=== PATIENT | female | born 1965 | race Caucasian/White ===

== ENCOUNTER 2017-03-20 11:18 | Emergency (ER) | payer BC ==
[2017-03-20 11:28] VITALS: BP 180/97
[2017-03-20] MEDS ORDERED: Ibuprofen TAB* 600 MG PO ONE (12:51)
--- NOTE | 2017-03-20 12:52 | UC ---
Knee Pain HPI - HPI Summary HPI Summary: UNK LOR, 2 days of severe right medial knee pain, mild swelling, knee feels like it wants to give out. - History of Current Complaint Chief Complaint: UCLowerExtremity Stated Complaint: KNEE PAIN Time Seen by Provider: 03/20/17 12:41 Hx Obtained From: Patient Hx Last Menstrual Period: Hyst ' ?: No Onset/Duration: Sudden Onset, Lasting Days Severity Initially: Moderate Severity Currently: Severe Character: Sharp, Aching Aggravating Factor(s): Movement, Weight Bearing, Prolonged Standing, Stairs Alleviating Factor(s): Nothing Associated Signs And Symptoms: Positive: Swelling Able to Bear Weight: Yes - Risk Factors Septic Arthritis Risk Factor: Negative Gout Risk Factor: Negative - Allergies/Home Medications Allergies/Adverse Reactions: Allergies Allergy/AdvReac Type Severity Reaction Status Date / Time Sulfa Drugs Allergy Hives Verified 07/12/16 15:32 PMH/Surg Hx/FS Hx/Imm Hx Previously Healthy: Yes Other History Of: Negative For: HIV, Hepatitis B, Hepatitis C, Anticoagulant Therapy - Surgical History Surgical History: Yes Surgery Procedure, Year, and Place: stent placement for kidney stones 2002 AND REMOVED 3 WEEKS LATER, HYSTERECTOMY; R shoulder surgeries X2; R foot x 2; 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 2012 [facility] - Family History Known Family History: Positive: None, Hypertension - Social History Alcohol Use: Rare Substance Use Type: None Smoking Status (MU): Former Smoker Have You Smoked in the Last Year: No When Did the Patient Quit Smoking/Using Tobacco: jun 2011 Household Exposure Type: Cigarettes - Immunization History Most Recent Influenza Vaccination: 2013 Most Recent Tetanus Shot: <5 YEARS Review of Systems Constitutional: Negative Skin: Negative Eyes: Negative ENT: Negative Respiratory: Negative Cardiovascular: Negative Gastrointestinal: Negative Genitourinary: Negative Motor: Negative Neurovascular: Negative Musculoskeletal: Arthralgia, Decreased ROM, Edema, Myalgia Neurological: Negative Psychological: Negative All Other Systems Reviewed And Are Negative: Yes Physical Exam Triage Information Reviewed: Yes Appearance: Well-Appearing, No Pain Distress, Pain Distress Vital Signs: Initial Vital Signs Temp 97.6 F 03/20/17 11:24 Pulse 100 03/20/17 11:24 Resp 20 03/20/17 11:24 BP 180/97 03/20/17 11:24 Pulse Ox 100 03/20/17 11:24 Vital Signs Reviewed: Yes Eye Exam: Normal Eyes: Positive: Conjunctiva Clear ENT: Positive: Hearing grossly normal, Pharynx normal, TMs normal Dental Exam: Normal Neck exam: Normal Respiratory Exam: Normal Cardiovascular Exam: Normal Abdominal Exam: Normal Bowel Sounds: Positive: Present Musculoskeletal: Positive: Strength Limited @ - in right knee, ROM Limited @ - in right knee due to pain, Edema @ - mild in the joint Neurological Exam: Normal Neurological: Positive: Alert, Muscle Tone Normal Psychological Exam: Normal Skin Exam: Normal Knee Pain Course/Dx - Course Course Of Treatment: hx obtained, exam performed, meds reviewed, xray obtianed, ibuprofen given, no bony injury noted. treated for knee sparin - Differential Dx/Diagnosis Differential Diagnosis/HQI/PQRI: Dislocation, Fracture (Closed), Sprain, Strain Provider Diagnoses: righe MCL knee injury Discharge - Discharge Plan Condition: Stable Disposition: HOME Patient Education Materials: Knee Sprain (ED) Referrals: Pawan Lynn MD [Medical Doctor] - Maricarmen Cruz MD [Primary Care Provider] - Additional Instructions: 1. Use the knee immobilizer and rest the leg for the next week 2. I recommend follow up with orthopedics if you are not improving in the next week. 3. Use the crutches to off load your body weight from the leg. 4. elevate with a pillow under the knee at rest.
--- NOTE | 2017-03-20 13:35 | RAD ---
HISTORY: Right knee pain and instability COMPARISONS: None VIEWS: 4, Frontal, lateral, axial, and oblique views of the right knee FINDINGS: BONE DENSITY: Normal. BONES: There is no displaced fracture. JOINTS: There is no arthropathy. There is no suprapatellar joint effusion or lipohemarthrosis. ALIGNMENT: There is no dislocation. SOFT TISSUES: Unremarkable. OTHER FINDINGS: None. IMPRESSION: NO ACUTE OSSEOUS INJURY. IF SYMPTOMS PERSIST, RECOMMEND REPEAT IMAGING.
== END 2017-03-20 13:48 | disposition home or self-care (01) ==
LOC: UCEAST 11:18
DX: Z87.891 Personal history of nicotine dependence (principal); S89.81XA Other specified injuries of right lower leg, initial encounter
CPT/HCPCS: 99213; A9270-GY; G0463

== ENCOUNTER 2017-05-16 10:06 | Emergency (ER) | payer BC ==
[2017-05-16 10:18] VITALS: BP 162/88
--- NOTE | 2017-05-16 10:45 | UC ---
Headache HPI - HPI Summary HPI Summary: This is a 52 yo female with h/o migraine HAs and hypothyroidism who presents with c/o MONTANA. Her MONTANA started ~5d ago with her typical migraine symptoms of R sided pain, nausea and R eye watering. She used her home Imitrex and Aleve with little relief until yesterday morning. She states that she vomited and started feeling better the rest of the day. Her MONTANA then returned overnight but changed in quality including bilateral ear pain, mild dizziness, muffled hearing and nasal congestion. No cough, ST, CP or SOB. No fevers. She states her migraines have been successfully treated in the past with a nerve block and she has a call in to her neurologists office for another. - History Of Current Complaint Chief Complaint: UCHeadache Stated Complaint: HEADACHE Hx Last Menstrual Period: - Allergies/Home Medications Allergies/Adverse Reactions: Allergies Allergy/AdvReac Type Severity Reaction Status Date / Time Sulfa Drugs Allergy Hives Verified 05/16/17 10:18 PMH/Surg Hx/FS Hx/Imm Hx Previously Healthy: No Endocrine History: Thyroid Disease Neurological History: Migraine Other History Of: Negative For: HIV, Hepatitis B, Hepatitis C, Anticoagulant Therapy - Surgical History Surgical History: Yes Surgery Procedure, Year, and Place: stent placement for kidney stones 2002 AND REMOVED 3 WEEKS LATER, HYSTERECTOMY; R shoulder surgeries X2; R foot x 2; 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 2012 [facility] - Family History Known Family History: Positive: Hypertension - Social History Alcohol Use: Rare Substance Use Type: None Smoking Status (MU): Former Smoker Have You Smoked in the Last Year: No When Did the Patient Quit Smoking/Using Tobacco: jun 2011 Household Exposure Type: Cigarettes - Immunization History Most Recent Influenza Vaccination: 2013 Most Recent Tetanus Shot: <5 YEARS Review of Systems Constitutional: Negative Skin: Negative Eyes: Negative ENT: Ear Ache, Sinus Congestion Respiratory: Negative Cardiovascular: Negative Gastrointestinal: Nausea Genitourinary: Negative Motor: Negative Neurovascular: Negative Musculoskeletal: Negative Neurological: Negative Psychological: Negative All Other Systems Reviewed And Are Negative: Yes Physical Exam Triage Information Reviewed: Yes Appearance: Well-Appearing Vital Signs: Initial Vital Signs Temp 98.1 F 05/16/17 10:14 Resp 18 05/16/17 10:14 BP 162/88 05/16/17 10:14 Pulse Ox 98 05/16/17 10:14 Vital Signs Reviewed: Yes Eye Exam: Normal Eyes: Positive: Conjunctiva Clear ENT: Positive: Hearing grossly normal, Pharynx normal, Nasal congestion, TM dull - mild retraction. Negative: Pharyngeal erythema, Nasal drainage, Tonsillar swelling, Tonsillar exudate Neck: Positive: Supple, Nontender, No Lymphadenopathy Respiratory: Positive: Lungs clear, Normal breath sounds. Negative: Crackles, Rhonchi, Wheezing Cardiovascular: Positive: RRR, No Murmur Abdomen Description: Positive: Nontender, No Organomegaly, Soft Musculoskeletal Exam: Normal Musculoskeletal: Positive: Strength Intact Neurological Exam: Normal Neurological: Positive: Alert Psychological Exam: Normal Skin Exam: Normal Skin: Negative: rashes Headache Course/Dx - Course Course Of Treatment: This is a 52 yo female with h/o migraine HAs who presents with c/o MONTANA. Her typical migraine sxs have resolved and she now has complaints of ear pain and congestion. Recommend treatment for serous otitis with nasal decongestants and f/u with her neurologist for repeat nerve block - Differential Dx/Diagnosis Differential Diagnosis/HQI/PQRI: Migraine, Sinus Headache, Tension Headache Provider Diagnoses: 1. Sinus MONTANA. 2. Serous otitis media. 3. Migraine MONTANA Discharge - Discharge Plan Condition: Stable Disposition: HOME Patient Education Materials: Serous Otitis Media (ED) Forms: *Work Release Referrals: Maricarmen Cruz MD [Primary Care Provider] - Additional Instructions: Instructions: 1. Cont to use Aleve as needed for pain 2. Follow up with your neurologist regarding the planned nerve block 3. Take your Flonase nasal spray (1 spray in each nostril twice daily) 4. Start Afrin nasal spray, follow direction on the bottle for up to 3d. Do not use for longer than 3d to avoid rebound congestion
== END 2017-05-16 10:37 | disposition home or self-care (01) ==
LOC: UCEAST 10:06
DX: H65.93 Unspecified nonsuppurative otitis media, bilateral (principal); G43.909 Migraine, unspecified, not intractable, without status migrainosus; E07.9 Disorder of thyroid, unspecified; Z88.2 Allergy status to sulfonamides; Z87.891 Personal history of nicotine dependence
CPT/HCPCS: 99211; G0463

== ENCOUNTER 2017-08-13 12:05 | Emergency (ER) | payer BC ==
[2017-08-13 12:25] VITALS: BP 140/76
--- NOTE | 2017-08-13 13:25 | UC ---
Complaint Female HPI - HPI Summary HPI Summary: 52 y/o female presents to urgent care c/o lower back pain, frequency and burning on urination since this morning at 0200. Pain was 8/10 this morning with one episode of vomiting . She took and Aleve for pain which helped. Pain is now 4/10 sharp and radiating to the groin. Pt has Hx of recurrent kidney stones. Pt denies fever, abdominal pain, SOB, chest pain, N/V/D, vaginal discharge or HX of STD's. Pt had Hysterectomy on 1994 - History Of Current Complaint Chief Complaint: UCAbdominalPain Stated Complaint: ABDOMINAL PAIN Time Seen by Provider: 08/13/17 13:06 Hx Obtained From: Patient Hx Last Menstrual Period: ?: No Onset/Duration: Sudden Onset, Lasting Hours - 10 hrs, Still Present Timing: Intermittent, Lasting Seconds Severity Initially: Moderate Severity Currently: Moderate Pain Intensity: 4 Pain Scale Used: 0-10 Numeric Character: Burning, Colicy Aggravating Factor(s): Urination Alleviating Factor(s): Meds Associated Signs And Symptoms: Positive: Back Pain. Negative: Fever, Vaginal Bleeding/Discharge - Risk Factors Ectopic Risk Factor: Negative Ovarian Torsion Risk Factor: Negative - Allergies/Home Medications Allergies/Adverse Reactions: Allergies Allergy/AdvReac Type Severity Reaction Status Date / Time Sulfa Drugs Allergy Hives Verified 08/13/17 12:25 Home Medications: Home Medications Albuterol HFA INHALER* [Ventolin HFA Inhaler*] 2 puff PO SEE INSTRUCTIONS PRN [History Confirmed 08/13/17] PMH/Surg Hx/FS Hx/Imm Hx Previously Healthy: Yes Endocrine History: Hypothyroidism GI/ History: Kidney Stones Neurological History: Migraine Other History Of: Negative For: HIV, Hepatitis B, Hepatitis C, Anticoagulant Therapy - Surgical History Surgical History: Yes Surgery Procedure, Year, and Place: stent placement for kidney stones 2002 AND REMOVED 3 WEEKS LATER, HYSTERECTOMY; R shoulder surgeries X2; R foot x 2; 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 2012 [facility] - Family History Known Family History: Positive: Hypertension - Social History Occupation: Employed Full-time Lives: With Family Alcohol Use: Rare Substance Use Type: None Smoking Status (MU): Former Smoker Have You Smoked in the Last Year: No When Did the Patient Quit Smoking/Using Tobacco: jun 2011 Household Exposure Type: Cigarettes - Immunization History Most Recent Influenza Vaccination: 2013 Most Recent Tetanus Shot: <5 YEARS Review of Systems Constitutional: Negative Skin: Negative Eyes: Negative ENT: Negative, Dental Pain Cardiovascular: Negative Gastrointestinal: Vomiting - 1 episode this morning, Other - suprapubic pain Genitourinary: Dysuria, Frequency, Urgency Motor: Negative Neurovascular: Negative Musculoskeletal: Negative Neurological: Negative Psychological: Negative Is Patient Immunocompromised?: No All Other Systems Reviewed And Are Negative: Yes Physical Exam Triage Information Reviewed: Yes Vital Signs: Initial Vital Signs Temp 98.4 F 08/13/17 12:20 Pulse 62 08/13/17 12:20 Resp 16 08/13/17 12:20 BP 140/76 08/13/17 12:20 Pulse Ox 98 08/13/17 12:20 - Additional Comments VITAL SIGNS: Reviewed. GENERAL: Patient is a well developed and nourished female who is sitting comfortable in the examining table. Patient is not in any acute respiratory distress. HEAD AND FACE: No signs of trauma. No ecchymosis, hematomas or skull depressions. No sinus tenderness. EYES: PERRLA, EOMI x 2, No injected conjunctiva, clear watery eyes, no nystagmus. No photophobia. EARS: Hearing grossly intact. Ear canals and tympanic membranes are within normal limits. MOUTH: pharynx with no erythema, no exudates,no palatal petechiae. no B/L tonsillar enlargement Uvula in midline. NECK: Supple, trachea is midline, no lymphadenopathy, no JVD, no carotid bruit, no c-spine tenderness, neck with full ROM. CHEST: Symmetric, no tenderness at palpation LUNGS: Clear to auscultation bilaterally. No wheezing or crackles. CVS: Regular rate and rhythm, S1 and S2 present, no murmurs or gallops appreciated. ABDOMEN: Soft, non-tender. No signs of distention. No rebound no guarding, and no masses palpated. Bowel sounds are normal. BACK:no scoliosis or lesions, non tender to palpation, RT CVA tenderness. No LF CVA tenderness EXTREMITIES: FROM in all major joints, no edema, no cyanosis or clubbing. NEURO: Alert and oriented x 3. No acute neurological deficits. Speech is normal and follows commands. SKIN: Dry and warm Complaint Female Dx - Course Course Of Treatment: 52 y/o female presents to urgent care c/o lower back pain, frequency and burning on urination since this morning at 0200. Pain was 8/10 this morning with one episode of vomiting . She took and Aleve for pain which helped. Pain is now 4/10 sharp and radiating to the groin. Pt has Hx of recurrent kidney stones. Pt denies fever, abdominal pain, SOB, chest pain, N/V/D ,vaginal discharge or HX of STD's. Pt had Hysterectomy on 1994. Hx obtained. Pt with RT CVA tenderness on examination. UA ordered. UA results: trace of blood. Pt with Hx of recurrent kidney stones. At this moment there is not CT available to r/o kidney stones. Pt strongly advised to go Immediately to the ER for further images and evaluation to r/o kidney stones and the risks of not seeking further treatment. Pt offered ambulance. Pt is hemodynamically stable at this moment. She stated she will go by private car. I spoke to Dr Marie at [facility] and he accepted the patient. Pt left the clinic A&OX3. - Differential Dx/Diagnosis Differential Diagnosis/HQI/PQRI: Cervicitis, Pelvic Inflammatory Disease, Renal Colic, Sexually Transmitted Disease, Ureteral Stone, Urinary Tract Infection Provider Diagnoses: 1- Flank pain. 2-Dysuria. 3- Hematuria - Physician Notifications Discussed Patient Care With: Roland Anne - DR anne agreed with plan of care Discharge - Discharge Plan Condition: Stable Disposition: OTHER Discharge Disposition Comment: Pt strongly recommeded to go immediately to [facility] to r/o kidney stones. Patient Education Materials: Kidney Stones (ED) Referrals: Maricarmen Crzu MD [Primary Care Provider] - Additional Instructions: 1-Please go immediately to the ER further images , evaluation and treatment to r /o kidney stones
== END 2017-08-13 13:20 ==
LOC: UCEAST 12:05
DX: R10.9 Unspecified abdominal pain (principal); R30.0 Dysuria; R31.9 Hematuria, unspecified; Z87.442 Personal history of urinary calculi; Z87.891 Personal history of nicotine dependence
CPT/HCPCS: 81003; 99212; G0463

== ENCOUNTER 2017-08-13 13:42 | Emergency (ER) | payer BC ==
[2017-08-13] MEDS ORDERED: Ondansetron INJ* 2 MG/ML VIAL IV ONE (14:01)
[2017-08-13] MEDS ORDERED: Ketorolac INJ* 30 MG/ML 1 ML VIAL IV PUSH ONE (14:01)
--- NOTE | 2017-08-13 14:23 | ED ---
GI/ HPI - HPI Summary HPI Summary: 52F presents with right flank pain since this morning. She states she has history of kidney stones and that this is similar pain. She states radiates from right flank to groin. She was seen at urgent care and has blood in urine. She admits to nausea. She denies any vomiting, diarrhea or constipation. She has had uterus removed. She denies any chest pain or SOB. She denies any dysuria, urgency, or frequency. She denies any fevers. She took some advil this morning which helped. She was followed by dr silveira. - History of Current Complaint Chief Complaint: EDFlankPain Time Seen by Provider: 08/13/17 13:51 Stated Complaint: LOW BACK PAIN/BLOOD IN URINE Hx Last Menstrual Period: Pain Intensity: 7 - Allergy/Home Medications Allergies/Adverse Reactions: Allergies Allergy/AdvReac Type Severity Reaction Status Date / Time Sulfa Drugs Allergy Hives Verified 08/13/17 12:25 PMH/Surg Hx/FS Hx/Imm Hx Endocrine/Hematology History: Reports: Hx Thyroid Disease Denies: Hx Anticoagulant Therapy, Hx Diabetes Cardiovascular History: Denies: Hx Congestive Heart Failure, Hx Deep Vein Thrombosis, Hx Hypertension , Hx Myocardial Infarction, Hx Pacemaker/ICD Respiratory History: Reports: Hx Asthma Denies: Hx Chronic Obstructive Pulmonary Disease (COPD), Hx Lung Cancer, Hx Pneumonia, Hx Pulmonary Embolism GI History: Denies: Hx Gall Bladder Disease, Hx Gastrointestinal Bleed, Hx Ulcer, Hx Urosepsis, Other GI Disorders History: Reports: Hx Kidney Stones Denies: Hx Dialysis, Hx Renal Disease Sensory History: Denies: Hx Hearing Aid Neurological History: Reports: Hx Migraine - states she has cluster headaches Denies: Hx Dementia, Hx Seizures, Hx Transient Ischemic Attacks (TIA) Psychiatric History: Denies: Hx Anxiety, Hx Depression, Hx Panic Disorder, Hx Schizophrenia, Hx Bipolar Disorder - Cancer History Hx Chemotherapy: No Hx Radiation Therapy: No - Surgical History Surgery Procedure, Year, and Place: stent placement for kidney stones 2002 AND REMOVED 3 WEEKS LATER, HYSTERECTOMY; R shoulder surgeries X2; R foot x 2; 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 2013 [address] [facility] Infectious Disease History: No Infectious Disease History: Denies: Hx Clostridium Difficile, Hx Hepatitis, Hx Human Immunodeficiency Virus (HIV), Hx of Known/Suspected MRSA, Hx Shingles, Hx Tuberculosis, Hx Known/ Suspected VRE, Hx Known/Suspected VRSA, History Other Infectious Disease, Traveled Outside the [place] in Last 30 Days - Family History Known Family History: Positive: Hypertension - Social History Alcohol Use: Rare Substance Use Type: Reports: None Smoking Status (MU): Former Smoker Have You Smoked in the Last Year: No Review of Systems Negative: Fever Negative: Chest Pain Negative: Shortness Of Breath Positive: Abdominal Pain - right sided, Nausea. Negative: Vomiting, Diarrhea Positive: flank pain All Other Systems Reviewed And Are Negative: Yes Physical Exam Triage Information Reviewed: Yes Vital Signs On Initial Exam: Initial Vitals Temp Pulse Resp BP Pulse Ox 97.1 F 60 15 146/97 98 08/13/17 13:45 08/13/17 13:45 08/13/17 13:45 08/13/17 13:45 08/13/17 13:45 Vital Signs Reviewed: Yes Appearance: Positive: Well-Appearing Skin: Positive: Warm, Dry Head/Face: Positive: Normal Head/Face Inspection Eyes: Positive: Normal, EOMI, MADAI, Conjunctiva Clear ENT: Positive: Normal ENT inspection, Pharynx normal, TMs normal Respiratory/Lung Sounds: Positive: Clear to Auscultation, Breath Sounds Present Cardiovascular: Positive: Normal, RRR Abdomen Description: Positive: Nontender, Soft, CVA Tenderness (R) Bowel Sounds: Positive: Present Musculoskeletal: Positive: Normal Neurological: Positive: Normal Psychiatric: Positive: Normal - Paty Coma Scale Coma Scale Total: 15 Diagnostics - Vital Signs Vital Signs Temp Pulse Resp BP Pulse Ox 08/13/17 13:45 97.1 F 60 15 146/97 98 - Laboratory Result Diagrams: 08/13/17 14:06 08/13/17 14:06 Lab Statement: Any lab studies that have been ordered have been reviewed, and results considered in the medical decision making process. - CT abd CT Interpretation: No Acute Changes - 1. There are no definite renal calculi or signs of hydronephrosis. 2. Evaluation of the gallbladder is Limited due to contractility. The patient is exhibiting any symptoms focal to the gallbladder further characterization can be made with ultrasound. 3. Additional chronic, degenerative and iatrogenic findings described in the body of the report. CT Interpretation Completed By: Radiologist SONY Course/Dx - Course Course Of Treatment: 52F presents with right flank pain since this morning. She states she has history of kidney stones and that this is similar pain. She states radiates from right flank to groin. She was seen at urgent care and has blood in urine. She admits to nausea. She denies any vomiting, diarrhea or constipation. She has had uterus removed. She denies any chest pain or SOB. She denies any dysuria, urgency, or frequency. She denies any fevers. She took some advil this morning which helped. She was followed by dr silveira. on exam pos CVA tenderness right. nontender RUQ. labs normal, wbc, crp and urine. CT normal was not able to evaulate gallbladder well but no pain there. patient states had severe back pain at and after going to bathroom here pain is mild so could have passed stone as saw hematuria at [facility]. patient understand and agrees with plan. - Diagnoses Differential Diagnoses - Female: Pyelonephritis, Urinary Tract Infection, Ureteral Calculi Provider Diagnoses: Right flank pain Discharge - Discharge Plan Condition: Good Disposition: HOME Patient Education Materials: Flank Pain (ED) Referrals: Maricarmen Cruz MD [Primary Care Provider] - Additional Instructions: Take Tylenol or ibuprofen every 6 hours as needed for pain Apply ice or heat Follow up with primary care physician within 5 days Return to ED if develop any new or worsening symptoms
[2017-08-13] MEDS: NS 0.9% 1000 ML* 2,000 ML IV ONE (14:25)
[2017-08-13 14:32] LABS: Urine Bilirubin Negative (Negative); Urine Glucose Negative (Negative); Urine Nitrite Negative (Negative)
[2017-08-13 14:36] LABS: Hematocrit 38 % (35-47); Hemoglobin 12.9 g/dl (12.0-16.0); Mean Corpuscular HGB Conc 34 g/dl (31-36); Mean Corpuscular Hemoglobin 29 pg (27-31); Mean Corpuscular Volume 85 fL (80-97); Mean Platelet Volume 6 um3 (7.4-10.4); Red Blood Count 4.47 10^6/ul (4.0-5.4); Red Cell Distribution Width 15 % (10.5-15); White Blood Count 6.8 10^3/ul (3.5-10.8)
[2017-08-13 14:45] LABS: Albumin 4.5 g/dL (3.2-5.2); BUN/Creatinine Ratio 21.7 (8-20); Calcium 9.4 mg/dL (8.6-10.3); EGFR African American 93.2 (>60); EGFR Non-African American 72.5 (>60); Globulin 3.1 g/dL (2-4); Potassium 3.6 mmol/L (3.5-5.0); Total Bilirubin 0.3 mg/dL (0.2-1.0); Total Protein 7.6 g/dL (6.4-8.9)
--- NOTE | 2017-08-13 15:09 | RAD ---
CLINICAL HISTORY: Right flank pain and hematuria. Relevant surgical history includes right ureteral stent placement for kidney stones in 2003 as well as history of hysterectomy. COMPARISON: CT abdomen pelvis dated July 25, 2012 TECHNIQUE: Noncontrast CT examination of the abdomen and pelvis from the lung bases through the initial tuberosities. FINDINGS: VISUALIZED LUNG BASES: The visualized lung bases are grossly clear. There is no pleural effusion. ABDOMEN AND PELVIS: Evaluation of the solid organs and vasculature is limited without intravenous contrast. The liver, spleen, pancreas and adrenal glands are grossly normal in appearance. The gallbladder is mostly decompressed giving the appearance of gallbladder wall thickening. A nodular soft tissue density at the distal margin of the gallbladder may represent a "phrygian cap". There is no definite acute inflammatory change surrounding the gallbladder. The kidneys are normal in appearance without focal mass, calcification or signs of hydronephrosis. 2. Calcification in the right hemipelvis measuring 3 mm in diameter as a morphology most consistent with a phlebolith and corresponds to a 2 mm calcification seen on the 2012 CT examination. Evaluation of the bowel is limited without oral contrast. The small and large bowel are not distended. The appendix is not discretely visualized, but there are no acute inflammatory changes in the right lower quadrant characteristic of acute appendicitis. There is no gross retroperitoneal or mesenteric lymphadenopathy. The pelvic viscera is normal in appearance. The abdominal aorta and iliac arteries are normal in course and diameter. Degenerative changes include multilevel loss of intervertebral disc height involving the lower thoracic and lumbar spine.There are no sinister bone lesions. IMPRESSION: 1. There are no definite renal calculi or signs of hydronephrosis. 2. Evaluation of the gallbladder is Limited due to contractility. The patient is exhibiting any symptoms focal to the gallbladder further characterization can be made with ultrasound. 3. Additional chronic, degenerative and iatrogenic findings described in the body of the report.
[2017-08-13 15:50] VITALS: BP 138/70
== END 2017-08-13 15:50 | disposition home or self-care (01) ==
LOC: ED 13:42
DX: R10.84 Generalized abdominal pain (principal); Z87.891 Personal history of nicotine dependence
CPT/HCPCS: 36415; 74176; 80053; 81003; 83690; 85025; 86141; 96374; 96375; 99282; J1885; J2405

== ENCOUNTER 2017-12-09 16:03 | Emergency (ER) | payer BC ==
--- OUTSIDE RECORDS SUMMARY | 2017-12-09 16:10 | XMS REPORT ---
:1965 External Reference #:[id number] Author Organization [facility] Address [address] [place] [address] Phone [phone] Care Team Providers Name Role Phone Dayana Rodriguez M.D. Primary Care Physician Unavailable Payers Type Date Identification Numbers Payment Provider Subscriber Commercial Policy Number: [id number] [employer] Christian Monsivais PayID: [id number] [address] [place] [address] Problems Date Description Provider Status Onset: 03/28/2015 Hypothyroidism Cindy Cortes O.D. Active Onset: 03/28/2015 Anxiety Cindy Cortes O.D. Active Onset: 03/28/2015 Migraine Cindy Cortes O.D. Active Onset: 11/19/2016 Corneal opacity Cindy Cortes O.D. Active Onset: 11/19/2016 Migraine with aura Cindy Cortes O.D. 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 Levothyroxine /00/ Active Tablets 112mcg Unknown Sodium 0000 Flovent HFA 0000/ Active Aerosol 110mcg/Ac as needed Strominge 0000 t Jose Alberto bravo M.D. Prednisolone 06/27/ Hx Suspension 1% 15ml 1 drop H16.012 Cindy Navarro Acetate 2014 - left eye [place], 07/20/ 5Xday O.D. 2014 Erythromycin 06/26/ Hx Ointment 5mg/GM 1Tube apply H16.012 Cindy Navarro 2014 - thin [place], 07/20/ strip to O.D. 2014 left lower lid at bedtime Vigamox 06/25/ Hx Solution 0.5% 3ml one drop Cindy Navarro 2014 - right eye [place], 07/20/ three O.D. 2015 times a day Visine 03/27/ Hx Solution 0.05% as needed Cindy Navarro 2014 - [place], 07/20/ O.D. 2014 Levocetirizine 00/00/ Hx Tablets 5mg take 1 Unknown Dihydrochloride 0000 - tablet 11/18/ once 2017 daily Bupropion HCL ER 00/00/ Hx Tablets ER 150mg Unknown (XL) 0000 - 24HR 2016 Oxybutynin 00/00/ Hx Tablets ER 10mg Unknown Chloride ER 0000 - 24HR 2016 Amitriptyline HCL 00/00/ Hx Tablets 10mg Take 1 To Unknown 0000 - 2 Tabs At 11/18/ Bedtime 2017 as Directed Sumatriptan 00/00/ Hx Tablets 100mg Take 1/2 Unknown Succinate 0000 - To 1 Tab 11/18/ as Needed 2017 Proair HFA 00/00/ Hx Aerosol 108(90Bas Strominge 0000 - e) Jose Alberto bravo 11/18/ mcg/Act Ayad.Navdeep 2016 Verapamil HCL 00/00/ Hx Tablets 40mg take 1 Unknown 0000 - tablet 11/18/ once 2017 daily Results Description No Information Procedures Date CPT Code Description Status 11/19/2016 72917 Determination Of Refractive State Completed 11/19/2016 71574 Est Patient Comprehensive Exam Completed 06/26/2015 35134 Est Patient Intermediate Exam Completed 03/28/2015 35865 Determination Of Refractive State Completed 03/28/2015 93259 New Patient Comprehensive Exam Completed Encounters Type Date Location Provider CPT E/M Dx Office Visit 07/07/2015 Jose Alberto Payne MD, Cindy Cortes, [address] H16.012 9:20a pc O.D. Office Visit 06/27/2015 Jose Alberto Payne MD, [place], [address]55 H16.012 3:40p pc O.D. Plan of Care 12/01/2017 - Cindy Cortes O.D.H17.89 Other corneal scars and opacitiesFollow up:1 Year Follow UpG43.101 Migraine with aura, not intractable, with status migrainosus
--- OUTSIDE RECORDS SUMMARY | 2017-12-09 16:10 | XMS REPORT ---
:1965 External Reference #:[id number] Author Organization [facility] Address [address] [place] [address] Phone [phone] Care Team Providers Name Role Phone Dayana Rodriguez M.D. Primary Care Physician Unavailable Payers Type Date Identification Numbers Payment Provider Subscriber Commercial Policy Number: [id number] [place] Plan Christian Monsivais PayID: [id number] [address] [place] [address] Problems Date Description Provider Status Onset: 03/28/2015 [...] Procedures Date CPT Code Description Status 11/19/2016 80904 Determination Of Refractive State Completed 11/19/2016 31783 Est Patient Comprehensive Exam Completed 06/26/2015 42752 Est Patient Intermediate Exam Completed 03/28/2015 65765 Determination Of Refractive State Completed 03/28/2015 68386 New Patient Comprehensive Exam Completed Encounters Type Date Location Provider CPT E/M Dx Office Visit 07/07/2015 Jose Alberto Payne MD, [place], [address]183 H16.012 9:20a pc O.D. Office Visit 06/27/2015 Jose Alberto Payne MD, [place], [address] H16.012 3:40p pc O.D. Plan of Care No Information Available
--- NOTE | 2017-12-09 16:14 | UC ---
Headache HPI - HPI Summary HPI Summary: Patient c/o vertigo for the past 2 months, with associated nausea and once, vomiting. States she has not been able to obtain an appointment with ENT until January and was told by PCP it was her inner ear. She states the episodes appear when she lays down in bed, or bending over, last for seconds, and are self limited. In one occasion it lasted for about an hour and that was when she vomited. She denies URI infection prior to this. - History Of Current Complaint Stated Complaint: HEADACHE Time Seen by Provider: 12/09/17 16:06 Hx Obtained From: Patient Hx Last Menstrual Period: ?: No Onset/Duration: Sudden Onset, Lasting Minutes Onset Of Symptoms: Sudden Pain Intensity: 0 Timing: Seconds Aggravating Factor(s): Position Change Allevating Factor(s): Position Change Associated Signs And Symptoms: Positive: Nausea, Vomiting - Risk Factors SAH Risk Factors: Negative Meningitis Risk Factors: Negative SDH Risk Factors: Negative Temporal Arteritis Risk Factors: Negative - Allergies/Home Medications Allergies/Adverse Reactions: Allergies Allergy/AdvReac Type Severity Reaction Status Date / Time Sulfa (Sulfonamide Allergy Hives Verified 12/09/17 16:20 Antibiotics) PMH/Surg Hx/FS Hx/Imm Hx Previously Healthy: Yes Endocrine History: Hypothyroidism Respiratory History: Asthma Neurological History: Migraine Other History Of: Negative For: HIV, Hepatitis B, Hepatitis C, Anticoagulant Therapy - Surgical History Surgical History: Yes Surgery Procedure, Year, and Place: stent placement for kidney stones 2002 AND REMOVED 3 WEEKS LATER, HYSTERECTOMY; R shoulder surgeries X2; R foot x 2; 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 2012 [facility] - Family History Known Family History: Positive: Hypertension - Social History Alcohol Use: Rare Substance Use Type: None Smoking Status (MU): Former Smoker Have You Smoked in the Last Year: No When Did the Patient Quit Smoking/Using Tobacco: jun 2011 Household Exposure Type: Cigarettes - Immunization History Most Recent Influenza Vaccination: 2013 Most Recent Tetanus Shot: <5 YEARS Review of Systems Gastrointestinal: Vomiting, Nausea Neurological: Other - vertigo All Other Systems Reviewed And Are Negative: Yes Physical Exam Triage Information Reviewed: Yes Appearance: Well-Appearing, No Pain Distress, Well-Nourished Vital Signs Reviewed: Yes Eyes: Positive: Conjunctiva Clear ENT: Positive: Hearing grossly normal, Pharynx normal, TMs normal, Uvula midline , Other - [place] Hallpike maneuver positive right Neck: Positive: Supple, Nontender, No Lymphadenopathy Respiratory: Positive: Chest non-tender, Lungs clear, Normal breath sounds, No respiratory distress Cardiovascular: Positive: RRR, No Murmur, Pulses Normal, Brisk Capillary Refill Abdomen Description: Positive: Nontender, No Organomegaly, Soft Bowel Sounds: Positive: Present Musculoskeletal: Positive: Strength Intact, ROM Intact, No Edema Neurological: Positive: Alert, Muscle Tone Normal, Other: - sensory intact, gait intact, CN II - XII grossly intact, DTR symmetric and present Skin Exam: Normal Headache Course/Dx - Course Course Of Treatment: [place] Hallpike maneuver was positive on right side. Instructed patient how to perform Kelsey's maneuver and literature was provided. F/u with PCP and ENT in January. - Differential Dx/Diagnosis Provider Diagnoses: Benign paroxysmal positional vertigo Discharge - Sign-Out/Discharge Documenting (check all that apply): Discharge - Discharge Plan Condition: Stable Disposition: HOME Patient Education Materials: Benign Paroxysmal Positional Vertigo (ED) Referrals: Maricarmen Cruz MD [Primary Care Provider] - - Billing Disposition and Condition Condition: STABLE Disposition: HOME
[2017-12-09 16:54] VITALS: BP 150/94
== END 2017-12-09 17:00 | disposition home or self-care (01) ==
LOC: UCEAST 16:03
DX: H81.10 Benign paroxysmal vertigo, unspecified ear (principal); R11.2 Nausea with vomiting, unspecified; E03.9 Hypothyroidism, unspecified; J45.909 Unspecified asthma, uncomplicated; G43.909 Migraine, unspecified, not intractable, without status migrainosus; Z88.2 Allergy status to sulfonamides; Z87.891 Personal history of nicotine dependence
CPT/HCPCS: 99211; G0463

== ENCOUNTER 2018-05-28 10:19 | Emergency (ER) | payer BC ==
--- OUTSIDE RECORDS SUMMARY | 2018-05-28 10:25 | XMS REPORT ---
:1965 External Reference #:[id number] Author Organization [employer] Address [address] [facility] [address] [address] [place] [address] Phone [phone] Care Team Providers Name Role Phone Maricarmen Cruz MD Primary Care Physician Unavailable Payers Type Date Identification Numbers Payment Provider Subscriber Commercial Effective: Policy Number: [id number] [facility] Christian Barclay 2011 PayID: [id number] [address] [place] [address] Workers Effective: Policy Number: State Insurance Christian L Compensation 2016 [id number] Chai Barclay Onset: 2016 Group Number: fax [phone] [address] [address] PayID: [place] [address] Workers Effective: Policy Number: State Insurance Christian L Compensation 2014 [id number] Chai Barclay Onset: 2014 Group Number: [id number] [address] [address] PayID: [place] [address] Workers Onset: 2015 Policy Number: State Insurance Christian L Compensation [id number] Chai Barclay Group Name: [phone] [address] [address] PayID: [place] [address] Problems Date Description Provider Status Onset: 07/29/2011 Depressive disorder Stacy Serna M.D. Active Onset: 07/29/2011 Ezequiel thyroiditis Stacy Serna M.D. Active Onset: 08/03/2011 Herpes zoster Stacy Serna M.D. Active Onset: 08/03/2011 Refractory migraine Stacy Serna M.D. Active Onset: 07/24/2012 Asthma without status asthmaticus Stacy Serna M.D. Active Onset: 09/25/2012 Cyst of ovary Stacy Serna M.D. Active Onset: 03/26/2013 Obesity Stacy Serna M.D. Active Onset: 03/25/2015 Migraine without aura Bhavya France M.D. Active Onset: 05/12/2015 Sprain of knee and leg Capo Jaeger M.D. 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 ETOH Use Denies alcohol use Smoking Patient is a former smoker quit 06/29/11 Exercise Type/Frequency Exercises regularly General Hx Text rare etoh occasional smoker (mostly quit 2009) no drugs employed has to work odd shifts (day/night) Allergies, Adverse Reactions, Alerts Date Description Reaction Status Severity Comments 07/29/2011 Sulfa swelling around her eyes active Mild to Moderate 07/29/2011 NKDA inactive Medications Medication Date Status Form Strength Qnty SIG Indications Ordering Provider Levothyroxine 04/06 Active Tablets 100mcg 30tab 1 by mouth Maricarmen Sodium s every day Dylon Cruz Flovent HFA 11/12 Active Aerosol 110mcg/Ac 1unit 2 puffs t s twice Cotton, daily M.DAna Laura Losartan 04/07 Hx Tablets 25mg 30tab 1 by mouth I10 Maricarmen Potassium /2017 s every day Cotton, - M.D. 05/03 Chlorthalidone 04/06 Hx Tablets 25mg 15tab 1/2 tab by I10 Maricarmen s mouth Cotton, - every day M.D. 04/07 Levothyroxine 02/20 Hx Tablets 88mcg 30tab 1 by mouth Maricarmen Sodium /2017 s every day Cotton, - M.D. 04/06 Amoxicillin/Clav 06/23 Hx Tablets 875-125mg 20tab take one J01.90 Geovanni ulanate /2016 s tablet q12 Cadence, [employer] Potassium - hours for 01/23 Ondansetron 06/23 Hx Tablets 4mg 30tab dissolve R11.0 Dispers s one tablet Cadence [employer] - orally 05/03 every hours as needed for nausea. Benzonatate 06/23 Hx Capsules 200mg 30cap one by J01.90 Geovanni s mouth FLORENTINO Vila - three 06/30 times daily as needed for cough Sumatriptan 05/19 Hx Tablets 100mg 12tab 1/2 to 1 Khanh S. Succinate s po prn Sid, - migraine M.D. 05/03 max 2/day, max 2 d/wk Belviq XR 04/11 Hx Tablets ER 20mg 30tab 1 PO qd E03.9 24HR Agustin Knight M.D. 01/25 Belviq 03/14 Hx Tablets 10mg 60tab 1 PO bid E03.9 Agustin Knight M.D. 04/11 Levothyroxine 03/02 Hx Tablets 50mcg 30tab 1 by mouth Geovanni Sodium s every day- FLORENTINO Vila - pt states 02/20 she taking 75 mcg as of 01/26/18 Amoxicillin/Clav 11/26 Hx Tablets 875-125mg 20tab 1 tablet J01.90 Maricarmen anate s twice Suzy Cruz - daily for M.D. 12/12 Levothyroxine 11/22 Hx Tablets 75mcg 30tab 1 by mouth Geovanni Sodium s every day FLORENTINO Vila - 03/02 Diazepam 10/12 Hx Tablets 2mg 30tab take 09/13 F41.9 Geovanni s tablet by FLORENTINO Vila - mouth as 12/12 needed for anxiety maximum daily dose=1 tablet Doxycycline 10/12 Hx Capsules 100mg 20cap one tablet J01.90 Geovanni Hyclate /2016 s twice FLORENTINO Vila - daily for 10/19 10 days. Ondansetron 09/16 Hx Tablets 4mg 30tab dissolve R11.2 Dispers s one tablet Cadence [employer] - orally 11/26 every hours as needed for nausea. Amoxicillin/Clav 09/16 Hx Tablets 875-125mg 20tab take one J06.9 Geovanni ulanate s tablet q12 FLOR[place]INO V[place] Potassium - hours for 09/27 10 days Fluticasone 09/16 Hx Suspension 50mcg/Act 16gm 2 J06.9 Geovanni Propionate intranasal Cadence, [employer] - puffs once 12/12 daily Meloxicam 02/15 Hx Tablets 15mg 60tab 1 by mouth M25.512 Dalia s every day Neri, - M.D. 10/12 Naproxen 01/27 Hx Tablets 500mg 60tab 1 tablet s by mouth Jagdish, - with food M.D. 12/16 twice daily. TENS Unit 01/18 Hx use tid M25.512 Dalia for yahaira He, - shoulder M.D. 12/12 Amitriptyline 03/25 Hx Tablets 10mg 270ta 2-3 G43.101 Bhavya BUSTILLO bs tablets by Edilma, - mouth at M.D. 11/26 bedtime directed Note: Refills change to #3, per Dr. France (not taking) Verapamil HCL 03/25 Hx Tablets 40mg 180ta 1-2 tab by G43.101 Bhavya Kline /2014 bs mouth Edilma, - every day M.D. 11/26 directed (not taking) Levofloxacin 02/04 Hx Tablets 500mg 7tabs 1 tablt by 478.9 mouth Rosa, - every day M.D. 02/19 Prednisone 02/04 Hx Tablets 5mg 15tab 1 by mouth 478.9 James s three Rosa, - times a M.D. Fluticasone 01/30 Hx Suspension 50mcg/Act 16gm 1 sprays 381.81 Geovanni Propionate each Cadence [employer] - nostril 10/02 bid for weeks. Medrol (Gopi) 11/25 Hx Tablets 4mg 21tab take 6 847.2 Geovanni /2014 s tabs day Cadence [employer] - 1, 5 tabs 03/21 day 2, tabs day 3, 3 tabs day 4, 2 tabs day 5, and 1 tab day 6. Methocarbamol 10/31 Hx Tablets 750mg 40tab 1 by mouth 847.2 Maricarmen /2015 s 4 times Cotton, - daily as M.D. 01/24 needed Ibuprofen 10/16 Hx Tablets 800mg 90tab 1 by mouth 847.2 Maricarmen /2015 s three Cotton, - times a M.D. 03/14 day needed Oxycodone HCL 10/16 Hx Tablets 5mg 30tab 1 by mouth 847.2 Maricarmen s every 6 h Cotton, - as needed M.D. 01/26 Omeprazole 10/[address] 20mg 30cap 1 by mouth 847.2 Maricarmen /2015 s every day Cotton, - if needed M.D. 03/24 to Bupropion HCL ER 06/18 Hx Tablets ER 150mg 90tab take 1 F32.9 (XL) 24HR s tablet by Cotton, - mouth one M.D. 10/12 time daily Verapamil HCL 05/07 Hx Tablets 40mg 120ta 1 tab PO 346.91 Bhavya M. /2013 bs bid Edilma, - M.D. 03/24 Prednisone 03/04 Hx Tablets 20mg 21tab 3 po x3 Melanie /2013 s days, 2 po Cowdery, - x3 days, 1 M.D. 04/04 po x days,1/2 po x3 days Amitriptyline 02/27 Hx Tablets 10mg 60tab 2 tablets Khanh S. HCL s po at [place]akly, - bedtime M.D. 10/31 Sumatriptan 02/27 Hx Tablets 100mg 12tab 1/2-1 tab G43.009 Bhavya M. Succinate s by mouth Edilma, - as needed M.D. 12/12 Ondansetron 02/27 Hx Tablets 4mg 30tab 1 po three Khanh S. /2013 Dispers s times a [place], - day as M.D. 10/12 needed for nausea Zolmitriptan 02/06 Hx Tablets 2.5mg 12tab 1 PO qd 346.10 Maricarmen s prn, take Cotton, - at the M.D. 02/10 start headache Cefdinir 12/24 Hx Capsules 300mg Cotton, - M.D. 01/04 Fluticasone 12/24 Hx Suspension 50mcg/Act 16gm 2 461.8 intranasal Cotton, - puffs once M.D. 01/30 Triamcinolone 12/24 Hx Cream 0.1% 30gm apply thin 782.1 Acetonide film to Cotton, - feet M.D. 12/24 twice daily Ketoconazole 12/24 Hx Cream 2% 60gm apply thin 782.1 film twice Cotton, - daily M.D. 02/10 Triamcinolone 12/04 Hx Cream 0.1% 30gm apply thin 782.1 Acetonide film to Cotton, - feet M.D. 12/24 daily Bupropion HCL ER 12/04 Hx Tablets ER 150mg 30tab 1 PO qd 300.00 Maricarmen (XL) 24HR s Anthony, - M.D. 12/24 Proair HFA 11/12 Hx Aerosol 108(90Bas 8.500 2 puffs po e) gm q4h prn Daphne, - mcg/Act M.D. 02/10 Fluticasone 11/12 Hx Suspension 50mcg/Act 16 2 461.8 intranasal Cotton, - puffs once M.D. 12/24 Amoxicillin 11/12 Hx Capsules 500mg 30cap 1 tab po 461.8 s tid for 10 Cotton, - days M.D. 12/03 Zolmitriptan Odt 11/12 Hx Tablets 2.5mg 12tab 1 PO qd 346.10 Dispers s prn, take Cotton, - at the M.D. 02/06 headache Levothyroxine 03/29 Hx Tablets 112mcg 90tab 1 by mouth Geovanni Sodium s every day FLORENTINO Vila 11/22 Loratadine-D 03/26 Hx Tablets ER 10-240mg 30tab take 1 995.3 Stacy 24HR 24HR s tablet Daphne, - daily as M.D. 03/26 needed for allergy Bertin 03/26 Hx Capsules 60mg 90cap take 1 278.00 Stacy s capsule by Dahpne, - mouth 3 M.D. 11/12 times per day with meals for weight loss Levocetirizine 03/26 Hx Tablets 5mg 90tab Take 1 995.3 Stacy Dihydrochloride s tablet by Daphne, - mouth M.D. 11/12 daily in the evening Ipratropium 12/14 Hx Solution 0.06% 15ml 2 sprays 465.9 Yuko [place] [facility] nostril 12/28 tid until better Valtrex 09/19 Hx Tablets 500mg 90tab Take 1 054.9 s tablet Daphne, - daily M.D. 09/26 Neurontin 09/19 Hx Capsules 300mg 30cap 1 capsule 054.9 s [facility] at [facility] - bedtime 09/25 Ketoconazole 07/28 Hx Cream 2% 30gm apply 1 110.4 applicatio Daphne, - n M.D. 03/26 topically to affected area daily Wellbutrin XL 07/28 Hx Tablets ER 150mg 60tab Take 1 311 24HR s tablets Daphne, - every M.D. 03/26 morning. Vitamin B-12 01/20 Hx Tablets 1000mcg 60tab Take 2 461.8 s tablets Daphne, - daily M.D. 12/29 Ibuprofen 01/04 Hx Tablets 600mg 21tab 1 tablet 354.0 s three Daphne, - times M.D. 07/24 daily with food as needed Wrist Splint 01/04 Hx Misc 1unit Right 354.0 s wrist. Daphne, - Wear for M.D. 12/12 driving and sleeping Advair Diskus 12/09 Hx Aerosol 100-50mcg 60uni 1 Stacy /Dose ts inhalation Daphne, - twice M.D. 07/24 daily Afrin 11/30 Hx Solution 0.05% 15ml Inhale 2 477.9 sprays Daphne, - into M.D. 07/24 nostril times per day every 10 to 12 hours as needed for stuffy nose Diclofenac 11/[address] 75mg 60tab Take [address] s tablet by Daphne, - mouth 2 M.D. 11/12 times per day for arthritis prn Misoprostol 11/15 Hx Tablets 200mcg 60tab Take 1 Stacy s tablet Daphne, - twice M.D. 12/29 daily diclofenac prn Arthrotec 75 10/26 Hx Tablets 75-200mg- 28tab Take 1 786.59 mcg s tablet 3-4 Daphne, - times M.D. 11/15 daily needed for pain Tramadol HCL 10/26 Hx Tablets 50mg 40tab 1-2 786.59 Yuko s tablets [facility] - every 6 11/12 hours needed Otic Care 10/08 Hx Solution 5.4-1.4-0 14ml 5 drops 079.99 .0097% every 2 Daphne, - hours M.D. 07/24 until relieved Wellbutrin XL 09/03 Hx Tablets ER 300mg 90tab Take 1 311 24HR s tablet Daphne, - daily M.D. 07/24 Lexapro 08/17 Hx Tablets 10mg 60tab 1 tablet 311 s daily for Daphne, - 1 week, M.D. 09/03 then tablets daily Valacyclovir HCL 08/03 Hx Tablets 500mg 21tab Take 1 053.29 Stacy s tablet Daphne, - three M.D. 08/17 times daily for 7 days Wellbutrin XL 07/29 Hx Tablets ER 150mg 60tab Take 1 311 24HR s tablets Daphne, - every M.D. 09/03. Levothyroxine 07/29 Hx Tablets 100mcg 90tab Take 1 s tablet Daphne, - daily M.D. 03/29 Imitrex Hx Tablets 100mg 9tabs Take 1 346.80 Stacy /0000 tablet as Daphne - needed for M.D. 11/12 headache control, may repeat after 6 hours prn Ibuprofen Hx Tablets 600mg 90tab prn Unknown /0000 s - 07/24 Singulair Hx Tablets 10mg 90tab 1 po qd Stacy /0000 s prAgustin Granados M.D. 03/26 Meclizine HCL Hx Tablets 25mg 60tab 1 po tid Unknown /0000 s prn - 09/03 Levothyroxine Hx Tablets 75mcg 30tab 1 po qd Unknown Sodium /0000 s - 07/29 Ventolin HFA Hx Aerosol 108(90Bas 1unit 2 puffs po 493.90 Stacy /0000 e) mcg/ac s qid prAgustin Granados M.D. 11/12 Flovent HFA Hx Aerosol 110mcg/Ac 1mont 2 puffs Unknown /0000 t h twice - daily 12/09 Meclizine HCL Hx Tablets 25mg 90tab 1 po tid Stacy / s Agustin Coleman M.D. 11/12 Zofran Hx Tablets 4mg 20tab 1 q 6 Unknown /0000 s hours prn - nausea 11/12 Oxybutynin Hx Tablets ER 10mg every day Unknown Chloride ER /0000 24HR - 12/24 Ketorolac Hx Tablets 10mg 10tab take 1 by Unknown Tromethamine /0000 s mouth - every 8 / hours needed for migraine. take with food. Sumatriptan Hx Tablets 25mg 12tab one by 346.10 Unknown Succinate /0000 s mouth as - needed 02/27 migraine headaches, may repeat after 2 hours if needed Levocetirizine Hx Tablets 5mg 1 by mouth Unknown Dihydrochloride /0000 every day - prn - 12/12 mainly in summer Ibuprofen Hx Capsules 200mg 3 tabs po Unknown /0000 prn - 10/15 Tylenol 00 Hx Tablets 325mg 2 po as Unknown /0000 needed - 10/12 Aleve Hx Capsules 220mg 60cap 1 by mouth Unknown /0000 s as needed - 10/12 Oxybutynin Hx Tablets ER 10mg 90tab 1 by mouth Maricarmen Chloride ER /0000 24HR s every day Agustin Cruz M.D. 10/12 Naproxen Hx Tablets 500mg 1 by mouth Unknown /0000 twice a - day as 02/22 needed pain Medications Administered in Office Medication Date Status Form Strength Qnty SIG Indications Ordering Provider Injection 03/02 Administered Injection Bryan Onabotulinumto Dylon Winston n A, 1 Unit Depomedrol 40MG 12/18 Administered Injection Dalia Dylon He Injection,Lidoca 02/27 Administered Injection Khanh BUSTILLO Kike Lau M.D. Infusion,10 MG Immunizations CPT Code Status Date Vaccine Lot # [id number] Given 06/18/2014 Tdap - Tetanus/Diptheria/Acellular Pertussis [id number] Given 06/18/2014 Influenza Virus Vaccine, Quadrivalent, Split, [id number] Preservative Free Vital Signs Date Vital Result Comment 05/04/2018 Height 64.5 inches 5'4.50" Weight 194.00 lb Heart Rate 64 /min BP Systolic Sitting 120 mmHg BP Diastolic Sitting 78 mmHg Body Temperature 97.6 F Pain Level 6 BMI (Body Mass Index) 32.8 kg/m2 04/06/2018 Height 64 inches 5'4" Weight 199.00 lb Heart Rate 73 /min BP Systolic Sitting 135 mmHg BP Diastolic Sitting 92 mmHg O2 % BldC Oximetry 98 % BMI (Body Mass Index) 34.2 kg/m2 03/02/2018 Height 64 inches 5'4" Weight 189.00 lb declined Heart Rate 80 /min BP Systolic Sitting 146 mmHg BP Diastolic Sitting 98 mmHg Respiratory Rate 16 /min BMI (Body Mass Index) 32.4 kg/m2 02/17/2018 Height 64 inches 5'4" Weight 191.00 lb Heart Rate 68 /min BP Systolic Sitting 138 mmHg BP Diastolic Sitting 94 mmHg Body Temperature 97.7 F O2 % BldC Oximetry 93 % BMI (Body Mass Index) 32.8 kg/m2 01/26/2018 Height 64 inches 5'4" Weight 189.00 lb Heart Rate 66 /min BP Systolic Sitting 128 mmHg BP Diastolic Sitting 80 mmHg Respiratory Rate 16 /min BMI (Body Mass Index) 32.4 kg/m2 06/23/2017 Weight 184.25 lb Heart Rate 71 /min BP Systolic 118 mmHg BP Diastolic 80 mmHg Body Temperature 98.4 F O2 % BldC Oximetry 94 % 04/11/2017 Weight 190.50 lb Heart Rate 70 /min BP Systolic 120 mmHg BP Diastolic 80 mmHg Body Temperature 98.1 F O2 % BldC Oximetry 98 % 03/14/2017 Weight 193.00 lb Heart Rate 70 /min BP Systolic 130 mmHg BP Diastolic 80 mmHg Body Temperature 98.1 F O2 % BldC Oximetry 98 % 12/29/2016 Heart Rate 75 /min BP Systolic 124 mmHg BP Diastolic 76 mmHg Body Temperature 98.4 F O2 % BldC Oximetry 97 % 12/16/2016 Height 64 inches 5'4" Weight 194.00 lb Heart Rate 80 /min BP Systolic Sitting 116 mmHg BP Diastolic Sitting 72 mmHg Respiratory Rate 16 /min BMI (Body Mass Index) 33.3 kg/m2 11/26/2016 Heart Rate 87 /min BP Systolic 118 mmHg BP Diastolic 84 mmHg Body Temperature 98.6 F O2 % BldC Oximetry 97 % 11/25/2016 Weight 196.00 lb Heart Rate 78 /min BP Systolic Sitting 124 mmHg BP Diastolic Sitting 76 mmHg Respiratory Rate 15 /min O2 % BldC Oximetry 98 % 11/01/2016 Heart Rate 68 /min BP Systolic 140 mmHg BP Diastolic 86 mmHg Body Temperature 97.7 F O2 % BldC Oximetry 97 % 10/12/2016 Heart Rate 82 /min BP Systolic Sitting 126 mmHg BP Diastolic Sitting 82 mmHg Body Temperature 98.7 F O2 % BldC Oximetry 97 % 07/22/2016 Height 64 inches 5'4" Weight 180.00 lb Heart Rate 76 /min BP Systolic Sitting 126 mmHg BP Diastolic Sitting 84 mmHg Respiratory Rate 14 /min BMI (Body Mass Index) 30.9 kg/m2 03/18/2016 Height 64 inches 5'4" Weight 192.00 lb Heart Rate 68 /min BP Systolic Sitting 118 mmHg BP Diastolic Sitting 82 mmHg Respiratory Rate 14 /min BMI (Body Mass Index) 33.0 kg/m2 02/16/2016 Height 64 inches 5'4" Weight 189.00 lb Pain Level 10 BMI (Body Mass Index) 32.4 kg/m2 01/19/2016 Height 64 inches 5'4" Weight 189.00 lb Pain Level 10 with certain movement BMI (Body Mass Index) 32.4 kg/m2 12/19/2015 Height 64 inches 5'4" Weight 189.00 lb Heart Rate 68 /min BP Systolic Sitting 120 mmHg BP Diastolic Sitting 70 mmHg Respiratory Rate 16 /min Pain Level 5 BMI (Body Mass Index) 32.4 kg/m2 10/02/2015 Height 64 inches 5'4" Weight 191.00 lb Heart Rate 75 /min BP Systolic Sitting 159 mmHg BP Diastolic Sitting 101 mmHg Body Temperature 96.8 F Pain Level 7 O2 % BldC Oximetry 95 % BMI (Body Mass Index) 32.8 kg/m2 05/12/2015 Height 64 inches 5'4" Weight 183.00 lb Pain Level 6 BMI (Body Mass Index) 31.4 kg/m2 05/01/2015 Height 64 inches 5'4" Weight 183.00 lb Heart Rate 63 /min BMI (Body Mass Index) 31.4 kg/m2 03/25/2015 Height 64 inches 5'4" Weight 185.00 lb Heart Rate 68 /min BP Systolic Sitting 128 mmHg BP Diastolic Sitting 76 mmHg Respiratory Rate 16 /min BMI (Body Mass Index) 31.8 kg/m2 02/04/2015 Height 63.75 inches 5'3.75" Weight 188.00 lb Heart Rate 72 /min BP Systolic Sitting 116 mmHg BP Diastolic Sitting 80 mmHg O2 % BldC Oximetry 96 % BMI (Body Mass Index) 32.5 kg/m2 01/30/2015 Weight 188.00 lb Heart Rate 73 /min BP Systolic Sitting 121 mmHg BP Diastolic Sitting 87 mmHg Body Temperature 97.3 F O2 % BldC Oximetry 96 % 01/24/2015 Weight 189.50 lb Heart Rate 75 /min BP Systolic Sitting 138 mmHg BP Diastolic Sitting 78 mmHg 12/23/2014 Weight 193.25 lb Heart Rate 84 /min BP Systolic Sitting 120 mmHg BP Diastolic Sitting 79 mmHg Body Temperature 97.2 F Pain Level 0 O2 % BldC Oximetry 97 % 11/25/2014 Weight 195.50 lb Heart Rate 86 /min BP Systolic Sitting 131 mmHg BP Diastolic Sitting 93 mmHg Pain Level 9 10/31/2014 Height 63.75 inches 5'3.75" Weight 193.00 lb Heart Rate 85 /min BP Systolic 142 mmHg BP Diastolic 94 mmHg Body Temperature 97.0 F BMI (Body Mass Index) 33.4 kg/m2 10/16/2014 Weight 199.00 lb Heart Rate 78 /min BP Systolic Sitting 124 mmHg BP Diastolic Sitting 82 mmHg Body Temperature 96.8 F 09/26/2014 Weight 195.00 lb Heart Rate 85 /min BP Systolic Sitting 128 mmHg BP Diastolic Sitting 82 mmHg Body Temperature 97.8 F O2 % BldC Oximetry 96 % 07/18/2014 Weight 180.00 lb Heart Rate 78 /min BP Systolic Sitting 126 mmHg BP Diastolic Sitting 84 mmHg Body Temperature 97.9 F O2 % BldC Oximetry 98 % 07/02/2014 Height 63.5 inches 5'3.50" Weight 190.00 lb Heart Rate 76 /min BP Systolic Sitting 124 mmHg BP Diastolic Sitting 78 mmHg Respiratory Rate 16 /min BMI (Body Mass Index) 33.1 kg/m2 06/18/2014 Height 63.5 inches 5'3.50" Weight 194.00 lb Heart Rate 76 /min BP Systolic Sitting 118 mmHg BP Diastolic Sitting 78 mmHg Body Temperature 97.5 F BMI (Body Mass Index) 33.8 kg/m2 05/07/2014 Height 63.25 inches 5'3.25" Weight 189.00 lb Heart Rate 72 /min BP Systolic Sitting 138 mmHg BP Diastolic Sitting 84 mmHg Respiratory Rate 16 /min BMI (Body Mass Index) 33.2 kg/m2 04/04/2014 Weight 195.00 lb Heart Rate 90 /min BP Systolic Sitting 118 mmHg BP Diastolic Sitting 70 mmHg Body Temperature 98.0 F 02/27/2014 Height 63.25 inches 5'3.25" Weight 187.00 lb Heart Rate 67 /min BP Systolic Sitting 120 mmHg BP Diastolic Sitting 60 mmHg Respiratory Rate 16 /min BMI (Body Mass Index) 32.9 kg/m2 02/21/2014 Height 63.25 inches 5'3.25" Weight 187.00 lb Heart Rate 68 /min BP Systolic Sitting 128 mmHg BP Diastolic Sitting 84 mmHg Respiratory Rate 16 /min BMI (Body Mass Index) 32.9 kg/m2 12/24/2013 Heart Rate 60 /min BP Systolic 128 mmHg BP Diastolic 72 mmHg Respiratory Rate 16 /min Body Temperature 98.2 F 12/04/2013 Heart Rate 76 /min BP Systolic Sitting 120 mmHg BP Diastolic Sitting 72 mmHg Body Temperature 98.1 F 11/12/2013 Weight 186.50 lb Heart Rate 68 /min BP Systolic 130 mmHg BP Diastolic 70 mmHg Respiratory Rate 16 /min Body Temperature 96.0 F O2 % BldC Oximetry 98 % 03/26/2013 Height 63.25 inches 5'3.25" Weight 188.00 lb Heart Rate 64 /min BP Systolic Sitting 120 mmHg BP Diastolic Sitting 70 mmHg BMI (Body Mass Index) 33.0 kg/m2 02/21/2013 Heart Rate 76 /min BP Systolic Sitting 104 mmHg BP Diastolic Sitting 64 mmHg Body Temperature 97.3 F 12/29/2012 Heart Rate 76 /min BP Systolic Sitting 122 mmHg BP Diastolic Sitting 78 mmHg Respiratory Rate 16 /min 12/14/2012 Heart Rate 68 /min BP Systolic Sitting 104 mmHg BP Diastolic Sitting 78 mmHg Body Temperature 97.7 F 09/25/2012 Height 64.25 inches 5'4.25" Heart Rate 68 /min BP Systolic Sitting 120 mmHg BP Diastolic Sitting 60 mmHg Respiratory Rate 16 /min 09/19/2012 Height 64.25 inches 5'4.25" Weight 180.00 lb per pt ,she refused Heart Rate 78 /min BP Systolic Sitting 110 mmHg BP Diastolic Sitting 76 mmHg BMI (Body Mass Index) 30.7 kg/m2 07/28/2012 Height 64.25 inches 5'4.25" Weight 180.00 lb Heart Rate 62 /min BP Systolic Sitting 124 mmHg BP Diastolic Sitting 72 mmHg BMI (Body Mass Index) 30.7 kg/m2 07/24/2012 Height 64.25 inches 5'4.25" Weight 180.00 lb per pt Heart Rate 56 /min BP Systolic Sitting 98 mmHg BP Diastolic Sitting 60 mmHg BMI (Body Mass Index) 30.7 kg/m2 01/21/2012 Height 64.25 inches 5'4.25" Weight 179.00 lb per pt- declines scale Heart Rate 72 /min BP Systolic Sitting 92 mmHg BP Diastolic Sitting 60 mmHg BMI (Body Mass Index) 30.5 kg/m2 2012 Height 64.25 inches 5'4.25" Weight 179.00 lb per pt. Heart Rate 68 /min BP Systolic Sitting 128 mmHg BP Diastolic Sitting 80 mmHg BMI (Body Mass Index) 30.5 kg/m2 12/10/2011 Height 64.25 inches 5'4.25" Weight 179.00 lb Heart Rate 68 /min BP Systolic Sitting 114 mmHg BP Diastolic Sitting 66 mmHg O2 % BldC Oximetry 98 % BMI (Body Mass Index) 30.5 kg/m2 12/01/2011 Height 64.25 inches 5'4.25" Weight 179.00 lb Heart Rate 64 /min BP Systolic Sitting 108 mmHg BP Diastolic Sitting 72 mmHg Body Temperature 97.7 F BMI (Body Mass Index) 30.5 kg/m2 10/26/2011 Height 64.25 inches 5'4.25" Weight 182.00 lb Heart Rate 72 /min BP Systolic Sitting 118 mmHg BP Diastolic Sitting 76 mmHg O2 % BldC Oximetry 97 % BMI (Body Mass Index) 31.0 kg/m2 10/08/2011 Height 64.25 inches 5'4.25" Weight 183.00 lb Heart Rate 72 /min BP Systolic Sitting 118 mmHg L BP Diastolic Sitting 70 mmHg L BMI (Body Mass Index) 31.2 kg/m2 09/03/2011 Height 64.25 inches 5'4.25" Weight 185.00 lb Heart Rate 74 /min BP Systolic Sitting 110 mmHg BP Diastolic Sitting 80 mmHg BMI (Body Mass Index) 31.5 kg/m2 08/17/2011 Height 64.25 inches 5'4.25" Weight 183.00 lb Heart Rate 74 /min BP Systolic Sitting 116 mmHg BP Diastolic Sitting 68 mmHg BMI (Body Mass Index) 31.2 kg/m2 08/03/2011 Height 64.25 inches 5'4.25" Weight 187.00 lb Heart Rate 74 /min BP Systolic Sitting 110 mmHg BP Diastolic Sitting 68 mmHg BMI (Body Mass Index) 31.8 kg/m2 07/29/2011 Height 64.25 inches 5'4.25" Weight 188.00 lb Heart Rate 68 /min BP Systolic Sitting 124 mmHg BP Diastolic Sitting 74 mmHg BMI (Body Mass Index) 32.0 kg/m2 Results Test Date Test Result H/L Range Note Laboratory test finding 04/06/2018 TSH (Thyroid Stim Horm) <pending> Free T4 (Free Thyroxine) <pending> Laboratory test finding 02/17/2018 FSH (Follicle Stim Hormone) 107.1 mIU/mL 1 TSH (Thyroid Stim Horm) 19.88 mcIU/mL High 0.34-5.60 Lipid Profile (Trig/Chol/HDL) 02/17/2018 Triglycerides 100 mg/dL 2 Cholesterol 234 mg/dL 3 HDL Cholesterol 52.2 mg/dL 4 LDL Cholesterol 162 mg/dL 5 Comp Metabolic Panel 02/17/2018 Sodium 142 mmol/L 139-145 Potassium 4.1 mmol/L 3.5-5.0 Chloride 105 mmol/L 101-111 Co2 Carbon Dioxide 30 mmol/L 22-32 Anion Gap 7 mmol/L 2-11 Glucose 86 mg/dL 70-100 Blood Urea Nitrogen 14 mg/dL 6-24 Creatinine 0.82 mg/dL 0.51-0.95 BUN/Creatinine Ratio 17.1 8-20 Calcium 9.3 mg/dL 8.6-10.3 Total Protein 7.1 g/dL 6.4-8.9 Albumin 4.2 g/dL 3.2-5.2 Globulin 2.9 g/dL 2-4 Albumin/Globulin Ratio 1.4 1-3 Total Bilirubin 0.50 mg/dL 0.2-1.0 Alkaline Phosphatase 66 U/L 34-104 Alt 28 U/L 7-52 Ast 22 U/L 13-39 Egfr Non- 73.2 >60 Egfr 94.1 >60 6 CBC Auto Diff 02/17/2018 White Blood Count 5.8 10^3/uL 3.5-10.8 Red Blood Count 4.54 10^6/uL 4.0-5.4 Hemoglobin 13.0 g/dL 12.0-16.0 Hematocrit 39 % 35-47 Mean Corpuscular Volume 85 fL 80-97 Mean Corpuscular Hemoglobin 29 pg 27-31 Mean Corpuscular HGB Conc 34 g/dL 31-36 Red Cell Distribution Width 14 % 10.5-15 Platelet Count 337 10^3/uL 150-450 Mean Platelet Volume 7.2 um3 Low 7.4-10.4 Abs Neutrophils 3.5 10^3/uL 1.5-7.7 Abs Lymphocytes 1.7 10^3/uL 1.0-4.8 Abs Monocytes 0.3 10^3/uL 0-0.8 Abs Eosinophils 0.3 10^3/uL 0-0.6 Abs Basophils 0.1 10^3/uL 0-0.2 Abs Nucleated RBC 0 10^3/uL Granulocyte % 60.0 % 38-83 Lymphocyte % 28.7 % 25-47 Monocyte % 5.5 % 0-7 Eosinophil % 4.6 % 0-6 Basophil % 1.2 % 0-2 Nucleated Red Blood Cells % 0 Poc Urinalysis 08/13/2017 Poc Glucose, Urine Negative Negative Poc Bilirubin, Urine Negative Negative Poc Ketone, Urine Negative Negative Poc Specific [place], Urine 1.020 1.010-1.030 Poc Blood, Urine Trace-intact Negative Poc pH, Urine 6.0 5-9 Poc Protein, Urine Negative Negative Poc Urobilinogen, Urine 0.2 Negative Poc Nitrite, Urine Negative Negative Poc Leukocytes, Urine Negative Negative Poc Color, Urine Yellow Poc Clarity, Urine Clear 7 Laboratory test finding 02/28/2017 TSH (Thyroid Stim 4.17 mcIU/mL 0.34- 5.60 8, 9 Horm) Rapid Influenza A & B 12/29/2016 Influenza A Molecular NEGATIVE Negative 10 Molecular Influenza B Molecular NEGATIVE Negative Laboratory test 12/29/2016 Rapid Influenza A B SEE RESULT 11, 12 finding Antigen BELOW Laboratory test 11/19/2016 TSH (Thyroid Stim 10.26 mcIU/mL High 0.34-5.6 13, 14 finding Horm) 0 Lipid Profile 11/19/2016 Triglycerides 126 mg/dL 13, 15 (Trig/Chol/HDL) Cholesterol 215 mg/dL 13, 16 HDL Cholesterol 45.2 mg/dL 13, 17 LDL Cholesterol 145 mg/dL 13, 18 Comp Metabolic Panel 11/19/2016 Sodium 139 mmol/L 133-145 13 Potassium 3.9 mmol/L 3.5-5.0 13 Chloride 105 mmol/L 101-111 13 Co2 Carbon Dioxide 26 mmol/L 22-32 13 Anion Gap 8 mmol/L 2-11 13 Glucose 88 mg/dL 70-100 13 Blood Urea Nitrogen 12 mg/dL 6-24 13 Creatinine 0.77 mg/dL 0.51-0.95 13 BUN/Creatinine Ratio 15.6 8-20 13 Calcium 9.0 mg/dL 8.6-10.3 13 Total Protein 6.9 g/dL 6.4-8.9 13 Albumin 4.1 g/dL 3.2-5.2 13 Globulin 2.8 g/dL 2-4 13 Albumin/Globulin Ratio 1.5 1-3 13 Total Bilirubin 0.60 mg/dL 0.2-1.0 13 Alkaline Phosphatase 61 U/L 34-104 13 Alt 16 U/L 7-52 13 Ast 14 U/L 13-39 13 Egfr Non- 79.3 >60 13 Egfr 102.0 >60 13, 19 Xray 02/13/2016 MRI Shoulder Left W/O <pending> Laboratory test 09/27/2015 Urine Culture And SEE RESULT BELOW 20 finding Sensitivities Laboratory test 07/18/2014 Lipase 27 U/L 11.0-82.0 finding Magnesium 1.9 mg/dL 1.9-2.7 TSH (Thyroid Stimulating Horm) 0.44 IU/mL 0.34-5.60 Laboratory test finding 07/17/2014 Troponin I 0.01 ng/mL <0.03 21 Comp Metabolic Panel 07/17/2014 Sodium 139 mmol/L 133-145 Potassium 3.7 mmol/L 3.5-5.0 22 Chloride 107 mmol/L 101-111 Co2 Carbon Dioxide 25 mmol/L 22-32 Anion Gap 7 mmol/L 2-11 Glucose 100 mg/dL 70-100 Blood Urea Nitrogen 14 mg/dL 6-24 Creatinine 0.85 mg/dL 0.51-0.95 BUN/Creatinine Ratio 16.5 8-20 Calcium 9.2 mg/dL 8.6-10.3 Total Protein 6.9 g/dL 6.4-8.9 Albumin 4.0 g/dL 3.2-5.2 Globulin 2.9 g/dL 2-4 Albumin/Globulin Ratio 1.4 1-3 Total Bilirubin 0.40 mg/dL 0.2-1.0 Alkaline Phosphatase 59 U/L 34-104 Alt 15 U/L 7-52 Ast 15 U/L 13-39 Egfr Non- 71.4 >60 Egfr 91.8 >60 23 Laboratory test 07/17/2014 D Dimer Quantitative 304 ng/mL High Less Than 230 24 finding CBC Auto Diff 07/17/2014 White Blood Count 6.2 10^3/uL 4.8-10.8 Red Blood Count 4.50 10^6/uL 4.0-5.4 Hemoglobin 12.9 g/dL 12.0-16.0 Hematocrit 38 % 35-47 Mean Corpuscular Volume 84 fL 80-97 Mean Corpuscular Hemoglobin 29 pg 27-31 Mean Corpuscular HGB Conc 34 g/dL 31-36 Red Cell Distribution Width 14 % 10.5-15 Platelet Count 318 10^3/uL 150-450 Mean Platelet Volume 6 um3 Low 7.4-10.4 Abs Neutrophils 4.4 10^3/uL 1.5-7.7 Abs Lymphocytes 1.1 10^3/uL 1.0-4.8 Abs Monocytes 0.5 10^3/uL 0-0.8 Abs Eosinophils 0.2 10^3/uL 0-0.6 Abs Basophils 0 10^3/uL 0-0.2 Abs Nucleated RBC 0 10^3/uL Granulocyte % 71.2 % 38-83 Lymphocyte % 17.7 % Low 25-47 Monocyte % 7.7 % 1-9 Eosinophil % 2.7 % 0-6 Basophil % 0.7 % 0-2 Nucleated Red Blood Cells % 0 Laboratory test 06/18/2014 TSH (Thyroid 14.38 IU/mL High 0.34-5.60 finding Stimulating Horm) Laboratory test 11/12/2013 Follicle Stimulating 9.3 IU/mL 25 finding Hormone TSH (Thyroid Stimulating Horm) 0.19 IU/mL Low 0.34-5.60 26 Vitamin B12 480 pg/mL 180-914 27 Vitamin D, 25 Hydroxy 11/12/2013 25-Hydroxy Vitamin D2 <4.0 ng/mL 25-Hydroxy Vitamin D3 39 ng/mL 25-Hydroxy Vitamin D Total 39 ng/mL 28 Comp Metabolic Panel 11/12/2013 Sodium 140 mmol/L 133-145 Potassium 3.9 mmol/L 3.7-5.6 Chloride 106 mmol/L 101-111 Co2 Carbon Dioxide 29 mmol/L 22-32 Anion Gap 5 mmol/L 2-11 Glucose 92 mg/dL 70-100 Blood Urea Nitrogen 15 mg/dL 6-24 Creatinine 0.83 mg/dL 0.51-0.95 BUN/Creatinine Ratio 18.1 8-20 Calcium 9.5 mg/dL 8.6-10.3 Total Protein 7.2 g/dL 6.4-8.9 Albumin 4.3 g/dL 3.2-5.2 Globulin 2.9 g/dL 2-4 Albumin/Globulin Ratio 1.5 1-3 Total Bilirubin 0.60 mg/dL 0.2-1.0 Alkaline Phosphatase 56 U/L 34-104 Alt 14 U/L 7-52 Ast 13 U/L 13-39 Egfr Non- 73.7 >60 Egfr 94.8 >60 29 Laboratory test finding 04/18/2013 Hemoglobin A1c 5.3 % Less than 6.0 30 Lipid Panel 03/26/2013 Triglycerides 117 mg/dL 40-200 Cholesterol 185 mg/dL Less than 200 HDL Cholesterol 41 mg/dL 40-60 31 Cholesterol/HDL Ratio 4.5 Average High 1-4.44 LDL Cholesterol 120.6 High Less Than 100 32 Laboratory test finding 03/26/2013 Follicle Stimulating Hormone 21.83 miu/ mL 33 TSH (Thyroid Stimulating Horm) 8.28 miu/mL High 0.34-5.60 Vitamin D,25 Hydroxy 03/26/2013 25-Hydroxy Vitamin D2 <4.0 ng/mL 25-Hydroxy Vitamin D3 36 ng/mL 25-Hydroxy Vitamin D Total 36 ng/mL 34 CMP Panel 03/26/2013 Sodium 142 mmol/L 133-145 Potassium 4.2 mmol/L 3.5-5.0 Chloride 108 mmol/L 101-111 Co2 Carbon Dioxide 28.0 mmol/L 22-32 Anion Gap 6.0 mmol/L 2-11 Glucose 88 mg/dL 70-100 Blood Urea Nitrogen 21 mg/dL 6-24 Creatinine 0.70 mg/dL 0.50-1.40 BUN/Creatinine Ratio 30.0 High 8-20 Calcium 9.6 mg/dL 8.1-9.9 Total Protein 7.2 g/dL 6.2-8.1 Albumin 4.3 g/dL 3.6-5.4 Globulin 2.9 g/dL 2-4 Albumin/Globulin Ratio 1.5 1-3 Total Bilirubin 0.8 mg/dL 0.4-1.5 Alkaline Phosphatase 56 U/L 30-110 Alt 20 U/L 14-54 Ast 20 U/L 12-42 Egfr Non- 89.7 >60 Egfr 115.4 >60 35 Laboratory test finding 12/29/2012 C Reactive Protein 0.5 mg/dL Less than 0.5 Basic Metabolic Panel 12/29/2012 Sodium 134 mmol/L 133-145 Potassium 3.9 mmol/L 3.5-5.0 Chloride 104 mmol/L 101-111 Co2 Carbon Dioxide 26.0 mmol/L 22-32 Anion Gap 4.0 mmol/L 2-11 Glucose 84 mg/dL 70-100 Blood Urea Nitrogen 18 mg/dL 6-24 Creatinine 0.90 mg/dL 0.50-1.40 BUN/Creatinine Ratio 20.0 8-20 Calcium 9.6 mg/dL 8.1-9.9 Egfr Non- 67.4 >60 Egfr 86.7 >60 36 CBC Auto Diff 12/29/2012 White Blood Count 7.3 10^3/uL 4.8-10.8 Red Blood Count 4.49 10^6/uL 4.0-5.4 Hemoglobin 13.2 g/dL 12.0-16.0 Hematocrit 39 % 35-47 Mean Corpuscular Volume 87 fL 80-97 Mean Corpuscular Hemoglobin 29 pg 27-31 Mean Corpuscular HGB Conc 34 g/dL 31-36 Red Cell Distribution Width 14 % 10.5-15 Platelet Count 331 10^3/uL 150-450 Mean Platelet Volume 7 um3 Low 7.4-10.4 Abs Neutrophils 4.9 10^3/uL 1.5-7.7 Abs Lymphocytes 1.8 10^3/uL 1.0-4.8 Abs Monocytes 0.4 10^3/uL 0-0.8 Abs Eosinophils 0.1 10^3/uL 0-0.6 Abs Basophils 0.1 10^3/uL 0-0.2 Abs Nucleated RBC 0 10^3/uL Granulocyte % 66.8 % 38-83 Lymphocyte % 25.0 % 25-47 Monocyte % 4.9 % 1-9 Eosinophil % 1.8 % 0-6 Basophil % 1.5 % 0-2 Nucleated Red Blood Cells % 0 Hepatitis B Jaida AB Titer 11/01/2012 Hepatitis B Surface AB Reactive Nonreactive Hep B Surf AB Index 9.81 37 Laboratory test finding 11/01/2012 Hepatitis C Antibody Nonreactive Nonreactive HIV 1 2 AB Nonreactive Nonreactive 38 Laboratory test finding 11/01/2012 Hepatitis B Surface Nonreactive Nonreactive Antigen Comp Metabolic Panel 09/19/2012 Sodium 136 mmol/L 133-145 Potassium 4.1 mmol/L 3.5-5.0 Chloride 103 mmol/L 101-111 Co2 Carbon Dioxide 25.0 mmol/L 22-32 Anion Gap 8.0 mmol/L 2-11 Glucose 91 mg/dL 70-100 Blood Urea Nitrogen 14 mg/dL 6-24 Creatinine 0.90 mg/dL 0.50-1.40 BUN/Creatinine Ratio 15.6 8-20 Calcium 9.5 mg/dL 8.1-9.9 Total Protein 6.9 g/dL 6.2-8.1 Albumin 4.2 g/dL 3.6-5.4 Globulin 2.7 g/dL 2-4 Albumin/Globulin Ratio 1.6 1-3 Total Bilirubin 0.7 mg/dL 0.4-1.5 Alkaline Phosphatase 58 U/L 30-110 Alt 16 U/L 14-54 Ast 15 U/L 12-42 Egfr Non- 67.4 >60 Egfr 86.7 >60 39 Laboratory test finding 09/19/2012 Follicle Stimulating 5.70 MIU/ML 40 Hormone Laboratory test finding 09/19/2012 TSH (Thyroid Stimulating 1.04 miu/mL 0.34-5.60 Horm) Vitamin D, 25 Hydroxy 09/19/2012 25-Hydroxy Vitamin D2 <4.0 ng/mL 25-Hydroxy Vitamin D3 32 ng/mL 25-Hydroxy Vitamin D Total 32 ng/mL 41 HSV/VZV Derm PCR 09/19/2012 hs/VZ Source SKIN hs/VZ PCR Result See Comment 42 Ua Routine 07/24/2012 Ua Specific [place] 1.015 Ua PH 5 Ua Color yellow Ua Appera clear Ua WBC neg Ua Protein neg Ua Glucose neg Ua Ketones neg Ua Bilirubin neg Ua Urobilinogen neg Ua Nitrite neg Ua Occult Blood neg Laboratory test 07/21/2012 TSH (Thyroid 12.94 MIU/ML High 0.34-5.60 finding Stimulating Horm) Vitamin B12 592 pg/mL 180-914 Laboratory test finding 01/21/2012 Intrinsic Factor Blocking AB Negative () 43 Methylmalonic Acid 0.15 nmol/mL <=0.40 44 Laboratory test finding 2012 TSH 0.13 MIU/ML Low 0.34-5.60 Vitamin B12 And Folate Serum 2012 Vitamin B12 245 pg/mL 180-914 Folic Acid 9.8 NG/ML See Below 45 CBC Auto Diff 12/10/2011 White Blood Count 6.5 CUMM 4.8-10.8 Red Cell Count 4.39 CUMM 4.2-5.4 Hemoglobin 13.0 g/dL 12.0-16.0 Hematocrit 38 % 35-47 Mean Corpuscular Volume 86 um3 79-97 Mean Corpuscular Hemoglob 30 pg 27-31 Mean Corpuscular HGB Cone 35 g/dL 32-36 Redcell Distribution WDTH 14 % 10.5-15 Platelet Count 395 CUMM 150-450 Mean Platelet Volume 6.6 um3 Low 7.4-10.4 Gran % 66.5 % 38-83 Lymph % 24.0 % Low 25-47 Mononuclear % 6.5 % 1-9 Eosinophil % 1.9 % 0-6 Basophil % 1.1 % 0-2 Abs Lymphs 1.6 1.0-4.8 Abs Mononuclear 0.4 0-0.8 Absolute Neutrophil Count 4.3 1.5-7.7 Abs Eosinophils 0.1 0-0.6 Abs Basophils 0.1 0-0.2 Laboratory test finding 12/08/2011 TSH 0.11 MIU/ML Low 0.34-5.60 Laboratory test finding 10/08/2011 TSH 0.55 MIU/ML 0.34-5.60 Laboratory test finding 09/02/2011 TSH 3.91 MIU/ML 0.34-5.60 Laboratory test finding 07/29/2011 TSH 9.96 MIU/ML High 0.34-5.60 1 Normally menstruating females - Follicular phase 3 - 9 - Mid-cycle peak 4 - 23 - Luteal phase 1 - 6 Postmenopausal females 16 - 114 2 Desirable: <150 Borderline High: 150-199 High: 200-499 Very High: >500 3 Desirable: <200 Borderline High: 200-239 High: >239 4 Low: <40 Desirable: 40-60 High: >60 5 Desirable: <100 Near Optimal: 100-129 Borderline High: 130-159 High: 160-189 Very High: >189 6 Because ethnic data is not always readily available, this report includes an eGFR for both -Americans and non- Americans. The National Kidney Disease Education Program (NKDEP) does not endorse the use of the MDRD equation for patients that are not between the ages of 18 and 70, are , have extremes of body size, muscle mass, or nutritional status, or are non- or non-. According to the National Kidney Foundation, irrespective of diagnosis, the stage of the disease is based on the level of kidney function: Stage Description GFR(mL/min/1.73 m(2)) 1 Kidney damage with normal or decreased GFR 90 2 Kidney damage with mild decrease in GFR 60-89 3 Moderate decrease in GFR 30-59 4 Severe decrease in GFR 15-29 5 Kidney failure <15 (or dialysis) 7 [employer] Operator: [id number] 8 6 weeks after increasing levothyroxine dose 9 6 weeks after increasing levothyroxine dose 10 [employer] Operator: [id number] 11 [id number] 12 SEE RESULT BELOW Name: CHRISTIAN BARCLAY : [address]: Geovanni Vila NP Acct: [id number] Unit: [id number] AGE: 51 Location: [facility] Re12/29/16 SEX: F Status: REG REF SPEC: [id number] GE: 12/29/[address]: Geovanni Vila [employer]IMMER REQ: [id number] RECD: 12/29/16 STATUS: COMP _ SOURCE: [facility]: ORDERED: [place] Request COMMENTS: [id number] Procedure Result Reported Site Rapid Influenza A B Request Final 12/29/16- 2211 ML Specimen received for Influenza A/B Molecular testing * ML - MAIN LAB ([facility]) . END OF REPORT * ML=Testing performed at Main Lab DEPARTMENT OF PATHOLOGY, [address] [place] [address] Toby Taveras M.D. Director [facility] # [id number] 13 FASTING 10 HOUR 14 FASTING 10 HOUR 15 Desirable <150 Borderline high 150-199 High 200-499 Very High >500 16 Desirable <200 Borderline high 200-239 High >239 17 Low <40 Desirable: 40-60 High: >60 18 Desirable: <100 mg/dL Near Optimal: 100-129 mg/dL Borderline High: 130-159 mg/dL High: 160-189 mg/dL Very High: >189 mg/dL 19 Because ethnic data is not always readily available, this report includes an eGFR for both -Americans and non- Americans. The National Kidney Disease Education Program (NKDEP) does not endorse the use of the MDRD equation for patients that are not between the ages of 18 and 70, are , have extremes of body size, muscle mass, or nutritional status, or are non- or non-. According to the National Kidney Foundation, irrespective of diagnosis, the stage of the disease is based on the level of kidney function: Stage Description GFR(mL/min/1.73 m(2)) 1 Kidney damage with normal or decreased GFR 90 2 Kidney damage with mild decrease in GFR 60-89 3 Moderate decrease in GFR 30-59 4 Severe decrease in GFR 15-29 5 Kidney failure <15 (or dialysis) 20 SEE RESULT BELOW Name: ILANA BARCLAYELE : [address]: Amparo Thomason MD Acct: [id number] Unit: [id number] AGE: 50 Location: [facility] Re09/27/15 SEX: F Status: DEP ER SPEC: [id number] GE: 09/27/15-[address] [facility] DR: Amparo Thomason MD REQ: [id number] RECD: 09/28/15-1231 STATUS: DONAVAN SKINNER DR: [facility] Maricarmen Cruz MD _ SOURCE: URINE SPDESC: ORDERED: Urine Culture Procedure Result Reported Site Urine Culture Final 09/29/15- 1313 ML No Growth (<1,000 CFU/mL) * ML - MAIN LAB ([facility]) . END OF REPORT * ML=Testing performed at Main Lab DEPARTMENT OF PATHOLOGY, [address] [place] [address] Toby Taveras M.D. Director [facility] # [id number] 21 Reference Range and Interpretation: TnI (ng/mL) Interpretation Less Than 0.03 ng/mL Not supportive of diagnosis of SD 0.03 - 0.50 ng/mL Indeterminate: suggest serial studies if clinically indicated. Greater than 0.5 ng/mL Consistent with diagnosis of SD 22 Potassium reference range changed effective 07/14/14 23 Because ethnic data is not always readily available, this report includes an eGFR for both -Americans and non- Americans. The National Kidney Disease Education Program (NKDEP) does not endorse the use of the MDRD equation for patients that are not between the ages of 18 and 70, are , have extremes of body size, muscle mass, or nutritional status, or are non- or non-. According to the National Kidney Foundation, irrespective of diagnosis, the stage of the disease is based on the level of kidney function: Stage Description GFR(mL/min/1.73 m(2)) 1 Kidney damage with normal or decreased GFR 90 2 Kidney damage with mild decrease in GFR 60-89 3 Moderate decrease in GFR 30-59 4 Severe decrease in GFR 15-29 5 Kidney failure <15 (or dialysis) 24 Verbal to [id number] by [id number] at 1840 on 07/17/14. Results read back accurately. Please note: The following may produce a false positive D Dimer test: - Rheumatoid factor greater than 60 IU/ml - Plasma hemoglobin greater than 0.05 gm/dl - Bilirubin greater than 50 mg/dl - Lipids greater than 1000 mg/dl - FDP greater than 20 ug/ml 25 Normally menstruating females - Follicular phase 3 - 9 - Mid-cycle peak 4 - 23 - Luteal phase 1 - 6 Postmenopausal females 16 - 114 26 standing orders for q 6 mo labs 27 Normal Range 180 to 914 Indeterminate Range 145 to 180 Deficient Range <145 28 -- REFERENCE VALUE -- 25-HYDROXY D TOTAL (D2+D3) Optimum levels in the healthy population are 20-50, patients with bone disease may benefit from higher levels within this range. Test Performed by: [facility] - [address] [address] Stock Layer: Anibal Valdes III, M.D. 29 Because ethnic data is not always readily available, this report includes an eGFR for both -Americans and non- Americans. The National Kidney Disease Education Program (NKDEP) does not endorse the use of the MDRD equation for patients that are not between the ages of 18 and 70, are , have extremes of body size, muscle mass, or nutritional status, or are non- or non-. According to the National Kidney Foundation, irrespective of diagnosis, the stage of the disease is based on the level of kidney function: Stage Description GFR(mL/min/1.73 m(2)) 1 Kidney damage with normal or decreased GFR 90 2 Kidney damage with mild decrease in GFR 60-89 3 Moderate decrease in GFR 30-59 4 Severe decrease in GFR 15-29 5 Kidney failure <15 (or dialysis) 30 Therapeutic target for the treatment of diabetes Mellitus patients is <7% HBA1C, and in selective patients <6.0%.Please refer to [place] [employer] Diabetic care guidelines for further information. 31 HDL Interpretation: Undesirable: High Risk: Less than 40 mg/dL Desirable: Low Risk: Greater than 60 mg/dL 32 LDL Interpretation: Low Risk Optimal Level: LDL Less than 100 mg/dL Near or Above Optimal: LDL 100-129 mg/dL Borderline High Risk: LDL 130-159 mg/dL High Risk: LDL 160-189 mg/dL Very High Risk: LDL Greater than 189 mg/dL 33 Normally menstruating females - Follicular phase 3 - 9 - Mid-cycle peak 4 - 23 - Luteal phase 1 - 6 Postmenopausal females 16 - 114 34 -- REFERENCE VALUE -- 25-HYDROXY D TOTAL (D2+D3) Optimum levels in the normal population are 25-80 Test Performed by: [address] [address] Stock Layer: Anibal Valdes III, M.D. 35 Because ethnic data is not always readily available, this report includes an eGFR for both -Americans and non- Americans. The National Kidney Disease Education Program (NKDEP) does not endorse the use of the MDRD equation for patients that are not between the ages of 18 and 70, are , have extremes of body size, muscle mass, or nutritional status, or are non- or non-. According to the National Kidney Foundation, irrespective of diagnosis, the stage of the disease is based on the level of kidney function: Stage Description GFR(mL/min/1.73 m(2)) 1 Kidney damage with normal or decreased GFR 90 2 Kidney damage with mild decrease in GFR 60-89 3 Moderate decrease in GFR 30-59 4 Severe decrease in GFR 15-29 5 Kidney failure <15 (or dialysis) 36 Because ethnic data is not always readily available, this report includes an eGFR for both -Americans and non- Americans. The National Kidney Disease Education Program (NKDEP) does not endorse the use of the MDRD equation for patients that are not between the ages of 18 and 70, are , have extremes of body size, muscle mass, or nutritional status, or are non- or non-. According to the National Kidney Foundation, irrespective of diagnosis, the stage of the disease is based on the level of kidney function: Stage Description GFR(mL/min/1.73 m(2)) 1 Kidney damage with normal or decreased GFR 90 2 Kidney damage with mild decrease in GFR 60-89 3 Moderate decrease in GFR 30-59 4 Severe decrease in GFR 15-29 5 Kidney failure <15 (or dialysis) 37 The World Health Organization (WHO) Hepatitis B Immunoglobulin 1st International Reference Preparation (1976): The accepted criteria for immunity to HBV is anti-HBs activity greater than or equal to 10 mIU/mL. An Index Value of 1.00 is equivalent to 10 mIU/mL. Samples with an Index Value of 1.00 or greater are considered reactive (protective) in accordance with the CDC guidelines. 38 It is recognized that currently available assays for the detection of antibodies to HIV-1 and/or HIV-2 may not detect all infected individuals. HIV antibodies may be undetectable in some stages of the infection and in some clinical conditions. The performance of this assay has not been established for populations of infants or children. Assayed by Chemiluminescence Microparticle Immunoassay on the Siemens Advia Centaur CP. Values obtained with different methods or kits cannot be used interchangeably.The diagnostic specificity of the ADVIA Centaur 1/O/2 Enhanced assay in the low risk population was 99.90% (6052/6058) with a 95% confidence interval of 99.78 to 99.96%. 39 Because ethnic data is not always readily available, this report includes an eGFR for both -Americans and non- Americans. The National Kidney Disease Education Program (NKDEP) does not endorse the use of the MDRD equation for patients that are not between the ages of 18 and 70, are , have extremes of body size, muscle mass, or nutritional status, or are non- or non-. According to the National Kidney Foundation, irrespective of diagnosis, the stage of the disease is based on the level of kidney function: Stage Description GFR(mL/min/1.73 m(2)) 1 Kidney damage with normal or decreased GFR 90 2 Kidney damage with mild decrease in GFR 60-89 3 Moderate decrease in GFR 30-59 4 Severe decrease in GFR 15-29 5 Kidney failure <15 (or dialysis) 40 Normally menstruating females - Follicular phase 3 - 9 - Mid-cycle peak 4 - 23 - Luteal phase 1 - 6 Postmenopausal females 16 - 114 41 -- REFERENCE VALUE -- 25-HYDROXY D TOTAL (D2+D3) Optimum levels in the normal population are 25-80 Test Performed by: [address] [address] Stock Layer: Anibal Valdes III, M.D. 42 Herpes simplex type II DNA detected. Negative for Varicella zoster DNA. -- REFERENCE VALUE -- Not applicable Analyte Specific Reagent. This test was developed and its performance characteristics determined by [facility]. It has not been cleared or approved by the U.S. Food and Drug Administration. Test Performed by: [facility] [place] [address] Stock Layer: Anibal Valdes III, M.D. 43 Positive in 50% of persons with pernicious anemia. -- REFERENCE VALUE -- Negative Test Performed by: [facility] Dpt of Lab Med and Pathology [address] [place] [address] Stock Layer: Anibal Valdes III, M.D. 44 Test Performed by: [facility] Dpt of Lab Med and Pathology [address] [place] [address] Stock Layer: Anibal Valdes III, M.D. 45 Please note: New reference range, effective 09/02/11 NORMAL REFERENCE RANGE: GREATER THAN 4.1 NG/ML Procedures Date CPT Code Description Status 03/02/2018 68578 Chemodenervation Of Muscles Innervated By Facial Completed Nerves, Bilat 04/08/2016 Colonoscopy Completed 03/12/2016 Mammogram Completed 12/19/2015 70377 Inject/Drain Joint/Bursa Major W/O US Completed 08/05/2014 75800 Holter Monitor Review (24 hr)dr review & interp only Completed 07/18/2014 91151 EKG Tracing & Interpretation Completed 07/04/2014 Mammogram Completed 04/04/2014 78504 Removal Skin Tags Up To 15 Completed 02/27/2014 86829 Injection For Nerve Block, Greater Occipital Nerve Completed 06/12/2013 Mammogram Completed 10/26/2011 26089 EKG Tracing & Interpretation Completed Encounters Type Date Location Provider CPT E/M Dx Office Visit 04/06/2018 [facility] Maricarmen Cruz 76912 E03.9 3:40p Agustin Woods M.D. I10 Z68.34 Office Visit 02/17/2018 10:40a [facility] Maricarmen Cruz M.D. 44530 R61 - Peggy E03.9 E78.5 R10.11 R10.31 Office Visit 01/26/2018 11:15a [place] Gunnar Winston 32773 G43.019 [facility] Office Visit 06/23/2017 1:00p [facility] [place] [address] J01.90 Medicine - Peggy R11.0 H92.03 Office Visit 04/11/2017 2:40p [facility] Medicine Maricarmen Cruz, 83793 R63.5 - [place] D[place] Office Visit 03/14/2017 4:00p [facility] Medicine Maricarmen Cruz, 53378 R63.5 - Peggy Osborne R09.81 Office Visit 12/29/2016 4:20p [facility] [place] [address] R50.9 [place] J06.9 Office Visit 12/16/2016 3:30p [place] [facility] Bhavya France, 93356 M54.81 [facility] M.D. G43.109 Office Visit 11/26/2016 11:40a [facility] Medicine Maricarmen Cruz, 57495 J01.90 - Peggy Osborne K62.5 Office Visit 11/25/2016 2:40p [facility] Internal Medicine Subhash Ray, 849[address] R42 - [place]claude Osborne Office Visit 11/01/2016 10:00a [facility] [place] [address] F41.9 - [place] Office Visit 10/12/2016 11:20a [facility] [place] [address] F41.9 - [place] J01.90 Office Visit 09/16/2016 5:30p [facility] [place] [address] J06.9 [place] R11.2 Office Visit 07/22/2016 11:15a [place] [facility] Bhavya France, 44013 S06.0x1S [facility] M.D. M54.81 G43.109 G43.109 M54.81 Office Visit 03/18/2016 9:45a [place] [facility] Bhavya France, 30287 G43.019 [facility] M.D. Office Visit 02/16/2016 8:45a [facility] Dalia He M.D. 82208 M25.512 Of Sandeep S43.422D M75.42 Office Visit 01/19/2016 9:15a [facility] Of Dalia He M.D. 20567 M25.512 C.M.A. S43.422A M75.42 Office Visit 12/19/2015 8:00a [facility] Of Dalia He M.D. 36543 M25.512 C.M.A. S43.422A M75.42 Office Visit 10/02/2015 11:20a [facility] Lindsay West.Sindy 70929 R10.11 - [place] R10.31 J34.89 R19.7 Office Visit 05/12/2015 8:20a [facility] Of Capo Jaeger M.D. 45490 844.9 C.M.A. Office Visit 05/01/2015 9:00a [facility] Of Marta Soto, 12233 844.9 C.M.A. RPA-C Office Visit 03/25/2015 8:30a [facility] Bhavya France, 82934 346.02 [facility] Dylon 346.00 Office Visit 02/04/2015 9:40a [facility] James Rosa M.D. 50528 478.9 - [address] 386.10 465.9 Office Visit 01/30/2015 10:40a [facility] [place] [address] 381.81 [place] 787.91 Office Visit 01/24/2015 9:00a [facility] [place] [address] 847.2 - [place] Office Visit 12/23/2014 10:00a [facility] [place] [address] 847.2 - [place] Office Visit 11/25/2014 10:00a [facility] [place] [address] 847.2 - [place] Office Visit 10/31/2014 9:40a [facility] Maricarmen Cruz 24034 847.2 - Peggy Osborne 847.2 Office Visit 10/16/2014 1:20p [facility] Maricarmen Cruz 96970 847.2 - Peggy Osborne Office Visit 09/26/2014 11:20a [facility] Maricarmen Cruz 37109 487.8 - Peggy Osborne 783.1 Office Visit 07/18/2014 4:00p [facility] Maricarmenrolando Cruz, 56742 794.31 - Peggy Osborne 789.00 Office Visit 07/02/2014 9:45a [place] [facility] Bhavya France, 89591 346.91 Services Of Security Inspector M.D. Office Visit 06/18/2014 1:40p [facility] Maricarmenrolando Cruz, 40166 V70.0 - Peggy Osborne 244.9 V76.10 311 V04.81 V06.1 Office Visit 05/07/2014 2:30p [place] [facility] Bhavya France, 83679 346.93 Services Of Security Inspector M.D. Office Visit 02/27/2014 8:15a [place] [facility] Khanh Lau, 74098 346.93 Services Of Security Inspector M.D. Office Visit 02/21/2014 11:45a [place] [facility] Bhavya France, 84292 346.93 Services Of Security Inspector M.D. 386.10 Office Visit 12/24/2013 9:00a [facility] Maricarmen Cruz, 63609 461.8 - Peggy Osborne 782.1 244.9 309.9 Office Visit 12/04/2013 1:00p [facility] Maricarmen Cruz, 33990 386.10 - [place] Dylon 300.00 782.1 244.9 Office Visit 11/12/2013 11:20a [facility] Maricarmen Cruz 12843 461.8 - Peggy Osborne 346.10 245.2 Office Visit 03/26/2013 10:00a [facility] - Stacy Serna M.D. 35772 995.3 [place] V70.0 620.2 245.2 278.00 Office Visit 02/21/2013 8:40a [facility] - Stacy Serna M.D. 68849 386.00 [place] 618.9 244.9 Office Visit 12/29/2012 10:15a [place] [facility] Bhavya France, 44033 346.91 Services Of Security Inspector M.D. Office Visit 12/14/2012 4:20p [facility] Yuko Acuña, N.P. 47032 465.9 - [place] Office Visit 09/25/2012 8:40a [facility] Stacy Serna M.D. 33190 620.2 - [place] 054.9 Office Visit 09/19/2012 11:00a [facility] Yuko Acuña N.P. 05672 054.9 - [place] Office Visit 07/28/2012 9:40a [facility] Stacy Serna M.D. 70226 245.2 - [place] 620.2 592.0 626.0 110.4 311 Office Visit 07/24/2012 8:40a [facility] - Stacy Serna M.D. 02137 599.70 [place] 346.80 493.90 245.2 Office Visit 01/21/2012 9:40a [facility] - Stacy Serna M.D. 12161 266.9 [place] 477.9 Office Visit 2012 9:40a [facility] - Stacy Serna M.D. 56523 354.0 [place] 245.2 Office Visit 12/10/2011 10:00a [facility] - Stacy Serna M.D. 61346 493.92 [place] Office Visit 12/01/2011 3:20p [facility] - Stacy Serna M.D. 78293 245.2 [place] 749.00 477.9 311 Office Visit 10/26/2011 3:20p [facility] - Stacy Serna M.D. 87638 786.59 [place] Office Visit 10/08/2011 8:40a [facility] - Stacy Serna M.D. 20011 311 [place] 245.2 079.99 Office Visit 09/03/2011 8:40a DO Not Use [facility] Stacy Serna M.D. 77150 245.2 311 Office Visit 08/17/2011 8:40a DO Not Use [facility] Stacy Serna M.D. 38289 311 Office Visit 08/03/2011 3:20p DO Not Use [facility] Stacy Serna M.D. 58257 053.29 346.80 Office Visit 07/29/2011 10:00a DO Not Use Security Inspector-Peggy Serna M.D. 39418 311 245.2 Plan of Care Future Appointment(s):09/07/2018 3:45 pm - Bryan Winston M.D. at [place] [facility]06/06/2018 10:00 am - Bryan Winston M.D. at [place] [facility]05/04/2018 - Parag Meek, MDM25.561 Pain in right kneeNew Therapy:Physical TherapyFollow up:Follow up: 2 months prnM17.11 Unilateral primary osteoarthritis, right knee
[2018-05-28 10:35] VITALS: BP 149/87
--- NOTE | 2018-05-28 10:58 | UC ---
Headache HPI - HPI Summary HPI Summary: pt has long hx migraine headaches, sees neurologist for Botox inj. has had migraine today, feels it's mst related to increased stress at work. no fever or other feelings illness. not worst headache of life - History Of Current Complaint Chief Complaint: UCHeadache Stated Complaint: HEADACHE Time Seen by Provider: 05/28/18 10:50 Hx Obtained From: Patient Hx Last Menstrual Period: hyster Onset/Duration: Gradual Onset Initially Headache Was: Moderate Pain Intensity: 6 Timing: Constant Character: Throbbing, Typical Headache Location of Headache: Diffuse Aggravating Factor(s): Nothing Allevating Factor(s): Nothing Associated Signs And Symptoms: Positive: Negative Related History: Similar Episode/DX As: - migraine - Risk Factors Meningitis Risk Factors: Negative - Allergies/Home Medications Allergies/Adverse Reactions: Allergies Allergy/AdvReac Type Severity Reaction Status Date / Time Sulfa (Sulfonamide Allergy Hives Verified 05/28/18 10:36 Antibiotics) PMH/Surg Hx/FS Hx/Imm Hx Previously Healthy: Yes Endocrine History: Thyroid Disease Respiratory History: Asthma Neurological History: Migraine Other History Of: Negative For: HIV, Hepatitis B, Hepatitis C, Anticoagulant Therapy - Surgical History Surgical History: Yes Surgery Procedure, Year, and Place: stent placement for kidney stones 2002 AND REMOVED 3 WEEKS LATER, HYSTERECTOMY; R shoulder surgeries X2; R foot x 2; 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 2012 [facility] - Family History Known Family History: Positive: Hypertension - Social History Occupation: Employed Full-time Lives: With Family Alcohol Use: Rare Substance Use Type: None Smoking Status (MU): Former Smoker Have You Smoked in the Last Year: No When Did the Patient Quit Smoking/Using Tobacco: jun 2011 Household Exposure Type: Cigarettes - Immunization History Most Recent Influenza Vaccination: 2013 Most Recent Tetanus Shot: <5 YEARS Review of Systems Constitutional: Negative Skin: Negative Respiratory: Negative Cardiovascular: Negative Neurological: Headache Psychological: Other - stessed Is Patient Immunocompromised?: No All Other Systems Reviewed And Are Negative: Yes Physical Exam Triage Information Reviewed: Yes Appearance: Well-Appearing, No Pain Distress, Well-Nourished Vital Signs: Initial Vital Signs Temp 98 F 05/28/18 10:33 Pulse 69 05/28/18 10:33 Resp 16 05/28/18 10:33 BP 149/87 05/28/18 10:33 Pulse Ox 98 05/28/18 10:33 Vital Signs Reviewed: Yes Eyes: Positive: Conjunctiva Clear Neck exam: Normal Respiratory Exam: Normal Cardiovascular Exam: Normal Neurological Exam: Normal Neurological: Positive: Alert Psychological Exam: Normal Skin Exam: Normal Skin: Negative: rashes Headache Course/Dx - Course Course Of Treatment: iStop Reference #: [id number]. patient offered toradol, refuses any meds, requests work note, she will take her imitrex at home - Differential Dx/Diagnosis Differential Diagnosis/HQI/PQRI: Meningitis, Migraine, Sinus Headache, Tension Headache Provider Diagnoses: migraine headache Discharge - Sign-Out/Discharge Documenting (check all that apply): Patient Departure All imaging exams completed and their final reports reviewed: No Studies - Discharge Plan Condition: Good Disposition: HOME Patient Education Materials: Migraine Headache (ED) Forms: *Work Release Referrals: Maricarmen Cruz MD [Primary Care Provider] - 2 Days (recheck elevated blood pressure discuss anxiety and stress) Additional Instructions: rest, avoid bright lights if your pain worsens or symptoms change, please report to ER - Billing Disposition and Condition Condition: GOOD Disposition: Home
== END 2018-05-28 11:23 | disposition home or self-care (01) ==
LOC: UCEAST 10:19
DX: G43.909 Migraine, unspecified, not intractable, without status migrainosus (principal); Z88.2 Allergy status to sulfonamides; Z87.891 Personal history of nicotine dependence
CPT/HCPCS: 99211; G0463

== ENCOUNTER 2018-07-05 17:47 | Emergency (ER) | payer BC ==
--- OUTSIDE RECORDS SUMMARY | 2018-07-05 17:52 | XMS REPORT ---
:1965 External Reference #:[id number] Author Organization [employer] Address [address] [place] [address] [place] [address] Phone [phone] Care Team Providers Name Role Phone Maricarmen Cruz MD Primary Care Physician Unavailable Payers Type Date Identification Numbers Payment Provider Subscriber Commercial Effective: Policy Number: [id number] [facility] Christian Barclay 2011 PayID: [id number] [address] [place] [address] Workers Effective: Policy Number: State Insurance Christian L Compensation 2016 [id number] Chai Barclay Onset: 2016 Group Number: fax [phone] [address] [address] PayID: [place] [address] Workers Effective: Policy Number: State Insurance Christian L Compensation 2014 [id number] Chai Barclay Onset: 2014 Group Number: [id number] [address] [address] PayID: [place] [address] Workers Onset: 2015 Policy Number: State Insurance Christian L Compensation [id number] Chai Barclay Group Name: [phone] [address] [address] PayID: [place] [address] Problems Date Description Provider Status Onset: 07/29/2011 [...] With and adopted grandson 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 Hand Dominance Right-handed ETOH Use Denies alcohol use Smoking Patient is a former smoker quit 06/29/11 Recreational Drug Use Denies Drug Use Daily Caffeine Consumes on average 3 cups of regular coffee per day Exercise Type/Frequency Exercises regularly General Hx Text rare etoh occasional smoker (mostly quit 2009) no drugs employed has to work odd shifts (day/night) Allergies, Adverse Reactions, Alerts Date Description Reaction Status Severity Comments 07/29/2011 Sulfa swelling around her eyes active Mild to Moderate 07/29/2011 NKDA inactive Medications Medication Date Status Form Strength Qnty SIG Indications Ordering Provider Bupropion HCL ER 06/29 Active Tablets ER 150mg 30tab 1 by mouth F33.0 Maricarmen (XL) 24HR s every day Dylon Cruz Losartan 06/29 Active Tablets 50mg 90tab 1 by mouth I10 Maricarmen Potassium /2017 s every day Dylon Cruz Arthrotec 05/[address] 75-0.2mg 90tab Take 1 M17.11 Maricarmen s tablet 3-4 Cotton, times M.D. daily as needed for pain Levothyroxine 04/06 Active Tablets 100mcg 90tab 1 by mouth Maricarmen Sodium s every day Dylon Cruz Flovent HFA 11/12 Active Aerosol 110mcg/Ac 36gm 2 puffs t twice Cotton, daily M.D. Losartan 05/30 Hx Tablets 25mg 30tab 1 by mouth I10 Maricarmen Potassium /2017 s every day Agustin Cruz.Navdeep 06/29 Losartan 04/07 Hx Tablets 25mg 30tab 1 by mouth I10 Maricarmen Potassium /2017 s every day Anthony, - M.D. 05/03 Chlorthalidone 04/06 Hx Tablets 25mg 15tab 1/2 tab by I10 Maricarmen s mouth Anthony, - every day M.D. 04/07 Levothyroxine 02/20 Hx Tablets 88mcg 30tab 1 by mouth Maricarmen Sodium s every day Agustin Cruz M.D. 04/06 Amoxicillin/Clav 06/23 Hx Tablets 875-125mg 20tab take one J01.90 Geovanni cristinae s tablet q12 FLORENTINO Vila Potassium - hours for 01/23 Ondansetron 06/23 Hx Tablets 4mg 30tab dissolve R11.0 Geovanni Dispers s one tablet FLORENTINO Vila - orally 05/03 every hours as needed for nausea. Benzonatate 06/23 Hx Capsules 200mg 30cap one by J01.90 Geovanni s mouth FLORENTINO Vila - three 06/30 times daily as needed for cough Sumatriptan 05/19 Hx Tablets 100mg 12tab 1/2 to 1 Khanh S. Succinate s po prn Sid, - migraine M.D. 05/03 max 2/day max 2 d/wk Belviq XR 04/11 Hx Tablets ER 20mg 30tab 1 PO qd E03.9 Maricarmen /2017 24HR Agustin Knight M.D. 01/25 Belviq 03/14 Hx Tablets 10mg 60tab 1 PO bid E03.9 Maricarmen /2017 Agustin Knight M.D. 04/11 Levothyroxine 03/02 Hx Tablets 50mcg 30tab 1 by mouth Geovanni Sodium s every day- FLORENTINO Vila - pt states 02/20 she taking 75 mcg as of 01/26/18 Amoxicillin/Clav 11/26 Hx Tablets 875-125mg 20tab 1 tablet J01.90 Maricarmen ulanate /2016 s twice Cotton, Potassium - daily for M.D. 12/12 10 Levothyroxine 11/22 Hx Tablets 75mcg 30tab 1 by mouth Geovanni Sodium s every day FLORENTINO Vila - 03/02 Diazepam 10/12 Hx Tablets 2mg 30tab take 09/13 F41.9 Geovanni s tablet by Cadence, ELECTROPHYSIOLOGY TECH - mouth as 12/12 needed for anxiety maximum daily dose=1 tablet Doxycycline 10/12 Hx Capsules 100mg 20cap one tablet J01.90 Geovanni Hyclate s twice Cadence, ELECTROPHYSIOLOGY TECH - daily for 10/19 10 days. Ondansetron 09/16 Hx Tablets 4mg 30tab dissolve R11.2 Geovanni Dispers s one tablet Cadence, ELECTROPHYSIOLOGY TECH - orally 11/26 every hours as needed for nausea. Amoxicillin/Clav 09/16 Hx Tablets 875-125mg 20tab take one J06.9 Geovanni ulanate s tablet q12 FLORENTINO Vila Potassium - hours for 09/27 10 Fluticasone 09/16 Hx Suspension 50mcg/Act 16gm 2 J06.9 Geovanni Propionate intranasal Cadence, ELECTROPHYSIOLOGY TECH - puffs once 12/12 Meloxicam 02/15 Hx Tablets 15mg 60tab 1 by mouth M25.512 Dalia s every day Neri, - M.D. 10/12 Naproxen 01/27 Hx Tablets 500mg 60tab 1 tablet Brent s by mouth Jagdish, - with food M.D. 12/16 daily. TENS Unit 01/18 Hx use tid M25.512 Dalia /2015 for yahaira He, - shoulder M.D. 12/12 pain Amitriptyline 03/25 Hx Tablets 10mg 270ta 2-3 G43.101 Bhavya BUSTILLO /2014 bs tablets by Edilma, - mouth at [...] Tablets 5mg 15tab 1 by mouth 478.9 s three Rosa, - times a M.D. 03/24 day Fluticasone 01/30 Hx Suspension 50mcg/Act 16gm 1 sprays 381.81 Geovanni each FLORENTINO Vila - nostril 10/02 bid for weeks. Medrol (Gopi) 11/25 Hx Tablets 4mg 21tab take 6 847.2 Geovanni s tabs day FLORENTINO Vila - 1, 5 tabs 11/30 day 2, tabs day 3, 3 tabs day 4, 2 tabs day 5, and 1 tab day 6. Methocarbamol 10/31 Hx Tablets 750mg 40tab 1 by mouth 847.2 Maricarmen s 4 times Cotton, - daily as M.D. 01/24 needed Ibuprofen 10/16 Hx Tablets 800mg 90tab 1 by mouth 847.2 Maricarmen s three Cotton, - times a M.D. 03/14 day needed Oxycodone HCL 10/16 Hx Tablets 5mg 30tab 1 by mouth 847.2 Maricarmen s every 6 h Cotton, - as needed M.D. 01/26 Omeprazole 10/[address] 20mg 30cap 1 by mouth 847.2 Maricarmen s every day Cotton, - if needed M.D. 03/24 to Bupropion HCL ER 06/18 Hx Tablets ER 150mg 90tab take 1 F32.9 Maricarmen (XL) 24HR s tablet by Cotton, - mouth one M.D. 10/12 time Verapamil HCL 05/07 Hx Tablets 40mg 120ta 1 tab PO 346.91 Bhavya . bs bid Edilma, - M.D. 03/24 Prednisone 03/04 Hx Tablets 20mg 21tab 3 po x3 Melanie s days, 2 po Cowdery, - x3 days, 1 M.D. 04/04 po x 3 days,1/ po x3 days Amitriptyline 02/27 Hx Tablets 10mg 60tab 2 tablets Khanh S. HCL s po at [place], - bedtime M.D. 10/31 Sumatriptan 02/27 Hx Tablets 100mg 12tab 1-1 tab G43.009 Bhavya M. Succinate s by mouth Edilma, - as needed M.D. 12/12 Ondansetron 02/27 Hx Tablets 4mg 30tab 1 po three Khanh S. Dispers s times a [place], - day as M.D. 10/12 needed nausea Zolmitriptan 02/06 Hx Tablets 2.5mg 12tab 1 PO qd 346.10 s prn, take Anthony, - at the M.D. 02/10 start of headache Cefdinir 12/24 Hx Capsules 300mg Anthony, - M.D. 01/04 Fluticasone 12/24 Hx Suspension 50mcg/Act 16gm 2 461.8 Propionate intranasal Cotton, - puffs once M.D. 01/30 daily Triamcinolone 12/24 Hx Cream 0.1% 30gm apply thin 782.1 Maricarmen Acetonide film to Cotton, - feet M.D. 12/24 twice daily Ketoconazole 12/24 Hx Cream 2% 60gm apply thin 782.1 Maricarmen film twice Anthony, - daily M.D. 02/10 Triamcinolone 12/04 Hx Cream 0.1% 30gm apply thin 782.1 Maricarmen Acetonide film to Cotton, - feet M.D. 12/24 twice daily Bupropion HCL ER 12/04 Hx Tablets ER 150mg 30tab 1 PO qd 300.00 Maricarmen (XL) 24HR s Anthony - M.D. 12/24 Proair HFA 11/12 Hx Aerosol 108(90Bas 8.500 2 puffs po e) gm q4h prn Daphne, Agustin mcg/Act M.D. 02/10 Fluticasone 11/12 Hx Suspension 50mcg/Act 16gm 2 461.8 intranasal Cotton, - puffs once M.D. 12/24 Amoxicillin 11/12 Hx Capsules 500mg 30cap 1 tab po 461.8 s tid for 10 Cotton, - days M.D. 12/03 Zolmitriptan Odt 11/12 Hx Tablets 2.5mg 12tab 1 PO qd 346.10 Dispers s prn, take Cotton, - at the M.D. 02/06 start of headache Levothyroxine 03/29 Hx Tablets 112mcg 90tab 1 by mouth Geovanni Sodium s every day FLORENTINO Vila - 11/22 Loratadine-D 03/26 Hx Tablets ER 10-240mg 30tab take 1 995.3 Stacy 24HR 24HR s tablet Daphne, - daily as M.D. 03/26 needed for allergy Bertin 03/26 Hx Capsules 60mg 90cap take 1 278.00 s capsule by Daphne, - mouth 3 M.D. 11/12 times per day with meals for weight loss Levocetirizine 03/26 Hx Tablets 5mg 90tab Take 1 995.3 Stacy Dihydrochloride s tablet by Daphne, - mouth M.D. 11/12 daily in the evening Ipratropium 12/14 Hx Solution 0.06% 15ml 2 sprays 465.9 Yuko in each Varn, N.P. - nostril 12/28 tid until better Valtrex 09/19 Hx Tablets 500mg 90tab Take 1 054.9 Stacy s tablet Daphne, - daily M.D. 09/26 Neurontin 09/19 Hx Capsules 300mg 30cap 1 capsule 054.9 Yuko s po at Varn, N.P. - bedtime 09/25 Ketoconazole 07/28 Hx [...] three Daphne, - times M.D. 07/24 daily food as needed Wrist Splint 01/04 Hx Misc 1unit Right 354.0 s wrist. Daphne, - Wear for M.D. 12/12 driving and sleeping Advair Diskus 12/09 Hx Aerosol 100-50mcg 60uni 1 /Dose ts inhalation Daphne, - twice M.D. 07/24 Afrin 11/30 Hx Solution 0.05% 15ml Inhale 2 477.9 sprays Daphne, - into M.D. 07/24 nostril times per day every 10 to 12 hours as needed for stuffy nose Diclofenac 11/[address] 75mg 60tab Take 1 786.59 Stacy Sodium s tablet by Daphne, - mouth 2 M.D. 11/12 times per day for arthritis prn Misoprostol 11/15 Hx Tablets 200mcg 60tab Take 1 s tablet Daphne, - twice M.D. 12/29 daily diclofenac prn Arthrotec 75 10/26 Hx Tablets 75-200mg- 28tab Take 1 786.59 mcg s tablet 3-4 Daphne, - times M.D. 11/15 daily needed for pain Tramadol HCL 10/26 Hx Tablets 50mg 40tab 1-2 786.59 s tablets Varn, N.P. - every 6 11/12 hours needed Otic Care 10/08 Hx Solution 5.4-1.4-0 14ml 5 drops 079.99 .0097% every 2 Daphne, - hours M.D. 07/24 until pain relieved Wellbutrin XL 09/03 Hx Tablets ER 300mg 90tab Take 1 311 Stacy 24HR s tablet Daphne, - daily M.D. [...] Tablets 100mg 9tabs Take 1 346.80 Stacy / tablet as Daphne, - needed for M.D. 11/12 control, may repeat after 6 hours prn Ibuprofen Hx Tablets 600mg 90tab prn Unknown /0000 s - 07/24 Singulair Hx Tablets 10mg 90tab 1 po qd Stacy /0000 s prn Agustin Serna M.D. 03/26 Meclizine HCL Hx Tablets 25mg 60tab 1 po tid Unknown /0000 s prn - 09/03 Levothyroxine Hx Tablets 75mcg 30tab 1 po qd Unknown Sodium /0000 s - 07/29 Ventolin HFA 00 Hx Aerosol 108(90Bas 1unit 2 puffs po 493.90 Stacy /0000 e) mcg/ac s qid prn Agustin Serna M.D. 11/12 Flovent HFA 0000 Hx Aerosol 110mcg/Ac 1mont 2 puffs Unknown /0000 t h twice - daily 12/09 Meclizine HCL 00 Hx Tablets 25mg 90tab 1 po tid Stacy /0000 s prn Agustin Serna M.D. 11/12 Zofran 00 Hx Tablets 4mg 20tab 1 q 6 Unknown /0000 s hours prn - nausea 11/12 Oxybutynin 00/00 Hx Tablets ER 10mg every day Unknown Chloride ER /0000 24HR - 12/24 Ketorolac 0000 Hx Tablets 10mg 10tab take 1 by Unknown Tromethamine /0000 s mouth - every 8 06/20 hours needed for migraine. take with food. [...] po Unknown /0000 prn - 10/15 Tylenol Hx Tablets 325mg 2 po as Unknown /0000 needed - 10/12 Aleve Hx Capsules 220mg 60cap 1 by mouth Unknown /0000 s as needed - 10/12 Oxybutynin 0000 Hx Tablets ER 10mg 90tab 1 by mouth Maricarmen Chloride ER /0000 24HR s every day Agustin Cruz M.D. 10/12 Naproxen Hx Tablets 500mg 1 by mouth Unknown /0000 twice a - day as 02/22 pain Medications Administered in Office Medication Date Status Form Strength Qnty SIG Indications Ordering Provider Injection 06/06 Administered Injection Bryan Onabotulinumtoxi Dylon Winston n A, 1 Unit Injection 03/02 Administered Injection Christopher Onabotulinumtoxi Dylon Winston n A, 1 Unit Depomedrol 40MG 12/18 Administered Injection Dalia /2015 Dylon He Injection,Lidoca 02/27 Administered Injection Khanh BUSTILLO Kike Lau M.D. Infusion,10 MG Immunizations CPT Code Status Date Vaccine Lot # [id number] Given 06/18/2014 Tdap - Tetanus/Diptheria/Acellular Pertussis [id number] Given 06/18/2014 Influenza Virus Vaccine, Quadrivalent, Split, [id number] Preservative Free Vital Signs Date Vital Result Comment 06/29/2018 Height 64.5 inches 5'4.50" Weight 191.00 lb Heart Rate 66 /min BP Systolic Sitting 144 mmHg BP Diastolic Sitting 90 mmHg O2 % BldC Oximetry 98 % BMI (Body Mass Index) 32.3 kg/m2 06/06/2018 Height 64.5 inches 5'4.50" Weight 191.00 lb Heart Rate 74 /min BP Systolic Sitting 132 mmHg BP Diastolic Sitting 82 mmHg Respiratory Rate 16 /min BMI (Body Mass Index) 32.3 kg/m2 05/30/2018 Height 64.5 inches 5'4.50" Weight 195.00 lb Heart Rate 73 /min BP Systolic Sitting 156 mmHg BP Diastolic Sitting 88 mmHg O2 % BldC Oximetry 95 % BMI (Body Mass Index) 33.0 kg/m2 05/04/2018 Height 64.5 inches 5'4.50" Weight 196.00 lb Heart Rate 68 /min BP Systolic Sitting 136 mmHg BP Diastolic Sitting 89 mmHg O2 % BldC Oximetry 97 % BMI (Body Mass Index) 33.1 kg/m2 05/04/2018 Height 64.5 inches 5'4.50" Weight 194.00 [...] Result H/L Range Note Laboratory test finding 05/04/2018 TSH (Thyroid Stim 0.10 mcIU/mL Low 0.34 -5.60 Horm) Laboratory test finding 04/06/2018 TSH (Thyroid Stim <pending> Horm) Free T4 (Free Thyroxine) <pending> Laboratory test [...] Poc Ketone, Urine Negative Negative Poc Specific Sanford, Urine 1.020 1.010-1.030 Poc Blood, Urine Trace-intact Negative Poc pH, Urine 6.0 5-9 Poc Protein, Urine Negative Negative Poc Urobilinogen, Urine 0.2 Negative Poc Nitrite, Urine Negative Negative Poc Leukocytes, Urine Negative Negative Poc Color, Urine Yellow Poc Clarity, Urine Clear 7 Laboratory test 02/28/2017 TSH (Thyroid Stim 4.17 mcIU/mL 0.34-5.60 8, 9 finding Horm) Laboratory test 12/29/2016 Rapid Influenza A SEE RESULT BELOW 10, 11 finding B Antigen Rapid Influenza A & 12/29/2016 Influenza A NEGATIVE Negative 12 B Molecular Molecular Influenza B Molecular NEGATIVE Negative Comp Metabolic Panel 11/19/2016 Sodium 139 mmol/L [...] 79.3 >60 13 Egfr 102.0 >60 13, 14 Lipid Profile (Trig/Chol/HDL) 11/19/2016 Triglycerides 126 mg/dL 13, 15 Cholesterol 215 mg/dL 13, 16 HDL Cholesterol 45.2 mg/dL 13, 17 LDL Cholesterol 145 mg/dL 13, 18 Laboratory test 11/19/2016 TSH (Thyroid Stim 10.26 mcIU/mL High 0.34-5.60 13, 19 finding Horm) Xray 02/13/2016 MRI Shoulder Left <pending> W/O Laboratory test 09/27/2015 Urine Culture And SEE RESULT 20 finding Sensitivities BELOW Laboratory test 07/18/2014 Lipase 27 U/L 11.0-82.0 [...] Red Blood Cells % 0 Laboratory test finding 11/01/2012 Hepatitis C Antibody Nonreactive Nonreactive HIV 1 2 AB Nonreactive Nonreactive 37 Hepatitis B Jaida AB Titer 11/01/2012 Hepatitis B Surface AB Reactive Nonreactive Hep B Surf AB Index 9.81 38 Laboratory test finding 11/01/2012 Hepatitis B Surface Nonreactive Nonreactive Antigen HSV/VZV Derm PCR 09/19/2012 hs/VZ Source SKIN hs/VZ PCR Result See Comment 39 Laboratory test finding 09/19/2012 TSH (Thyroid Stimulating 1.04 miu/mL 0.34-5.60 Horm) Comp Metabolic Panel 09/19/2012 Sodium 136 mmol/L [...] Egfr Non- 67.4 >60 Egfr 86.7 >60 40 Vitamin D, 25 Hydroxy 09/19/2012 25-Hydroxy Vitamin D2 <4.0 ng/mL 25-Hydroxy Vitamin D3 32 ng/mL 25-Hydroxy Vitamin D Total 32 ng/mL 41 Laboratory test finding 09/19/2012 Follicle Stimulating Hormone 5.70 MIU/ML 42 Ua Routine 07/24/2012 Ua Specific Sanford 1.015 Ua PH 5 Ua Color yellow [...] 43 Methylmalonic Acid 0.15 nmol/mL <=0.40 44 Vitamin B12 And Folate Serum 2012 Vitamin B12 245 pg/mL 180-914 Folic Acid 9.8 NG/ML See Below 45 Laboratory test finding 2012 TSH 0.13 MIU/ML Low 0.34-5.60 CBC Auto Diff 12/10/2011 White Blood Count [...] 5 Kidney failure <15 (or dialysis) 7 Global Implementation Manager: [id number] 8 6 weeks after increasing levothyroxine dose 9 6 weeks after increasing levothyroxine dose 10 [id number] 11 SEE RESULT BELOW Name: CHRISTIAN BARCLAY : [address]: Geovanni Vila ELECTROPHYSIOLOGY TECH Acct: [id number] Unit: [id number] AGE: 51 Location: [facility] Re12/29/16 SEX: F Status: REG REF SPEC: [id number] GE: 12/29/[address]: Geovanni Vila NP REQ: [id number] RECD: 12/29/16 STATUS: COMP _ [facility]: ORDERED: [place] Request COMMENTS: [id number] Procedure Result Reported Site Rapid Influenza A B Request Final [id number] ML Specimen received for Influenza A/B Molecular testing * ML - MAIN LAB ([facility]) . END OF REPORT * ML=Testing performed at Main Lab DEPARTMENT OF PATHOLOGY, [address] [place] [address] Toby Taveras M.D. Director [facility] # [id number] 12 Global Implementation Manager: [id number] FASTING 10 HOUR 14 Because ethnic data is not always readily [...] 15-29 5 Kidney failure <15 (or dialysis) 15 Desirable <150 Borderline high 150-199 High 200-499 Very High >500 16 Desirable <200 Borderline high 200-239 High >239 17 Low <40 Desirable: 40-60 High: >60 18 Desirable: <100 mg/dL Near Optimal: 100-129 mg/dL Borderline High: 130-159 mg/dL High: 160-189 mg/dL Very High: >189 mg/dL 19 FASTING 10 HOUR 20 SEE RESULT BELOW Name: CHRISTIAN BARCLAY : [address]: Amparo Thomason MD Acct: [id number] Unit: [id number] AGE: 50 Location: [facility] Re09/27/15 SEX: F Status: DEP ER SPEC: [id number] GE: 09/27/15-13[address] [facility] [address]: Amparo Thomason MD REQ: [id number] RECD: 09/28/15-123 STATUS: DONAVAN SKINNER DR: [facility] Maricarmen Cruz MD _ SOURCE: URINE SPDESC: ORDERED: Urine Culture Procedure Result Reported Site Urine Culture Final 09/29/15- 1313 ML No Growth (<1,000 CFU/mL) * ML - MAIN LAB ([facility]) . END OF REPORT * ML=Testing performed at Main Lab DEPARTMENT OF PATHOLOGY, [address] [place] [address] Toby Taveras M.D. Director [facility] # [id number] 21 Reference Range and Interpretation: TnI (ng/mL) Interpretation Less Than 0.03 ng/mL Not supportive of diagnosis of [place] 0.03 - 0.50 ng/mL Indeterminate: suggest serial studies if clinically indicated. Greater than 0.5 ng/mL Consistent with diagnosis of [place] 22 Potassium reference range changed effective 07/14/14 [...] failure <15 (or dialysis) 24 Verbal to [id number] by [id number] at 1840 on 07/17/14. Results read back [...] levels within this range. Test Performed by: [facility] - [address] [address] Radar Scientist: Anibal Valdes III, M.D. 29 Because ethnic [...] and in selective patients <6.0%.Please refer to [place] [employer] Diabetic care guidelines for further [...] normal population are 25-80 Test Performed by: [address] [address] Radar Scientist: Anibal Valdes III, M.D. 35 Because ethnic [...] 5 Kidney failure <15 (or dialysis) 37 It is recognized that currently available assays [...] 95% confidence interval of 99.78 to 99.96%. 38 The World Health Organization (WHO) Hepatitis B Immunoglobulin 1st International Reference Preparation (1976): The accepted criteria for immunity to HBV is anti-HBs activity greater than or equal to 10 mIU/mL. An Index Value of 1.00 is equivalent to 10 mIU/mL. Samples with an Index Value of 1.00 or greater are considered reactive (protective) in accordance with the CDC guidelines. 39 Herpes simplex type II DNA detected. Negative for Varicella zoster DNA. -- REFERENCE VALUE -- Not applicable Analyte Specific Reagent. This test was developed and its performance characteristics determined by [facility]. It has not been cleared or approved by the U.S. Food and Drug Administration. Test Performed by: [place] [address] Radar Scientist: Anibal Valdes III, M.D. 40 Because ethnic data is not always readily [...] 15-29 5 Kidney failure <15 (or dialysis) 41 -- REFERENCE VALUE -- 25-HYDROXY D TOTAL (D2+D3) Optimum levels in the normal population are 25-80 Test Performed by: [address] [address] Radar Scientist: Anibal Valdes III, M.D. 42 Normally menstruating females - Follicular phase 3 - 9 - Mid-cycle peak 4 - 23 - Luteal phase 1 - 6 Postmenopausal females 16 - 114 43 Positive in 50% of persons with pernicious anemia. -- REFERENCE VALUE -- Negative Test Performed by: [facility] Dpt of Lab Med and Pathology [address] [place] [address] Radar Scientist: Anibal Valdes III, M.D. 44 Test Performed by: [facility] Dpt of Lab Med and Pathology [address] [place] [address] Radar Scientist: Anibal Valdse III, M.D. 45 Please note: New reference range, effective 09/02/11 NORMAL REFERENCE RANGE: GREATER THAN 4.1 NG/ML Procedures Date CPT Code Description Status 06/06/2018 30408 Chemodenervation Of Muscles Innervated By Facial Completed Nerves, Bilat 03/02/2018 52480 Chemodenervation Of Muscles Innervated By Facial Completed Nerves, Bilat 04/08/2016 Colonoscopy Completed 03/12/2016 Mammogram Completed 12/19/2015 07539 Inject/Drain Joint/Bursa Major W/O US Completed 08/05/2014 91547 Holter Monitor Review (24 hr)dr fidel & anne-mariep only Completed 07/18/2014 54093 EKG Tracing & Interpretation Completed 07/04/2014 Mammogram Completed 04/04/2014 62131 Removal Skin Tags Up To 15 Completed 02/27/2014 99097 Injection For Nerve Block, Greater Occipital Nerve Completed 06/12/2013 Mammogram Completed 10/26/2011 65650 EKG Tracing & Interpretation Completed Encounters Type Date Location Provider CPT E/M Dx Office Visit 05/30/2018 2:20p [facility] Maricarmen Cruz [address]1580 I10 - Peggy Osborne E03.9 H93.13 Office Visit 05/04/2018 10:45a [facility] Parag Meek, 95402 M25.561 Of Sandeep BEARD M17.11 Office Visit 05/04/2018 2:40p [facility] Maricarmen Cruz 90355 E03.9 - Peggy Osborne R03.0 M17.11 Office Visit 04/06/2018 3:40p [facility] Maricarmen Cruz 16257 E03.9 - Peggy Osborne I10 Z68.34 Office Visit 02/17/2018 10:40a [facility] Maricarmen Cruz M.D. 11173 R61 - Peggy E03.9 E78.5 R10.11 R10.31 Office Visit 01/26/2018 11:15a [facility] Bryan Winston, 14853 G43.019 Services Of Headline Writer M.D. Office Visit 06/23/2017 1:00p [facility] [place] [address] J01.90 Medicine - Peggy R11.0 H92.03 Office Visit 04/11/2017 2:40p [facility] Maricarmen Cruz 86619 R63.5 - Peggy Osborne Office Visit 03/14/2017 4:00p [facility] Maricarmen Cruz 90564 R63.5 - Peggy Osborne R09.81 Office Visit 12/29/2016 4:20p [facility] [place] [address] R50.9 Emblem J06.9 Office Visit 12/16/2016 3:30p [facility] Bhavya France, 84450 M54.81 Services Of Mindy Osborne G43.109 Office Visit 11/26/2016 11:40a [facility] Maricarmen Cruz 71130 J01.90 - Peggy Osborne K62.5 Office Visit 11/25/2016 2:40p [facility] Subhash Ray, 11302 R42 - Arrowjean-claude Osborne Office Visit 11/01/2016 10:00a [facility] [place] [address] F41.9 - Emblem Office Visit 10/12/2016 11:20a [facility] [place] [address] F41.9 - Emblem J01.90 Office Visit 09/16/2016 5:30p [facility] [place] [address] J06.9 Emblem R11.2 Office Visit 07/22/2016 11:15a [facility] Bhavya France, 08129 S06.0x1S Services Of Headline Writer M.D. M54.81 G43.109 G43.109 M54.81 Office Visit 03/18/2016 9:45a [facility] Bhavya France, 86981 G43.019 Services Of Headline Writer M.D. Office Visit 02/16/2016 8:45a [facility] Dalia He M.D. 74529 M25.512 Of C.M.A. S43.422D M75.42 Office Visit 01/19/2016 9:15a [facility] Of Dalia He M.D. 06731 M25.512 C.M.A. S43.422A M75.42 Office Visit 12/19/2015 8:00a [facility] Of Dalia He M.D. 32832 M25.512 C.M.A. S43.422A M75.42 Office Visit 10/02/2015 11:20a [facility] Yuko Acuña N.P. 87921 R10.11 - Emblem R10.31 J34.89 R19.7 Office Visit 05/12/2015 8:20a [facility] Of Capo Jaeger M.D. 81269 844.9 C.M.A. Office Visit 05/01/2015 9:00a [facility] Of Marta Soto, 40305 844.9 C.M.A. RPA-C Office Visit 03/25/2015 8:30a [facility] Bhavya France, 80956 346.02 Services Of Mindy M.D. 346.00 Office Visit 02/04/2015 9:40a [facility] James Rosa M.D. [address] 478[address] - [address] 386.10 465.9 Office Visit 01/30/2015 10:40a [facility] [place] [address] 381.81 Emblem 787.91 Office Visit 01/24/2015 9:00a [facility] [place] [address] 847.2 - Emblem Office Visit 12/23/2014 10:00a [facility] [place] [address] 847.2 - Emblem Office Visit 11/25/2014 10:00a [facility] [place] [address] 847.2 - Emblem Office Visit 10/31/2014 9:40a [facility] Maricarmen Cruz 41601 847.2 - Emblem M.DAna Laura 847.2 Office Visit 10/16/2014 1:20p [facility] Maricarmen Cruz, 75374 847.2 - Emblem M.D. Office Visit 09/26/2014 11:20a [facility] Maricarmen Cruz 77156 487.8 - Emblem M.DAna Laura 783.1 Office Visit 07/18/2014 4:00p [facility] Maricarmen Cruz, 05909 794.31 - Emblem M.DAna Laura 789.00 Office Visit 07/02/2014 9:45a [facility] Bhavya France, 05600 346.91 Services Of Headline Writer M.D. Office Visit 06/18/2014 1:40p [facility] Maricarmen Cruz, 15560 V70.0 - Emblem MYordan 244.9 V76.10 311 V04.81 V06.1 Office Visit 05/07/2014 2:30p [facility] Bhavya France, 12045 346.93 Services Of Headline Writer M.D. Office Visit 02/27/2014 8:15a [facility] Khanh Lau, 85621 346.93 Services Of Headline Writer M.D. Office Visit 02/21/2014 11:45a [facility] Bhavya France, 11199 346.93 Services Of Headline Writer M.D. 386.10 Office Visit 12/24/2013 9:00a [facility] Maricarmen Cruz 06067 461.8 - Peggy Osborne 782.1 244.9 309.9 Office Visit 12/04/2013 1:00p [facility] Maricarmen Cruz 04399 386.10 - Emblem M.DAna Laura 300.00 782.1 244.9 Office Visit 11/12/2013 11:20a [facility] Maricarmen Cruz 79040 461.8 - Emblem Dylon 346.10 245.2 Office Visit 03/26/2013 10:00a [facility] - Stacy Serna M.D. 00511 995.3 Emblem V70.0 620.2 245.2 278.00 Office Visit 02/21/2013 8:40a [facility] - Stacy Serna M.D. 80061 386.00 Emblem 618.9 244.9 Office Visit 12/29/2012 10:15a [facility] [place], 03245 346.91 Services Of [facility] Dylon Office Visit 12/14/2012 4:20p [facility] Yuko Acuña, N.P. 97788 465.9 - Emblem Office Visit 09/25/2012 8:40a [facility] Stacy Serna M.D. 05319 620.2 - Emblem 054.9 Office Visit 09/19/2012 11:00a [facility] Yuko Acuña, N.P. 92983 054.9 - Emblem Office Visit 07/28/2012 9:40a [facility] Stacy Serna M.D. 17117 245.2 - Emblem 620.2 592.0 626.0 110.4 311 Office Visit 07/24/2012 8:40a [facility] - Stacy Serna M.D. 46355 599.70 Emblem 346.80 493.90 245.2 Office Visit 01/21/2012 9:40a [facility] Stacy Serna M.D. 73850 266.9 Emblem 477.9 Office Visit 2012 9:40a [facility] Stacy Serna M.D. 05189 354.0 Emblem 245.2 Office Visit 12/10/2011 10:00a [facility] Stacy Serna M.D. 25699 493.92 Emblem Office Visit 12/01/2011 3:20p [facility] Stacy Serna M.D. 61487 245.2 Emblem 749.00 477.9 311 Office Visit 10/26/2011 3:20p [facility] Stacy Serna M.D. 77162 786.59 Emblem Office Visit 10/08/2011 8:40a [facility] Stacy Serna M.D. 79138 311 Emblem 245.2 079.99 Office Visit 09/03/2011 8:40a DO Not Use Headline Writer-Peggy Serna M.D. 23010 245.2 311 Office Visit 08/17/2011 8:40a DO Not Use Jackson Serna M.D. 13587 311 Office Visit 08/03/2011 3:20p DO Not Use Jackson Serna M.D. 25968 053.29 346.80 Office Visit 07/29/2011 10:00a [facility] 98354 311 245.2 Plan of Care Future Appointment(s):11/02/2018 10:20 am - Maricarmen Cruz M.D. at [facility]12/14/2018 10:00 am - Bryan Winston M.D. at [facility]09/07/2018 3:45 pm - Bryan Winston M.D. at [facility]06/29/2018 - Maricarmen Cruz M.D.I10 Essential (primary) hypertensionNew Medication:Losartan Potassium 50 mgComments: Increase the losartan 25 to 50 mg dailyCheck BP at workCall or email in 2-3 weeks with numbersFollow up:PE oct-03.9 Hypothyroidism, menjftxupxiV60.0 Major depressive disorder, recurrent, mildNew Medication:Bupropion HCL ER (XL) 150 mgH69.90 Unspecified Eustachian tube disorder, unspecified earComments:The ear popping is probably related to nasal congestion
--- OUTSIDE RECORDS SUMMARY | 2018-07-05 17:53 | XMS REPORT ---
:1965 External Reference #:[id number] Author Organization [facility] Address [address] [facility] [place] [address] [place] [address] Phone [phone] Care Team Providers Name Role Phone Maricarmen Cruz MD Primary Care Physician Unavailable Payers Type Date Identification Numbers Payment Provider Subscriber Commercial Effective: Policy Number: [id number] [facility] Christian Barclay 2011 PayID: [id number] [address] [place] [address] Workers Effective: Policy Number: State Insurance Christian L Compensation 2016 [id number] Chai Barclay Onset: 2016 Group Number: fax [phone] [address] [address] PayID: [place] [address] Workers Effective: Policy Number: State Insurance Christian L Compensation 2014 [id number] Chai Barclay Onset: 2014 Group Number: [id number] [address] [address] PayID: [place] [address] Workers Onset: 2015 Policy Number: State Insurance Christian L Compensation [id number] Chai Barclay Group Name: [id number] [address] [address] PayID: [place] [address] Problems Date Description Provider Status Onset: 07/29/2011 [...] Onset: 05/12/2015 Sprain of knee and leg Caop Jaeger M.D. 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 Hand Dominance Right-handed ETOH Use Denies alcohol [...] Form Strength Qnty SIG Indications Ordering Provider Losartan 05/30 Active Tablets 25mg 30tab 1 by mouth I10 Maricarmen Potassium /2017 s every day Dylon Cruz Arthrotec 05/[address] 75-0.2mg 90tab Take 1 M17.11 s tablet 3-4 Cotton, times M.D. daily as needed for pain Levothyroxine 04/06 Active Tablets 100mcg 90tab 1 by mouth Maricarmen Sodium s every day Dylon Cruz Flovent HFA 11/12 Active Aerosol 110mcg/Ac 1unit 2 puffs t s twice Cotton, daily M.D. Losartan 04/07 Hx Tablets 25mg 30tab 1 by mouth I10 Maricarmen Potassium s every day Agustin Cruz M.D. 05/03 Chlorthalidone 04/06 Hx Tablets 25mg 15tab 1/2 tab by I10 Maricarmen /2018 s mouth Anthony, - every day M.D. 04/07 Levothyroxine 02/20 Hx Tablets 88mcg 30tab 1 by mouth Maricarmen Sodium s every day Agustin Cruz M.D. 04/06 Amoxicillin/Clav 06/23 Hx Tablets 875-125mg 20tab take one J01.90 Geovanni anat s tablet q12 FLORENTINO Vila Potassium - hours for 01/23 Ondansetron 06/23 Hx Tablets 4mg 30tab dissolve R11.0 Dispers s one tablet FLORENTINO Vila - orally 05/03 every hours as needed for nausea. Benzonatate 06/23 Hx Capsules 200mg 30cap one by [id number] Galarza s mouth FLORENTINO Vila - three 06/30 times daily as needed for cough Sumatriptan 05/19 Hx Tablets 100mg 12tab 1/ to 1 Khanh S. Succinate s po [...] Tablets 875-125mg 20tab 1 tablet J01.90 Maricarmen brewster s twice Suzy Cruz - daily for M.D. 12/12 Levothyroxine 11/22 Hx Tablets 75mcg 30tab 1 by mouth Geovanni Sodium s every day FLORENTINO Vila - 03/02 Diazepam 10/12 Hx Tablets 2mg 30tab take 09/13 F41.9 Geovanni s tablet by Cadence, ROCK DUSTER - mouth as 12/12 needed for anxiety maximum daily dose=1 tablet Doxycycline 10/12 Hx Capsules 100mg 20cap one tablet J01.90 Geovanni Hyclate s twice Cadence, [employer] - daily for 10/19 10 days Ondansetron 09/16 Hx Tablets 4mg 30tab dissolve R11.2 Dispers s one tablet Cadence, [employer] [employer] - orally 11/26 every hours as needed for nausea. Amoxicillin/Clav 09/16 Hx Tablets 875-125mg 20tab take one J06.9 Geovanni ulanate s tablet q12 Cadence, R[place] DUSTER Potassium - hours for 09/27 10 days Fluticasone 09/16 Hx Suspension 50mcg/Act 16gm 2 J06.9 Geovanni Propionate intranasal Cadence, [employer] [employer]ER - puffs once 12/12 Meloxicam 02/15 Hx [...] Rosa, - times a M.D. 03/24 day /2014 Fluticasone 01/30 Hx Suspension 50mcg/Act 16gm 1 sprays 381.81 Geovanni each FLORENTINO Vila - nostril 10/02 bid for weeks. Medrol (Gopi) 11/25 Hx Tablets 4mg 21tab take 6 847.2 Geovanni /2014 s tabs day FLORENTINO Vila - 1, [...] 5mg 30tab 1 by mouth 847.2 Maricarmen /2015 s every 6 h Cotton, - as [...] 120ta 1 tab PO 346.91 Bhavya M. bs bid Edilma, - M.D. 03/24 Prednisone 03/04 Hx Tablets 20mg 21tab 3 po x3 Melanie s days, 2 po Cowdery, - x3 days, 1 M.D. 04/04 po x 3 days,1/2 po x3 days Amitriptyline 02/27 Hx Tablets 10mg 60tab 2 tablets Khanh S. HCL s po at [place], - bedtime M.D. 10/31 Sumatriptan 02/27 Hx Tablets 100mg 12tab 1/2-1 tab G43.009 Bhavya . s by mouth Aydeeantonietta, - as needed M.D. 12/12 Ondansetron 02/27 Hx Tablets 4mg 30tab 1 po three Khanh S. Dispers s times a Sid, - day as M.D. 10/12 needed for nausea Zolmitriptan 02/06 Hx Tablets 2.5mg 12tab 1 PO qd 346.10 s prn, take Cotton, - at the M.D. 02/10 start of headache Cefdinir 12/24 Hx Capsules 300mg Cotton, - M.D. 01/04 Fluticasone 12/24 Hx Suspension 50mcg/Act 16gm 2 461.8 intranasal Cotton, - puffs once M.D. 01/30 daily Triamcinolone 12/24 Hx Cream 0.1% 30gm apply thin 782.1 film to Cotton, - feet M.D. 12/24 twice daily Ketoconazole 12/24 Hx Cream 2% 60gm apply thin 782.1 film twice Cotton, - daily M.D. 02/10 Triamcinolone 12/04 Hx Cream 0.1% 30gm apply thin 782.1 film to Cotton, - feet M.D. 12/24 daily Bupropion HCL ER 12/04 Hx Tablets ER 150mg 30tab 1 PO qd 300.00 Maricarmen (XL) 24HR s Cotton, - M.D. 12/24 Proair HFA 11/12 Hx Aerosol 108(90Bas 8.500 2 puffs po e) gm q4h prn Daphne, - mcg/Act M.D. 02/10 Fluticasone 11/12 Hx Suspension 50mcg/Act 16gm 2 461.8 intranasal Cotton, - puffs once M.D. 12/24 Amoxicillin 11/12 Hx Capsules 500mg 30cap 1 tab po 461.8 Maricarmen s tid for 10 Cotton, - days M.D. 12/03 Zolmitriptan Odt 11/12 Hx Tablets 2.5mg 12tab 1 PO qd 346.10 Maricarmen /2014 Dispers s prn, take Anthony, - at the M.D. 02/06 start headache Levothyroxine 03/29 Hx Tablets 112mcg 90tab 1 by mouth Geovanni Sodium s every day FLORENTINO Vila - 11/22 Loratadine-D 03/26 Hx Tablets ER 10-240mg 30tab take 1 995.3 Stacy 24HR 24HR s tablet Daphne, - daily as M.D. 03/26 needed for allergy Bertin 03/26 Hx Capsules 60mg 90cap take 1 278.00 Stacy s capsule by Daphne, - mouth 3 M.D. 11/12 times per day with meals for weight loss Levocetirizine 03/26 Hx Tablets 5mg 90tab Take 1 995.3 Stacy Dihydrochloride s tablet by Daphne, - mouth M.D. 11/12 daily in the evening Ipratropium 12/14 Hx Solution 0.06% 15ml 2 sprays 465.9 Yuko Vernon in each Varn, N.P. - nostril 12/28 tid until better Valtrex 09/19 Hx Tablets 500mg 90tab Take 1 054.9 s tablet Daphne, - daily M.D. 09/26 Neurontin 09/19 Hx Capsules 300mg 30cap 1 capsule 054.9 s po at Varn, N.P. - bedtime 09/25 Ketoconazole 07/28 Hx Cream 2% 30gm apply 1 110.4 applicatio Daphne, - n M.D. 03/26 topically to affected area daily Wellbutrin XL 07/28 Hx Tablets ER 150mg 60tab Take 1 311 Stacy 24HR s tablets Daphne, - every M.D. 03/26 morning. Vitamin B-12 01/20 Hx Tablets 1000mcg 60tab Take 2 461.8 Stacy s tablets Daphne, - daily M.D. 12/29 [...] Daphne, - mouth 2 M.D. 11/12 times day for arthritis prn Misoprostol 11/15 Hx Tablets 200mcg 60tab Take 1 s tablet Daphne, - twice M.D. 12/29 daily with diclofenac prn Arthrotec 75 10/26 Hx Tablets [...] s tablet Daphne, - three M.D. 08/17 daily for 7 days Wellbutrin XL 07/29 Hx Tablets ER 150mg 60tab Take 1 311 Stacy /2010 24HR s tablets Daphne, - every M.D. 09/03. Levothyroxine 07/29 Hx Tablets 100mcg 90tab Take 1 Stacy s tablet Daphne, - daily M.D. 03/29 Imitrex Hx Tablets 100mg 9tabs Take 1 346.80 Stacy / tablet as Daphne, - needed for M.D. 11/12 control, january repeat after 6 hours prn Ibuprofen Hx Tablets 600mg 90tab prn Unknown /0000 s - 07/24 Singulair Hx Tablets 10mg 90tab 1 po qd Stacy / s prn Agustin Serna M.D. 03/26 Meclizine HCL Hx Tablets 25mg 60tab 1 po tid Unknown /0000 s prn - 09/03 Levothyroxine Hx Tablets 75mcg 30tab 1 po qd Unknown Sodium /0000 s - 07/29 Ventolin HFA 00 Hx Aerosol 108(90Bas 1unit 2 puffs po 493.90 Stacy /0000 e) mcg/ac s qid prn Agustin Serna.DAna Laura 11/12 Flovent HFA Hx Aerosol 110mcg/Ac 1mont 2 puffs Unknown /0000 t h twice - daily 12/09 Meclizine HCL Hx Tablets 25mg 90tab 1 po tid Stacy /0000 s prn Agustin SernaDAna Laura 11/12 Zofran Hx Tablets 4mg 20tab 1 q 6 Unknown /0000 s hours prn - nausea 11/12 Oxybutynin Hx Tablets ER 10mg every day Unknown Chloride ER /0000 24HR - 12/24 Ketorolac Hx Tablets 10mg 10tab take 1 by Unknown Tromethamine /0000 s mouth - every 8 /20 hours needed for migraine. take with food. Sumatriptan 00 Hx Tablets 25mg 12tab one by 346.10 [...] Indications Ordering Provider Injection 06/06 Administered Injection Darrinopher Onabotulinumtoxi Dylon Winston n A, 1 Unit Injection 06/06 Administered Injection Darrinopher Onabotulinumtoxi Dylon Winston A, 1 Unit Injection 03/02 Administered Injection Darrinopher Onabotulinumtoxi Dylon Winston n A, 1 Unit Depomedrol 40MG 12/18 Administered Injection Dalia Dylon eH Injection,Lidoca 02/27 Administered Injection Khanh BUSTILLO Kike Lau M.D. Infusion,10 MG Immunizations CPT Code Status Date Vaccine Lot # 54472 Given 06/18/2014 Tdap - Tetanus/Diptheria/Acellular Pertussis [id number] 09411 Given 06/18/2014 Influenza Virus Vaccine, Quadrivalent, Split, [id number] Preservative Free Vital Signs Date Vital Result Comment 06/06/2018 Height 64.5 inches 5'4.50" Weight 191.00 [...] Poc Ketone, Urine Negative Negative Poc Specific [place], Urine 1.020 1.010-1.030 Poc Blood, Urine Trace-intact [...] TSH (Thyroid Stimulating 1.04 miu/mL 0.34-5.60 Horm) HSV/VZV Derm PCR 09/19/2012 hs/VZ Source SKIN hs/VZ PCR Result See Comment 41 Vitamin D, 25 Hydroxy 09/19/2012 25-Hydroxy Vitamin D2 <4.0 ng/mL 25-Hydroxy Vitamin D3 32 ng/mL 25-Hydroxy Vitamin D Total 32 ng/mL 42 Ua Routine 07/24/2012 Ua Specific [place] 1.015 Ua PH 5 Ua Color yellow [...] 5 Kidney failure <15 (or dialysis) 7 Hydraulic Jack Mechanic: [id number] 6 weeks after increasing levothyroxine dose 9 6 weeks after increasing levothyroxine dose 10 [id number] SEE RESULT BELOW Name: CHRISTIAN BARCLAY : [address]: Geovanni Vila ROCK DUSTER Acct: [id number] Unit: [id number] AGE: 51 Location: [facility] Re12/29/16 SEX: F Status: REG REF SPEC: [id number] GE: 12/29/16-[address]: Geovanni Vila NP REQ: [id number] RECD: 12/29/16 STATUS: COMP _ SOURCE: RENEE SPDC: ORDERED: Flu A B Request COMMENTS: [id number] Procedure Result Reported Site Rapid Influenza A B Request Final 12/29/16- 2211 ML Specimen received for Influenza A/B Molecular testing * ML - MAIN LAB ([facility]) . END OF REPORT * ML=Testing performed at Main Lab DEPARTMENT OF PATHOLOGY, [address] [place] [address] Toby Taveras M.D. Director [facility] # [id number] 12 Hydraulic Jack Mechanic: [id number] FASTING 10 HOUR 14 Because ethnic [...] [address]: Amparo Thomason MD Acct: [id number] Unit: [id number] AGE: 50 Location: [facility] Re09/27/15 SEX: F Status: DEP ER SPEC: [id number] GE: 09/27/15-1335 [facility] DR: Amparo Thomason MD REQ: [id number] RECD: 09/28/15-1231 STATUS: DONAVAN SKINNER DR: [facility] Maricarmen Cruz MD _ SOURCE: URINE SPDESC: ORDERED: Urine Culture Procedure Result Reported Site Urine Culture Final 09/29/15- 1313 ML No Growth (<1,000 CFU/mL) * ML - MAIN LAB ([facility]) . END OF REPORT * ML=Testing performed at Main Lab DEPARTMENT OF PATHOLOGY, [address] [place] [address] Toby Taveras M.D. Director [facility] # [id number] 21 Reference Range and Interpretation: TnI (ng/mL) Interpretation Less Than 0.03 ng/mL Not supportive of diagnosis of ME 0.03 - 0.50 ng/mL Indeterminate: suggest serial studies if clinically indicated. Greater than 0.5 ng/mL Consistent with diagnosis of ME 22 Potassium reference range changed effective 07/14/14 [...] failure <15 (or dialysis) 24 Verbal to [id number] by [id number] at 1840 on 07/17/14. Results read back [...] levels within this range. Test Performed by: [facility] [address] [place] [address] Manager Electronic: Anibal Valdes III, M.D. 29 Because ethnic [...] and in selective patients <6.0%.Please refer to [place] [employer] Diabetic care guidelines for further [...] normal population are 25-80 Test Performed by: [facility] [address] [place] [address] Manager Electronic: Anibal Valdes III, M.D. 35 Because ethnic [...] in accordance with the CDC guidelines. 39 Because ethnic data is not always [...] 6 Postmenopausal females 16 - 114 41 Herpes simplex type II DNA detected. Negative for Varicella zoster DNA. -- REFERENCE VALUE -- Not applicable Analyte Specific Reagent. This test was developed and its performance characteristics determined by [facility]. It has not been cleared or approved by the U.S. Food and Drug Administration. Test Performed by: [place] [address] Manager Electronic: Anibal Valdes III, M.D. 42 -- REFERENCE VALUE -- 25-HYDROXY D TOTAL (D2+D3) Optimum levels in the normal population are 25-80 Test Performed by: [place] [address] Manager Electronic: Anibal Valdes III, M.D. 43 Positive in 50% of persons with pernicious anemia. -- REFERENCE VALUE -- Negative Test Performed by: [facility] Dpt of Lab Med and Pathology [address] [place] [address] Manager Electronic: Anibal Valdes III, M.D. 44 Test Performed by: [facility] Dpt of Lab Med and Pathology [address] [place] [address] Manager Electronic: Anibal Valdes III, M.D. 45 Please note: New reference range, effective 09/02/11 NORMAL REFERENCE RANGE: GREATER THAN 4.1 NG/ML Procedures Date CPT Code Description Status 06/06/2018 78640 Chemodenervation Of Muscles Innervated By Facial Completed Nerves, Bilat 03/02/2018 48962 Chemodenervation Of Muscles Innervated By Facial Completed Nerves, Bilat 04/08/2016 Colonoscopy Completed 03/12/2016 Mammogram Completed 12/19/2015 59696 Inject/Drain Joint/Bursa Major W/O US Completed 08/05/2014 04342 Holter Monitor Review (24 hr)dr review & interp only Completed 07/18/2014 23399 EKG Tracing & Interpretation Completed 07/04/2014 Mammogram Completed 04/04/2014 73894 Removal Skin Tags Up To 15 Completed 02/27/2014 66963 Injection For Nerve Block, Greater Occipital Nerve Completed 06/12/2013 Mammogram Completed 10/26/2011 04573 EKG Tracing & Interpretation Completed Encounters Type Date Location Provider CPT E/M Dx Office Visit 05/30/2018 2:20p [facility] Medicine Maricarmen Cruz 53038 I10 - Peggy Osborne E03.9 H93.13 Office Visit 05/04/2018 10:45a [facility] Parag Meek, 99348 M25.561 Of Sandeep BEARD M17.11 Office Visit 05/04/2018 2:40p [facility] Internal Jolene Cruz 65023 E03.9 Agustin Woods M.D. R03.0 M17.11 Office Visit 04/06/2018 3:40p [facility] Maricarmen Cruz 06788 E03.9 Agustin Woods M.D. I10 Z68.34 Office Visit 02/17/2018 10:40a [facility] Jolene Cruz M.D. 28497 R61 Agustin Woods E03.9 E78.5 R10.11 R10.31 Office Visit 01/26/2018 11:15a [facility] Gunnar Winston 72629 G43.019 Services Of Mindy Osborne Office Visit 06/23/2017 1:00p [facility] [place] [address] J01.90 Medicine - [place] R11.0 H92.03 Office Visit 04/11/2017 2:40p [facility] Maricarmen Cruz, 52358 R63.5 - [place] Dylon Office Visit 03/14/2017 4:00p [facility] Maricarmen Cruz, 64523 R63.5 - [place] Dylon R09.81 Office Visit 12/29/2016 4:20p [facility] [place] [address] R50.9 [place] J06.9 Office Visit 12/16/2016 3:30p [facility] Bhavya France, 91835 M54.81 Services Of [facility] Ayad.DAna Laura G43.109 Office Visit 11/26/2016 11:40a [facility] Maricarmen Cruz, 11063 J01.90 - Peggy Osborne K62.5 Office Visit 11/25/2016 2:40p [facility] Subhash aRy, 95216 R42 - Arrowjean-claude Osborne Office Visit 11/01/2016 10:00a [facility] Geovanni Vila, FLORENTINO [address]11 F41.9 - [place] Office Visit 10/12/2016 11:20a [facility] [place] [address] F41.9 - [place] J01.90 Office Visit 09/16/2016 5:30p [facility] [place] [address] J06.9 [place] R11.2 Office Visit 07/22/2016 11:15a [facility] Bhavya France, 42755 S06.0x1S Services Of Motor Driver M.DAna Laura M54.81 G43.109 G43.109 M54.81 Office Visit 03/18/2016 9:45a [facility] Bhavya France, 88836 G43.019 Services Of Motor Driver M.D. Office Visit 02/16/2016 8:45a [facility]opedic Services Dalia He M.D. 48001 M25.512 Of C.M.AAna Laura S43.422D M75.42 Office Visit 01/19/2016 9:15a [facility] Of Dalia He M.D. 11064 M25.512 C.M.AAna Laura S43.422A M75.42 Office Visit 12/19/2015 8:00a [facility] Of Dalia He M.D. 75753 M25.512 C.M.A. S43.422A M75.42 Office Visit 10/02/2015 11:20a [facility] Yuko Acuña N.P. 93363 R10.11 - [place] R10.31 J34.89 R19.7 Office Visit 05/12/2015 8:20a [facility] Of Capo Jaeger M.D. 93019 844.9 C.M.A. Office Visit 05/01/2015 9:00a [facility] Of Marta Soto, 72827 844.9 C.M.A. RPA-C Office Visit 03/25/2015 8:30a [facility] Bhavya France, 23266 346.02 Services Of Mindy Osborne 346.00 Office Visit 02/04/2015 9:40a [facility] James Rosa M.D. [address]34 478.[address] - [address] 386.10 465.9 Office Visit 01/30/2015 10:40a [facility] [place] [address] 381.81 [place] 787.91 Office Visit 01/24/2015 9:00a [facility] [place] [address] 847.2 - [place] Office Visit 12/23/2014 10:00a [facility] [place] [address] 847.2 - [place] Office Visit 11/25/2014 10:00a [facility] [place] [address] 847.2 - [place] Office Visit 10/31/2014 9:40a [facility] Maricarmen Cruz 64788 847.2 - Peggy Osborne 847.2 Office Visit 10/16/2014 1:20p [facility] Maricarmen Cruz 69921 847.2 - Peggy Osborne Office Visit 09/26/2014 11:20a [facility] Maricarmen Cruz 86790 487.8 - Peggy Osborne 783.1 Office Visit 07/18/2014 4:00p [facility] Maricarmen Anthony, 74644 794.31 - Peggy Osborne 789.00 Office Visit 07/02/2014 9:45a [facility] Bhavya France, 69935 346.91 Services Of Motor Driver M.D. Office Visit 06/18/2014 1:40p [facility] Maricarmen Cruz, 44510 V70.0 - Peggy Osborne 244.9 V76.10 311 V04.81 V06.1 Office Visit 05/07/2014 2:30p [facility] Bhavya France, 68351 346.93 Services Of Motor Driver M.D. Office Visit 02/27/2014 8:15a [facility] Khanh BonnieAna Laura Lau, 56910 346.93 Services Of Motor Driver M.D. Office Visit 02/21/2014 11:45a [facility] Bhavya France, 61180 346.93 Services Of Motor Driver M.D. 386.10 Office Visit 12/24/2013 9:00a [facility] Maricarmen Cruz, 73830 461.8 - Peggy Osborne 782.1 244.9 309.9 Office Visit 12/04/2013 1:00p [facility] Maricarmen Cruz, 90782 386.10 - Peggy Osborne 300.00 782.1 244.9 Office Visit 11/12/2013 11:20a [facility] Maricarmen Cruz 32647 461.8 - Peggy Osborne 346.10 245.2 Office Visit 03/26/2013 10:00a [facility] - Stacy Serna M.D. 22830 995.3 [place] V70.0 620.2 245.2 278.00 Office Visit 02/21/2013 8:40a [facility] - Stacy Serna M.D. 82309 386.00 [place] 618.9 244.9 Office Visit 12/29/2012 10:15a [facility] Bhavya France, 54934 346.91 Services Of Motor Driver M.D. Office Visit 12/14/2012 4:20p [facility] Yuko Acuña, N.P. 10170 465.9 - [place] Office Visit 09/25/2012 8:40a [facility] Stacy Serna M.D. 72035 620.2 - [place] 054.9 Office Visit 09/19/2012 11:00a [facility] Yuko Acuña N.PAna Laura 26023 054.9 - [place] Office Visit 07/28/2012 9:40a [facility] Stacy Serna M.D. 88458 245.2 - [place] 620.2 592.0 626.0 110.4 311 Office Visit 07/24/2012 8:40a [facility] Stacy Serna M.D. 00267 599.70 [place] 346.80 493.90 245.2 Office Visit 01/21/2012 9:40a [facility] - Stacy Serna M.D. 99346 266.9 [place] 477.9 Office Visit 2012 9:40a [facility] Stacy Serna M.D. 62108 354.0 [place] 245.2 Office Visit 12/10/2011 10:00a [facility] Stacy Serna M.D. 56528 493.92 [place] Office Visit 12/01/2011 3:20p [facility] - Stacy Serna M.D. 44398 245.2 [place] 749.00 477.9 311 Office Visit 10/26/2011 3:20p [facility] Stacy Serna M.D. 38352 786.59 [place] Office Visit 10/08/2011 8:40a [facility] Stacy Serna M.D. 54614 311 [place] 245.2 079.99 Office Visit 09/03/2011 8:40a DO Not Use [facility] Stacy Serna M.D. 86180 245.2 311 Office Visit 08/17/2011 8:40a DO Not Use [facility] Stacy Serna M.D. 97102 311 Office Visit 08/03/2011 3:20p DO Not Use [facility] Stacy Serna M.D. 94940 053.29 346.80 Office Visit 07/29/2011 10:00a DO Not Use [facility] Stacy Serna M.D. 51050 311 245.2 Plan of Care Future Appointment(s):12/14/2018 10:00 am - Bryan Winston M.D. at [facility]06/29/2018 10:40 am - Maricarmen Cruz M.D. at [facility]09/07/2018 3:45 pm - Bryan Winston M.D. at [facility]06/06/2018 - Bryan Winston M.D.G43.719 Chronic migraine w/o aura, intractable, w/o stat migrFollow up:Follow up in 3 months
--- NOTE | 2018-07-05 19:27 | UC ---
Ear Complaint HPI - HPI Summary HPI Summary: Several days of worsening right ear pain and muffled hearing. Has some right- sided throat pain and discomfort with movement of her jaw. No fever, nausea/ vomiting. Has mild cough. - History of Current Complaint Chief Complaint: UCEar Stated Complaint: EAR PAIN Time Seen by Provider: 07/05/18 19:13 Hx Obtained From: Patient Hx Last Menstrual Period: 1994 Onset/Duration: Gradual Onset, Lasting Days, Still Present Severity Initially: Moderate Severity Currently: Moderate Pain Intensity: 6 Pain Scale Used: 0-10 Numeric Aggravating Factors: Nothing Alleviating Factors: Nothing Associated Signs/Symptoms: Positive: Hearing Loss. Negative: Discharge - Allergies/Home Medications Allergies/Adverse Reactions: Allergies Allergy/AdvReac Type Severity Reaction Status Date / Time Sulfa (Sulfonamide Allergy Hives Verified 07/05/18 18:00 Antibiotics) Home Medications: Home Medications Bupropion XL* [Wellbutrin XL *] 1 tab PO DAILY 07/05/18 [History Confirmed 07/05] Fluticasone HFA 110 mcg(NF) [Flovent HFA 110 mcg(NF)] 2 inh INH BID 07/05/18 [ History Confirmed 07/05/18] Losartan TAB* [Cozaar TAB*] 50 mg PO DAILY 07/05/18 [History Confirmed 07/05/18] Onabotulinimtoxina 100 UNITS* [Botox 100 UNITS*] 100 units .SEE ORDER SEE INSTRUCTIONS 07/05/18 [History Confirmed 07/05/18] PMH/Surg Hx/FS Hx/Imm Hx Endocrine History: Hypothyroidism Cardiovascular History: Hypertension Respiratory History: Asthma Neurological History: Migraine Other History Of: Negative For: HIV, Hepatitis B, Hepatitis C, Anticoagulant Therapy - Surgical History Surgical History: Yes Surgery Procedure, Year, and Place: stent placement for kidney stones 2002 AND REMOVED 3 WEEKS LATER, HYSTERECTOMY; R shoulder surgeries X2; R foot x 2; 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 2012 [facility] - Family History Known Family History: Positive: Hypertension - Social History Alcohol Use: Rare Substance Use Type: None Smoking Status (MU): Former Smoker Have You Smoked in the Last Year: No When Did the Patient Quit Smoking/Using Tobacco: jun 2011 Household Exposure Type: Cigarettes - Immunization History Most Recent Influenza Vaccination: 2013 Most Recent Tetanus Shot: <5 YEARS Review of Systems Constitutional: Negative ENT: Sore Throat, Ear Ache Respiratory: Cough Cardiovascular: Negative Gastrointestinal: Negative All Other Systems Reviewed And Are Negative: Yes Physical Exam Triage Information Reviewed: Yes Appearance: Well-Appearing, No Pain Distress, Well-Nourished Vital Signs: Initial Vital Signs Temp 98.5 F 07/05/18 17:52 Pulse 74 07/05/18 17:52 Resp 16 07/05/18 17:52 BP 150/95 07/05/18 17:52 Pulse Ox 98 07/05/18 17:52 Vital Signs Reviewed: Yes Eyes: Positive: Conjunctiva Clear ENT: Positive: Hearing grossly normal, Pharynx normal, Hoarse voice, Other - LEFT TM NORMAL. RIGHT TM DULL, RETRACTED Neck: Positive: Supple, Nontender, No Lymphadenopathy Respiratory Exam: Normal Cardiovascular Exam: Normal Abdomen Description: Positive: Soft Musculoskeletal: Positive: No Edema Neurological: Positive: Alert Psychological: Positive: Age Appropriate Behavior Skin: Negative: rashes Ear Complaint Course/Dx - Differential Dx/Diagnosis Provider Diagnoses: RIGHT EUSTACHIAN TUBE DYSFUNCTION Discharge - Sign-Out/Discharge Documenting (check all that apply): Patient Departure All imaging exams completed and their final reports reviewed: No Studies - Discharge Plan Condition: Stable Disposition: HOME Prescriptions: Amoxicillin PO (*) [Amoxicillin 500 MG CAP*] 1,000 mg PO Q12H #40 cap Patient Education Materials: Ear Infection (ED) Forms: *Work Release Referrals: Maricarmen Cruz MD [Primary Care Provider] - If Needed Additional Instructions: NO EAR INFECTION ON EXAM TODAY ALTHOUGH YOUR RIGHT EAR DRUM IS RETRACTED AND FINDINGS ARE CONSISTENT WITH EUSTACHIAN TUBE DYSFUNCTION. RECOMMEND OVER-THE- COUNTER MEDICATIONS SUCH DECONGESTANTS AND ANTIHISTAMINES. IBUPROFEN FOR DISCOMFORT. WILL COVER WITH ANTIBIOTICS YOUR SYMPTOMS HAVE BEEN WORSENING TO HELP PREVENT DEVELOPING OUTRIGHT INFECTION. EUSTACHIAN TUBE DYSFUNCTION What is the eustachian tube? The eustachian tube is a tube that connects the middle ear (the part of the ear behind the eardrum) to the back of the nose and throat (figure 1). Normally, the eustachian tube helps keep the air pressure inside the middle ear the same as the air pressure outside the middle ear. If there is a problem with the eustachian tube, the air pressure inside the middle ear won't be the same as the air pressure outside of it. This can damage the middle ear and cause ear pain, hearing loss, and other symptoms. "Ear barotrauma" is the medical term for when people have symptoms or damage in the middle ear because of air pressure differences. Most eustachian tube problems are not serious. They usually last only a short time and get better on their own. But eustachian tube problems sometimes lead to serious problems, such as: - A middle ear infection - A torn eardrum - Hearing loss Long-term hearing loss from eustachian tube problems can also lead to language or speech problems in children. What causes eustachian tube problems? Common causes of eustachian tube problems are: - Illnesses or conditions that make the eustachian tubes swollen or inflamed These include colds, allergies, ear infections, or sinus infections. The sinuses are hollow areas in the bones of the face. - Sudden air pressure changes Sudden air pressure changes can happen when people fly in an airplane, scuba dive, or drive in the mountains. - Growths that block the eustachian tube - Being born with an abnormal eustachian tube What are the symptoms of a eustachian tube problem? Common symptoms of a eustachian tube problem include: - Ear pain - Feeling pressure or fullness in the ear - Trouble hearing - Ringing in the ear - Feeling dizzy Should I see a doctor or nurse? See your doctor or nurse if your symptoms are severe, get worse, or if they don't go away after a few days. Will I need tests? Probably not. Your doctor or nurse should be able to tell if you have a eustachian tube problem by learning about your symptoms and doing an exam. If your symptoms are severe or last for a long time, your doctor or nurse might: - Have you see a special kind of doctor called an ear, nose, and throat doctor - Do tests to check your hearing - Do an imaging test Imaging tests can create pictures of the inside of the body. How are eustachian tube problems treated? Treatment depends on what's causing the eustachian tube problem. Depending on your individual situation, your doctor might treat you with one or more of the following: - Nose sprays - Antihistamines These medicines are usually used to treat allergies. They help stop itching, sneezing, and runny nose symptoms. - Decongestants These medicines can help with stuffy nose symptoms. - Surgery Most people do not need surgery for eustachian tube problems. But people might need surgery if their symptoms don't get better with medicines or they have severe or long-term symptoms. Antibiotics are not needed to treat eustachian tube problems. - Billing Disposition and Condition Condition: STABLE Disposition: Home
[2018-07-05 19:59] VITALS: BP 150/88
== END 2018-07-05 19:59 | disposition home or self-care (01) ==
LOC: UCEAST 17:47
DX: H69.91 Unspecified Eustachian tube disorder, right ear (principal); I10 Essential (primary) hypertension; J45.909 Unspecified asthma, uncomplicated; Z88.2 Allergy status to sulfonamides; Z87.891 Personal history of nicotine dependence
CPT/HCPCS: 99212; G0463

== ENCOUNTER 2018-07-30 17:06 | Emergency (ER) | payer BC ==
[2018-07-30 18:06] VITALS: BP 147/100
[2018-07-30] MEDS ORDERED: HYDROcodone/ACETAMIN 5-325 MG* 1 TAB PO ONE (18:22)
--- NOTE | 2018-07-30 18:25 | UC ---
[facility] HPI - HPI Summary HPI Summary: right jaw pain---she had an ear infection a few weeks ago and that got better then this pain started she seen her dentist how said all was ok ---no skin sores rashes or fevers, - History of Current Complaint Chief Complaint: UCDentalProblem Stated Complaint: RE-CK EAR AND JAW PAIN Time Seen by Provider: 07/30/18 18:12 Hx Obtained From: Patient Hx Last Menstrual Period: hysterectomy ?: No Onset/Duration: Gradual Onset, Lasting Days, Still Present Pain Intensity: 10 Pain Scale Used: 0-10 Numeric Aggravating Factor(s): Chewing Alleviating Factor(s): Nothing - Allergies/Home Medications Allergies/Adverse Reactions: Allergies Allergy/AdvReac Type Severity Reaction Status Date / Time Sulfa (Sulfonamide Allergy Hives Verified 07/30/18 18:06 Antibiotics) Home Medications: Home Medications Diclofenac Sodium/Misoprostol [Arthrotec 50 mg-200 Mcg Tab] 1 tab PO DAILY PRN 07/30/18 [History Confirmed 07/30/18] PMH/Surg Hx/FS Hx/Imm Hx Previously Healthy: No Endocrine History: Hypothyroidism Cardiovascular History: Hypertension Neurological History: Migraine Other History Of: Negative For: HIV, Hepatitis B, Hepatitis C, Anticoagulant Therapy - Surgical History Surgical History: Yes Surgery Procedure, Year, and Place: stent placement for kidney stones 2002 AND REMOVED 3 WEEKS LATER, HYSTERECTOMY; R shoulder surgeries X2; R foot x 2; 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 2012 [facility] - Family History Known Family History: Positive: Hypertension - Social History Occupation: Employed Full-time Lives: With Family Alcohol Use: Rare Substance Use Type: None Smoking Status (MU): Former Smoker Have You Smoked in the Last Year: No When Did the Patient Quit Smoking/Using Tobacco: jun 2011 Household Exposure Type: Cigarettes - Immunization History Most Recent Influenza Vaccination: 2013 Most Recent Tetanus Shot: <5 YEARS Review of Systems All Other Systems Reviewed And Are Negative: Yes Constitutional: Positive: Negative Skin: Positive: Negative Eyes: Positive: Negative ENT: Positive: Negative, Other - right jaw/ear pain Respiratory: Positive: Negative Cardiovascular: Positive: Negative Gastrointestinal: Positive: Negative Genitourinary: Positive: Negative Motor: Positive: Negative Neurovascular: Positive: Negative Musculoskeletal: Positive: Negative Neurological: Positive: Negative Psychological: Positive: Negative Is Patient Immunocompromised?: No Physical Exam Triage Information Reviewed: Yes Appearance: Well-Appearing, No Pain Distress, Well-Nourished Vital Signs: Initial Vital Signs Temp 98.1 F 07/30/18 18:00 Pulse 75 07/30/18 18:00 Resp 16 07/30/18 18:00 BP 147/100 07/30/18 18:00 Pulse Ox 100 07/30/18 18:00 Vital Signs Reviewed: Yes Eye Exam: Normal Eyes: Positive: Conjunctiva Clear ENT Exam: Normal ENT: Positive: Normal ENT inspection, Hearing grossly normal, Pharynx normal, TMs normal, Uvula midline. Negative: Nasal congestion, Tonsillar swelling, Tonsillar exudate, Trismus, Muffled voice, Hoarse voice, Dental tenderness, Sinus tenderness Dental Exam: Normal Dental: Positive: Other: - right TMJ Pain Neck exam: Normal Neck: Positive: Supple, Nontender Respiratory Exam: Normal Respiratory: Positive: Chest non-tender, Lungs clear, Normal breath sounds, No respiratory distress, No accessory muscle use Cardiovascular Exam: Normal Cardiovascular: Positive: RRR, No Murmur, Pulses Normal, Brisk Capillary Refill Musculoskeletal Exam: Normal Musculoskeletal: Positive: Strength Intact, ROM Intact, No Edema Neurological Exam: Normal Neurological: Positive: Alert, Muscle Tone Normal Psychological Exam: Normal Psychological: Positive: Normal Response To Family Skin Exam: Normal Dental Complaint Course/Dx - Course Course Of Treatment: pain medication medrol dose pack follow with pcp for further evaluation of TMJ (right) - Differential Dx/Diagnosis Provider Diagnoses: Right TMJ Pain, hypertension in poor control Discharge - Sign-Out/Discharge Documenting (check all that apply): Patient Departure All imaging exams completed and their final reports reviewed: No Studies - Discharge Plan Condition: Stable Disposition: HOME Prescriptions: methylPREDNISolone [Medrol] 4 mg PO .SEE LOVELY INSTRUCTION #1 [id number] Patient Education Materials: Temporomandibular Disorder (ED), Hypertension (ED) Forms: *Work Release Referrals: Maricarmen Cruz MD [Primary Care Provider] - 1 Week - Billing Disposition and Condition Condition: STABLE Disposition: Home - Attestation Statements Provider Attestation: I was available for consult. This patient was seen by the SHANNAN. The patient was not presented to, seen by, or examined by me. -Aaron
== END 2018-07-30 18:35 | disposition home or self-care (01) ==
LOC: UCEAST 17:06
DX: M26.601 Right temporomandibular joint disorder, unspecified (principal); I10 Essential (primary) hypertension; Z88.2 Allergy status to sulfonamides; Z87.891 Personal history of nicotine dependence
CPT/HCPCS: 99212; G0463

== ENCOUNTER 2018-10-03 12:50 | Emergency (ER) | payer BC ==
--- OUTSIDE RECORDS SUMMARY | 2018-10-03 12:56 | XMS REPORT | Continuity of Care Document ---
:1965 External Reference #:[id number] Author Name Nora Chapman Care Team Providers Name Role Phone Maricarmen Cruz MD Primary Care Physician Unavailable Payers Type Date Identification Numbers Payment Provider Subscriber Effective: 2011 Policy Number: [id number] [facility] Christian Barclay PayID: [id number] [address] [place] [address] Effective: 2016 Policy Number: [facility] Christian Barclay [id number] Onset: 2016 Group Number: fax [phone] [address] [address] PayID: [place] [address] Effective: 2014 Policy Number: [facility] Christian Barclay [id number] Onset: 2014 Group Number: [id number] [address] [address] PayID: [place] [address] Onset: 2015 Policy Number: [id number] [facility] Christian Barclay Group Name: [phone] [address] [address] PayID: [place] [address] Advance Directives Description No Information Available Problems Date Description Provider Status Onset: 07/29/2011 [...] survivor Social History Type Date Description Comments Sex Unknown Marital Status Lives With and adopted grandson 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 Hand Dominance Right-handed ETOH Use Denies alcohol use Tobacco Use Start: Unknown End: Patient is a former quit 06/29/11 Unknown smoker Recreational Drug Use Denies Drug Use Smoking Status Reviewed: 09/21/18 Patient is a former quit 06/29/11 smoker Exercise Type/Frequency Exercises regularly Allergies, Adverse Reactions, Alerts Date Description Reaction Status Severity Comments 07/29/2011 Sulfa swelling around her eyes Active Moderate 07/29/2011 NKDA Inactive Medications Medication Date Status Form Strength Qnty SIG Indications Ordering Provider Augmentin 09/21 Active Tablets 875-125mg 30tab one by J01.90 Maricarmen /2019 s mouth Dylon Cruz every 12 hours for 10 days Sumatriptan 09/07 Active Tablets 100mg 12tab 1/2 to 1 Christopher Succinate s po emmy Winston M.D. migraine max 2/day, max 2 d/wk Diclofenac-Misop 08/[address] 75-0.2mg 90tab Take 1 M17.11 Maricarmen rostol s Tablet By Dylon Cruz Mouth 3 To 4 Times A Day as Needed For Pain Losartan 06/29 Active Tablets 50mg 90tab 1 by I10 Maricarmen Potassium s mouth Dylon Cruz every day Bupropion HCL ER 06/29 Active Tablets ER 150mg 30tab take 1 F33.0 Maricarmen (XL) 24HR s tablet by Dylon Cruz mouth once daily Levothyroxine 04/06 Active Tablets 100mcg 90tab 1 by Maricarmen Sodium s mouth 6 Dylon Cruz days a week and 1/2 tablet by mouth one day a week Flovent HFA 11/12 Active Aerosol 110mcg/Ac 36gm 2 puffs t twice Dylon Cruz daily Contrave 07/30 Hx Tablets ER 8-90mg 70tab 1 PO Q Am 12HR s x 1 week, Dylon Cruz - then 1 07/31 bid x week, then 2 Q Am and 1 PM x 1 week, then 2 bid Losartan 05/30 Hx Tablets 25mg 30tab 1 by I10 Maricarmen Potassium s mouth Dylon Cruz - every day 06/29 Arthrotec 05/[address] 75-0.2mg 90tab Take 1 M17.11 s tablet Dylon Cruz - 3-4 times 08/20 daily needed for pain Losartan 04/07 Hx Tablets 25mg 30tab 1 by I10 Maricarmen Potassium s mouth Dylon Cruz - every day 05/03 Chlorthalidone 04/06 Hx Tablets 25mg 15tab 1/2 tab I10 s by mouth Dylon Cruz - every day 04/07 Levothyroxine 02/20 Hx Tablets 88mcg 30tab 1 by Maricarmen Sodium s mouth Dylon Cruz - every day 04/06 Amoxicillin/Clav 06/23 Hx Tablets 875-125mg 20tab take one J01.90 narcisa Lynne s tablet [employer] Potassium - q12 hours 01/23 for days Ondansetron 06/23 Hx Tablets 4mg 30tab dissolve R11.0 Geovanni Vila Dispers s one [employer] - tablet 05/03 every 8 hours as needed for nausea. Benzonatate 06/23 Hx Capsules 200mg 30cap one by J01.Ellie Vila s mouth [employer] - three 06/30 times daily as needed for cough Sumatriptan 05/19 Hx Tablets 100mg 12tab 1/2 to 1 Khanh S. Succinate s po prn Sid, - migraine M.D. 05/03 max 2/day, max 2 d/wk Belviq XR 04/11 Hx Tablets ER 20mg 30tab 1 PO qd E03.9 24HR lo Cruz M.D. - 01/25 Belviq 03/14 Hx Tablets 10mg 60tab 1 PO bid E03.9 lo Cruz M.D. - 04/11 Levothyroxine 03/02 Hx Tablets 50mcg 30tab 1 by Geovanni Vila Sodium s mouth [employer] - every 02/20 day- pt states she is taking 75 mcg as of 01/26/18 Amoxicillin/Clav 11/26 Hx Tablets 875-125mg 20tab 1 tablet J01.90 Maricarmen ularron s twice Dylon Cruz Potassium - daily for 12/12 10 days Levothyroxine 11/22 Hx Tablets 75mcg 30tab 1 by Crystal Lynne s mouth [employer] - every day 03/02 Diazepam 10/12 Hx Tablets 2mg 30tab take 09/13 F41.9 Geovanni Vila s tablet by [employer] - mouth as 12/12 needed for anxiety maximum daily dose=1 tablet Doxycycline 10/12 Hx Capsules 100mg 20cap one J01.90 Hood Lynne s tablet [employer] - twice 10/19 daily for 10 days. Ondansetron 09/16 Hx Tablets 4mg 30tab dissolve R11.2 Geovanni Vila Dispers s one [employer] - tablet 11/26 orally every 8 hours as needed for nausea. Amoxicillin/Clav 09/16 Hx Tablets 875-125mg 20tab take one J06.9 Geovanni Vila cristina s tablet [employer] Potassium - q12 hours 09/27 for days Fluticasone 09/16 Hx Suspension 50mcg/Act 16gm 2 J06.9 Geovanni Vila intranasa [employer] - l puffs 12/12 once daily Meloxicam 02/15 Hx Tablets 15mg 60tab 1 by M25.512 Dalia s mouth Neri, M.D. - every day 10/12 Naproxen 01/27 Hx Tablets 500mg 60tab 1 tablet s by mouth Dylon Dubon - with food 12/16 twice daily. TENS Unit 01/18 Hx use tid M25.512 Dalia for yahaira He M.D. - shoulder 12/12 Amitriptyline 03/25 Hx Tablets 10mg 270ta 2-3 G43.101 Bhavya BUSTILLO bs tablets Edilma, - by mouth M.DAna Laura 11/26 at bedtime as directed Note: Refills change to #3, per Dr. [place] (not taking) Verapamil HCL 03/25 Hx Tablets 40mg 180ta 1-2 tab G43.101 Bhavya Kline bs by mouth Edilma, - every day M.D. 11/26 directed (not taking) Levofloxacin 02/04 Hx Tablets 500mg 7tabs 1 tablt 478.9 by cristian Rosa M.D. - every day 02/19 Prednisone 02/04 Hx Tablets 5mg 15tab 1 by 478.9 James s mouth Dylon Rosa - three 03/24 times a day Fluticasone 01/30 Hx Suspension 50mcg/Act 16gm 1 sprays 381.81 Geovanni Cadence, each [employer] - nostril 10/02 bid for weeks. Medrol (Gopi) 11/25 Hx Tablets 4mg 21tab take 6 847.2 Geovanni Vila, s tabs day [employer] - 1, 5 tabs 11/30 day 2, tabs day 3, 3 tabs day 4, 2 tabs day 5, and 1 tab day 6. Methocarbamol 10/31 Hx Tablets 750mg 40tab 1 by 847.2 Maricarmen /2015 s mouth 4 Dylon Cruz - times 01/24 daily needed Ibuprofen 10/16 Hx Tablets 800mg 90tab 1 by 847.2 Maricarmen s mouth Dylon Cruz - three 03/14 times a day as needed Oxycodone HCL 10/16 Hx Tablets 5mg 30tab 1 by 847.2 Maricarmen s mouth Dylon Cruz - every 6 h 01/26 as needed Omeprazole 10/16 Hx Capsules 20mg 30cap [address] lo Cruz M.D. - every day 03/24 if needed to stomach Bupropion HCL ER 06/18 Hx Tablets ER 150mg 90tab take 1 F32.9 Maricarmen (XL) 24HR s tablet by Dylon Cruz - mouth one 10/12 daily Verapamil HCL 05/07 Hx Tablets 40mg 120ta 1 tab PO 346.91 Bhavya Kline /2013 bs bid Edilma, - M.D. 03/24 Prednisone 03/04 Hx Tablets 20mg 21tab 3 po x3 s days, 2 [place], - po x3 M.D. 04/04 days, po x 3 days,09/13 po x3 days Amitriptyline 02/27 Hx Tablets 10mg 60tab 2 tablets Khanh S. HCL s po at [place], - bedtime M.D. 10/31 Sumatriptan 02/27 Hx Tablets 100mg 12tab 09/13-1 tab G43.009 Bhavya Kline Succinate s by mouth Edilma, - as needed M.DAna Laura 12/12 Ondansetron 02/27 Hx Tablets 4mg 30tab 1 po Khanh S. Dispers s three [place], - times a M.D. 10/12 day needed for nausea Zolmitriptan 02/06 Hx Tablets 2.5mg 12tab 1 PO qd 346.10 s prn, take Dylon Cruz - at the 02/10 start headache Cefdinir 12/24 Hx Capsules 300mg Maricarmen Dylon Cruz - 01/04 Fluticasone 12/24 Hx Suspension 50mcg/Act 16gm 2 461.8 Maricarmen Propionate intranasa Dylon Cruz - l puffs 01/30 once daily Triamcinolone 12/24 Hx Cream 0.1% 30gm apply 782.1 Maricarmen Acetonide thin film Dylon Cruz - to feet 12/24 daily Ketoconazole 12/24 Hx Cream 2% 60gm apply 782.1 Maricarmen /2014 thin film Dylon Cruz - twice 02/10 daily Triamcinolone 12/04 Hx Cream 0.1% 30gm apply 782.1 Maricarmen Acetonide thin film Dylon Cruz - to feet 12/24 daily Bupropion HCL ER 12/04 Hx Tablets ER 150mg 30tab 1 PO qd 300.00 Maricarmen (XL) 24HR s Dylon Cruz - 12/24 Proair HFA 11/12 Hx Aerosol 108(90Bas 8.500 2 puffs Stacy Serna e) gm po q4h Dylon - mcg/Act prn 02/10 Fluticasone 11/12 Hx Suspension 50mcg/Act 16gm 2 461.8 Maricarmen intranasa Dlyon Cruz - l puffs 12/24 daily Amoxicillin 11/12 Hx Capsules 500mg 30cap 1 tab po 461.8 Maricarmen s tid for Dylon Cruz - 10 days 12/03 Zolmitriptan Odt 11/12 Hx Tablets 2.5mg 12tab 1 PO qd 346.10 Dispers s prn, take Dylon Cruz - at the 02/06 start headache Levothyroxine 03/29 Hx Tablets 112mcg 90tab 1 by Geovanni Vila, Sodium s mouth [employer] - every day 11/22 Loratadine-D 03/26 Hx Tablets ER 10-240mg 30tab take 1 995.3 Stacy Serna 24HR 24HR s tablet EliudDAna Laura - daily as 03/26 needed for allergy Bertin 03/26 Hx Capsules 60mg 90cap take 1 278.00 Stacy Serna s capsule EliudDAna Laura - by mouth 11/12 3 times per day with meals for weight loss Levocetirizine 03/26 Hx Tablets 5mg 90tab Take 1 995.3 Stacy Serna Dihydrochloride s tablet by M.D. - mouth 11/12 daily in the evening Ipratropium 12/14 Hx Solution 0.06% 15ml 2 sprays 465.9 in each Varn, N.P. - nostril 12/28 tid until better Valtrex 09/19 Hx Tablets 500mg 90tab Take 1 054.9 Stacy Serna s tablet M.D. - daily 09/26 Neurontin 09/19 Hx Capsules 300mg 30cap 1 capsule 054.9 s po at Varn, N.P. - bedtime 09/25 Ketoconazole 07/28 Hx Cream 2% 30gm apply 1 110.4 Stacy Serna applicati M.D. - on 03/26 topically to affected area daily Wellbutrin XL 07/28 Hx Tablets ER 150mg 60tab Take 1 311 Stacy Serna 24HR s tablets M.D. - every 03/26 morning. Vitamin B-12 01/20 Hx Tablets 1000mcg 60tab Take 2 461.8 Stacy Serna s tablets M.D. - daily 12/29 Ibuprofen 01/04 Hx Tablets 600mg 21tab 1 tablet 354.0 Stacy Serna s three M.D. - times 07/24 with food as needed Wrist Splint 01/04 Hx Misc 1unit Right 354.0 Stacy Serna s wrist. M.D. - Wear for 12/12 driving and sleeping Advair Diskus 12/09 Hx Aerosol 100-50mcg 60uni 1 Stacy Serna /Dose ts inhalatio M.D. - n twice 07/24 Afrin 11/30 Hx Solution 0.05% 15ml Inhale 2 477.9 Stacy Serna sprays M.D. - into 07/24 nostril times per day every 10 to 12 hours as needed for stuffy nose Diclofenac 11/[address] 75mg 60tab Take 1 786.59 Crystal Francois s tablet by M.DAna Laura - mouth 2 11/12 times per day for arthritis prn Misoprostol 11/15 Hx Tablets 200mcg 60tab Take 1 Stacy Serna s tablet M.D. - twice 12/29 daily with diclofena c prn Arthrotec 75 10/26 Hx Tablets 75-200mg- 28tab Take 1 786.59 Stacy Serna mcg s tablet M.D. - 3-4 times 11/15 daily needed for pain Tramadol HCL 10/26 Hx Tablets 50mg 40tab 1-2 786.59 s tablets Varn, N.P. - every 6 11/12 hours needed Otic Care 10/08 Hx Solution 5.4-1.4-0 14ml 5 drops 079.99 Stacy Serna .0097% every 2 M.D. - hours 07/24 until pain relieved Wellbutrin XL 09/03 Hx Tablets ER 300mg 90tab Take 1 311 Stacy Serna 24HR s tablet M.D. - daily 07/24 Lexapro 08/17 Hx Tablets 10mg 60tab 1 tablet 311 Stacy Serna s daily for M.D. - 1 week, 09/03 then tablets daily Valacyclovir HCL 08/03 Hx Tablets 500mg 21tab Take 1 053.29 Stacy Serna s tablet M.D. - three 08/17 times daily for 7 days Wellbutrin XL 07/29 Hx Tablets ER 150mg 60tab Take 1 311 Stacy Serna 24HR s tablets M.D. - every 09/03 morning. Levothyroxine 07/29 Hx Tablets 100mcg 90tab Take 1 Stacy Serna, s tablet M.D. - daily 03/29 Imitrex Hx Tablets 100mg 9tabs Take 1 346.80 Stacy Serna tablet as M.D. - needed 11/12 headache control, may repeat after 6 hours prn Ibuprofen 00 Hx Tablets 600mg 90tab prn Unknown /0000 s - 07/24 Singulair Hx Tablets 10mg 90tab 1 po qd Stacy Serna, s prn M.D. - 03/26 Meclizine HCL 0000 Hx Tablets 25mg 60tab 1 po tid Unknown /0000 s prn - 09/03 Levothyroxine 00 Hx Tablets 75mcg 30tab 1 po qd Unknown Sodium /0000 s - 07/29 Ventolin HFA Hx Aerosol 108(90Bas 1unit 2 puffs 493.90 Stacy Serna, /0000 e) mcg/ac s po qid M.D. - prn 11/12 Flovent HFA Hx Aerosol 110mcg/Ac 1mont 2 puffs Unknown /0000 t h twice - daily 12/09 Meclizine HCL 00 Hx Tablets 25mg 90tab 1 po tid Stacy Serna, /0000 s prn M.D. - 11/12 Zofran Hx Tablets 4mg 20tab 1 q 6 Unknown /0000 s hours prn - nausea 11/12 Oxybutynin Hx Tablets ER 10mg every day Unknown Chloride ER /0000 24HR - 12/24 Ketorolac Hx Tablets 10mg 10tab take 1 by Unknown Tromethamine /0000 s mouth - every 8 03/01 hours needed for migraine. take with food. Sumatriptan Hx Tablets 25mg 12tab one by 346.10 Unknown Succinate /0000 s mouth as - needed 02/27 migraine headaches , may repeat after 2 hours if needed Levocetirizine Hx Tablets 5mg 1 by Unknown Dihydrochloride /0000 mouth - every day 12/12 prn mainly in summer Ibuprofen Hx Capsules 200mg 3 tabs po Unknown /0000 prn - 10/15 Tylenol 00 Hx Tablets 325mg 2 po as Unknown /0000 needed - 10/12 Aleve Hx Capsules 220mg 60cap 1 by Unknown /0000 s mouth as - needed 10/12 Oxybutynin Hx Tablets ER 10mg 90tab 1 by Maricarmen Chloride ER /0000 24HR s mouth Dylon Cruz - every day 10/12 Naproxen Hx Tablets 500mg 1 by Unknown /0000 mouth - twice a 06/13 day needed pain Medications Administered in Office Medication Date Status Form Strength Qnty SIG Indications Ordering Provider Injection 09/07 Administered Injection Christopher Onabotulinumtoxi Dylon Winston n A, 1 Unit Injection 06/06 Administered Injection Christopher Onabotulinumtoxi Dylon Winston A, 1 Unit Injection 03/02 Administered Injection Christopher Onabotulinumtoxi Dylon Winston A, 1 Unit Depomedrol 40MG 12/18 Administered Injection Dalia Dylon He Injection,Lidoca 02/27 Administered Injection Khanh LoAna Laura BUSTILLO Kike Lau M.D. Infusion,10 MG Immunizations CPT Code Status Date Vaccine Lot # [id number] Given 06/18/2014 Tdap - Tetanus/Diptheria/Acellular Pertussis [id number] Given 06/18/2014 Influenza Virus Vaccine, Quadrivalent, Split, [id number] Preservative Free Vital Signs Date Vital Result Comment 09/21/2018 2:46pm Height 64.5 inches 5'4.50" Heart Rate 76 /min BP Systolic Sitting 142 mmHg BP Diastolic Sitting 87 mmHg Body Temperature 98.5 F O2 % BldC Oximetry 98 % 09/07/2018 8:01am Height 64.5 inches 5'4.50" Weight 191.00 lb Heart Rate 70 /min BP Systolic 124 mmHg BP Diastolic 82 mmHg BMI (Body Mass Index) 32.3 kg/m2 06/29/2018 11:11am Height 64.5 inches 5'4.50" Weight 191.00 lb Heart Rate 66 /min BP Systolic Sitting 144 mmHg BP Diastolic Sitting 90 mmHg O2 % BldC Oximetry 98 % BMI (Body Mass Index) 32.3 kg/m2 06/06/2018 9:48am Height 64.5 inches 5'4.50" Weight 191.00 lb Heart Rate 74 /min BP Systolic Sitting 132 mmHg BP Diastolic Sitting 82 mmHg Respiratory Rate 16 /min BMI (Body Mass Index) 32.3 kg/m2 05/30/2018 2:20pm Height 64.5 inches 5'4.50" Weight 195.00 lb Heart Rate 73 /min BP Systolic Sitting 156 mmHg BP Diastolic Sitting 88 mmHg O2 % BldC Oximetry 95 % BMI (Body Mass Index) 33.0 kg/m2 05/04/2018 3:09pm Height 64.5 inches 5'4.50" Weight 196.00 lb Heart Rate 68 /min BP Systolic Sitting 136 mmHg BP Diastolic Sitting 89 mmHg O2 % BldC Oximetry 97 % BMI (Body Mass Index) 33.1 kg/m2 05/04/2018 10:57am Height 64.5 inches 5'4.50" Weight 194.00 lb Heart Rate 64 /min BP Systolic Sitting 120 mmHg BP Diastolic Sitting 78 mmHg Body Temperature 97.6 F Pain Level 6 BMI (Body Mass Index) 32.8 kg/m2 04/06/2018 3:28pm Height 64 inches 5'4" Weight 199.00 lb Heart Rate 73 /min BP Systolic Sitting 135 mmHg BP Diastolic Sitting 92 mmHg O2 % BldC Oximetry 98 % BMI (Body Mass Index) 34.2 kg/m2 03/02/2018 2:22pm Height 64 inches 5'4" Weight 189.00 lb declined Heart Rate 80 /min BP Systolic Sitting 146 mmHg BP Diastolic Sitting 98 mmHg Respiratory Rate 16 /min BMI (Body Mass Index) 32.4 kg/m2 02/17/2018 10:22am Height 64 inches 5'4" Weight 191.00 lb Heart Rate 68 /min BP Systolic Sitting 138 mmHg BP Diastolic Sitting 94 mmHg Body Temperature 97.7 F O2 % BldC Oximetry 93 % BMI (Body Mass Index) 32.8 kg/m2 01/26/2018 10:56am Height 64 inches 5'4" Weight 189.00 lb Heart Rate 66 /min BP Systolic Sitting 128 mmHg BP Diastolic Sitting 80 mmHg Respiratory Rate 16 /min BMI (Body Mass Index) 32.4 kg/m2 06/23/2017 1:05pm Weight 184.25 lb Heart Rate 71 /min BP Systolic 118 mmHg BP Diastolic 80 mmHg Body Temperature 98.4 F O2 % BldC Oximetry 94 % 04/11/2017 2:56pm Weight 190.50 lb Heart Rate 70 /min BP Systolic 120 mmHg BP Diastolic 80 mmHg Body Temperature 98.1 F O2 % BldC Oximetry 98 % 03/14/2017 4:15pm Weight 193.00 lb Heart Rate 70 /min BP Systolic 130 mmHg BP Diastolic 80 mmHg Body Temperature 98.1 F O2 % BldC Oximetry 98 % 12/29/2016 4:43pm Heart Rate 75 /min BP Systolic 124 mmHg BP Diastolic 76 mmHg Body Temperature 98.4 F O2 % BldC Oximetry 97 % 12/16/2016 3:44pm Height 64 inches 5'4" Weight 194.00 lb Heart Rate 80 /min BP Systolic Sitting 116 mmHg BP Diastolic Sitting 72 mmHg Respiratory Rate 16 /min BMI (Body Mass Index) 33.3 kg/m2 11/26/2016 11:42am Heart Rate 87 /min BP Systolic 118 mmHg BP Diastolic 84 mmHg Body Temperature 98.6 F O2 % BldC Oximetry 97 % 11/25/2016 2:52pm Weight 196.00 lb Heart Rate 78 /min BP Systolic Sitting 124 mmHg BP Diastolic Sitting 76 mmHg Respiratory Rate 15 /min O2 % BldC Oximetry 98 % 11/01/2016 9:45am Heart Rate 68 /min BP Systolic 140 mmHg BP Diastolic 86 mmHg Body Temperature 97.7 F O2 % BldC Oximetry 97 % 10/12/2016 11:16am Heart Rate 82 /min BP Systolic Sitting 126 mmHg BP Diastolic Sitting 82 mmHg Body Temperature 98.7 F O2 % BldC Oximetry 97 % 07/22/2016 11:06am Height 64 inches 5'4" Weight 180.00 lb Heart Rate 76 /min BP Systolic Sitting 126 mmHg BP Diastolic Sitting 84 mmHg Respiratory Rate 14 /min BMI (Body Mass Index) 30.9 kg/m2 03/18/2016 9:50am Height 64 inches 5'4" Weight 192.00 lb Heart Rate 68 /min BP Systolic Sitting 118 mmHg BP Diastolic Sitting 82 mmHg Respiratory Rate 14 /min BMI (Body Mass Index) 33.0 kg/m2 02/16/2016 8:57am Height 64 inches 5'4" Weight 189.00 lb Pain Level 10 BMI (Body Mass Index) 32.4 kg/m2 01/19/2016 9:01am Height 64 inches 5'4" Weight 189.00 lb Pain Level 10 with certain movement BMI (Body Mass Index) 32.4 kg/m2 12/19/2015 8:10am Height 64 inches 5'4" Weight 189.00 lb Heart Rate 68 /min BP Systolic Sitting 120 mmHg BP Diastolic Sitting 70 mmHg Respiratory Rate 16 /min Pain Level 5 BMI (Body Mass Index) 32.4 kg/m2 10/02/2015 11:24am Height 64 inches 5'4" Weight 191.00 lb Heart Rate 75 /min BP Systolic Sitting 159 mmHg BP Diastolic Sitting 101 mmHg Body Temperature 96.8 F Pain Level 7 O2 % BldC Oximetry 95 % BMI (Body Mass Index) 32.8 kg/m2 05/12/2015 8:28am Height 64 inches 5'4" Weight 183.00 lb Pain Level 6 BMI (Body Mass Index) 31.4 kg/m2 05/01/2015 9:07am Height 64 inches 5'4" Weight 183.00 lb Heart Rate 63 /min BMI (Body Mass Index) 31.4 kg/m2 03/25/2015 8:34am Height 64 inches 5'4" Weight 185.00 lb Heart Rate 68 /min BP Systolic Sitting 128 mmHg BP Diastolic Sitting 76 mmHg Respiratory Rate 16 /min BMI (Body Mass Index) 31.8 kg/m2 02/04/2015 9:58am Height 63.75 inches 5'3.75" Weight 188.00 lb Heart Rate 72 /min BP Systolic Sitting 116 mmHg BP Diastolic Sitting 80 mmHg O2 % BldC Oximetry 96 % BMI (Body Mass Index) 32.5 kg/m2 01/30/2015 10:44am Weight 188.00 lb Heart Rate 73 /min BP Systolic Sitting 121 mmHg BP Diastolic Sitting 87 mmHg Body Temperature 97.3 F O2 % BldC Oximetry 96 % 01/24/2015 9:04am Weight 189.50 lb Heart Rate 75 /min BP Systolic Sitting 138 mmHg BP Diastolic Sitting 78 mmHg 12/23/2014 10:05am Weight 193.25 lb Heart Rate 84 /min BP Systolic Sitting 120 mmHg BP Diastolic Sitting 79 mmHg Body Temperature 97.2 F Pain Level 0 O2 % BldC Oximetry 97 % 11/25/2014 10:08am Weight 195.50 lb Heart Rate 86 /min BP Systolic Sitting 131 mmHg BP Diastolic Sitting 93 mmHg Pain Level 9 10/31/2014 9:49am Height 63.75 inches 5'3.75" Weight 193.00 lb Heart Rate 85 /min BP Systolic 142 mmHg BP Diastolic 94 mmHg Body Temperature 97.0 F BMI (Body Mass Index) 33.4 kg/m2 10/16/2014 1:43pm Weight 199.00 lb Heart Rate 78 /min BP Systolic Sitting 124 mmHg BP Diastolic Sitting 82 mmHg Body Temperature 96.8 F 09/26/2014 11:24am Weight 195.00 lb Heart Rate 85 /min BP Systolic Sitting 128 mmHg BP Diastolic Sitting 82 mmHg Body Temperature 97.8 F O2 % BldC Oximetry 96 % 07/18/2014 3:50pm Weight 180.00 lb Heart Rate 78 /min BP Systolic Sitting 126 mmHg BP Diastolic Sitting 84 mmHg Body Temperature 97.9 F O2 % BldC Oximetry 98 % 07/02/2014 9:57am Height 63.5 inches 5'3.50" Weight 190.00 lb Heart Rate 76 /min BP Systolic Sitting 124 mmHg BP Diastolic Sitting 78 mmHg Respiratory Rate 16 /min BMI (Body Mass Index) 33.1 kg/m2 06/18/2014 2:01pm Height 63.5 inches 5'3.50" Weight 194.00 lb Heart Rate 76 /min BP Systolic Sitting 118 mmHg BP Diastolic Sitting 78 mmHg Body Temperature 97.5 F BMI (Body Mass Index) 33.8 kg/m2 05/07/2014 3:02pm Height 63.25 inches 5'3.25" Weight 189.00 lb Heart Rate 72 /min BP Systolic Sitting 138 mmHg BP Diastolic Sitting 84 mmHg Respiratory Rate 16 /min BMI (Body Mass Index) 33.2 kg/m2 04/04/2014 11:00am Weight 195.00 lb Heart Rate 90 /min BP Systolic Sitting 118 mmHg BP Diastolic Sitting 70 mmHg Body Temperature 98.0 F 02/27/2014 8:24am Height 63.25 inches 5'3.25" Weight 187.00 lb Heart Rate 67 /min BP Systolic Sitting 120 mmHg BP Diastolic Sitting 60 mmHg Respiratory Rate 16 /min BMI (Body Mass Index) 32.9 kg/m2 02/21/2014 12:00pm Height 63.25 inches 5'3.25" Weight 187.00 lb Heart Rate 68 /min BP Systolic Sitting 128 mmHg BP Diastolic Sitting 84 mmHg Respiratory Rate 16 /min BMI (Body Mass Index) 32.9 kg/m2 12/24/2013 9:01am Heart Rate 60 /min BP Systolic 128 mmHg BP Diastolic 72 mmHg Respiratory Rate 16 /min Body Temperature 98.2 F 12/04/2013 1:04pm Heart Rate 76 /min BP Systolic Sitting 120 mmHg BP Diastolic Sitting 72 mmHg Body Temperature 98.1 F 11/12/2013 8:55am Weight 186.50 lb Heart Rate 68 /min BP Systolic 130 mmHg BP Diastolic 70 mmHg Respiratory Rate 16 /min Body Temperature 96.0 F O2 % BldC Oximetry 98 % 03/26/2013 9:57am Height 63.25 inches 5'3.25" Weight 188.00 lb Heart Rate 64 /min BP Systolic Sitting 120 mmHg BP Diastolic Sitting 70 mmHg BMI (Body Mass Index) 33.0 kg/m2 02/21/2013 8:59am Heart Rate 76 /min BP Systolic Sitting 104 mmHg BP Diastolic Sitting 64 mmHg Body Temperature 97.3 F 12/29/2012 10:17am Heart Rate 76 /min BP Systolic Sitting 122 mmHg BP Diastolic Sitting 78 mmHg Respiratory Rate 16 /min 12/14/2012 4:23pm Heart Rate 68 /min BP Systolic Sitting 104 mmHg BP Diastolic Sitting 78 mmHg Body Temperature 97.7 F 09/25/2012 8:44am Height 64.25 inches 5'4.25" Heart Rate 68 /min BP Systolic Sitting 120 mmHg BP Diastolic Sitting 60 mmHg Respiratory Rate 16 /min 09/19/2012 10:52am Height 64.25 inches 5'4.25" Weight 180.00 lb per pt ,she refused Heart Rate 78 /min BP Systolic Sitting 110 mmHg BP Diastolic Sitting 76 mmHg BMI (Body Mass Index) 30.7 kg/m2 07/28/2012 9:44am Height 64.25 inches 5'4.25" Weight 180.00 lb Heart Rate 62 /min BP Systolic Sitting 124 mmHg BP Diastolic Sitting 72 mmHg BMI (Body Mass Index) 30.7 kg/m2 07/24/2012 8:40am Height 64.25 inches 5'4.25" Weight 180.00 lb per pt Heart Rate 56 /min BP Systolic Sitting 98 mmHg BP Diastolic Sitting 60 mmHg BMI (Body Mass Index) 30.7 kg/m2 01/21/2012 9:54am Height 64.25 inches 5'4.25" Weight 179.00 lb per pt- declines scale Heart Rate 72 /min BP Systolic Sitting 92 mmHg BP Diastolic Sitting 60 mmHg BMI (Body Mass Index) 30.5 kg/m2 2012 9:51am Height 64.25 inches 5'4.25" Weight 179.00 lb per pt. Heart Rate 68 /min BP Systolic Sitting 128 mmHg BP Diastolic Sitting 80 mmHg BMI (Body Mass Index) 30.5 kg/m2 12/10/2011 10:00am Height 64.25 inches 5'4.25" Weight 179.00 lb Heart Rate 68 /min BP Systolic Sitting 114 mmHg BP Diastolic Sitting 66 mmHg O2 % BldC Oximetry 98 % BMI (Body Mass Index) 30.5 kg/m2 12/01/2011 3:00pm Height 64.25 inches 5'4.25" Weight 179.00 lb Heart Rate 64 /min BP Systolic Sitting 108 mmHg BP Diastolic Sitting 72 mmHg Body Temperature 97.7 F BMI (Body Mass Index) 30.5 kg/m2 10/26/2011 3:21pm Height 64.25 inches 5'4.25" Weight 182.00 lb Heart Rate 72 /min BP Systolic Sitting 118 mmHg BP Diastolic Sitting 76 mmHg O2 % BldC Oximetry 97 % BMI (Body Mass Index) 31.0 kg/m2 10/08/2011 8:36am Height 64.25 inches 5'4.25" Weight 183.00 lb Heart Rate 72 /min BP Systolic Sitting 118 mmHg L BP Diastolic Sitting 70 mmHg L BMI (Body Mass Index) 31.2 kg/m2 09/03/2011 8:36am Height 64.25 inches 5'4.25" Weight 185.00 lb Heart Rate 74 /min BP Systolic Sitting 110 mmHg BP Diastolic Sitting 80 mmHg BMI (Body Mass Index) 31.5 kg/m2 08/17/2011 8:52am Height 64.25 inches 5'4.25" Weight 183.00 lb Heart Rate 74 /min BP Systolic Sitting 116 mmHg BP Diastolic Sitting 68 mmHg BMI (Body Mass Index) 31.2 kg/m2 08/03/2011 3:19pm Height 64.25 inches 5'4.25" Weight 187.00 lb Heart Rate 74 /min BP Systolic Sitting 110 mmHg BP Diastolic Sitting 68 mmHg BMI (Body Mass Index) 31.8 kg/m2 07/29/2011 9:58am Height 64.25 inches 5'4.25" Weight 188.00 lb Heart Rate 68 /min BP Systolic Sitting 124 mmHg BP Diastolic Sitting 74 mmHg BMI (Body Mass Index) 32.0 kg/m2 Results Test Date Facility Test Result H/L Range Note Basic Metabolic 06/29/2018 [facility] Sodium 144 mmol/L N 135- 145 Panel [address] [place] [address] [phone] Potassium 4.8 mmol/L N 3.5-5.0 Chloride 109 mmol/L N 101-111 Co2 Carbon Dioxide 29 mmol/L N 22-32 Anion Gap 6 mmol/L N 2-11 Glucose 87 mg/dL N 70-100 Blood Urea Nitrogen 14 mg/dL N 6-24 Creatinine 0.78 mg/dL N 0.51-0.95 BUN/Creatinine Ratio 17.9 N 8-20 Calcium 9.8 mg/dL N 8.6-10.3 Egfr Non- 77.6 >60 Egfr 93.8 >60 1 Laboratory test 06/29/2018 [facility] TSH (Thyroid 0.12 Low 0.34-5.[address] Stim Horm) mcIU/[place] [address] [phone] Free T4 (Free Thyroxine) 1.17 ng/dL High 0.61-1.12 Laboratory test 05/04/2018 [facility] TSH (Thyroid 0.10 Low 0.34-5.[address] Stim Horm) mcIU/[place] [address] [phone] Laboratory test 04/06/2018 [facility] TSH (Thyroid <pending> finding DRIVE Stim Horm) [place] [address] [phone] Free T4 (Free Thyroxine) <pending> Laboratory test 02/17/2018 [facility] FSH (Follicle 107.1 mIU/ mL [address] Stim Hormone) [place] [address] [phone] TSH (Thyroid Stim Horm) 19.88 mcIU/mL High 0.34-5.60 Lipid Profile 02/17/2018 [facility] Triglycerides 100 mg/dL 3 (Trig/Chol/HDL) [place] [address] [phone] Cholesterol 234 mg/dL 4 HDL Cholesterol 52.2 mg/dL 5 LDL Cholesterol 162 mg/dL 6 Comp Metabolic Panel 02/17/2018 [facility] Sodium 142 mmol/L N 139-145 [place] [address] [phone] Potassium 4.1 mmol/L N 3.5-5.0 Chloride 105 mmol/L N 101-111 Co2 Carbon Dioxide 30 mmol/L N 22-32 Anion Gap 7 mmol/L N 2-11 Glucose 86 mg/dL N 70-100 Blood Urea Nitrogen 14 mg/dL N 6-24 Creatinine 0.82 mg/dL N 0.51-0.95 BUN/Creatinine Ratio 17.1 N 8-20 Calcium 9.3 mg/dL N 8.6-10.3 Total Protein 7.1 g/dL N 6.4-8.9 Albumin 4.2 g/dL N 3.2-5.2 Globulin 2.9 g/dL N 2-4 Albumin/Globulin Ratio 1.4 N 1-3 Total Bilirubin 0.50 mg/dL N 0.2-1.0 Alkaline Phosphatase 66 U/L N 34-104 Alt 28 U/L N 7-52 Ast 22 U/L N 13-39 Egfr Non- 73.2 >60 Egfr 94.1 >60 7 CBC Auto Diff 02/17/2018 [facility] White Blood 5.8 10^3/uL N 3.5-10.[address] [place] [address] [phone] Red Blood Count 4.54 10^6/uL N 4.0-5.4 Hemoglobin 13.0 g/dL N 12.0-16.0 Hematocrit 39 % N 35-47 Mean Corpuscular Volume 85 fL N 80-97 Mean Corpuscular Hemoglobin 29 pg N 27-31 Mean Corpuscular HGB Conc 34 g/dL N 31-36 Red Cell Distribution Width 14 % N 10.5-15 Platelet Count 337 10^3/uL N 150-450 Mean Platelet Volume 7.2 um3 Low 7.4-10.4 Abs Neutrophils 3.5 10^3/uL N 1.5-7.7 Abs Lymphocytes 1.7 10^3/uL N 1.0-4.8 Abs Monocytes 0.3 10^3/uL N 0-0.8 Abs Eosinophils 0.3 10^3/uL N 0-0.6 Abs Basophils 0.1 10^3/uL N 0-0.2 Abs Nucleated RBC 0 10^3/uL Granulocyte % 60.0 % N 38-83 Lymphocyte % 28.7 % N 25-47 Monocyte % 5.5 % N 0-7 Eosinophil % 4.6 % N 0-6 Basophil % 1.2 % N 0-2 Nucleated Red Blood Cells % 0 Poc Urinalysis 08/13/2017 [facility] Poc Glucose, Negative Negative [address] [place] [address] [phone] Poc Bilirubin, Urine Negative Negative Poc Ketone, Urine Negative Negative Poc Specific [place], Urine 1.020 N 1.010-1.030 Poc Blood, Urine Trace-intact Abnormal Negative Poc pH, Urine 6.0 N 5-9 Poc Protein, Urine Negative Negative Poc Urobilinogen, Urine 0.2 Negative Poc Nitrite, Urine Negative Negative Poc Leukocytes, Urine Negative Negative Poc Color, Urine Yellow Poc Clarity, Urine Clear 8 Laboratory 02/28/2017 [facility] TSH (Thyroid 4.17 mcIU/mL N 0.34-5.60 9, 10 test finding [address] Stim Horm) [place] [address] [phone] Laboratory 12/29/2016 [facility] Rapid SEE RESULT 11, test finding [address] Influenza A B BELOW 12 [place] [address] Antigen [phone] Rapid 12/29/2016 [facility] Influenza A NEGATIVE N Negative 13 Influenza A & [address] [place] [address] [phone] Influenza B Molecular NEGATIVE N Negative Comp Metabolic Panel 11/19/2016 [facility] Sodium 139 mmol/L N 133-[address] [place] [address] [phone] Potassium 3.9 mmol/L N 3.5-5.0 Chloride 105 mmol/L N 101-111 Co2 Carbon Dioxide 26 mmol/L N 22-32 Anion Gap 8 mmol/L N 2-11 Glucose 88 mg/dL N 70-100 Blood Urea Nitrogen 12 mg/dL N 6-24 Creatinine 0.77 mg/dL N 0.51-0.95 BUN/Creatinine Ratio 15.6 N 8-20 Calcium 9.0 mg/dL N 8.6-10.3 Total Protein 6.9 g/dL N 6.4-8.9 Albumin 4.1 g/dL N 3.2-5.2 Globulin 2.8 g/dL N 2-4 Albumin/Globulin Ratio 1.5 N 1-3 Total Bilirubin 0.60 mg/dL N 0.2-1.0 Alkaline Phosphatase 61 U/L N 34-104 Alt 16 U/L N 7-52 Ast 14 U/L N 13-39 Egfr Non- 79.3 N >60 Egfr 102.0 N >60 15 Lipid Profile 11/19/2016 [facility] Triglycerides 126 mg/dL N 16 (Trig/Chol/HDL) [address] [place], [place] [id number] [phone] Cholesterol 215 mg/dL N 17 HDL Cholesterol 45.2 mg/dL N 18 LDL Cholesterol 145 mg/dL N 19 Laboratory 11/19/2016 [facility] TSH (Thyroid 10.26 High 0.34- 5.[address] Stim Horm) mcIU/[place] [address] [phone] Xray 02/13/2016 [facility] MRI Shoulder <pending> [address] [place] [address] [phone] Laboratory 09/27/2015 [facility] Urine Culture SEE RESULT [address] [place] [address] Sensitivities [phone] Laboratory 07/18/2014 [facility] Lipase 27 U/L N 11.0-82.0 test finding 101 [place], [place] [id number] [phone] Magnesium 1.9 mg/dL N 1.9-2.7 TSH (Thyroid Stimulating Horm) 0.44 IU/mL N 0.34-5.60 Laboratory test 07/17/2014 [facility] Troponin I 0.01 ng/mL N <0.[address] [place] [address] [phone] Comp Metabolic 07/17/2014 [facility] Sodium 139 mmol/L N 133- 145 [place] [address] [phone] Potassium 3.7 mmol/L N 3.5-5.0 23 Chloride 107 mmol/L N 101-111 Co2 Carbon Dioxide 25 mmol/L N 22-32 Anion Gap 7 mmol/L N 2-11 Glucose 100 mg/dL N 70-100 Blood Urea Nitrogen 14 mg/dL N 6-24 Creatinine 0.85 mg/dL N 0.51-0.95 BUN/Creatinine Ratio 16.5 N 8-20 Calcium 9.2 mg/dL N 8.6-10.3 Total Protein 6.9 g/dL N 6.4-8.9 Albumin 4.0 g/dL N 3.2-5.2 Globulin 2.9 g/dL N 2-4 Albumin/Globulin Ratio 1.4 N 1-3 Total Bilirubin 0.40 mg/dL N 0.2-1.0 Alkaline Phosphatase 59 U/L N 34-104 Alt 15 U/L N 7-52 Ast 15 U/L N 13-39 Egfr Non- 71.4 N >60 Egfr 91.8 N >60 24 Laboratory test 07/17/2014 [facility] D Dimer 304 ng/mL High Less [address] Quantitative Than 230 [place] [address] [phone] CBC Auto Diff 07/17/2014 [facility] White Blood 6.2 N 4.8- 10.[address] Count 10^3/uL [place], [place] [id number] [phone] Red Blood Count 4.50 10^6/uL N 4.0-5.4 Hemoglobin 12.9 g/dL N 12.0-16.0 Hematocrit 38 % N 35-47 Mean Corpuscular Volume 84 fL N 80-97 Mean Corpuscular Hemoglobin 29 pg N 27-31 Mean Corpuscular HGB Conc 34 g/dL N 31-36 Red Cell Distribution Width 14 % N 10.5-15 Platelet Count 318 10^3/uL N 150-450 Mean Platelet Volume 6 um3 Low 7.4-10.4 Abs Neutrophils 4.4 10^3/uL N 1.5-7.7 Abs Lymphocytes 1.1 10^3/uL N 1.0-4.8 Abs Monocytes 0.5 10^3/uL N 0-0.8 Abs Eosinophils 0.2 10^3/uL N 0-0.6 Abs Basophils 0 10^3/uL N 0-0.2 Abs Nucleated RBC 0 10^3/uL N Granulocyte % 71.2 % N 38-83 Lymphocyte % 17.7 % Low 25-47 Monocyte % 7.7 % N 1-9 Eosinophil % 2.7 % N 0-6 Basophil % 0.7 % N 0-2 Nucleated Red Blood Cells % 0 N Laboratory 06/18/2014 [facility] TSH (Thyroid 14.38 High 0.34- 5.60 test finding [address] Stimulating IU/[place] [address] Horm) [phone] Laboratory 11/12/2013 Follicle 9.3 IU/mL 26 test finding Stimulating Hormone TSH (Thyroid Stimulating Horm) 0.19 IU/mL Low 0.34-5.60 27 Vitamin B12 480 pg/mL 180-914 28 Vitamin D, 25 Hydroxy 11/12/2013 25-Hydroxy Vitamin D2 <4.0 ng/mL 25-Hydroxy Vitamin D3 39 ng/mL 25-Hydroxy Vitamin D Total 39 ng/mL 29 Comp Metabolic Panel 11/12/2013 Sodium 140 mmol/L [...] Egfr Non- 73.7 >60 Egfr 94.8 >60 30 Laboratory test 04/18/2013 [facility] Hemoglobin A1c 5.3 % Less than [address] 6[address]0 [place], [place] [id number] [phone] Lipid Panel 03/26/2013 [facility] Triglycerides 117 mg/dL 40- [address] [place] [address] [phone] Cholesterol 185 mg/dL Less than 200 HDL Cholesterol 41 mg/dL 40-60 32 Cholesterol/HDL Ratio 4.5 Average High 1-4.44 LDL Cholesterol 120.6 High Less Than 100 33 Laboratory test 03/26/2013 [facility] Follicle 21.83 miu/mL [address] [place] [address] Hormone [phone] TSH (Thyroid Stimulating Horm) 8.28 miu/mL High 0.34-5.60 Vitamin D,25 03/26/2013 [facility] 25-Hydroxy Vitamin <4.0 ng/ mL Hydroxy [address] D2 [place] [address] [phone] 25-Hydroxy Vitamin D3 36 ng/mL 25-Hydroxy Vitamin D Total 36 ng/mL 35 CMP Panel 03/26/2013 [facility] Sodium 142 mmol/L 133-[address] [place] [address] [phone] Potassium 4.2 mmol/L 3.5-5.0 Chloride 108 mmol/L [...] Egfr Non- 89.7 >60 Egfr 115.4 >60 36 Laboratory test 12/29/2012 [facility] C Reactive 0.5 mg/dL Less than finding [address] Protein 0.5 [place] [address] [phone] Basic Metabolic 12/29/2012 [facility] Sodium 134 mmol/L 133- 145 Panel [address] [place] [address] [phone] Potassium 3.9 mmol/L 3.5-5.0 Chloride 104 mmol/L 101-111 Co2 Carbon Dioxide 26.0 mmol/L 22-32 Anion Gap 4.0 mmol/L 2-11 Glucose 84 mg/dL 70-100 Blood Urea Nitrogen 18 mg/dL 6-24 Creatinine 0.90 mg/dL 0.50-1.40 BUN/Creatinine Ratio 20.0 8-20 Calcium 9.6 mg/dL 8.1-9.9 Egfr Non- 67.4 >60 Egfr 86.7 >60 37 CBC Auto Diff 12/29/2012 [facility] White Blood 7.3 10^3/uL 4.8-10.[address] [place] [address] [phone] Red Blood Count 4.49 10^6/uL 4.0-5.4 Hemoglobin [...] Nucleated Red Blood Cells % 0 Laboratory 11/01/2012 [facility] Hepatitis C Nonreactive Nonreactive test finding [address] [place] [address] [phone] HIV 1 2 AB Nonreactive Nonreactive 38 Hepatitis B Jaida 11/01/2012 [facility] Hepatitis B Reactive Nonreactive AB Titer [address] [place] [address] [phone] Hep B Surf AB Index 9.81 39 Laboratory 11/01/2012 [facility] Hepatitis B Nonreactive Nonreactive test finding [address] [place] [address] Antigen [phone] Comp Metabolic 09/19/2012 [facility] Sodium 136 mmol/L 133- 145 Panel 101 [place] [address] [phone] Potassium 4.1 mmol/L 3.5-5.0 Chloride 103 mmol/L [...] Non- 67.4 >60 Egfr 86.7 >60 40 Laboratory test 09/19/2012 [facility] Follicle 5.70 MIU/ML [address] [place] [address] Hormone [phone] Laboratory test 09/19/2012 [facility] TSH (Thyroid 1.04 miu/mL 0.34- finding [address] Stimulating Horm) 5.60 [place] [address] [phone] HSV/VZV Derm PCR 09/19/2012 [facility] hs/VZ Source SKIN [address] [place] [address] [phone] hs/VZ PCR Result See Comment 42 Vitamin D, 25 09/19/2012 [facility] 25-Hydroxy Vitamin <4.0 ng/ mL Hydroxy [address] D2 [place] [address] [phone] 25-Hydroxy Vitamin D3 32 ng/mL 25-Hydroxy Vitamin D Total 32 ng/mL 43 Ua Routine 07/24/2012 Driver License 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 In House Ua Specific [place] 1.015 Ua PH 5 Ua Color yellow Ua Appera clear Ua WBC neg Ua Protein neg Ua Glucose neg Ua Ketones neg Ua Bilirubin neg Ua Urobilinogen neg Ua Nitrite neg Ua Occult Blood neg Laboratory 07/21/2012 [facility] TSH (Thyroid 12.94 High 0.34- 5.60 test finding [address] Stimulating MIU/[place] [address] Horm) [phone] Vitamin B12 592 pg/mL 180-914 Laboratory test 01/21/2012 [facility] Intrinsic Factor Negative () [address] [place] [address] [phone] Methylmalonic Acid 0.15 nmol/mL <=0.40 45 Laboratory test 2012 [facility] TSH 0.13 MIU/ML Low 0.34 -5.60 [place] [address] [phone] Vitamin B12 And 2012 [facility] Vitamin B12 245 pg/mL 180-914 [place] [address] [phone] Folic Acid 9.8 NG/ML See Below 46 CBC Auto Diff 12/10/2011 [facility] White Blood 6.5 CUMM 4.8- 10.8 [facility] [place] [address] [phone] Red Cell Count 4.39 CUMM 4.2-5.4 Hemoglobin [...] 0-0.6 Abs Basophils 0.1 0-0.2 Laboratory test 12/08/2011 [facility] TSH 0.11 MIU/ML Low 0.34 -5.60 [place] [address] [phone] Laboratory test 10/08/2011 [facility] TSH 0.55 MIU/ML 0.34- 5.[address] [place] [phone] [phone] Laboratory test 09/02/2011 [facility] TSH 3.91 MIU/ML 0.34- 5.[address] [place] [address] [place] [address] [phone] Laboratory test 07/29/2011 [facility] TSH 9.96 MIU/ML High 0.34-5.60 finding [address] [place] [address] [phone] 1 Because ethnic data is not always readily [...] 15-29 5 Kidney failure <15 (or dialysis) 2 Normally menstruating females - Follicular phase 3 - 9 - Mid-cycle peak 4 - 23 - Luteal phase 1 - 6 Postmenopausal females 16 - 114 3 Desirable: <150 Borderline High: 150-199 High: 200-499 Very High: >500 4 Desirable: <200 Borderline High: 200-239 High: >239 5 Low: <40 Desirable: 40-60 High: >60 6 Desirable: <100 Near Optimal: 100-129 Borderline High: 130-159 High: 160-189 Very High: >189 7 Because ethnic data is not always readily [...] 15-29 5 Kidney failure <15 (or dialysis) 8 Tea Blender: [id number] 9 6 weeks after increasing levothyroxine dose 10 6 weeks after increasing levothyroxine dose 11 [id number] SEE RESULT BELOW Name: CHRISTIAN BARCLAY : [address]: Geovanni Vila NP Acct: [id number] Unit: [id number] AGE: 51 Location: [facility] Re12/29/16 SEX: F Status: REG REF SPEC: [id number] GE: 12/29/16-[address] [facility] [address]: Geovanni Vila NP REQ: [id number] RECD: 12/29/16 STATUS: COMP _ SOURCE: [facility]: ORDERED: [place] Request COMMENTS: [id number] Procedure Result Reported Site Rapid Influenza A B Request Final 12/29/16- 2211 ML Specimen received for Influenza A/B Molecular testing * ML - MAIN LAB ([facility]) . END OF REPORT * ML=Testing performed at Main Lab DEPARTMENT OF PATHOLOGY, [address] [place] [address] Toby Taveras M.D. Director [facility] # [id number] 13 Tea Blender: [id number] FASTING 10 HOUR 15 Because ethnic data is not always readily [...] 15-29 5 Kidney failure <15 (or dialysis) 16 Desirable <150 Borderline high 150-199 High 200-499 Very High >500 17 Desirable <200 Borderline high 200-239 High >239 18 Low <40 Desirable: 40-60 High: >60 19 Desirable: <100 mg/dL Near Optimal: 100-129 mg/dL Borderline High: 130-159 mg/dL High: 160-189 mg/dL Very High: >189 mg/dL 20 FASTING 10 HOUR 21 SEE RESULT BELOW Name: CHRISTIAN BARCLAY : [address]: Amparo Thomason MD Acct: [id number] Unit: [id number] AGE: 50 Location: [facility] Re09/27/15 SEX: F Status: DEP ER SPEC: [id number] GE: 09/27/15-[address] [facility] [address]: Amparo Thomason MD REQ: [id number] RECD: 09/28/15-1234 STATUS: DONAVAN SKINNER DR: [facility] Mariacrmen Cruz MD _ SOURCE: URINE SPDESC: ORDERED: Urine Culture Procedure Result Reported Site Urine Culture Final 09/29/15- 1313 ML No Growth (<1,000 CFU/mL) * ML - MAIN LAB ([facility]) . END OF REPORT * ML=Testing performed at Main Lab DEPARTMENT OF PATHOLOGY, [address] [place] [address] Toby Taveras M.D. Director [facility] # [id number] 22 Reference Range and Interpretation: TnI (ng/mL) Interpretation Less Than 0.03 ng/mL Not supportive of diagnosis of [place] 0.03 - 0.50 ng/mL Indeterminate: suggest serial studies if clinically indicated. Greater than 0.5 ng/mL Consistent with diagnosis of [place] 23 Potassium reference range changed effective 07/14/14 24 Because ethnic data is not always readily [...] 15-29 5 Kidney failure <15 (or dialysis) 25 Verbal to [id number] by [id number] at 1840 on 07/17/14. Results read back accurately. Please note: The following may produce a false positive D Dimer test: - Rheumatoid factor greater than 60 IU/ml - Plasma hemoglobin greater than 0.05 gm/dl - Bilirubin greater than 50 mg/dl - Lipids greater than 1000 mg/dl - FDP greater than 20 ug/ml 26 Normally menstruating females - Follicular phase 3 - 9 - Mid-cycle peak 4 - 23 - Luteal phase 1 - 6 Postmenopausal females 16 - 114 27 standing orders for q 6 mo labs 28 Normal Range 180 to 914 Indeterminate Range 145 to 180 Deficient Range <145 29 -- REFERENCE VALUE -- 25-HYDROXY D TOTAL (D2+D3) Optimum levels in the healthy population are 20-50, patients with bone disease may benefit from higher levels within this range. Test Performed by: [place] [address] Staffing Operations Manager: Anibal Valdes III, M.D. 30 Because ethnic data is not always readily [...] 15-29 5 Kidney failure <15 (or dialysis) 31 Therapeutic target for the treatment of diabetes Mellitus patients is <7% HBA1C, and in selective patients <6.0%.Please refer to [place] [employer] Diabetic care guidelines for further information. 32 HDL Interpretation: Undesirable: High Risk: Less than 40 mg/dL Desirable: Low Risk: Greater than 60 mg/dL 33 LDL Interpretation: Low Risk Optimal Level: LDL Less than 100 mg/dL Near or Above Optimal: LDL 100-129 mg/dL Borderline High Risk: LDL 130-159 mg/dL High Risk: LDL 160-189 mg/dL Very High Risk: LDL Greater than 189 mg/dL 34 Normally menstruating females - Follicular phase 3 - 9 - Mid-cycle peak 4 - 23 - Luteal phase 1 - 6 Postmenopausal females 16 - 114 35 -- REFERENCE VALUE -- 25-HYDROXY D TOTAL (D2+D3) Optimum levels in the normal population are 25-80 Test Performed by: [facility] [address] [address] Staffing Operations Manager: Anibal Valdes III, M.D. 36 Because ethnic data is not always [...] 5 Kidney failure <15 (or dialysis) 37 Because ethnic data is not always readily [...] 15-29 5 Kidney failure <15 (or dialysis) 38 It is recognized that currently available [...] confidence interval of 99.78 to 99.96%. 39 The World Health Organization (WHO) Hepatitis B Immunoglobulin 1st International Reference Preparation (1976): The accepted criteria for immunity to HBV is anti-HBs activity greater than or equal to 10 mIU/mL. An Index Value of 1.00 is equivalent to 10 mIU/mL. Samples with an Index Value of 1.00 or greater are considered reactive (protective) in accordance with the CDC guidelines. 40 Because ethnic data is not always [...] 5 Kidney failure <15 (or dialysis) 41 Normally menstruating females - Follicular phase 3 - 9 - Mid-cycle peak 4 - 23 - Luteal phase 1 - 6 Postmenopausal females 16 - 114 42 Herpes simplex type II DNA detected. Negative for Varicella zoster DNA. -- REFERENCE VALUE -- Not applicable Analyte Specific Reagent. This test was developed and its performance characteristics determined by [facility]. It has not been cleared or approved by the U.S. Food and Drug Administration. Test Performed by: [facility] [place] [address] Staffing Operations Manager: Anibal Valdes III, M.D. 43 -- REFERENCE VALUE -- 25-HYDROXY D TOTAL (D2+D3) Optimum levels in the normal population are 25-80 Test Performed by: [place] [address] Staffing Operations Manager: Anibal Valdes III, M.D. 44 Positive in 50% of persons with pernicious anemia. -- REFERENCE VALUE -- Negative Test Performed by: [facility] Dpt of Lab Med and Pathology [address] [place] [address] Staffing Operations Manager: Anibal Valdes III, M.D. 45 Test Performed by: [facility]pt of Lab Med and Pathology [address] [place] [address] Staffing Operations Manager: Anibal Valdes III, M.D. 46 Please note: New reference range, effective 09/02/11 NORMAL REFERENCE RANGE: GREATER THAN 4.1 NG/ML Procedures Date Code Description Status 09/07/2018 71127 Chemodenervation Of Muscles Innervated By Facial Completed Nerves, Bilat 06/06/2018 20955 Chemodenervation Of Muscles Innervated By Facial Completed Nerves, Bilat 03/02/2018 83434 Chemodenervation Of Muscles Innervated By Facial Completed Nerves, Bilat 04/08/2016 [id number] Colonoscopy Completed 03/12/2016 [id number] Mammogram Completed 12/19/2015 20168 Inject/Drain Joint/Bursa Major W/O US Completed 08/05/2014 71129 Holter Monitor Review (24 hr)dr review & interp only Completed 07/18/2014 99219 EKG Tracing & Interpretation Completed 07/04/2014 [id number] Mammogram Completed 04/04/2014 44895 Removal Skin Tags Up To 15 Completed 02/27/2014 32503 Injection For Nerve Block, Greater Occipital Nerve Completed 06/12/2013 [id number] Mammogram Completed 10/26/2011 72502 EKG Tracing & Interpretation Completed Encounters Type Date Location Provider Dx Diagnosis Office Visit 06/29/2018 Driver License 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 Internal Maricarmenrolando Cruz, I10 Essential ( primary) 10:40a Medicine - M.Navdeep hypertension [employer] E03.9 Hypothyroidism, unspecified F33.0 Major depressive disorder, recurrent, mild H69.90 Unspecified Eustachian tube disorder, unspecified ear Office Visit 05/30/2018 2:20p [facility] Internal Maricarmen I10 Essential ( primary) Jolene Cruz M.D. hypertension [employer] E03.9 Hypothyroidism, unspecified H93.13 Tinnitus, bilateral Office Visit 05/04/2018 10:45a Orthopedic Parag F M25.561 Pain in Services Of Sandeep Meek MD right knee M17.11 Unilateral primary osteoarthritis, right knee Office Visit 05/04/2018 [facility] Internal Maricarmen E03.9 Hypothyroidism, 2:40p Jolene Cruz M.D. unspecified Peggy R03.0 Elevated blood-pressure reading, w/o diagnosis of htn M17.11 Unilateral primary osteoarthritis, right knee Office Visit 04/06/2018 [facility] Internal Maricarmen E03.9 Hypothyroidism, 3:40p Jolene Cruz M.D. 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 hyperhidrosis [employer] E03.9 Hypothyroidism, unspecified E78.5 Hyperlipidemia, unspecified R10.11 Right upper quadrant pain R10.31 Right lower quadrant pain Office Visit 01/26/2018 Bogdan Adams G43.019 Migraine w/o 11:15a Neurologic Dylon Winston aura, Services Of [facility] intractable, without status migrainosus Office Visit 06/23/2017 [facility] Internal Geovanni Vila NP J01.90 Acute sinusitis , 1:00p Medicine - unspecjuan francisco Woods R11.0 Nausea H92.03 Otalgia, bilateral Office Visit 04/11/2017 2:40p [facility] Internal Maricarmen R63.5 Abnormal weight Jolene Cruz M.D. gain [employer] Office Visit 03/14/2017 4:00p [facility] Internal Maricarmen R63.5 Abnormal weight Jolene Cruz M.D. 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 [employer] J06.9 Acute upper respiratory infection, unspecified Office Visit 12/16/2016 3:30p [place] Gunnar Kline M54.81 Occipital Services Of [facility] Dylon France neuralgia G43.109 Migraine with aura, not intractable, w/o status migrainosus Office Visit 11/26/2016 11:40a [facility] Internal Mar[place] J01.90 Acute sinusitis, Medicine - Dylon Cruz unspecified [employer] K62.5 Hemorrhage of anus and rectum Office Visit 11/25/2016 2:40p [facility] Internal Subhash Ha R42 Dizziness and Medicine - Dylon Ray giddiness [place] Office Visit 11/01/2016 10:00a [facility] Internal Geovanni Vila NP F41.9 Anxiety disorder, Medicine - unspecified [employer] [facility] Office Visit 10/12/2016 11:20a [facility] Internal Geovanni Vila NP F41.9 Anxiety disorder, Medicine - unspecified [employer] [facility] J01.90 Acute sinusitis, unspecified Office Visit 09/16/2016 5:30p [facility] Internal Geovannialfredo Vila, J06.9 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 of 30 minutes or Services Of [facility] less, sequela M54.81 Occipital neuralgia G43.109 Migraine with aura, not intractable, w/o status migrainosus G43.109 Migraine with aura, not intractable, w/o status migrainosus M54.81 Occipital neuralgia Office Visit 03/18/2016 Bogdan Kline G43.019 Migraine w/o aura, 9:45a Gunnar France M.D. intractable, Services Of [facility] without status migrainosus Office Visit 02/16/2016 Orthopedic Dalia He, M25.512 Pain in left 8:45a Services Of Dylon shoulder C.MShahbaz S43.422D Sprain of left rotator cuff capsule, subsequent encounter M75.42 Impingement syndrome of left shoulder Office Visit 01/19/2016 9:15a Orthopedic Dalia He, M25.512 Pain in left Services Of C.M.A. M.D. shoulder S43.422A Sprain of left rotator cuff capsule, initial encounter M75.42 Impingement syndrome of left shoulder Office Visit 12/19/2015 8:00a Orthopedic Dalia He, M25.512 Pain in left Services Of C.M.A. M.D. shoulder S43.422A Sprain of left rotator cuff capsule, initial encounter M75.42 Impingement syndrome of left shoulder Office Visit 10/02/2015 11:20a [facility] Internal Yuko Acuña, R10.11 Right upper Medicine - N.P. quadrant pain [employer] R10.31 Right lower quadrant pain J34.89 Other specified disorders of nose and nasal sinuses R19.7 Diarrhea, unspecified Office Visit 05/12/2015 8:20a Orthopedic Capo Jaeger, 844.9 Sprains & Strains Services Of M.D. Knee & Leg Unspec C.M.A. Office Visit 05/01/2015 9:00a Orthopedic Marta Soto, 844.9 Sprains & Strains Services Of [facility]- Knee & Leg Unspec C.M.A. Office Visit 03/25/2015 8:30a [place] Neurologic Bhavya MAna Laura 346.02 Migraine Services Of [facility] Edilma W/Aura,W/Out M.D. Mention Of Intractable Migraine 346.00 Migraine Classical W/O Intractable W/O Status Migrainosus Office Visit 02/04/2015 9:40a [facility] Internal James Rosa, 478.9 Upper Resp Medicine - [place] M.D. 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 [employer] 787.91 Diarrhea Office Visit 01/24/2015 9:00a [facility] Internal Geovanni Vila NP 847.2 Sprains & Medicine - Strains Lumbar [employer] Office Visit 12/23/2014 10:00a [facility] Internal Geovanni Vila NP 847.2 Sprains & Medicine - Strains Lumbar [employer] Office Visit 11/25/2014 10:00a [facility] Internal Geovanni Cadence, COIN 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 Strains Lumbar [employer] 847.2 Sprains & Strains Lumbar Office Visit 10/16/2014 [facility] Internal Maricarm[place] 847.2 Sprains & Strains 1:20p Jolene Cruz M.D. Lumbar [employer] Office Visit 09/26/2014 [facility] Internal Mar[place]en 487.8 Influenza W/ Other 11:20a Jolene Cruz M.D. Manifestations [employer] 783.1 Weight Gain Abnormal Office Visit 07/18/2014 [facility] Internal Maricarmen 794.31 Electrocardiogram 4:00p Jolene Cruz M.D. (ECG) (EKG) Abnormal [employer] 789.00 Pain Abdominal Unspec Site Office Visit 07/02/2014 9:45a Bogdan Kline 346.91 Migraine Unspec Neurologic Dylon [place] W/ Intractable Services Of [facility] W/O Status Migrainosus Office Visit 06/18/2014 1:40p [facility] Internal [place] V70.0 Examination Jolene Cruz M.D. General Medical [employer] [facility] Routine AT [facility] Care [facility] 244.9 Hypothyroidism Other Unspec V76.10 Screening For Malignant Neoplasm Breast 311 Depressive Disorder Not Elsewhere Spec V04.81 Need For Prophylactic Vaccination & Inoculation/Influenza V06.1 Rwgbcofwff-Awfipkx-Byjdxqfh Combined (DTaP) Office Visit 05/07/2014 Bogdan Kline 346.93 Migraine 2:30p Gunnar France M.D. Unspecified, Services Of Driver License 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 W/Intractable Migraine Office Visit 02/27/2014 Bogdan Olivares 346.93 Migraine 8:15a Gunnar Lau M.D. Unspecified, Services Of Driver License 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 W/Intractable Migraine Office Visit 02/21/2014 Bogdan Kline 346.93 Migraine 11:45a Neurologic Dylon [place] Unspecified, Services Of Driver License 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 W/Intractable Migraine 386.10 Vertigo Peripheral Unspec Office Visit 12/24/2013 9:00a [facility] Internal [place] 461.8 Sinusitis Acute Jolene Cruz M.D. Other [employer] 782.1 Rash & Other Nonspec Skin Eruption 244.9 Hypothyroidism Other Unspec 309.9 Adjustment Reaction Unspec Office Visit 12/04/2013 1:00p [facility] Internal [place] 386.10 Vertigo Jolene Cruz M.D. Peripheral [employer] Unspec 300.00 Anxiety State Unspec 782.1 Rash & Other Nonspec Skin Eruption 244.9 Hypothyroidism Other Unspec Office Visit 11/12/2013 11:20a [facility] Internal [place] 461.8 Sinusitis Acute Jolene Cruz M.D. Other [employer] Randolph 346.10 Migraine Common W/O Intractable W/O Status Migrainosus 245.2 Thyroiditis Chronic Lymphocytic Office Visit 03/26/2013 10:00a [facility] Internal Stacy Serna, 995.3 Allergy Unspec Medicine - MYordan [employer] Randolph V70.0 Examination General Medical Routine AT Health Care Facility 620.2 Ovarian Cyst Other & Unspec 245.2 Thyroiditis Chronic Lymphocytic 278.00 Obesity Unspec Office Visit 02/21/2013 8:40a [facility] Internal Stacy Serna, 386.00 Menieres Jolene Velez M.D. 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 Respiratory [employer] Infections Acute Unspec Sites Office Visit 09/25/2012 8:40a [facility] Internal Stacy Serna, 620.2 Ovarian Cyst Medicine - Dylon Other & Unspec [employer] Randolph 054.9 Herpes Simplex W/O Complication Office Visit 09/19/2012 11:00a [facility] Internal Yuko Acuña, 054.9 Herpes Simplex W/O Medicine - N.P. Complication [employer] Office Visit 07/28/2012 9:40a [facility] Internal Stacy Serna, 245.2 Thyroiditis Medicine - MAna LauraDAna Laura Chronic [employer] Lymphocytic 620.2 Ovarian Cyst Other & Unspec 592.0 Calculus Of Kidney 626.0 Menstruation Absence 110.4 Dermatophytosis Foot 311 Depressive Disorder Not Elsewhere Spec Office Visit 07/24/2012 8:40a [facility] Internal Stacy Serna, 599.70 Hematuria, Medicine - M.D. Unspecified [employer] Randolph 346.80 Migraine Other W/O Intractable W/O Status Migrainosus 493.90 Asthma Unspec W/O Status Asthmaticus 245.2 Thyroiditis Chronic Lymphocytic Office Visit 01/21/2012 9:40a [facility] Internal Stacy Serna, 266.9 Vitamin B Medicine - M.D. Deficiency Unspec [employer] Randolph 477.9 Rhinitis Allergic Cause Unspec Office Visit 2012 9:40a [facility] Internal Stacy Serna, 354.0 Carpal Tunnel Medicine - M.D. Syndrome [employer] Randolph 245.2 Thyroiditis Chronic Lymphocytic Office Visit 12/10/2011 10:00a [facility] Internal Stacy Serna, 493.92 Asthma Unspec W/ Medicine - M.D. Acute Exacerbation [employer] Randolph Office Visit 12/01/2011 3:20p [facility] Internal Stacy Serna, 245.2 Thyroiditis Medicine - M.D. 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 [employer] [facility] Office Visit 10/08/2011 8:40a [facility] Internal Stacy Serna, 311 Depressive Medicine - M.D. Disorder Not [employer] Randolph Elsewhere Spec 245.2 Thyroiditis Chronic Lymphocytic 079.99 Viral Infection Unspec Office Visit 09/03/2011 8:40a DO Not Use Stacy Serna, 245.2 Thyroiditis [facility]-Peggy M.D. Chronic Lymphocytic 311 Depressive Disorder Not Elsewhere Spec Office Visit 08/17/2011 8:40a DO Not Use Stacy Serna, 311 Depressive [facility]-Jbsa Randolph M.D. Disorder Not Elsewhere Spec Office Visit 08/03/2011 3:20p DO Not Use Stacy Serna, 053.29 Herpes [place] Driver License 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-Peggy M.D. Other 346.80 Migraine Other W/O Intractable W/O Status Migrainosus Office Visit 07/29/2011 10:00a DO Not Use Stacy Serna, 311 Depressive [facility]-Peggy M.D. Disorder Not Elsewhere Spec 245.2 Thyroiditis Chronic Lymphocytic Plan of Treatment Future Appointment(s):12/28/2018 3:00 pm - Mar[place]en Cruz M.D. at [facility] Internal Medicine [facility]06/28/2019 1:30 pm - Bryan Winston M.D. at [place] [facility]03/22/2019 1:30 pm - Bryan Winston M.D. at [place] [facility]12/14/2018 10:00 am - Bryan Winston M.D. at [facility]09/21/2018 - [place] Cruz M.D.I10 Essential (primary) hypertensionComments:Your blood pressure at home is fine. Continue the same medicationFollow up:Oct - note this is supposed to be PEJ30.9 Allergic rhinitis, unspecifiedComments:Things that help protect against sinus infections - antihistamine (and steroid nasal spray)J01.90 Acute sinusitis, unspecifiedNew Medication:Augmentin 875-125 mg - one by mouth every 12 hours for 10 daysR53.83 Other fatigueComments:Possible causes: sleep apnea, thryoid, mood - we could increase the ZxwianiohwZ66.9 Hypothyroidism, unspecified
--- OUTSIDE RECORDS SUMMARY | 2018-10-03 12:56 | XMS REPORT | Continuity of Care Document ---
:1965 External Reference #:[id number] Author Name Darrel Rodriguez Care Team Providers Name Role Phone Maricarmen Cruz MD Primary Care Physician Unavailable Payers Type Date Identification Numbers Payment Provider Subscriber Effective: 2011 Policy Number: [id number] [facility] Christian Barclay PayID: [id number] [address] [place] [address] Effective: 2016 Policy Number: [facility] Christian Barclay [id number] Onset: 2016 Group Number: fax [phone] [address] [address] PayID: [place] [address] Effective: 2014 Policy Number: [facility] Christian Barclay [id number] Onset: 2014 Group Number: [id number] [address] [address] PayID: [place] [address] Onset: 2015 Policy Number: [id number] [facility] Christian Barclay Group Name: [id number] [address] [address] PayID: [place] [address] Advance Directives Description No Information Available Problems [...] With and adopted grandson 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 Hand Dominance Right-handed ETOH Use Denies alcohol use Tobacco Use Start: Unknown End: Patient is a former quit 06/29/11 Unknown smoker Recreational Drug Use Denies Drug Use Smoking Status Reviewed: 09/07/18 Patient is a former quit 06/29/11 smoker Exercise Type/Frequency Exercises regularly Allergies, Adverse Reactions, Alerts Date Description Reaction Status Severity Comments 07/29/2011 Sulfa swelling around her eyes Active Moderate 07/29/2011 NKDA Inactive Medications Medication Date Status Form Strength Qnty SIG Indications Ordering Provider Diclofenac-Misop 08/[address] 75-0.2mg 90tab Take 1 M17.11 Maricarmen rostol s Tablet By Cotton, Mouth 3 To M.D. 4 Times A Day as Needed For Pain Contrave 07/30 Active Tablets ER 8-90mg 70tab 1 PO Q Am Maricarmen /2018 12HR s x 1 week, Cotton, then 1 bid M.D. x 1 week, then 2 Q Am and 1 PM x 1 week, then 2 bid Losartan 06/29 Active Tablets 50mg 90tab 2 by mouth I10 Maricarmen Potassium s every day Dylon Cruz Bupropion HCL ER 06/29 Active Tablets ER 150mg 30tab take 1 F33.0 Maricarmen (XL) 24HR s tablet by Cotton, mouth once M.D. daily Levothyroxine 04/06 Active Tablets 100mcg 90tab 1 by mouth Maricarmen Sodium s 6 days a Cotton, week and M.D. 1/2 tablet by mouth one day a week Flovent HFA 11/12 Active Aerosol 110mcg/Ac 36gm 2 puffs t twice Cotton, daily M.D. Losartan 05/30 Hx Tablets 25mg 30tab 1 by mouth I10 Maricarmen Potassium s every day Anthony, - M.D. 06/29 Arthrotec 05/[address] 75-0.2mg 90tab Take 1 M17.11 s tablet 3-4 Cotton, - times M.D. 08/20 daily as needed for pain Losartan 04/07 Hx Tablets 25mg 30tab 1 by mouth I10 Maricarmen Potassium s every day Anthony, - M.D. 05/03 Chlorthalidone 04/06 Hx Tablets 25mg 15tab /2 tab by I10 Maricarmen /2018 s mouth Cotton, - every day M.D. 04/07 Levothyroxine 02/20 Hx Tablets 88mcg 30tab 1 by mouth Maricarmen Sodium s every day Anthony - M.DAna Laura 04/06 Amoxicillin/Clav 06/23 Hx Tablets 875-125mg 20tab take one J01.90 Geovanni s tablet q12 FLORENTINO Vila Potassium - hours for 01/23 Ondansetron 06/23 Hx Tablets 4mg 30tab dissolve R11.0 Dispers s one tablet Cadence PUBLIC INFORMATION COORDINATOR - orally 05/03 every hours as needed for nausea. Benzonatate 06/23 Hx Capsules 200mg 30cap one by J01.90 s mouth Cadence PUBLIC INFORMATION COORDINATOR - three 06/30 times daily as needed for cough Sumatriptan 05/19 Hx Tablets 100mg 12tab 1/2 to 1 Khanh S. Succinate s po prn Sid, - migraine M.D. 05/03 max 2/day, max 2 d/wk Belviq XR 04/11 Hx Tablets ER 20mg 30tab 1 PO qd E03.9 24HR s Agustin Cruz M.D. 01/25 Belviq 03/14 Hx Tablets 10mg 60tab 1 PO bid E03.9 s Agustin CruzD. 04/11 Levothyroxine 03/02 Hx Tablets 50mcg 30tab 1 by mouth Geovanni Sodium s every day- FLORENTINO Vila - pt states 02/20 she is taking 75 mcg as of 01/26/18 Amoxicillin/Clav 11/26 Hx Tablets 875-125mg 20tab 1 tablet J01.90 Maricarmen ulanate s twice Anthony Potassium - daily for M.D. 12/12 Levothyroxine 11/22 Hx Tablets 75mcg 30tab 1 by mouth Geovanni Sodium s every day FLORENTINO Vila - 03/02 Diazepam 10/12 Hx Tablets 2mg 30tab take 09/13 F41.9 Geovanni s tablet by FLORENTINO Vila - mouth as 12/12 needed for anxiety maximum daily dose=1 tablet Doxycycline 10/12 Hx Capsules 100mg 20cap one tablet J01.90 Geovanni Hyclate s twice FLORENTINO Vila - daily for 10/19 10 . Ondansetron 09/16 Hx Tablets 4mg 30tab dissolve R11.2 Geovanni Dispers s one tablet FLORENTINO Vila - orally 11/26 every hours as needed for nausea. Amoxicillin/Clav 09/16 Hx Tablets 875-125mg 20tab take one J06.9 Geovanni ulanate s tablet q12 FLORENTINO Vila Potassium - hours for 09/27 10 Fluticasone 09/16 Hx Suspension 50mcg/Act 16gm 2 J06.9 Geovanni Propionate intranasal FLORENTINO Vila - puffs once 12/12 daily Meloxicam 02/15 [...] Hx Tablets 10mg 270ta 2-3 G43.101 Bhavya M. bs tablets by [place], - mouth at M.D. 11/26 bedtime directed Note: Refills change to #3, per Dr. [place] (not taking) Verapamil HCL 03/25 Hx Tablets 40mg 180ta 1-2 tab by G43.101 Bhavya Kline bs mouth Edilma, - every day M.D. 11/26 directed (not taking) Levofloxacin 02/04 Hx Tablets 500mg 7tabs 1 tablt by 478.9 mouth Rosa, - every day M.D. 02/19 Prednisone 02/04 Hx Tablets 5mg 15tab 1 by mouth 478.9 James s three Rosa, - times a M.D. Fluticasone 01/30 Hx Suspension 50mcg/Act 16gm 1 sprays 381.81 Geovanni Propionate each Cadence, PUBLIC INFORMATION COORDINATOR - nostril 10/02 bid for weeks. Medrol (Gopi) 11/25 Hx Tablets 4mg 21tab take 6 847.2 Geovanni /2014 s tabs day Cadence, PUBLIC INFORMATION COORDINATOR - 1, 5 tabs 11/30 day 2, tabs day 3, 3 tabs day 4, 2 tabs day 5, and 1 tab day 6. Methocarbamol 10/31 Hx Tablets 750mg 40tab 1 by mouth 847.2 Maricarmen s 4 times Cotton, - daily as M.D. 01/24 Ibuprofen 10/16 Hx Tablets 800mg 90tab 1 by mouth 847.2 Maricarmen s three Cotton, - times a M.D. 03/14 day needed Oxycodone HCL 10/16 Hx Tablets 5mg 30tab 1 by mouth 847.2 Maricarmen s every 6 h Cotton, - as needed M.D. 01/26 Omeprazole 10/[address] 20mg 30cap 1 by mouth 847.2 Maricamren s every day Cotton, - if needed [...] days, 1 M.D. 04/04 po x 3 days,1 po x3 days Amitriptyline 02/27 Hx Tablets 10mg 60tab 2 tablets Khanh S. HCL s po at [place], - bedtime M.D. 10/31 Sumatriptan 02/27 Hx Tablets 100mg 12tab 09/13-1 tab G43.009 Bhavya . Succinate s by mouth [place], - as needed M.D. 12/12 Ondansetron 02/27 Hx Tablets 4mg 30tab 1 po three Khanh S. Dispers s times a [place], - day as M.D. 10/12 needed for [...] 60gm apply thin 782.1 Maricarmen film twice Cotton, - daily M.D. 02/10 [...] 11/12 Hx Suspension 50mcg/Act 16gm 2 461.8 Propionate intranasal Cotton, - puffs once M.D. 12/24 daily Amoxicillin 11/12 Hx Capsules 500mg 30cap 1 tab po 461.8 s tid for 10 Cotton, - days M.D. 12/03 Zolmitriptan Odt 11/12 Hx Tablets 2.5mg 12tab 1 PO qd 346.10 Dispers s prn, take Anthony, - at [...] Solution 0.06% 15ml 2 sprays 465.9 Yuko [place] in each Varn, N.P. - nostril 12/28 [...] Hx Tablets 500mg 21tab Take 1 053.29 s tablet Daphne, - three M.D. 08/17 [...] Ibuprofen Hx Tablets 600mg 90tab prn Unknown / s - 07/24 Singulair Hx Tablets 10mg 90tab 1 po qd Stacy s prn Daphne, - M.D. 03/26 Meclizine HCL Hx Tablets 25mg 60tab 1 po tid Unknown / s prn - 09/03 Levothyroxine Hx Tablets 75mcg 30tab 1 po qd Unknown s - 07/29 Ventolin HFA Hx Aerosol 108(90Bas 1unit 2 puffs po 493.90 Stacy /0000 e) mcg/ac s qid prn Agustin Serna M.D. 11/12 Flovent HFA Hx Aerosol 110mcg/Ac 1mont 2 puffs Unknown /0000 t h twice - daily 12/09 Meclizine HCL Hx Tablets 25mg 90tab 1 po tid Stacy /0000 s prn Agustin Serna M.D. 11/12 Zofran Hx Tablets 4mg 20tab [...] Indications Ordering Provider Injection 09/07 Administered Injection Bryan Onabotulinumtoxi Dylon Winston n A, 1 Unit Injection 06/06 Administered Injection Bryan Onabotulinumtoxi Dylon Winston A, 1 Unit Injection 03/02 Administered Injection Bryan Onabotulinumtoxi Catrachito, M.D. n A, 1 Unit Depomedrol 40MG 12/18 Administered Injection Dalia Dylon He Injection,Lidoca 02/27 Administered Injection Khanh BUSTILLO Kike Lau M.D. Infusion,10 MG Immunizations CPT Code Status Date Vaccine Lot # 76875 Given 06/18/2014 Tdap - Tetanus/Diptheria/Acellular Pertussis [id number] Given 06/18/2014 Influenza Virus Vaccine, Quadrivalent, Split, [id number] Preservative Free Vital Signs Date Vital Result Comment 09/07/2018 8:01am Height 64.5 inches 5'4.50" Weight [...] Result H/L Range Note Basic Metabolic 06/29/2018 [facility] Sodium 144 mmol/L N 135- [address] [place] [address] [phone] Potassium 4.8 mmol/L N 3.5-5.0 Chloride 109 mmol/L N 101-111 Co2 Carbon Dioxide 29 mmol/L N 22-32 Anion Gap 6 mmol/L N 2-11 Glucose 87 mg/dL N 70-100 Blood Urea Nitrogen 14 mg/dL N 6-24 Creatinine 0.78 mg/dL N 0.51-0.95 BUN/Creatinine Ratio 17.9 N 8-20 Calcium 9.8 mg/dL N 8.6-10.3 Egfr Non- 77.6 >60 Egfr 93.8 >60 1 Laboratory test 06/29/2018 [facility] TSH (Thyroid 0.12 Low 0.34-5.[address] Stim Horm) mcIU/[place] [address] [phone] Free T4 (Free Thyroxine) 1.17 ng/dL High 0.61-1.12 Laboratory test 05/04/2018 [facility] TSH (Thyroid 0.10 Low 0.34-5.[address] Stim Horm) mcIU/[place] [address] [phone] Laboratory test 04/06/2018 [facility] TSH (Thyroid <pending> finding DRIVE Stim Horm) [place] [address] [phone] Free T4 (Free Thyroxine) <pending> Laboratory test 02/17/2018 [facility] FSH (Follicle 107.1 mIU/ mL [address] Stim Hormone) [place] [address] [phone] TSH (Thyroid Stim Horm) 19.88 mcIU/mL High 0.34-5.60 Lipid Profile 02/17/2018 [facility] Triglycerides 100 mg/dL 3 (Trig/Chol/HDL) [place] [address] [phone] Cholesterol 234 mg/dL 4 HDL Cholesterol 52.2 mg/dL 5 LDL Cholesterol 162 mg/dL 6 Comp Metabolic Panel 02/17/2018 [facility] Sodium 142 mmol/L N 139-145 [place] [address] [phone] Potassium 4.1 mmol/L N 3.5-5.0 Chloride 105 [...] 94.1 >60 7 CBC Auto Diff 02/17/2018 [facility] White Blood 5.8 10^3/uL N 3.5-10.[address] Count [place], [place] [id number] [phone] Red Blood Count 4.54 10^6/uL N 4.0-5.4 [...] Blood Cells % 0 Poc Urinalysis 08/13/2017 [facility] Poc Glucose, Negative Negative [address] [place] [address] [phone] Poc Bilirubin, Urine Negative Negative Poc Ketone, Urine Negative Negative Poc Specific [place], Urine 1.020 N 1.010-1.030 Poc Blood, Urine Trace-intact Abnormal Negative Poc pH, Urine 6.0 N 5-9 Poc Protein, Urine Negative Negative Poc Urobilinogen, Urine 0.2 Negative Poc Nitrite, Urine Negative Negative Poc Leukocytes, Urine Negative Negative Poc Color, Urine Yellow Poc Clarity, Urine Clear 8 Laboratory 02/28/2017 [facility] TSH (Thyroid 4.17 mcIU/mL N 0.34-5.60 9, 10 test finding [address] Stim Horm) [place] [address] [phone] Laboratory 12/29/2016 [facility] Rapid SEE RESULT 11, test finding [address] Influenza A B BELOW 12 [place] [address] Antigen [phone] Rapid 12/29/2016 [facility] Influenza A NEGATIVE N Negative 13 Influenza A & [address] Molecular B Molecular [place], [place] [id number] [phone] Influenza B Molecular NEGATIVE N Negative Comp Metabolic Panel 11/19/2016 [facility] Sodium 139 mmol/L N 133-145 14 101 [place] [address] [phone] Potassium 3.9 mmol/L N 3.5-5.0 Chloride 105 [...] 102.0 N >60 15 Lipid Profile 11/19/2016 [facility] Triglycerides 126 mg/dL N 16 (Trig/Chol/HDL) [address] [place], [place] [address] [phone] Cholesterol 215 mg/dL N 17 HDL Cholesterol 45.2 mg/dL N 18 LDL Cholesterol 145 mg/dL N 19 Laboratory 11/19/2016 [facility] TSH (Thyroid 10.26 High 0.34- 5.[address] Stim Horm) mcIU/mL [place], [place] [id number] [phone] Xray 02/13/2016 [facility] MRI Shoulder <pending> [place] [address] [phone] Laboratory 09/27/2015 [facility] Urine Culture SEE RESULT [address] [place] [address] Sensitivities [phone] Laboratory 07/18/2014 [facility] Lipase 27 U/L N 11.0-82.[address] [place], [place] [address] [phone] Magnesium 1.9 mg/dL N 1.9-2.7 TSH (Thyroid Stimulating Horm) 0.44 IU/mL N 0.34-5.60 Laboratory test 07/17/2014 [facility] Troponin I 0.01 ng/mL N <0.[address] [place], [place] [address] [phone] Comp Metabolic 07/17/2014 [facility] Sodium 139 mmol/L N 133- [address] [place] [address] [phone] Potassium 3.7 mmol/L N 3.5-5.0 23 Chloride [...] 91.8 N >60 24 Laboratory test 07/17/2014 [facility] D Dimer 304 ng/mL High Less [address] Quantitative Than 230 [place] [address] [phone] CBC Auto Diff 07/17/2014 [facility] White Blood 6.2 N 4.8- 10.8 DRIVE Count 10^3/[place] [address] [phone] Red Blood Count 4.50 10^6/uL N 4.0-5.4 [...] Blood Cells % 0 N Laboratory 06/18/2014 [facility] TSH (Thyroid 14.38 High 0.34- 5.60 test finding [address] Stimulating IU/[place] [address] Horm) [phone] Laboratory 11/12/2013 Follicle 9.3 IU/mL 26 test finding Stimulating Hormone TSH (Thyroid Stimulating Horm) 0.19 IU/mL Low 0.34-5.60 27 Vitamin B12 480 pg/mL 180-284 28 Vitamin D, 25 Hydroxy 11/12/2013 25-Hydroxy [...] Egfr 94.8 >60 30 Laboratory test 04/18/2013 [facility] Hemoglobin A1c 5.3 % Less than [address] 6.0 [place] [address] [phone] Lipid Panel 03/26/2013 [facility] Triglycerides 117 mg/dL 40- [address] [place] [address] [phone] Cholesterol 185 mg/dL Less than 200 HDL Cholesterol 41 mg/dL 40-60 32 Cholesterol/HDL Ratio 4.5 Average High 1-4.44 LDL Cholesterol 120.6 High Less Than 100 33 Laboratory test 03/26/2013 [facility] Follicle 21.83 miu/mL [address] [place] [address] Hormone [phone] TSH (Thyroid Stimulating Horm) 8.28 miu/mL High 0.34-5.60 Vitamin D,25 03/26/2013 [facility] 25-Hydroxy Vitamin <4.0 ng/ mL Hydroxy [address] D2 [place] [address] [phone] 25-Hydroxy Vitamin D3 36 ng/mL 25-Hydroxy Vitamin D Total 36 ng/mL 35 CMP Panel 03/26/2013 [facility] Sodium 142 mmol/L 133-[address] [place] [address] [phone] Potassium 4.2 mmol/L 3.5-5.0 Chloride 108 mmol/L [...] Egfr 115.4 >60 36 Laboratory test 12/29/2012 [facility] C Reactive 0.5 mg/dL Less than finding [address] Protein 0.5 [place] [address] [phone] Basic Metabolic 12/29/2012 [facility] Sodium 134 mmol/L 133- [address] [place] [address] [phone] Potassium 3.9 mmol/L 3.5-5.0 Chloride 104 mmol/L 101-111 Co2 Carbon Dioxide 26.0 mmol/L 22-32 Anion Gap 4.0 mmol/L 2-11 Glucose 84 mg/dL 70-100 Blood Urea Nitrogen 18 mg/dL 6-24 Creatinine 0.90 mg/dL 0.50-1.40 BUN/Creatinine Ratio 20.0 8-20 Calcium 9.6 mg/dL 8.1-9.9 Egfr Non- 67.4 >60 Egfr 86.7 >60 37 CBC Auto Diff 12/29/2012 [facility] White Blood 7.3 10^3/uL 4.8-10.[address] [place] [address] [phone] Red Blood Count 4.49 10^6/uL 4.0-5.4 Hemoglobin [...] Red Blood Cells % 0 Laboratory 11/01/2012 [facility] Hepatitis C Nonreactive Nonreactive test finding [address] [place] [address] [phone] HIV 1 2 AB Nonreactive Nonreactive 38 Hepatitis B Jaida 11/01/2012 [facility] Hepatitis B Reactive Nonreactive AB Titer [address] [place] [address] [phone] Hep B Surf AB Index 9.81 39 Laboratory 11/01/2012 [facility] Hepatitis B Nonreactive Nonreactive test finding 101 [facility] [place] [address] Antigen [phone] Comp Metabolic 09/19/2012 [facility] Sodium 136 mmol/L 133- 145 Panel [address] [place], [place] [address] [phone] Potassium 4.1 mmol/L 3.5-5.0 Chloride 103 mmol/L [...] Egfr 86.7 >60 40 Laboratory test 09/19/2012 [facility] Follicle 5.70 MIU/ML [address] [place] [address] Hormone [phone] Laboratory test 09/19/2012 [facility] TSH (Thyroid 1.04 miu/mL 0.34- finding [address] Stimulating Horm) 5.60 [place] [address] [phone] HSV/VZV Derm PCR 09/19/2012 [facility] hs/VZ Source SKIN [address] [place] [address] [phone] hs/VZ PCR Result See Comment 42 Vitamin D, 25 09/19/2012 [facility] 25-Hydroxy Vitamin <4.0 ng/ mL Hydroxy [address] D2 [place] [address] [phone] 25-Hydroxy Vitamin D3 32 ng/mL 25-Hydroxy Vitamin D Total 32 ng/mL 43 Ua Routine 07/24/2012 [employer] [facility] Ua Specific [place] 1.015 Ua PH 5 Ua Color yellow Ua Appera clear Ua WBC neg Ua Protein neg Ua Glucose neg Ua Ketones neg Ua Bilirubin neg Ua Urobilinogen neg Ua Nitrite neg Ua Occult Blood neg Laboratory 07/21/2012 [facility] TSH (Thyroid 12.94 High 0.34- 5.60 test finding [address] Stimulating MIU/[place] [address] Horm) [phone] Vitamin B12 592 pg/mL 180-914 Laboratory test 01/21/2012 [facility] Intrinsic Factor Negative () [address] [place] [address] [phone] Methylmalonic Acid 0.15 nmol/mL <=0.40 45 Laboratory test 2012 [facility] TSH 0.13 MIU/ML Low 0.34 -5.[address] [place] [address] [phone] Vitamin B12 And 2012 [facility] Vitamin B12 245 pg/mL 180-914 Folate Serum [address] [place] [address] [phone] Folic Acid 9.8 NG/ML See Below 46 CBC Auto Diff 12/10/2011 [facility] White Blood 6.5 CUMM 4.8- 10.[address] [place] [address] [phone] Red Cell Count 4.39 CUMM 4.2-5.4 Hemoglobin [...] Abs Basophils 0.1 0-0.2 Laboratory test 12/08/2011 [facility] TSH 0.11 MIU/ML Low 0.34 -5.60 finding [address] [place] [address] [phone] Laboratory test 10/08/2011 [facility] TSH 0.55 MIU/ML 0.34- 5.60 finding [address] [place] [address] [phone] Laboratory test 09/02/2011 [facility] TSH 3.91 MIU/ML 0.34- 5.[address] [place] [address] [phone] Laboratory test 07/29/2011 [facility] TSH 9.96 MIU/ML High 0.34-5.[address] [place] [address] [phone] 1 Because ethnic data is not always [...] 5 Kidney failure <15 (or dialysis) 8 Sign Builder Supervisor: [id number] 9 6 weeks after increasing levothyroxine dose 10 6 weeks after increasing levothyroxine dose 11 [id number] 12 SEE RESULT BELOW Name: CHRISTIAN BARCLAY : [address]: Geovanni Vila NP Acct: [id number] Unit: [id number] AGE: 51 Location: [facility] Re12/29/16 SEX: F Status: REG REF SPEC: [id number] EG: 12/29/16-[address]: Geovanni Vila NP REQ: [id number] RECD: 12/29/16 STATUS: COMP _ SOURCE: [facility]: ORDERED: Flu A B Request COMMENTS: [id number] Procedure Result Reported Site Rapid Influenza A B Request Final 12/29/16- 2211 ML Specimen received for Influenza A/B Molecular testing * ML - MAIN LAB ([facility]) . END OF REPORT * ML=Testing performed at Main Lab DEPARTMENT OF PATHOLOGY, [address] [place] [address] Toby Taveras M.D. Director [facility] # [id number] 13 Sign Builder Supervisor: [id number] FASTING 10 HOUR 15 Because ethnic [...] [address]: Amparo Thomason MD Acct: [id number] Unit: [id number] AGE: 50 Location: [facility] Re09/27/15 SEX: F Status: DEP ER SPEC: [id number] GE: 09/27/[address] [facility] [address]: Amparo Thomason MD REQ: [id number] RECD: 09/28/15-1231 STATUS: DONAVAN SKINNER DR: [facility] Maricarmen Cruz MD _ SOURCE: URINE SPDESC: ORDERED: Urine Culture Procedure Result Reported Site Urine Culture Final 09/29/15- 1313 ML No Growth (<1,000 CFU/mL) * ML - MA[facility] LAB ([facility]) . END OF REPORT * ML=Testing performed at Main Lab DEPARTMENT OF PATHOLOGY, [address] [place] [address] Toby Taveras M.D. Director [facility] # [id number] 22 Reference Range and Interpretation: TnI (ng/mL) Interpretation Less Than 0.03 ng/mL Not supportive of diagnosis of [place] 0.03 - 0.50 ng/mL Indeterminate: suggest serial studies if clinically indicated. Greater than 0.5 ng/mL Consistent with diagnosis of [place] 23 Potassium reference range changed effective 07/14/14 [...] failure <15 (or dialysis) 25 Verbal to [id number] by [id number] at 1840 on 07/17/14. Results read back [...] levels within this range. Test Performed by: [place] [address] Security Dispatcher: Anibal Valdes III, M.D. 30 Because ethnic [...] and in selective patients <6.0%.Please refer to [place] [employer] Diabetic care guidelines for further [...] normal population are 25-80 Test Performed by: [facility] [address] [place] [address] Security Dispatcher: Anibal Valdes III, M.D. 36 Because ethnic [...] developed and its performance characteristics determined by [facility]. It has not been cleared or approved by the U.S. Food and Drug Administration. Test Performed by: [place] [address] Security Dispatcher: Anibal Valdes III, M.D. 43 -- REFERENCE VALUE -- 25-HYDROXY D TOTAL (D2+D3) Optimum levels in the normal population are 25-80 Test Performed by: [place] [address] Security Dispatcher: Anibal Valdes III, M.D. 44 Positive in 50% of persons with pernicious anemia. -- REFERENCE VALUE -- Negative Test Performed by: [facility] Dpt of Lab Med and Pathology [address] [place], [place] [address] Security Dispatcher: Anibal Valdes III, M.D. 45 Test Performed by: [facility] Dpt of Lab Med and Pathology [address] [place] [address] Security Dispatcher: Anibal Valdes III, M.D. 46 Please note: New reference range, effective 09/02/11 NORMAL REFERENCE RANGE: GREATER THAN 4.1 NG/ML Procedures Date Code Description Status 09/07/2018 53798 Chemodenervation Of Muscles Innervated By Facial Completed Nerves, Bilat 06/06/2018 42264 Chemodenervation Of Muscles Innervated By Facial Completed Nerves, Bilat 03/02/2018 73903 Chemodenervation Of Muscles Innervated By Facial Completed Nerves, Bilat 04/08/2016 [id number] Colonoscopy Completed 03/12/2016 88937061 Mammogram Completed 12/19/2015 75704 Inject/Drain Joint/Bursa Major W/O US Completed 08/05/2014 18589 Holter Monitor Review (24 hr)dr review & interp only Completed 07/18/2014 47825 EKG Tracing & Interpretation Completed 07/04/2014 [id number] Mammogram Completed 04/04/2014 99257 Removal Skin Tags Up To 15 Completed 02/27/2014 30313 Injection For Nerve Block, Greater Occipital Nerve Completed 06/12/2013 72307705 Mammogram Completed 10/26/2011 90935 EKG Tracing & Interpretation Completed Encounters Type Date Location Provider Dx Diagnosis Office Visit 06/29/2018 Mindy Cruz, I10 Essential ( primary) 10:40a Jolene Velez M.D. hypertension Peggy E03.9 Hypothyroidism, unspecified F33.0 Major depressive disorder, recurrent, mild H69.90 Unspecified Eustachian tube disorder, unspecified ear Office Visit 05/30/2018 2:20p Mindy Hernadez I10 Essential ( primary) Jolene Cruz M.D. hypertension Peggy E03.9 Hypothyroidism, unspecified H93.13 Tinnitus, bilateral Office Visit 05/04/2018 10:45a Orthopedic Parag Dillon M25.561 Pain in Services Of Sandeep Meek MD right knee M17.11 Unilateral primary osteoarthritis, right knee Office Visit 05/04/2018 Mindy Hernadez E03.9 Hypothyroidism, 2:40p Jolene Cruz M.D. unspecjuan francisco Woods R03.0 Elevated blood-pressure reading, w/o diagnosis of htn M17.11 Unilateral primary osteoarthritis, right knee Office Visit 04/06/2018 [facility] Internal Maricarmen E03.9 Hypothyroidism, 3:40p Jolene Cruz M.D. unspecjuan francisco Woods I10 Essential (primary) hypertension Z68.34 Body mass index (BMI) 34.0-34.9, adult Office Visit 02/17/2018 10:40a [facility] Internal Maricarmen R61 Generalized Jolene Cruz M.D. hyperhidrosis Peggy E03.9 Hypothyroidism, unspecified E78.5 Hyperlipidemia, unspecified R10.11 Right upper quadrant pain R10.31 Right lower quadrant pain Office Visit 01/26/2018 [place] Bryan G43.019 Migraine w/o 11:15a Gunnar Winston M.D. aura, Services [facility] intractable, without status migrainosus Office Visit 06/23/2017 [facility] [facility] Internal Geovanni Vila NP J01.90 Acute sinusitis , 1:00p Medicine Agustin Woods R11.0 Nausea H92.03 Otalgia, bilateral Office Visit 04/11/2017 2:40p [facility] Internal Mar[place] R63.5 Abnormal weight Jolene Cruz M.D. gain Peggy Office Visit 03/14/2017 4:00p [facility] Internal [place] R63.5 Abnormal weight Dylon Thompson R09.81 Nasal congestion Office Visit 12/29/2016 4:20p [facility] Internal Geovanni Vila, R50.9 Fever, unspecified Medicine Agustin Mckinleywood J06.9 Acute upper respiratory infection, unspecified Office Visit 12/16/2016 3:30p [place] Gunnar Kline M54.81 Occipital Services Of [facility] Dylon France neuralgia G43.109 Migraine with aura, not intractable, w/o status migrainosus Office Visit 11/26/2016 11:40a [facility] Internal [place] J01.90 Acute sinusitis, Jolene Cruz M.D. unspecified [place] K62.5 Hemorrhage of anus and rectum Office Visit 11/25/2016 2:40p [facility] Internal Subhash Alejo Dizziness and Jolene Ray M.D. girebecainess [place] Office Visit 11/01/2016 10:00a [facility] Internal Geovanni Vila, PUBLIC INFORMATION COORDINATOR F41.9 Anxiety disorder, Medicine - unspecified [place] Office Visit 10/12/2016 11:20a [facility] Internal Geovanni Vila PUBLIC INFORMATION COORDINATOR F41.9 Anxiety disorder, Medicine - unspecified [place] J01.90 Acute sinusitis, unspecified Office Visit 09/16/2016 5:30p [facility] Internal Geovannialfredo Vila, J06.9 Acute upper Medicine - PUBLIC INFORMATION COORDINATOR respiratory [place] infection, unspecified R11.2 Nausea with vomiting, unspecified Office Visit 07/22/2016 Bogdan Kline S06.0x1S Concussion w Loc 11:15a Neurologic Dylon [place] of 30 minutes or Services Of [facility] less, sequela M54.81 Occipital neuralgia G43.109 Migraine with aura, not intractable, w/o status migrainosus G43.109 Migraine with aura, not intractable, w/o status migrainosus M54.81 Occipital neuralgia Office Visit 03/18/2016 Bogdan Kline G43.019 Migraine w/o aura, 9:45a Neurologic Dylon [place] intractable, [facility] without status migrainosus Office Visit 02/16/2016 Orthopedic Jo Sawyer.512 Pain in left 8:45a Services Of M.D. shoulder C.M.A. S43.422D Sprain of left rotator cuff capsule, subsequent encounter M75.42 Impingement syndrome of left shoulder Office Visit 01/19/2016 9:15a Orthopedic Jo Sawyer.512 Pain in left Services Of C.M.A. M.D. shoulder S43.422A Sprain of left rotator cuff capsule, initial encounter M75.42 Impingement syndrome of left shoulder Office Visit 12/19/2015 8:00a Orthopedic Pat Sawyer5.512 Pain in left Services Of C.M.A. M.D. shoulder S43.422A Sprain of left rotator cuff capsule, initial encounter M75.42 Impingement syndrome of left shoulder Office Visit 10/02/2015 11:20a [facility] Internal Yuko Acuña, R10.11 Right upper Medicine - N.P. quadrant pain [place] R10.31 Right lower quadrant pain J34.89 Other specified disorders of nose and nasal sinuses R19.7 Diarrhea, unspecified Office Visit 05/12/2015 8:20a Orthopedic Capo Jaeger, 844.9 Sprains & Strains Services Of M.DAna Laura Knee & Leg Unspec C.M.A. Office Visit 05/01/2015 9:00a Orthopedic Marta Soto, 844.9 Sprains & Strains Services Of [facility]- Knee & Leg Unspec C.M.A. Office Visit 03/25/2015 8:30a [place] [facility]ic Bhavya MAna Laura 346.02 Migraine [facility] Edilma, W/Aura,W/Out M.D. Mention Of Intractable Migraine 346.00 Migraine Classical W/O Intractable W/O Status Migrainosus Office Visit 02/04/2015 9:40a [facility] Internal James Rosa, 478.9 Upper Resp Medicine - [place] M.D. Tract Disease Rd Other & Unspec 386.10 Vertigo Peripheral Unspec 465.9 URI Upper Respiratory Infections Acute Unspec Sites Office Visit 01/30/2015 10:40a [facility] Internal Geovannialfredo Vila, 381.81 Eustachian Tube Medicine - PUBLIC INFORMATION COORDINATOR Dysfunction [place] 787.91 Diarrhea Office Visit 01/24/2015 9:00a [facility] Internal Geovanni Vila PUBLIC INFORMATION COORDINATOR 847.2 Sprains & Medicine - Strains Lumbar [place] Office Visit 12/23/2014 10:00a [facility] Internal Geovanni Vila NP 847.2 Sprains & Medicine - Strains Lumbar [place] Office Visit 11/25/2014 10:00a [facility] Internal Geovanni Vila NP 847.2 Sprains & Medicine - Strains Lumbar [place] Office Visit 10/31/2014 9:40a [facility] Internal Mar[place]en Cruz, 847.2 Sprains & Medicine - M.D. Strains Lumbar [place] 847.2 Sprains & Strains Lumbar Office Visit 10/16/2014 [facility] Internal [place] 847.2 Sprains & Strains 1:20p Jolene Cruz M.D. Lumbar [place] Office Visit 09/26/2014 [facility] Internal [place] 487.8 Influenza W/ Other 11:20a Jolene Cruz M.D. Manifestations [place] 783.1 Weight Gain Abnormal Office Visit 07/18/2014 [facility] Internal [place] 794.31 Electrocardiogram 4:00p Medicine - Cotton, M.D. (ECG) (EKG) Abnormal [place] 789.00 Pain Abdominal Unspec Site Office Visit 07/02/2014 9:45a Bogdan Kline 346.91 Migraine Unspec Neurologic Dylon [place] W/ Intractable [facility] W/O Status Migrainosus Office Visit 06/18/2014 1:40p [facility] Internal [place] V70.0 Examination Jolene Cruz M.D. General Medical [place] Routine AT [facility] 244.9 Hypothyroidism Other Unspec V76.10 Screening For Malignant Neoplasm Breast 311 Depressive Disorder Not Elsewhere Spec V04.81 Need For Prophylactic Vaccination & Inoculation/Influenza V06.1 Twyroqippa-Lziuspl-Ibfpzvin Combined (DTaP) Office Visit 05/07/2014 Bogdan Kline 346.93 Migraine 2:30p Neurologic Dylon [place] Unspecified, [facility] W/Intractable Migraine Office Visit 02/27/2014 Bogdan Olivares 346.93 Migraine 8:15a Neurologic Dylon Lau Unspecified, [facility] W/Intractable Migraine Office Visit 02/21/2014 Bogdan Kline 346.93 Migraine 11:45a Neurologic Dylon [place] Unspecified, Services [facility] W/Intractable Migraine 386.10 Vertigo Peripheral Unspec Office Visit 12/24/2013 9:00a [facility] Internal [place] 461.8 Sinusitis Acute Jolene Cruz M.D. Other [place] 782.1 Rash & Other Nonspec Skin Eruption 244.9 Hypothyroidism Other Unspec 309.9 Adjustment Reaction Unspec Office Visit 12/04/2013 1:00p [facility] Internal [place] 386.10 Vertigo Jolene Cruz M.D. Peripheral [place] Unspec 300.00 Anxiety State Unspec 782.1 Rash & Other Nonspec Skin Eruption 244.9 Hypothyroidism Other Unspec Office Visit 11/12/2013 11:20a [facility] Internal [place] 461.8 Sinusitis Acute Jolene Cruz M.D. Other [place] 346.10 Migraine Common W/O Intractable W/O Status Migrainosus 245.2 Thyroiditis Chronic Lymphocytic Office Visit 03/26/2013 10:00a [facility] Internal Stacy Serna, 995.3 Allergy Unspec Jolene Velez M.D. [place] V70.0 Examination General Medical Routine AT Health Care [facility] 620.2 Ovarian Cyst Other & Unspec 245.2 Thyroiditis Chronic Lymphocytic 278.00 Obesity Unspec Office Visit 02/21/2013 8:40a [facility] Internal Stacy Serna, 386.00 [place] Medicine - M.D. 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 W/ Intractable [facility] W/O Status Migrainosus Office Visit 12/14/2012 4:20p [facility] Internal Yuko Acuña, 465.9 URI Upper Medicine - N.P. Respiratory [place] Infections Acute Unspec Sites Office Visit 09/25/2012 8:40a [facility] Internal Stacy Serna, 620.2 Ovarian Cyst Medicine - M.D. Other & Unspec [place] 054.9 Herpes Simplex W/O Complication Office Visit 09/19/2012 11:00a [facility] Internal Yuko Acuña, 054.9 Herpes Simplex W/O Medicine - N.P. Complication [place] Office Visit 07/28/2012 9:40a [facility] Internal Stacy Serna, 245.2 Thyroiditis Medicine - M.D. Chronic [place] Lymphocytic 620.2 Ovarian Cyst Other & Unspec 592.0 Calculus Of Kidney 626.0 Menstruation Absence 110.4 Dermatophytosis Foot 311 Depressive Disorder Not Elsewhere Spec Office Visit 07/24/2012 8:40a [facility] Internal Stacy Serna, 599.70 Hematuria, Medicine - M.D. Unspecified [place] 346.80 Migraine Other W/O Intractable W/O Status Migrainosus 493.90 Asthma Unspec W/O Status Asthmaticus 245.2 Thyroiditis Chronic Lymphocytic Office Visit 01/21/2012 9:40a [facility] Internal Stacy Serna, 266.9 Vitamin B Medicine - M.D. Deficiency Unspec [place] 477.9 Rhinitis Allergic Cause Unspec Office Visit 2012 9:40a [facility] Internal Stacy Serna, 354.0 Carpal Tunnel Medicine - M.D. Syndrome [place] 245.2 Thyroiditis Chronic Lymphocytic Office Visit 12/10/2011 10:00a [facility] Internal Stacy Serna, 493.92 Asthma Unspec W/ Medicine - M.D. Acute Exacerbation [place] Office Visit 12/01/2011 3:20p [facility] Internal Stacy Serna, 245.2 Thyroiditis Medicine - M.D. 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 [place] Office Visit 10/08/2011 8:40a [facility] Internal Stacy Serna, 311 Depressive Medicine - M.D. Disorder Not [place] Elsewhere Spec 245.2 Thyroiditis Chronic Lymphocytic 079.99 Viral Infection Unspec Office Visit 09/03/2011 8:40a DO Not Use Stacy Serna, 245.2 Thyroiditis Upholstery Sewer-[place] M.D. Chronic Lymphocytic 311 Depressive Disorder Not Elsewhere Spec Office Visit 08/17/2011 8:40a DO Not Use Stacy Serna, 311 Depressive Upholstery Sewer-[place] M.D. Disorder Not Elsewhere Spec Office Visit 08/03/2011 3:20p DO Not Use Stacy Serna, 053.29 Herpes Zoster Upholstery Sewer-[place] M.D. Other 346.80 Migraine Other W/O Intractable W/O Status Migrainosus Office Visit 07/29/2011 10:00a DO Not Use Stacy Serna, 311 Depressive Upholstery Sewer-[place] M.D. Disorder Not Elsewhere Spec 245.2 Thyroiditis Chronic Lymphocytic Plan of Treatment Future Appointment(s):06/28/2019 1:30 pm - Bryan Winston M.D. at [place] [facility]03/22/2019 1:30 pm - Bryan Winston M.D. at [place] [facility]09/21/2018 2:40 pm - Mar[place]en Cruz M.D. at [facility] Internal Medicine [facility]11/02/2018 10:20 am - [place] Cruz M.D. at [facility] Internal Medicine [facility]12/14/2018 10:00 am - Bryan Winston M.D. at [place] [facility]09/07/2018 - Bryan Winston M.D.G43.719 Chronic migraine without aura, intractable, without status m
--- OUTSIDE RECORDS SUMMARY | 2018-10-03 12:57 | XMS REPORT | Continuity of Care Document ---
:1965 External Reference #:[id number] Author Name Darrel Rodriguez Care Team Providers Name Role Phone Maricarmen Cruz MD Primary Care Physician Unavailable Payers Type Date Identification Numbers Payment Provider Subscriber Effective: 2011 Policy Number: [id number] [facility] Christian Barclay PayID: [id number] [address] [place] [address] Effective: 2016 Policy Number: [facility] Christian Barclay [id number] Onset: 2016 Group Number: fax [phone] [address] [address] PayID: [place] [address] Effective: 2014 Policy Number: [facility] Christian Barclay [id number] Onset: 2014 Group Number: [id number] [address] [address] PayID: [place] [address] Onset: 2015 Policy Number: [id number] [facility] Christian Barclay Group Name: [phone] [address] [address] PayID: [place] [address] Advance Directives Description No Information Available Problems [...] With and adopted 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 Hand Dominance Right-handed ETOH Use Denies alcohol [...] dissolve R11.0 Dispers s one tablet Cadence [employer] - orally 05/03 every hours as needed for nausea. Benzonatate 06/23 Hx Capsules 200mg 30cap one by J01.90 s mouth Cadence [employer] - three 06/30 times daily as needed [...] 1 sprays 381.81 Geovanni Propionate each Cadence, [employer] - nostril 10/02 bid for weeks. Medrol (Gopi) 11/25 Hx Tablets 4mg 21tab take 6 847.2 Geovanni /2014 s tabs day Cadence, [employer] - 1, 5 tabs 11/30 day 2, [...] tablets Khanh S. HCL s po at [place], - bedtime M.D. 10/31 Sumatriptan 02/27 Hx Tablets 100mg 12tab 09/13-1 tab G43.009 Bhavya . Succinate s by mouth Edilma, - as needed M.D. 12/12 Ondansetron 02/27 Hx Tablets 4mg 30tab 1 po three Khanh S. Dispers s times a [place], - day as M.D. 10/12 needed for [...] Solution 0.06% 15ml 2 sprays 465.9 [place] in each Varn, N.P. - nostril 12/28 [...] CPT Code Status Date Vaccine Lot # [id number] Given 06/18/2014 Tdap - Tetanus/Diptheria/Acellular Pertussis [id number] Given 06/18/2014 Influenza Virus Vaccine, Quadrivalent, Split, [id number] Preservative Free Vital Signs Date Vital Result [...] Result H/L Range Note Basic Metabolic 06/29/2018 [facility] Sodium 144 mmol/L N 135- [address] [place] [address] [phone] Potassium 4.8 mmol/L N 3.5-5.0 Chloride 109 mmol/L N 101-111 Co2 Carbon Dioxide 29 mmol/L N 22-32 Anion Gap 6 mmol/L N 2-11 Glucose 87 mg/dL N 70-100 Blood Urea Nitrogen 14 mg/dL N 6-24 Creatinine 0.78 mg/dL N 0.51-0.95 BUN/Creatinine Ratio 17.9 N 8-20 Calcium 9.8 mg/dL N 8.6-10.3 Egfr Non- 77.6 >60 Egfr 93.8 >60 1 Laboratory test 06/29/2018 [facility] TSH (Thyroid 0.12 Low 0.34-5.[address] Stim Horm) mcIU/[place] [address] [phone] Free T4 (Free Thyroxine) 1.17 ng/dL High 0.61-1.12 Laboratory test 05/04/2018 [facility] TSH (Thyroid 0.10 Low 0.34-5.[address] Stim Horm) mcIU/[place] [address] [phone] Laboratory test 04/06/2018 [facility] TSH (Thyroid <pending> finding DRIVE Stim Horm) [place] [address] [phone] Free T4 (Free Thyroxine) <pending> Laboratory test 02/17/2018 [facility] FSH (Follicle 107.1 mIU/ mL [address] Stim Hormone) [place] [address] [phone] TSH (Thyroid Stim Horm) 19.88 mcIU/mL High 0.34-5.60 Lipid Profile 02/17/2018 [facility] Triglycerides 100 mg/dL 3 (Trig/Chol/HDL) [place] [address] [phone] Cholesterol 234 mg/dL 4 HDL Cholesterol 52.2 mg/dL 5 LDL Cholesterol 162 mg/dL 6 Comp Metabolic Panel 02/17/2018 [facility] Sodium 142 mmol/L N 139-145 [place] [address] [phone] Potassium 4.1 mmol/L N 3.5-5.0 Chloride 105 [...] 94.1 >60 7 CBC Auto Diff 02/17/2018 [facility] White Blood 5.8 10^3/uL N 3.5-10.[address] Count [place], [place] [id number] [phone] Red Blood Count 4.54 10^6/uL N 4.0-5.4 [...] Blood Cells % 0 Poc Urinalysis 08/13/2017 [facility] Poc Glucose, Negative Negative [address] [place] [address] [phone] Poc Bilirubin, Urine Negative Negative Poc Ketone, Urine Negative Negative Poc Specific [place], Urine 1.020 N 1.010-1.030 Poc Blood, Urine Trace-intact Abnormal Negative Poc pH, Urine 6.0 N 5-9 Poc Protein, Urine Negative Negative Poc Urobilinogen, Urine 0.2 Negative Poc Nitrite, Urine Negative Negative Poc Leukocytes, Urine Negative Negative Poc Color, Urine Yellow Poc Clarity, Urine Clear 8 Laboratory 02/28/2017 [facility] TSH (Thyroid 4.17 mcIU/mL N 0.34-5.60 9, 10 test finding [address] Stim Horm) [place] [address] [phone] Laboratory 12/29/2016 [facility] Rapid SEE RESULT 11, test finding [address] Influenza A B BELOW 12 [place] [address] Antigen [phone] Rapid 12/29/2016 [facility] Influenza A NEGATIVE N Negative 13 Influenza A & [address] Molecular B Molecular [place], [place] [id number] [phone] Influenza B Molecular NEGATIVE N Negative Comp Metabolic Panel 11/19/2016 [facility] Sodium 139 mmol/L N 133-145 14 101 [place] [address] [phone] Potassium 3.9 mmol/L N 3.5-5.0 Chloride 105 [...] 102.0 N >60 15 Lipid Profile 11/19/2016 [facility] Triglycerides 126 mg/dL N 16 (Trig/Chol/HDL) [address] [place], [place] [id number] [phone] Cholesterol 215 mg/dL N 17 HDL Cholesterol 45.2 mg/dL N 18 LDL Cholesterol 145 mg/dL N 19 Laboratory 11/19/2016 [facility] TSH (Thyroid 10.26 High 0.34- 5.[address] Stim Horm) mcIU/mL [place], [place] [address] [phone] Xray 02/13/2016 [facility] MRI Shoulder <pending> [place] [address] [phone] Laboratory 09/27/2015 [facility] Urine Culture SEE RESULT [address] [place] [address] Sensitivities [phone] Laboratory 07/18/2014 [facility] Lipase 27 U/L N 11.0-82.[address] [place], [place] [address] [phone] Magnesium 1.9 mg/dL N 1.9-2.7 TSH (Thyroid Stimulating Horm) 0.44 IU/mL N 0.34-5.60 Laboratory test 07/17/2014 [facility] Troponin I 0.01 ng/mL N <0.[address] [place], [place] [address] [phone] Comp Metabolic 07/17/2014 [facility] Sodium 139 mmol/L N 133- [address] [place] [address] [phone] Potassium 3.7 mmol/L N 3.5-5.0 23 Chloride [...] 91.8 N >60 24 Laboratory test 07/17/2014 [facility] D Dimer 304 ng/mL High Less [address] Quantitative Than 230 [place] [address] [phone] CBC Auto Diff 07/17/2014 [facility] White Blood 6.2 N 4.8- 10.8 DRIVE Count 10^3/[place] [address] [phone] Red Blood Count 4.50 10^6/uL N 4.0-5.4 [...] Blood Cells % 0 N Laboratory 06/18/2014 [facility] TSH (Thyroid 14.38 High 0.34- 5.60 test finding [address] Stimulating IU/[place] [address] Horm) [phone] Laboratory 11/12/2013 Follicle 9.3 IU/mL 26 test finding Stimulating Hormone TSH (Thyroid Stimulating Horm) 0.19 IU/mL Low 0.34-5.60 27 Vitamin B12 480 pg/mL 180-034 28 Vitamin D, 25 Hydroxy 11/12/2013 25-Hydroxy [...] Egfr 94.8 >60 30 Laboratory test 04/18/2013 [facility] Hemoglobin A1c 5.3 % Less than [address] 6.0 [place] [address] [phone] Lipid Panel 03/26/2013 [facility] Triglycerides 117 mg/dL 40- [address] [place] [address] [phone] Cholesterol 185 mg/dL Less than 200 HDL Cholesterol 41 mg/dL 40-60 32 Cholesterol/HDL Ratio 4.5 Average High 1-4.44 LDL Cholesterol 120.6 High Less Than 100 33 Laboratory test 03/26/2013 [facility] Follicle 21.83 miu/mL [address] [place] [address] Hormone [phone] TSH (Thyroid Stimulating Horm) 8.28 miu/mL High 0.34-5.60 Vitamin D,25 03/26/2013 [facility] 25-Hydroxy Vitamin <4.0 ng/ mL Hydroxy [address] D2 [place] [address] [phone] 25-Hydroxy Vitamin D3 36 ng/mL 25-Hydroxy Vitamin D Total 36 ng/mL 35 CMP Panel 03/26/2013 [facility] Sodium 142 mmol/L 133-[address] [place] [address] [phone] Potassium 4.2 mmol/L 3.5-5.0 Chloride 108 mmol/L [...] Egfr 115.4 >60 36 Laboratory test 12/29/2012 [facility] C Reactive 0.5 mg/dL Less than finding [address] Protein 0.5 [place] [address] [phone] Basic Metabolic 12/29/2012 [facility] Sodium 134 mmol/L 133- [address] [place] [address] [phone] Potassium 3.9 mmol/L 3.5-5.0 Chloride 104 mmol/L 101-111 Co2 Carbon Dioxide 26.0 mmol/L 22-32 Anion Gap 4.0 mmol/L 2-11 Glucose 84 mg/dL 70-100 Blood Urea Nitrogen 18 mg/dL 6-24 Creatinine 0.90 mg/dL 0.50-1.40 BUN/Creatinine Ratio 20.0 8-20 Calcium 9.6 mg/dL 8.1-9.9 Egfr Non- 67.4 >60 Egfr 86.7 >60 37 CBC Auto Diff 12/29/2012 [facility] White Blood 7.3 10^3/uL 4.8-10.[address] [place] [address] [phone] Red Blood Count 4.49 10^6/uL 4.0-5.4 Hemoglobin [...] Red Blood Cells % 0 Laboratory 11/01/2012 [facility] Hepatitis C Nonreactive Nonreactive test finding [address] [place] [address] [phone] HIV 1 2 AB Nonreactive Nonreactive 38 Hepatitis B Jaida 11/01/2012 [facility] Hepatitis B Reactive Nonreactive AB Titer [address] [place] [address] [phone] Hep B Surf AB Index 9.81 39 Laboratory 11/01/2012 [facility] Hepatitis B Nonreactive Nonreactive test finding [address] [facility] [place] [address] Antigen [phone] Comp Metabolic 09/19/2012 [facility] Sodium 136 mmol/L 133- 145 Panel 101 [place], [place] [address] [phone] Potassium 4.1 mmol/L 3.5-5.0 Chloride 103 mmol/L [...] Egfr 86.7 >60 40 Laboratory test 09/19/2012 [facility] Follicle 5.70 MIU/ML [address] [place] [address] Hormone [phone] Laboratory test 09/19/2012 [facility] TSH (Thyroid 1.04 miu/mL 0.34- finding [address] Stimulating Horm) 5.60 [place] [address] [phone] HSV/VZV Derm PCR 09/19/2012 [facility] hs/VZ Source SKIN [address] [place] [address] [phone] hs/VZ PCR Result See Comment 42 Vitamin D, 25 09/19/2012 [facility] 25-Hydroxy Vitamin <4.0 ng/ mL Hydroxy [address] D2 [place] [address] [phone] 25-Hydroxy Vitamin D3 32 ng/mL 25-Hydroxy Vitamin D Total 32 ng/mL 43 Ua Routine 07/24/2012 [facility] Ua Specific [place] 1.015 Ua PH 5 Ua Color yellow Ua Appera clear Ua WBC neg Ua Protein neg Ua Glucose neg Ua Ketones neg Ua Bilirubin neg Ua Urobilinogen neg Ua Nitrite neg Ua Occult Blood neg Laboratory 07/21/2012 [facility] TSH (Thyroid 12.94 High 0.34- 5.60 test finding [address] Stimulating MIU/[place] [address] Horm) [phone] Vitamin B12 592 pg/mL 180-914 Laboratory test 01/21/2012 [facility] Intrinsic Factor Negative () [address] [place] [address] [phone] Methylmalonic Acid 0.15 nmol/mL <=0.40 45 Laboratory test 2012 [facility] TSH 0.13 MIU/ML Low 0.34 -5.[address] [place] [address] [phone] Vitamin B12 And 2012 [facility] Vitamin B12 245 pg/mL 180-914 Folate Serum [address] [place] [address] [phone] Folic Acid 9.8 NG/ML See Below 46 CBC Auto Diff 12/10/2011 [facility] White Blood 6.5 CUMM 4.8- 10.[address] [place] [address] [phone] Red Cell Count 4.39 CUMM 4.2-5.4 Hemoglobin [...] Abs Basophils 0.1 0-0.2 Laboratory test 12/08/2011 [facility] TSH 0.11 MIU/ML Low 0.34 -5.60 finding [address] [place] [address] [phone] Laboratory test 10/08/2011 [facility] TSH 0.55 MIU/ML 0.34- 5.60 finding [address] [place] [address] [phone] Laboratory test 09/02/2011 [facility] TSH 3.91 MIU/ML 0.34- 5.[address] [place] [address] [phone] Laboratory test 07/29/2011 [facility] TSH 9.96 MIU/ML High 0.34-5.[address] [place] [address] [phone] 1 Because ethnic data is not always [...] 5 Kidney failure <15 (or dialysis) 8 Integration Project Manager: [id number] 6 weeks after increasing levothyroxine dose 10 6 weeks after increasing levothyroxine dose 11 [id number] 12 SEE RESULT BELOW Name: CHRISTIAN BARCLAY : [address]: Geovanni Vila NP Acct: [id number] Unit: [id number] AGE: 51 Location: [facility] Re12/29/16 SEX: F Status: REG REF SPEC: [id number] GE: 12/29/16-[address]: Geovanni Vila NP REQ: [id number] RECD: 12/29/16 STATUS: COMP _ SOURCE: [facility]: ORDERED: Flu A B Request COMMENTS: [id number] Procedure Result Reported Site Rapid Influenza A B Request Final 12/29/16- 2211 ML Specimen received for Influenza A/B Molecular testing * ML - MAIN LAB ([facility]) . END OF REPORT * ML=Testing performed at Main Lab DEPARTMENT OF PATHOLOGY, [address] [place] [address] Toby Taveras M.D. Director [facility] # [id number] 13 Integration Project Manager: [id number] FASTING 10 HOUR 15 Because ethnic [...] [address]: Amparo Thomason MD Acct: [id number] Unit: [id number] AGE: 50 Location: [facility] Re09/27/15 SEX: F Status: DEP ER SPEC: [id number] GE: 09/27/[address] [facility] [address]: Amparo Thomason MD REQ: [id number] RECD: 09/28/15-1231 STATUS: DONAVAN SKINNER DR: [facility] Maricarmen Cruz MD _ SOURCE: URINE SPDESC: ORDERED: Urine Culture Procedure Result Reported Site Urine Culture Final 09/29/15- 1313 ML No Growth (<1,000 CFU/mL) * ML - MAIN LAB ([facility]) . END OF REPORT * ML=Testing performed at Main Lab DEPARTMENT OF PATHOLOGY, [address] [place] [address] Toby Taveras M.D. Director [facility] # [id number] 22 Reference Range and Interpretation: TnI (ng/mL) Interpretation Less Than 0.03 ng/mL Not supportive of diagnosis of PA 0.03 - 0.50 ng/mL Indeterminate: suggest serial studies if clinically indicated. Greater than 0.5 ng/mL Consistent with diagnosis of PA 23 Potassium reference range changed effective 07/14/14 [...] failure <15 (or dialysis) 25 Verbal to [id number] by [id number] at 1840 on 07/17/14. Results read back [...] levels within this range. Test Performed by: [place] [address] Wardrobe Consultant: Anibal Valdes III, M.D. 30 Because ethnic [...] and in selective patients <6.0%.Please refer to [place] [employer] Diabetic care guidelines for further [...] normal population are 25-80 Test Performed by: [facility] [address] [place] [address] Wardrobe Consultant: Anibal Valdes III, M.D. 36 Because ethnic [...] developed and its performance characteristics determined by [facility]. It has not been cleared or approved by the U.S. Food and Drug Administration. Test Performed by: [place] [address] Wardrobe Consultant: Anibal Valdes III, M.D. 43 -- REFERENCE VALUE -- 25-HYDROXY D TOTAL (D2+D3) Optimum levels in the normal population are 25-80 Test Performed by: [place] [address] Wardrobe Consultant: Anibal Valdes III, M.D. 44 Positive in 50% of persons with pernicious anemia. -- REFERENCE VALUE -- Negative Test Performed by: [facility] Dpt of Lab Med and Pathology [address] [place], [place] [address] Wardrobe Consultant: Anibal Valdes III, M.D. 45 Test Performed by: [facility] Dpt of Lab Med and Pathology [address] [place] [address] Wardrobe Consultant: Anibal Valdes III, M.D. 46 Please note: New reference range, effective 09/02/11 NORMAL REFERENCE RANGE: GREATER THAN 4.1 NG/ML Procedures Date Code Description Status 06/06/2018 32342 Chemodenervation Of Muscles Innervated By Facial Completed Nerves, Bilat 03/02/2018 91358 Chemodenervation Of Muscles Innervated By Facial Completed Nerves, Bilat 04/08/2016 [id number] Colonoscopy Completed 03/12/2016 [id number] Mammogram Completed 12/19/2015 75119 Inject/Drain Joint/Bursa Major W/O US Completed 08/05/2014 11957 Holter Monitor Review (24 hr)dr fidel & interp only Completed 07/18/2014 68456 EKG Tracing & Interpretation Completed 07/04/2014 [id number] Mammogram Completed 04/04/2014 00081 Removal Skin Tags Up To 15 Completed 02/27/2014 58342 Injection For Nerve Block, Greater Occipital Nerve Completed 06/12/2013 [id number] Mammogram Completed 10/26/2011 90965 EKG Tracing & Interpretation Completed Encounters Type Date Location Provider Dx Diagnosis Office Visit 06/29/2018 Mindy Cruz I10 Essential ( primary) 10:40a Jolene Velez M.D. hypertension Peggy E03.9 Hypothyroidism, unspecified F33.0 Major depressive disorder, recurrent, mild H69.90 Unspecified Eustachian tube disorder, unspecified ear Office Visit 05/30/2018 2:20p Mindy Hernadez I10 Essential ( primary) Jolene Cruz M.D. hypertension [place] E03.9 Hypothyroidism, unspecified H93.13 Tinnitus, bilateral Office Visit 05/04/2018 10:45a Orthopedic Parag Dillon M25.561 Pain in Services Of Sandeep Meek MD right knee M17.11 Unilateral primary osteoarthritis, right knee Office Visit 05/04/2018 Mindy Hernadez E03.9 Hypothyroidism, 2:40p Jolene Cruz M.D. unspecified [place] R03.0 Elevated blood-pressure reading, w/o diagnosis of htn M17.11 Unilateral primary osteoarthritis, right knee Office Visit 04/06/2018 [facility] Internal Maricarmen E03.9 Hypothyroidism, 3:40p Jolene Cruz M.D. unspecified Peggy I10 Essential (primary) hypertension Z68.34 Body mass index (BMI) 34.0-34.9, adult Office Visit 02/17/2018 10:40a [facility] Internal Maricarmen R61 Generalized Jolene Cruz M.D. hyperhidrosis [place] E03.9 Hypothyroidism, unspecified E78.5 Hyperlipidemia, unspecified R10.11 Right upper quadrant pain R10.31 Right lower quadrant pain Office Visit 01/26/2018 Tully Darrinopher G43.019 Migraine w/o 11:15a Neurologic Dylon Winston aura, Services Of [facility] intractable, without status migrainosus Office Visit 06/23/2017 [facility] Internal Geovanni Vila [employer] J01.90 Acute sinusitis , 1:00p Jolene Woods R11.0 Nausea H92.03 Otalgia, bilateral Office Visit 04/11/2017 2:40p [facility] Internal [place] R63.5 Abnormal weight Jolene Cruz M.D. gain [place] Office Visit 03/14/2017 4:00p [facility] Internal [place] R63.5 Abnormal weight Dylon Thompson R09.81 Nasal congestion Office Visit 12/29/2016 4:20p [facility] Internal Geovanni Vila, R50.9 Fever, unspecified Medicine - FLORENTINO Woods J06.9 Acute upper respiratory infection, unspecified Office Visit 12/16/2016 3:30p Tully Neurologic Bhavya Kline M54.81 Occipital Services Of [facility] Dylon France neuralgia G43.109 Migraine with aura, not intractable, w/o status migrainosus Office Visit 11/26/2016 11:40a [facility] Internal [place] J01.90 Acute sinusitis, Jolene Cruz M.D. unspecified Peggy K62.5 Hemorrhage of anus and rectum Office Visit 11/25/2016 2:40p [facility] Internal Subhash Alejo Dizziness and Jolene Ray M.D. giddiness [place] Office Visit 11/01/2016 10:00a [facility] Internal Geovanni Cadence, [employer] F41.9 Anxiety disorder, Medicine - unspecified [place] Office Visit 10/12/2016 11:20a [facility] Internal Geovanni Cadence, [employer] F41.9 Anxiety disorder, Medicine - unspecified [place] J01.90 Acute sinusitis, unspecified Office Visit 09/16/2016 5:30p [facility] Internal Geovanni Cadence, J06.9 Acute upper Medicine - [employer] respiratory [place] infection, unspecified R11.2 Nausea with vomiting, unspecified Office Visit 07/22/2016 Bogdan Kline S06.0x1S Concussion w Loc 11:15a Neurologic Dylon [place] of 30 minutes or Services [facility] less, sequela M54.81 Occipital neuralgia G43.109 Migraine with aura, not intractable, w/o status migrainosus G43.109 Migraine with aura, not intractable, w/o status migrainosus M54.81 Occipital neuralgia Office Visit 03/18/2016 Bogdan Kline G43.019 Migraine w/o aura, 9:45a Gunnar France M.D. intractable, [facility] without status migrainosus Office Visit 02/16/2016 Orthopedic Dalia He, M25.512 Pain in left 8:45a Services Of M.D. [...] 10/02/2015 11:20a [facility] Internal Yuko Surindern, R10.11 Right upper Medicine - N.P. quadrant pain [place] R10.31 Right lower quadrant pain J34.89 Other specified disorders of nose and nasal sinuses R19.7 Diarrhea, unspecified Office Visit 05/12/2015 8:20a Orthopedic Capo Jaeger, 844.9 Sprains & Strains Services Of M.DAna Laura Knee & Leg Unspec C.M.A. Office Visit 05/01/2015 9:00a Orthopedic Marta Soto, 844.9 Sprains & Strains Services Of [facility]- Knee & Leg Unspec C.M.A. Office Visit 03/25/2015 8:30a Tully Neurologic Bhavya MAna Laura 346.02 Migraine Services Of [facility] Edilma, W/Aura,W/Out M.DAna Laura Mention Of Intractable Migraine 346.00 Migraine Classical W/O Intractable W/O Status Migrainosus Office Visit 02/04/2015 9:40a [facility] Internal James Rosa, 478.9 Upper Resp Medicine - [place] M.D. Tract Disease Rd Other & Unspec 386.10 Vertigo Peripheral Unspec 465.9 URI Upper Respiratory Infections Acute Unspec Sites Office Visit 01/30/2015 10:40a [facility] Internal Geovannialfredo Vila, 381.81 Eustachian Tube Medicine - [employer] Dysfunction [place] 787.91 Diarrhea Office Visit 01/24/2015 9:00a [facility] Internal Geovannialfredo Vila [employer] 847.2 Sprains & Medicine - Strains Lumbar [place] Office Visit 12/23/2014 10:00a [facility] Internal Geovanni Vila [employer] 847.2 Sprains & Medicine - Strains Lumbar [place] Office Visit 11/25/2014 10:00a [facility] Internal Geovanni Vila [employer] 847.2 Sprains & Medicine - Strains Lumbar [place] Office Visit 10/31/2014 9:40a [facility] Internal Maricarmen Cruz, 847.2 Sprains & Medicine - M.D. Strains Lumbar [place] 847.2 Sprains & Strains Lumbar Office Visit 10/16/2014 [facility] Internal [place] 847.2 Sprains & Strains 1:20p Jolene Cruz M.D. Lumbar [place] Office Visit 09/26/2014 [facility] Internal Mar[place] 487.8 Influenza W/ Other 11:20a Jolene Cruz M.D. Manifestations [place] 783.1 Weight Gain Abnormal Office Visit 07/18/2014 [facility] Internal [place] 794.31 Electrocardiogram 4:00p Jolene Cruz M.D. (ECG) (EKG) Abnormal [place] 789.00 Pain Abdominal Unspec Site Office Visit 07/02/2014 9:45a Bogdan Kline 346.91 Migraine Unspec Neurologic [place] W/ Intractable [facility] W/O Status Migrainosus Office Visit 06/18/2014 1:40p [facility] Internal Mar[place] V70.0 Examination Jolene Cruz M.D. General Medical [place] Routine AT [facility] 244.9 Hypothyroidism Other Unspec V76.10 Screening For Malignant Neoplasm Breast 311 Depressive Disorder Not Elsewhere Spec V04.81 Need For Prophylactic Vaccination & Inoculation/Influenza V06.1 [id number]-Zndeugm-Utdmtsmg Combined (DTaP) Office Visit 05/07/2014 Bogdan Kline 346.93 Migraine 2:30p Neurologic [place] Unspecified, [facility] W/Intractable Migraine Office Visit 02/27/2014 Bogdan Olivares 346.93 Migraine 8:15a Neurologic Dylon Lau Unspecified, [facility] W/Intractable Migraine Office Visit 02/21/2014 Tullykelsi Kline 346.93 Migraine 11:45a Neurologic [place] Unspecified, [facility] W/Intractable Migraine 386.10 Vertigo Peripheral Unspec Office Visit 12/24/2013 9:00a [facility] Internal [place] 461.8 Sinusitis Acute Jolene Cruz M.D. Other [place] 782.1 Rash & Other Nonspec Skin Eruption 244.9 Hypothyroidism Other Unspec 309.9 Adjustment Reaction Unspec Office Visit 12/04/2013 1:00p [facility] Internal [place] 386.10 Vertigo Jolene Cruz M.D. Peripheral [place] Unspec 300.00 Anxiety State Unspec 782.1 Rash & Other Nonspec Skin Eruption 244.9 Hypothyroidism Other Unspec Office Visit 11/12/2013 11:20a [facility] Internal [place] 461.8 Sinusitis Acute Jolene Cruz M.D. Other [place] 346.10 Migraine Common W/O Intractable W/O Status Migrainosus 245.2 Thyroiditis Chronic Lymphocytic Office Visit 03/26/2013 10:00a [facility] Internal Stacy Serna, 995.3 Allergy Unspec Jolene Velez M.D. [place] V70.0 Examination General Medical Routine AT Health Care Facility 620.2 Ovarian Cyst Other & Unspec 245.2 Thyroiditis Chronic Lymphocytic 278.00 Obesity Unspec Office Visit 02/21/2013 8:40a [facility] Internal Stacy Serna, 386.00 Menieres Medicine - M.D. 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 Respiratory [place] Infections Acute Unspec Sites Office Visit 09/25/2012 8:40a [facility] Internal Stacy Serna, 620.2 Ovarian Cyst Medicine - M.D. Other & Unspec [place] 054.9 Herpes Simplex W/O Complication Office Visit 09/19/2012 11:00a [facility] Internal Yuko Acuña, 054.9 Herpes Simplex W/O Medicine - N.P. Complication [place] Office Visit 07/28/2012 9:40a [facility] Internal Stacy Serna, 245.2 Thyroiditis Medicine - M.D. Chronic [place] Lymphocytic 620.2 Ovarian Cyst Other & Unspec 592.0 Calculus Of Kidney 626.0 Menstruation Absence 110.4 Dermatophytosis Foot 311 Depressive Disorder Not Elsewhere Spec Office Visit 07/24/2012 8:40a [facility] Internal Stacy Serna, 599.70 Hematuria, Medicine - M.D. Unspecified [place] 346.80 Migraine Other W/O Intractable W/O Status Migrainosus 493.90 Asthma Unspec W/O Status Asthmaticus 245.2 Thyroiditis Chronic Lymphocytic Office Visit 01/21/2012 9:40a [facility] Internal Stacy Serna, 266.9 Vitamin B Medicine - M.D. Deficiency Unspec [place] 477.9 Rhinitis Allergic Cause Unspec Office Visit 2012 9:40a [facility] Internal Stacy Serna, 354.0 Carpal Tunnel Medicine - M.D. Syndrome [place] 245.2 Thyroiditis Chronic Lymphocytic Office Visit 12/10/2011 10:00a [facility] Internal Stacy Serna, 493.92 Asthma Unspec W/ Medicine - M.D. Acute Exacerbation [place] Office Visit 12/01/2011 3:20p [facility] Internal Stacy Serna, 245.2 Thyroiditis Medicine - M.D. 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 [place] Office Visit 10/08/2011 8:40a [facility] Internal Stacy Serna, 311 Depressive Medicine - M.D. 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 Chronic Lymphocytic 311 Depressive Disorder Not Elsewhere Spec Office Visit 08/17/2011 8:40a DO Not Use Stacy Serna, 311 Depressive [employer] Supervisor-[place] M.D. Disorder Not Elsewhere Spec Office Visit 08/03/2011 3:20p DO Not Use Stacy Serna, 053.29 Herpes Zoster [employer] Supervisor-[place] M.D. Other 346.80 Migraine Other W/O Intractable W/O Status Migrainosus Office Visit 07/29/2011 10:00a DO Not Use Stacy Serna, 311 Depressive [employer] Supervisor-[place] M.D. Disorder Not Elsewhere Spec 245.2 Thyroiditis Chronic Lymphocytic Plan of Treatment Future Appointment(s):03/22/2019 1:30 pm - Bryan Winston M.D. at [facility]09/21/2018 2:40 pm - Maricarmen Cruz M.D. at [facility]11/02/2018 10:20 am - Maricarmen Cruz M.D. at [facility] Medicine [facility]12/14/2018 10:00 am - Bryan Winston M.D. at [facility]09/07/2018 - Bryan Winston M.D.G43.719 Chronic migraine without aura, intractable, without status migrainosus
[2018-10-03 13:01] VITALS: BP 138/87
--- NOTE | 2018-10-03 13:16 | UC ---
FLU HPI - HPI Summary HPI Summary: 53 yo female presents with body aches, sinus congestion, post nasal drip, and b/ l earache for the last 4 days. She has been using flonase with no relief. She sees ENT for allergies. Denies fever, sore throat, cough, rash. - History of Current Complaint Chief Complaint: UCRespiratory Stated Complaint: BODYACHES Time Seen by Provider: 10/03/18 13:16 Hx Obtained From: Patient Hx Last Menstrual Period: hysterectomy Onset/Duration: Gradual Onset Severity Currently: Moderate Severity Initially: Moderate Pain Intensity: 6 Pain Scale Used: 0-10 Numeric - Allergy/Home Medications Allergies/Adverse Reactions: Allergies Allergy/AdvReac Type Severity Reaction Status Date / Time Sulfa (Sulfonamide Allergy Hives Verified 10/03/18 13:02 Antibiotics) PMH/Surg Hx/FS Hx/Imm Hx Cardiovascular History: Hypertension Neurological History: Migraine Other History Of: Negative For: HIV, Hepatitis B, Hepatitis C, Anticoagulant Therapy - Surgical History Surgical History: Yes Surgery Procedure, Year, and Place: stent placement for kidney stones 2002 AND REMOVED 3 WEEKS LATER, HYSTERECTOMY; R shoulder surgeries X2; R foot x 2; 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 2013 [facility] - Family History Known Family History: Positive: Hypertension - Social History Occupation: Employed Full-time Lives: With Family Alcohol Use: None Substance Use Type: None Smoking Status (MU): Former Smoker Have You Smoked in the Last Year: No When Did the Patient Quit Smoking/Using Tobacco: jun 2011 Household Exposure Type: Cigarettes - Immunization History Most Recent Influenza Vaccination: 2013 Most Recent Tetanus Shot: <5 YEARS Review of Systems All Other Systems Reviewed And Are Negative: Yes Constitutional: Positive: Other - Body aches Skin: Positive: Negative Eyes: Positive: Negative ENT: Positive: Nasal Discharge Respiratory: Positive: Negative Cardiovascular: Positive: Negative Gastrointestinal: Positive: Negative Neurovascular: Positive: Negative Neurological: Positive: Negative Psychological: Positive: Negative Physical Exam - Summary Physical Exam Summary: GENERAL: NAD. WDWN. No pain distress. SKIN: No rashes, sores, lesions, or open wounds. HEENT: Head: AT/NC Eyes: EOM intact. Conjunctiva clear without inflammation or discharge. Ears: Hearing grossly normal. TMs intact, no bulging, erythema, or edema. Nose: Nasal mucosa pink and moist. NTTP maxillary and frontal sinus. Throat: Posterior oropharynx without exudates, erythema, or tonsillar enlargement. Uvula midline. NECK: Supple. Nontender. No lymphadenopathy. CHEST: CTAB. No r/r/w. No accessory muscle use. Breathing comfortably and in no distress. CV: RRR. Without m/r/g. Pulses intact. Cap refill <2seconds NEURO: Alert. PSYCH: Age appropriate behavior. Triage Information Reviewed: Yes Vital Signs: Initial Vital Signs Temp 98.0 F 10/03/18 12:56 Pulse 78 10/03/18 12:56 Resp 16 10/03/18 12:56 BP 138/87 10/03/18 12:56 Pulse Ox 97 10/03/18 12:56 Laboratory Tests 10/03/18 13:17 Influenza A (Rapid) Negative Influenza B (Rapid) Negative Vital Signs Reviewed: Yes Flu Course/Dx - Course Course Of Treatment: POC flu negative. Suspect viral illness. - Differential Dx/Diagnosis Provider Diagnosis: Viral sinusitis Discharge - Sign-Out/Discharge Documenting (check all that apply): Patient Departure All imaging exams completed and their final reports reviewed: No Studies - Discharge Plan Condition: Stable Disposition: HOME Prescriptions: guaiFENesin ER TAB [Mucinex*] 600 mg PO BID #30 tab.er Loratadine [Claritin] 10 mg PO DAILY #30 tablet Patient Education Materials: Rhinosinusitis (ED) Forms: *Work Release Referrals: Maricarmen Cruz MD [Primary Care Provider] - Additional Instructions: If you develop a fever, shortness of breath, chest pain, new or worsening symptoms - please call your PCP or go to the ED. Your blood pressure was high at todays visit. Please see your primary provider within 4 weeks for recheck and re-evaluation. - Billing Disposition and Condition Condition: STABLE Disposition: Home - Attestation Statements Provider Attestation: I was available for consult. This patient was seen by the SHANNAN. The patient was not presented to, seen by, or examined by me. -Aaron
== END 2018-10-03 13:47 | disposition home or self-care (01) ==
LOC: UCEAST 12:50
DX: J32.8 Other chronic sinusitis (principal); Z88.2 Allergy status to sulfonamides; Z87.891 Personal history of nicotine dependence
CPT/HCPCS: 99212; G0463

== ENCOUNTER 2019-01-10 23:03 | Emergency (ER) | payer BC ==
--- OUTSIDE RECORDS SUMMARY | 2019-01-10 23:27 | XMS REPORT | Continuity of Care Document ---
:1965 External Reference #:[id number] Author Name JonyAlexmy Care Team Providers Name Role Phone Maricarmen Cruz MD Primary Care Physician Unavailable Payers Date Identification Numbers Payment Provider Subscriber Effective: 2011 Policy Number: [id number] [facility] Christian Barclay PayID: [id number] [address] [place] [address] Effective: 2016 Policy Number: Rust Christian Barclay [id number] Onset: 2016 Group Number: fax [phone] [address] [address] PayID: [place] [address] Effective: 2014 Policy Number: Rust Christian Barclay [id number] Onset: 2014 Group Number: [id number] [address] [address] PayID: [place] [address] Onset: 2015 Policy Number: [id number] Rust Christian Barclay Group Name: [id number] [address] [address] PayID: [place] [address] Advance Directives Description No Information Available Problems [...] M.D. 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 Hand Dominance Right-handed ETOH Use Denies alcohol use Tobacco Use Start: Unknown End: Patient is a former quit 06/29/11 Unknown smoker Recreational Drug Use Denies Drug Use Smoking Status Reviewed: 12/25/18 Patient is a former quit 06/29/11 smoker Exercise Type/Frequency Exercises regularly Allergies, Adverse Reactions, Alerts Date Description Reaction Status Severity Comments 07/29/2011 Sulfa swelling around her eyes Active Moderate 07/29/2011 NKDA Inactive Medications Medication Date Status Form Strength Qnty SIG Indications Ordering Provider Chantix Starting 12/15 Active Tablets 0.5mg X 30tab take as F17.210 11 & 1 mg s directed Varn, N.P. X 42 (0.5 mg by mouth daily x3 days, 0.5 mg twice a day x 4 days, then 1 mg twice a day up to three months) Augmentin 09/21 Active Tablets 875-125mg 30tab one [...] 2 puffs t twice Dylon Cruz daily Valacyclovir HCL Active Tablets 1gm take 1 tablet by mouth three times a day Azithromycin 12/15 Hx Tablets 250mg 6tabs two tabs H66.91 day one, Domenico N.P. - one daily 12/25 till Contrave 07/30 Hx Tablets ER 8-90mg 70tab [...] Hx Tablets 25mg 15tab 1/2 tab I10 Maricarmen /2018 s by mouth Dylon Cruz - every day 04/07 Levothyroxine 02/20 Hx Tablets 88mcg 30tab 1 by Maricarmen Sodium s mouth Dylon Cruz - every day 04/06 Amoxicillin/Clav 06/23 Hx Tablets 875-125mg 20tab take one J01.90 narcisa Lynne s tablet [employer]STRU[employer] DRI[employer] Potassium - q12 hours 01/23 for days Ondansetron 06/23 Hx Tablets 4mg 30tab dissolve R11.0 Geovanni Vila Dispers s one CONSTRUCTION DRILLER - tablet 05/03 orally every 8 hours as needed for nausea. Benzonatate 06/23 Hx Capsules 200mg 30cap one by J01.90 Geovanni Vila s mouth CONSTRUCTION DRILLER - three 06/30 times daily as needed [...] 03/02 Hx Tablets 50mcg 30tab 1 by Crystal Lynne s mouth CONSTRUCTION DRILLER - every 02/20 day- states she is taking 75 mcg as of 01/26/18 Amoxicillin/Clav 11/26 Hx Tablets 875-125mg 20tab 1 tablet J01.90 Maricarmen arron s twice Dylon Cruz Potassium - daily for 12/12 10 Levothyroxine 11/22 Hx Tablets 75mcg 30tab 1 by Geovanni Vila Sodium s mouth CONSTRUCTION DRILLER - every day 03/02 Diazepam 10/12 Hx Tablets 2mg 30tab take 09/13 F41.9 Geovanni Vila s tablet by CONSTRUCTION DRILLER - mouth as 12/12 needed for anxiety maximum daily dose=1 tablet Doxycycline 10/12 Hx Capsules 100mg 20cap one J01.90 Leslie Lynne s tablet CONSTRUCTION DRILLER - twice 10/19 daily for 10 days. Ondansetron 09/16 Hx Tablets 4mg 30tab dissolve R11.2 Geovanni Vila Dispers s one CONSTRUCTION DRILLER - tablet 11/26 orally /2017 every 8 hours as needed for nausea. Amoxicillin/Clav 09/16 Hx Tablets 875-125mg 20tab take one J06.9 Geovanni Vila ulanate s tablet [employer] DRI[employer] Potassium - q12 hours 09/27 for days Fluticasone 09/16 Hx Suspension 50mcg/Act 16gm 2 J06.9 Geovanni Vila intranasa [employer] D[employer] - l puffs 12/12 once daily Meloxicam 02/15 Hx Tablets 15mg 60tab 1 by M25.512 Dalia s cristian He M.D. - every day 10/12 Naproxen 01/27 Hx Tablets 500mg 60tab 1 tablet s by mouth Dylon Dubon - with food 12/16 twice daily. TENS Unit 01/18 Hx use tid M25.512 for yahaira He M.D. - shoulder 12/12 pain Amitriptyline 03/25 Hx Tablets 10mg 270ta 2-3 G43.101 Bhavya BUSTILLO bs tablets Edilma - by mouth M.D. 11/26 at bedtime as directed Note: Refills change to #3, per Dr. [place] (not taking) Verapamil HCL 03/25 Hx Tablets 40mg 180ta 1-2 tab G43.101 Bhavya Kline /2014 bs by mouth Edilma - every day M.D. 11/26 directed (not taking) Levofloxacin 02/04 Hx Tablets 500mg 7tabs 1 tablt 478.9 James by mouth Dylon Rosa - every day 02/19 Prednisone 02/04 Hx Tablets 5mg 15tab 1 by 478.9 James s cristian Rosa M.D. - three 03/24 times a day Fluticasone 01/30 Hx Suspension 50mcg/Act 16gm 1 sprays 381.81 Geovanni Vila Propionate each [employer] D[employer]ER - nostril 10/02 bid for weeks. Medrol (Gopi) 11/25 Hx Tablets 4mg 21tab take 6 847.2 Geovanni Vila /2014 s tabs day CONSTRUCTION DRILLER - 1, 5 tabs 11/30 day 2, tabs day 3, 3 tabs day 4, 2 tabs day 5, and 1 tab day 6. Methocarbamol 10/31 Hx Tablets 750mg 40tab 1 by 847.2 s mouth 4 Dylon Cruz - times 01/24 daily as needed Ibuprofen 10/16 Hx Tablets 800mg 90tab 1 by 847.2 Maricarmen /2015 s cristian Cruz M.D. - three 03/14 times day as needed Oxycodone HCL 10/16 Hx Tablets 5mg 30tab 1 by 847.2 Maricarmen /2015 s cristian Cruz M.D. - every 6 h 01/26 as needed Omeprazole 10/16 Hx Capsules 20mg 30cap 1 by 847.2 Maricarmen /2015 DR lo Cruz M.D. - every day 03/24 if needed to stomach Bupropion HCL ER 06/18 Hx Tablets ER 150mg 90tab take 1 F32.9 Maricarmen () 24HR s tablet by Dylon Cruz - mouth one 10/12 daily Verapamil HCL 05/07 Hx Tablets 40mg 120ta 1 tab PO 346.91 Bhavya Kline /2013 bs bid Edilma, - M.D. 03/24 Prednisone 03/04 Hx Tablets 20mg 21tab 3 po x3 Melanie s days, 2 [place], - po x3 M.D. 04/04 days, po x 3 days,09/13 po x3 days Amitriptyline 02/27 Hx Tablets 10mg 60tab 2 tablets Khanh S. HCL s po at [place], - bedtime M.D. 10/31 Sumatriptan 02/27 Hx Tablets 100mg 12tab 1/2-1 tab G43.009 Bhavya Kline Succinate s by mouth Edilma, - as needed M.D. 12/12 Ondansetron 02/27 Hx Tablets 4mg 30tab 1 po Khanh S. /2013 Dispers s three [place], - times a M.D. 10/12 day needed for nausea Zolmitriptan 02/06 Hx Tablets 2.5mg 12tab 1 PO qd 346.10 s prn, take Dylon Cruz - at the 02/10 headache Cefdinir 12/24 Hx Capsules 300mg Dylon Cruz - 01/04 Fluticasone 12/24 Hx Suspension 50mcg/Act 16gm 2 461.8 Maricarmen intranasa Dylon Cruz - l puffs 01/30 daily Triamcinolone 12/24 Hx Cream 0.1% 30gm apply 782.1 Acetonide thin film Dylon Cruz - to feet 12/24 daily Ketoconazole 12/24 Hx Cream 2% 60gm apply 782.1 thin film Dylon Cruz - twice 02/10 Triamcinolone 12/04 Hx Cream 0.1% 30gm apply 782.1 Acetonide thin film Dylon Cruz - to feet 12/24 daily Bupropion HCL ER 12/04 Hx Tablets ER 150mg 30tab 1 PO qd 300.00 Maricarmen (XL) 24HR s Dylon Cruz - 12/24 Proair HFA 11/12 Hx Aerosol 108(90Bas 8.500 2 puffs Stacy Serna, e) gm po q4h MYordan - mcg/Act prn 02/10 Fluticasone 11/12 Hx Suspension 50mcg/Act 16gm 2 461.8 intranasa Dylon Cruz - l puffs 12/24 daily Amoxicillin 11/12 Hx Capsules 500mg 30cap 1 tab po 461.8 s tid for Dylon Cruz - 10 days 12/03 Zolmitriptan Odt 11/12 Hx Tablets 2.5mg 12tab 1 PO qd 346.10 Dispers s prn, take Dylon Cruz - at the 02/06 headache Levothyroxine 03/29 Hx Tablets 112mcg 90tab 1 by Geovanni Vila s mouth [employer] D[employer] - every day 11/22 Loratadine-D 03/26 Hx Tablets ER 10-240mg 30tab take 1 995.3 Stacy Serna R 24HR s tablet M.D. - daily as 03/26 needed for allergy Bertin 03/26 Hx Capsules 60mg 90cap take 1 278.00 Stacy Serna s capsule M.D. - by mouth 11/12 3 times per day with meals for weight loss Levocetirizine 03/26 Hx Tablets 5mg 90tab Take 1 995.3 Stacy Serna Dihydrochloride s tablet by M.D. - mouth 11/12 daily in the evening Ipratropium 12/14 Hx Solution 0.06% 15ml 2 sprays 465.9 Yuko Brice in each Varn, N.P. - nostril 12/28 [...] Serna s three M.D. - times 07/24 daily with food as needed Wrist Splint 01/04 Hx Misc 1unit Right 354.0 Stacy Serna s wrist. M.D. - Wear for 12/12 and sleeping Advair Diskus 12/09 Hx Aerosol 100-50mcg 60uni 1 Stacy Serna /Dose ts inhalatio M.D. - n twice 07/24 daily Afrin 11/30 Hx Solution 0.05% 15ml Inhale 2 477.9 Stacy Serna sprays M.D. - into 07/24 nostril times per day every 10 to 12 hours as needed for stuffy nose Diclofenac 11/[address] 75mg 60tab Take 1 786.59 Stacy Serna Sodium s tablet by M.D. - mouth 2 11/12 times per day for arthritis prn Misoprostol 11/15 Hx Tablets 200mcg 60tab Take 1 Stacy Serna s tablet M.D. - twice 12/29 with diclofena c prn Arthrotec 75 10/26 Hx Tablets 75-200mg- 28tab Take 1 786.59 Stacy Serna mcg s tablet M.D. - 3-4 times 11/15 daily needed for pain Tramadol HCL 10/26 Hx Tablets 50mg 40tab 1-2 786.59 Yuko /2012 s tablets Varn, N.P. - every 6 [...] Tablets 100mg 9tabs Take 1 346.80 Stacy Daphne, / tablet as M.D. - needed 11/12 headache control, may repeat after 6 hours prn Ibuprofen Hx Tablets 600mg 90tab prn Unknown /0000 s - 07/24 Singulair Hx Tablets 10mg 90tab 1 po qd Stacy Serna, /0000 s prn M.D. - 03/26 Meclizine HCL Hx Tablets 25mg 60tab 1 po tid Unknown /0000 s prn - 09/03 Levothyroxine Hx Tablets 75mcg 30tab 1 po qd Unknown Sodium /0000 s - 07/29 Ventolin HFA Hx Aerosol 108(90Bas 1unit 2 puffs 493.90 Stacy Serna, / e) mcg/ac s po qid M.D. - prn 11/12 Flovent HFA Hx Aerosol 110mcg/Ac 1mont 2 puffs Unknown /0000 t h twice - daily 12/09 Meclizine HCL Hx Tablets 25mg 90tab 1 po tid Stacy Serna, / s prn M.D. - 11/12 Zofran Hx Tablets 4mg 20tab 1 q 6 Unknown /0000 s hours prn - nausea 11/12 Oxybutynin 00 Hx Tablets ER 10mg every day Unknown [...] /0000 mouth - every day 12/12 prn - /2017 mainly in summer Ibuprofen 00/00 Hx Capsules 200mg 3 tabs po Unknown [...] by Unknown /0000 mouth - twice a 02/22 day needed pain Medications Administered in Office Medication Date Status Form Strength Qnty SIG Indications Ordering Provider Injection 09/07 Administered Injection Christopher Onabotulinumtoxi Dylon Winston n A, 1 Unit Injection 06/06 Administered Injection Christopher Onabotulinumtoxi Dylon Winston, 1 Unit Injection 03/02 Administered Injection Christopher Onabotulinumtoxi Dylon Winston A, 1 Unit Depomedrol 40MG 12/18 Administered Injection Dalia Dylon He Injection,Lidoca 02/27 Administered Injection Khanh BUSTILLO Kike Lau M.D. Infusion,10 MG Immunizations CPT Code Status Date Vaccine Lot # [id number] Given 06/18/2014 Tdap - Tetanus/Diptheria/Acellular Pertussis [id number] Given 06/18/2014 Influenza Virus Vaccine, Quadrivalent, Split, [id number] Preservative Free Vital Signs Date Vital Result Comment 12/25/2018 3:00pm Height 64.5 inches 5'4.50" Weight 183.00 lb Heart Rate 76 /min BP Systolic 130 mmHg BP Diastolic 92 mmHg BMI (Body Mass Index) 30.9 kg/m2 12/15/2018 3:38pm Height 64.5 inches 5'4.50" Weight 183.00 lb Heart Rate 78 /min BP Systolic 128 mmHg BP Diastolic 80 mmHg Body Temperature 98.0 F O2 % BldC Oximetry 96 % BMI (Body Mass Index) 30.9 kg/m2 09/21/2018 2:46pm Height 64.5 inches 5'4.50" Heart [...] Date Facility Test Result H/L Range Note Herpes Simplex 11/04/2018 Herpes Source RIGHT BUTTOCK PCR [address] [place] [address] [phone] HSV 1 PCR Negative Negative HSV 2 PCR Positive Abnormal Negative 1 Varicella Zoster 11/04/2018 Varicella Zoster RIGHT BUTTOCK Culture [address] Source [place], [place] [id number] [phone] Varicella Zoster Result Negative Negative 2 Laboratory test 11/01/2018 TSH (Thyroid 3.35 mcIU/mL N 0.34-5.[address] Stim Horm) [place] [address] [phone] Free T4 (Free Thyroxine) 1.13 ng/dL High 0.61-1.12 Rapid Influenza 10/03/2018 Influenza A NEGATIVE Negative 3 A & B Molecular [address] [place] [address] [phone] Influenza B Molecular NEGATIVE Negative Laboratory test 06/29/2018 TSH (Thyroid 0.12 Low 0.34-5.[address] [facility] [address] Stim Horm) mcIU/mL [place], [place] [id number] [phone] Free T4 (Free Thyroxine) 1.17 ng/dL High 0.61-1.12 Basic Metabolic Panel 06/29/2018 Sodium 144 mmol/L N 135-[address] [place] [address] [phone] Potassium 4.8 mmol/L N 3.5-5.0 Chloride 109 mmol/L N 101-111 Co2 Carbon Dioxide 29 mmol/L N 22-32 Anion Gap 6 mmol/L N 2-11 Glucose 87 mg/dL N 70-100 Blood Urea Nitrogen 14 mg/dL N 6-24 Creatinine 0.78 mg/dL N 0.51-0.95 BUN/Creatinine Ratio 17.9 N 8-20 Calcium 9.8 mg/dL N 8.6-10.3 Egfr Non- 77.6 >60 Egfr 93.8 >60 4 Laboratory test 05/04/2018 TSH (Thyroid 0.10 Low 0.34-5.[address] Stim Horm) mcIU/[place] [address] [phone] Laboratory test 04/06/2018 TSH (Thyroid <pending> finding DRIVE Stim Horm) [place] [address] [phone] Free T4 (Free Thyroxine) <pending> Laboratory test 02/17/2018 FSH (Follicle 107.1 mIU/ mL [address] Stim Hormone) [place] [address] [phone] TSH (Thyroid Stim Horm) 19.88 mcIU/mL High 0.34-5.60 Lipid Profile 02/17/2018 Triglycerides 100 mg/dL 6 (Trig/Chol/HDL) [address] [place] [address] [phone] Cholesterol 234 mg/dL 7 HDL Cholesterol 52.2 mg/dL 8 LDL Cholesterol 162 mg/dL 9 Comp Metabolic Panel 02/17/2018 Sodium 142 mmol/L N 139-[address] [place] [address] [phone] Potassium 4.1 mmol/L N 3.5-5.0 Chloride 105 [...] Egfr Non- 73.2 >60 Egfr 94.1 >60 10 CBC Auto Diff 02/17/2018 White Blood 5.8 10^3/uL N 3.5-10.[address] [place] [address] [phone] Red Blood Count 4.54 10^6/uL N 4.0-5.4 [...] % 0 Poc Urinalysis 08/13/2017 Poc Glucose, Negative Negative [address] [place] [address] [phone] Poc Bilirubin, Urine Negative Negative Poc Ketone, Urine Negative Negative Poc Specific [place], Urine 1.020 N 1.010-1.030 Poc Blood, Urine Trace-intact Abnormal Negative Poc pH, Urine 6.0 N 5-9 Poc Protein, Urine Negative Negative Poc Urobilinogen, Urine 0.2 Negative Poc Nitrite, Urine Negative Negative Poc Leukocytes, Urine Negative Negative Poc Color, Urine Yellow Poc Clarity, Urine Clear 11 Laboratory 02/28/2017 TSH (Thyroid 4.17 N 0.34- 5.60 12, 13 test finding [address] Stim Horm) mcIU/[place] [address] [phone] Rapid 12/29/2016 Influenza A NEGATIVE N Negative 14 Influenza A & [address] Molecular B Molecular [place], [place] [id number] [phone] Influenza B Molecular NEGATIVE N Negative Laboratory test 12/29/2016 Rapid SEE RESULT 15, [address] Influenza [place] [address] Antigen [phone] Comp Metabolic 11/19/2016 Sodium 139 mmol/L N 133- 1 [address] [place] [address] [phone] Potassium 3.9 mmol/L N 3.5-5.0 Chloride 105 [...] 79.3 N >60 Egfr 102.0 N >60 18 Lipid Profile 11/19/2016 Triglycerides 126 mg/dL N 19 (Trig/Chol/HDL) [address] [place] [address] [phone] Cholesterol 215 mg/dL N 20 HDL Cholesterol 45.2 mg/dL N 21 LDL Cholesterol 145 mg/dL N 22 Laboratory 11/19/2016 TSH (Thyroid 10.26 High 0.34- 5.[address] Stim Horm) mcIU/[place] [address] [phone] Xray 02/13/2016 MRI Shoulder <pending> [place] [address] [phone] Laboratory 09/27/2015 Urine Culture SEE RESULT [address] [place] [address] Sensitivities [phone] Laboratory 07/18/2014 Lipase 27 U/L N 11.0-82.0 test finding [facility] [place], [place] [id number] [phone] Magnesium 1.9 mg/dL N 1.9-2.7 TSH (Thyroid Stimulating Horm) 0.44 IU/mL N 0.34-5.60 Laboratory test 07/17/2014 Troponin I 0.01 ng/mL N <0.03 25 [place] [address] [phone] Comp Metabolic 07/17/2014 Sodium 139 mmol/L N 133- 145 Panel [facility] [place] [address] [phone] Potassium 3.7 mmol/L N 3.5-5.0 26 Chloride 107 mmol/L N 101-111 Co2 Carbon [...] 71.4 N >60 Egfr 91.8 N >60 27 Laboratory test 07/17/2014 D Dimer 304 ng/mL High Less [address] Quantitative Than 230 [place] [address] [phone] CBC Auto Diff 07/17/2014 White Blood 6.2 N 4.8- 10.[address] Count 10^3/[place] [address] [phone] Red Blood Count 4.50 10^6/uL N 4.0-5.4 [...] Blood Cells % 0 N Laboratory 06/18/2014 TSH (Thyroid 14.38 High 0.34- 5.60 test finding [address] Stimulating IU/[place] [address] Horm) [phone] Laboratory 11/12/2013 Follicle 9.3 IU/mL 29 test finding Stimulating Hormone TSH (Thyroid Stimulating Horm) 0.19 IU/mL Low 0.34-5.60 30 Vitamin B12 480 pg/mL 180-914 31 Vitamin D, 25 Hydroxy 11/12/2013 25-Hydroxy Vitamin D2 <4.0 ng/mL 25-Hydroxy Vitamin D3 39 ng/mL 25-Hydroxy Vitamin D Total 39 ng/mL 32 Comp Metabolic Panel 11/12/2013 Sodium 140 mmol/L [...] Egfr Non- 73.7 >60 Egfr 94.8 >60 33 Laboratory test 04/18/2013 Hemoglobin A1c 5.3 % Less than [address] 6.0 [place] [address] [phone] Lipid Panel 03/26/2013 Triglycerides 117 mg/dL 40- [address] [place] [address] [phone] Cholesterol 185 mg/dL Less than 200 HDL Cholesterol 41 mg/dL 40-60 35 Cholesterol/HDL Ratio 4.5 Average High 1-4.44 LDL Cholesterol 120.6 High Less Than 100 36 Laboratory test 03/26/2013 Follicle 21.83 miu/mL [address] [place] [place] [address] Hormone [phone] TSH (Thyroid Stimulating Horm) 8.28 miu/mL High 0.34-5.60 Vitamin D,25 03/26/2013 25-Hydroxy Vitamin <4.0 ng/ mL Hydroxy [address] D2 [place] [address] [phone] 25-Hydroxy Vitamin D3 36 ng/mL 25-Hydroxy Vitamin D Total 36 ng/mL 38 CMP Panel 03/26/2013 Sodium 142 mmol/L 133-[address] [place] [address] [phone] Potassium 4.2 mmol/L 3.5-5.0 Chloride 108 mmol/L [...] Egfr Non- 89.7 >60 Egfr 115.4 >60 39 Laboratory test 12/29/2012 C Reactive 0.5 mg/dL Less than finding [address] Protein 0.5 [place] [address] [phone] Basic Metabolic 12/29/2012 Sodium 134 mmol/L 133- [address] [place] [address] [phone] Potassium 3.9 mmol/L 3.5-5.0 Chloride 104 mmol/L 101-111 Co2 Carbon Dioxide 26.0 mmol/L 22-32 Anion Gap 4.0 mmol/L 2-11 Glucose 84 mg/dL 70-100 Blood Urea Nitrogen 18 mg/dL 6-24 Creatinine 0.90 mg/dL 0.50-1.40 BUN/Creatinine Ratio 20.0 8-20 Calcium 9.6 mg/dL 8.1-9.9 Egfr Non- 67.4 >60 Egfr 86.7 >60 40 CBC Auto Diff 12/29/2012 White Blood 7.3 10^3/uL 4.8-10.[address] [place] [address] [phone] Red Blood Count 4.49 10^6/uL 4.0-5.4 Hemoglobin [...] Red Blood Cells % 0 Laboratory 11/01/2012 Hepatitis C Nonreactive Nonreactive test finding 101 [facility] [place] [place] [address] [phone] HIV 1 2 AB Nonreactive Nonreactive 41 Hepatitis B Jaida 11/01/2012 Hepatitis B Reactive Nonreactive AB Titer [address] [facility] [place] [address] [phone] Hep B Surf AB Index 9.81 42 Laboratory 11/01/2012 Hepatitis B Nonreactive Nonreactive test finding [address] [facility] [place] [address] Antigen [phone] Comp Metabolic 09/19/2012 Sodium 136 mmol/L 133- 145 Panel 101 [place] [address] [phone] Potassium 4.1 mmol/L 3.5-5.0 Chloride 103 mmol/L [...] Egfr Non- 67.4 >60 Egfr 86.7 >60 43 Laboratory test 09/19/2012 Follicle 5.70 MIU/ML [address] [place] [address] Hormone [phone] Laboratory test 09/19/2012 TSH (Thyroid 1.04 miu/mL 0.34- finding [address] Stimulating Horm) 5.60 [place] [address] [phone] HSV/VZV Derm PCR 09/19/2012 hs/VZ Source SKIN [address] [place] [address] [phone] hs/VZ PCR Result See Comment 45 Vitamin D, 25 09/19/2012 25-Hydroxy Vitamin <4.0 ng/ mL Hydroxy [address] D2 [place] [address] [phone] 25-Hydroxy Vitamin D3 32 ng/mL 25-Hydroxy Vitamin D Total 32 ng/mL 46 Ua Routine 07/24/2012 Computer Equipment Installer In House Ua Specific [place] 1.015 Ua PH 5 Ua Color yellow Ua Appera clear Ua WBC neg Ua Protein neg Ua Glucose neg Ua Ketones neg Ua Bilirubin neg Ua Urobilinogen neg Ua Nitrite neg Ua Occult Blood neg Laboratory 07/21/2012 TSH (Thyroid 12.94 High 0.34- 5.60 test finding [address] Stimulating MIU/[place] [address] Horm) [phone] Vitamin B12 592 pg/mL 180-914 Laboratory test 01/21/2012 Intrinsic Factor Negative () [address] [place] [address] [phone] Methylmalonic Acid 0.15 nmol/mL <=0.40 48 Laboratory test 2012 TSH 0.13 MIU/ML Low 0.34 -5.60 finding [address] [place] [address] [phone] Vitamin B12 And 2012 Vitamin B12 245 pg/mL 180-914 Folate Serum 101 [place] [address] [phone] Folic Acid 9.8 NG/ML See Below 49 CBC Auto Diff 12/10/2011 White Blood 6.5 CUMM 4.8- 10.[address] [place] [address] [phone] Red Cell Count 4.39 CUMM 4.2-5.4 Hemoglobin [...] Abs Basophils 0.1 0-0.2 Laboratory test 12/08/2011 TSH 0.11 MIU/ML Low 0.34 -5.60 finding [address] [place] [address] [phone] Laboratory test 10/08/2011 TSH 0.55 MIU/ML 0.34- 5.60 [place] [address] [phone] Laboratory test 09/02/2011 TSH 3.91 MIU/ML 0.34- 5.60 [place] [address] [phone] Laboratory test 07/29/2011 TSH 9.96 MIU/ML High 0.34-5.[address] [address] [phone] 1 ADDITIONAL INFORMATION This test has been modified from the photocopy operator's instructions. Its performance characteristics were determined by [facility] in a manner consistent with CLIA requirements. This test has not been cleared or approved by the U.S. Food and Drug Administration. Test Performed by: [facility] - [address] [address] 2 ADDITIONAL INFORMATION This test was developed and its performance characteristics determined by [facility] in a manner consistent with CLIA requirements. This test has not been cleared or approved by the U.S. Food and Drug Administration. Test Performed by: [address] [address] Customer Pricing Manager: [id number] 4 Because ethnic data is not always readily [...] 15-29 5 Kidney failure <15 (or dialysis) 5 Normally menstruating females - Follicular phase 3 - 9 - Mid-cycle peak 4 - 23 - Luteal phase 1 - 6 Postmenopausal females 16 - 114 6 Desirable: <150 Borderline High: 150-199 High: 200-499 Very High: >500 7 Desirable: <200 Borderline High: 200-239 High: >239 8 Low: <40 Desirable: 40-60 High: >60 9 Desirable: <100 Near Optimal: 100-129 Borderline High: 130-159 High: 160-189 Very High: >189 10 Because ethnic data is not always readily [...] 15-29 5 Kidney failure <15 (or dialysis) 11 Customer Pricing Manager: [id number] 12 6 weeks after increasing levothyroxine dose 13 6 weeks after increasing levothyroxine dose 14 Customer Pricing Manager: [id number] 16 SEE RESULT BELOW Name: CHRISTIAN BARCLAY : [address]: Geovanni Vila NP Acct: [id number] Unit: [id number] AGE: 51 Location: [facility] Re12/29/16 SEX: F Status: REG REF SPEC: [id number] GE: 12/29/[address]: Geovanni Vila NP REQ: [id number] RECD: 12/29/16 STATUS: COMP _ SOURCE: [facility]: ORDERED: Flu A B Request COMMENTS: [id number] Procedure Result Reported Site Rapid Influenza A B Request Final 12/29/162211 ML Specimen received for Influenza A/B Molecular testing * ML - MAIN LAB ([facility]) . END OF REPORT * ML=Testing performed at Main Lab DEPARTMENT OF PATHOLOGY, [address] [place] [address] Toby Taveras M.D. Director [facility] # [id number] 17 FASTING 10 HOUR 18 Because ethnic data is not always readily [...] 15-29 5 Kidney failure <15 (or dialysis) 19 Desirable <150 Borderline high 150-199 High 200-499 Very High >500 20 Desirable <200 Borderline high 200-239 High >239 21 Low <40 Desirable: 40-60 High: >60 22 Desirable: <100 mg/dL Near Optimal: 100-129 mg/dL Borderline High: 130-159 mg/dL High: 160-189 mg/dL Very High: >189 mg/dL 23 FASTING 10 HOUR 24 SEE RESULT BELOW Name: CHRISTIAN BARCLAY : [address]: Amparo Thomason MD Acct: [id number] Unit: [id number] AGE: 50 Location: [facility] Re09/27/15 SEX: F Status: DEP ER SPEC: [id number] GE: 09/27/15-1335 [facility] DR: Amparo Thomason MD REQ: [id number] RECD: 09/28/15-1231 STATUS: DONAVAN SKINNER DR: [facility] Maricarmen Cruz MD _ SOURCE: URINE SPDESC: ORDERED: Urine Culture Procedure Result Reported Site Urine Culture Final 09/29/15- 1313 ML No Growth (<1,000 CFU/mL) * ML - MAIN LAB ([facility]) . END OF REPORT * ML=Testing performed at Main Lab DEPARTMENT OF PATHOLOGY, [address] [place] [address] Toby Taveras M.D. Director [facility] # [id number] 25 Reference Range and Interpretation: TnI (ng/mL) Interpretation Less Than 0.03 ng/mL Not supportive of diagnosis of DC 0.03 - 0.50 ng/mL Indeterminate: suggest serial studies if clinically indicated. Greater than 0.5 ng/mL Consistent with diagnosis of DC 26 Potassium reference range changed effective 07/14/14 27 Because ethnic data is not always readily [...] 15-29 5 Kidney failure <15 (or dialysis) 28 Verbal to [id number] by [place] [id number] at 1840 on 07/17/14. Results read back accurately. Please note: The following may produce a false positive D Dimer test: - Rheumatoid factor greater than 60 IU/ml - Plasma hemoglobin greater than 0.05 gm/dl - Bilirubin greater than 50 mg/dl - Lipids greater than 1000 mg/dl - FDP greater than 20 ug/ml 29 Normally menstruating females - Follicular phase 3 - 9 - Mid-cycle peak 4 - 23 - Luteal phase 1 - 6 Postmenopausal females 16 - 114 30 standing orders for q 6 mo labs 31 Normal Range 180 to 914 Indeterminate Range 145 to 180 Deficient Range <145 32 -- REFERENCE VALUE -- 25-HYDROXY D TOTAL (D2+D3) Optimum levels in the healthy population are 20-50, patients with bone disease may benefit from higher levels within this range. Test Performed by: [facility] - [address] [address] Security Police Officer: Anibal Valdes III, M.D. 33 Because ethnic data is not always readily [...] 15-29 5 Kidney failure <15 (or dialysis) 34 Therapeutic target for the treatment of diabetes Mellitus patients is <7% HBA1C, and in selective patients <6.0%.Please refer to [place] [employer] Diabetic care guidelines for further information. 35 HDL Interpretation: Undesirable: High Risk: Less than 40 mg/dL Desirable: Low Risk: Greater than 60 mg/dL 36 LDL Interpretation: Low Risk Optimal Level: LDL Less than 100 mg/dL Near or Above Optimal: LDL 100-129 mg/dL Borderline High Risk: LDL 130-159 mg/dL High Risk: LDL 160-189 mg/dL Very High Risk: LDL Greater than 189 mg/dL 37 Normally menstruating females - Follicular phase 3 - 9 - Mid-cycle peak 4 - 23 - Luteal phase 1 - 6 Postmenopausal females 16 - 114 38 -- REFERENCE VALUE -- 25-HYDROXY D TOTAL (D2+D3) Optimum levels in the normal population are 25-80 Test Performed by: [place] [address] Security Police Officer: Anibal Valdes III, M.D. 39 Because ethnic data is not always [...] 5 Kidney failure <15 (or dialysis) 40 Because ethnic data is not always [...] 5 Kidney failure <15 (or dialysis) 41 It is recognized that currently available assays [...] 95% confidence interval of 99.78 to 99.96%. 42 The World Health Organization (WHO) Hepatitis B Immunoglobulin 1st International Reference Preparation (1976): The accepted criteria for immunity to HBV is anti-HBs activity greater than or equal to 10 mIU/mL. An Index Value of 1.00 is equivalent to 10 mIU/mL. Samples with an Index Value of 1.00 or greater are considered reactive (protective) in accordance with the CDC guidelines. 43 Because ethnic data is not always readily [...] 15-29 5 Kidney failure <15 (or dialysis) 44 Normally menstruating females - Follicular phase 3 - 9 - Mid-cycle peak 4 - 23 - Luteal phase 1 - 6 Postmenopausal females 16 - 114 45 Herpes simplex type II DNA detected. Negative for Varicella zoster DNA. -- REFERENCE VALUE -- Not applicable Analyte Specific Reagent. This test was developed and its performance characteristics determined by [facility]. It has not been cleared or approved by the U.S. Food and Drug Administration. Test Performed by: [place] [address] Security Police Officer: Anibal Valdes III, M.D. 46 -- REFERENCE VALUE -- 25-HYDROXY D TOTAL (D2+D3) Optimum levels in the normal population are 25-80 Test Performed by: [place] [address] Security Police Officer: Anibal Valdes III, M.D. 47 Positive in 50% of persons with pernicious anemia. -- REFERENCE VALUE -- Negative Test Performed by: [facility] Dpt of Lab Med and Pathology [address] [place] [address] Security Police Officer: Anibal Valdes III, M.D. 48 Test Performed by: [facility] [address] [place] [address] Security Police Officer: Anibal Valdes III, M.D. 49 Please note: New reference range, effective 09/02/11 NORMAL REFERENCE RANGE: GREATER THAN 4.1 NG/ML Procedures Date Code Description Status 09/07/2018 09992 Chemodenervation Of Muscles Innervated By Facial Completed Nerves, Bilat 06/06/2018 38262 Chemodenervation Of Muscles Innervated By Facial Completed Nerves, Bilat 03/02/2018 64645 Chemodenervation Of Muscles Innervated By Facial Completed Nerves, Bilat 04/08/2016 [id number] Colonoscopy Completed 03/12/2016 [id number] Mammogram Completed 12/19/2015 13390 Inject/Drain Joint/Bursa Major W/O US Completed 08/05/2014 02823 Holter Monitor Review (24 hr)dr parra & interp only Completed 07/18/2014 69952 EKG Tracing & Interpretation Completed 07/04/2014 [id number] Mammogram Completed 04/04/2014 67216 Removal Skin Tags Up To 15 Completed 02/27/2014 41898 Injection For Nerve Block, Greater Occipital Nerve Completed 06/12/2013 65583074 Mammogram Completed 10/26/2011 45837 EKG Tracing & Interpretation Completed Encounters Type Date Location Provider Dx Diagnosis Office Visit 12/15/2018 [facility] Internal Yuko Acuña, H66.91 Otitis media, 3:40p Medicine N.P. unspecified, right ear F17.210 Nicotine dependence, cigarettes, uncomplicated Office Visit 09/21/2018 2:40p [facility] Internal Maricarmen I10 Essential ( primary) Medicine Dylon Cruz hypertension J30.9 Allergic rhinitis, unspecified J01.90 Acute sinusitis, unspecified R53.83 Other fatigue E03.9 Hypothyroidism, unspecified Office Visit 06/29/2018 10:40a [facility] Internal Maricarmen I10 Essential ( primary) Medicine Dylon Cruz hypertension E03.9 Hypothyroidism, unspecified F33.0 Major depressive disorder, recurrent, mild H69.90 Unspecified Eustachian tube disorder, unspecified ear Office Visit 05/30/2018 2:20p [facility] Internal Maricarmen I10 Essential ( primary) Jolene Cruz M.D. hypertension E03.9 Hypothyroidism, unspecified H93.13 Tinnitus, bilateral Office Visit 05/04/2018 10:45a Orthopedic Parag F M25.561 Pain in Services Of Sandeep Meek MD right knee M17.11 Unilateral primary osteoarthritis, right knee Office Visit 05/04/2018 [facility] Internal Maricarmen E03.9 Hypothyroidism, 2:40p Jolene Cruz M.D. unspecified R03.0 Elevated blood-pressure reading, w/o diagnosis of htn M17.11 Unilateral primary osteoarthritis, right knee Office Visit 04/06/2018 [facility] Internal Maricarmen E03.9 Hypothyroidism, 3:40p Jolene Cruz M.D. 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 hyperhidrosis E03.9 Hypothyroidism, unspecified E78.5 Hyperlipidemia, unspecified R10.11 Right upper quadrant pain R10.31 Right lower quadrant pain Office Visit 01/26/2018 [facility] Darrinjaeer G43.019 Migraine w/o 11:15a Neurologic Dylon Winston aura, Services Of [facility] intractable, without status migrainosus Office Visit 06/23/2017 [facility] Internal Geovanni Vila NP J01.90 Acute sinusitis , 1:00p Medicine unspecified R11.0 Nausea H92.03 Otalgia, bilateral Office Visit 04/11/2017 2:40p [facility] Internal Maricarmen Cruz R63.5 Abnormal weight Medicine MYordan gain Office Visit 03/14/2017 4:00p [facility] Internal Maricarmen Cruz R63.5 Abnormal weight Medicine MYordan gain R09.81 Nasal congestion Office Visit 12/29/2016 4:20p [facility] Internal Geovanni Vila, R50.9 Fever, unspecified Medicine [employer]STRU[employer]ER J06.9 Acute upper respiratory infection, unspecified Office Visit 12/16/2016 3:30p [facility] Gunnar Kline M54.81 Occipital Services Of [facility] Dylon France neuralgia G43.109 Migraine with aura, not intractable, w/o status migrainosus Office Visit 11/26/2016 11:40a [facility] Internal Maricarmen J01.90 Acute sinusitis, Jolene Cruz M.D. unspecified K62.5 Hemorrhage of anus and rectum Office Visit 11/25/2016 2:40p [facility] Internal Subhash Alejo Dizziness and Medicine - Dylon Ray gizeeshan [place] Office Visit 11/01/2016 10:00a [facility] Internal Geovanni Vila NP F41.9 Anxiety disorder, Medicine unspecified Office Visit 10/12/2016 11:20a [facility] Internal Geovanni Vila NP F41.9 Anxiety disorder, Medicine unspecified J01.90 Acute sinusitis, unspecified Office Visit 09/16/2016 5:30p [facility] Internal Geovanni Cadence, J06.9 Acute upper Medicine [employer] respiratory infection, unspecified R11.2 Nausea with vomiting, unspecified Office Visit 07/22/2016 Bogdan Kline S06.0x1S Concussion w Loc 11:15a Neurologic Dylon France of 30 minutes or Services Of [facility] less, sequela M54.81 Occipital neuralgia G43.109 Migraine with aura, not intractable, w/o status migrainosus G43.109 Migraine with aura, not intractable, w/o status migrainosus M54.81 Occipital neuralgia Office Visit 03/18/2016 Bogdan Kline G43.019 Migraine w/o aura, 9:45a Neurologic Dylon France intractable, Services Of [facility] without status migrainosus Office Visit 02/16/2016 Orthopedic Dalia He M25.512 Pain in left 8:45a Services Of M.D. shoulder C.M.A. S43.422D Sprain of left rotator cuff capsule, subsequent encounter M75.42 Impingement syndrome of left shoulder Office Visit 01/19/2016 9:15a Orthopedic Dalia He M25.512 Pain in left Services Of C.M.A. M.D. shoulder S43.422A Sprain of left rotator cuff capsule, initial encounter M75.42 Impingement syndrome of left shoulder Office Visit 12/19/2015 8:00a Orthopedic Dalia He M25.512 Pain in left Services Of C.M.A. M.D. shoulder S43.422A Sprain of left rotator cuff capsule, initial encounter M75.42 Impingement syndrome of left shoulder Office Visit 10/02/2015 11:20a [facility] Internal Yuko Acuña, R10.11 Right upper Medicine N.P. quadrant pain R10.31 Right lower quadrant pain J34.89 Other specified disorders of nose and nasal sinuses R19.7 Diarrhea, unspecified Office Visit 05/12/2015 8:20a Orthopedic Capo Jaeger 844.9 Sprains & Strains Services Of M.D. Knee & Leg Unspec C.M.A. Office Visit 05/01/2015 9:00a Orthopedic Vicky Manning4.9 Sprains & Strains Services Of [facility] Knee & Leg Unspec C.M.A. Office Visit 03/25/2015 8:30a [facility] Bhavya Kline 346.02 Migraine Services Of [facility] Mary France/Aura,W/Out Dylon Mention Of Intractable Migraine 346.00 Migraine Classical W/O Intractable W/O Status Migrainosus Office Visit 02/04/2015 9:40a [facility] Internal James Rosa, 478.9 Upper Resp Medicine - [place] M.D. Tract Disease Rd Other & Unspec 386.10 Vertigo Peripheral Unspec 465.9 URI Upper Respiratory Infections Acute Unspec Sites Office Visit 01/30/2015 10:40a [facility] Internal Geovanni Cadence, 381.81 Eustachian Tube Medicine [employer] Dysfunction 787.91 Diarrhea Office Visit 01/24/2015 9:00a [facility] Internal Geovanni Cadence, [employer] 847.2 Sprains & Medicine Strains Lumbar Office Visit 12/23/2014 10:00a [facility] Internal Geovanni Cadence, [employer]ER 847.2 Sprains & Medicine Strains Lumbar Office Visit 11/25/2014 10:00a [facility] Internal 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 Lumbar Office Visit 09/26/2014 11:20a [facility] Internal Maricarmen 487.8 Influenza W/ Other Medicine Dylon Cruz Manifestations 783.1 Weight Gain Abnormal Office Visit 07/18/2014 [facility] Internal Maricarmen 794.31 Electrocardiogram 4:00p Jolene Cruz M.D. (ECG) (EKG) Abnormal 789.00 Pain Abdominal Unspec Site Office Visit 07/02/2014 9:45a Bogdan Kline 346.91 Migraine Unspec Neurologic Dylon France W/ Intractable Services Of [facility] W/O Status Migrainosus Office Visit 06/18/2014 1:40p [facility] Internal Maricarmen V70.0 Examination Jolene Cruz M.D. General Medical Routine AT Health Care Facility 244.9 Hypothyroidism Other Unspec V76.10 Screening For Malignant Neoplasm Breast 311 Depressive Disorder Not Elsewhere Spec V04.81 Need For Prophylactic Vaccination & Inoculation/Influenza V06.1 Lesmlulexl-Llblfqy-Ogbuedai Combined (DTaP) Office Visit 05/07/2014 Bogdan Kline 346.93 Migraine 2:30p Neurologic Dylon France Unspecified, Services Of [facility] W/Intractable Migraine Office Visit 02/27/2014 [place] Cassidy LoAna Laura 346.93 Migraine 8:15a Neurologic Dylon Lau Unspecified, Services Of [facility] W/Intractable Migraine Office Visit 02/21/2014 Bogdan Kline 346.93 Migraine 11:45a Neurologic Dylon [place] Unspecified, Services Of [facility] W/Intractable Migraine 386.10 Vertigo Peripheral Unspec Office Visit 12/24/2013 9:00a [facility] Internal Maricarmen 461.8 Sinusitis Acute Medicine Dylon Cruz Other 782.1 Rash & Other Nonspec Skin Eruption 244.9 Hypothyroidism Other Unspec 309.9 Adjustment Reaction Unspec Office Visit 12/04/2013 1:00p [facility] Internal Maricarmen 386.10 Vertigo Medicine Dylon Cruz Peripheral Unspec 300.00 Anxiety State Unspec 782.1 Rash & Other Nonspec Skin Eruption 244.9 Hypothyroidism Other Unspec Office Visit 11/12/2013 11:20a [facility] Internal Maricarmen 461.8 Sinusitis Acute Medicine Dylon Cruz Other 346.10 Migraine Common W/O Intractable W/O Status Migrainosus 245.2 Thyroiditis Chronic Lymphocytic Office Visit 03/26/2013 10:00a [facility] Internal Stacy Serna, 995.3 Allergy Unspec Medicine Dylon V70.0 Examination General Medical Routine AT Health Care Facility 620.2 Ovarian Cyst Other & Unspec 245.2 Thyroiditis Chronic Lymphocytic 278.00 Obesity Unspec Office Visit 02/21/2013 8:40a [facility] Internal Stacy Serna, 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 Respiratory Infections Acute Unspec Sites Office Visit 09/25/2012 8:40a [facility] Internal Stacy Serna, 620.2 Ovarian Cyst Medicine M.D. Other & Unspec 054.9 Herpes Simplex W/O Complication Office Visit 09/19/2012 11:00a [facility] Internal Yuko Acuña, 054.9 Herpes Simplex W/O Medicine N.P. Complication Office Visit 07/28/2012 9:40a [facility] Internal Stacy Serna, 245.2 Thyroiditis Chronic Medicine M.D. Lymphocytic 620.2 Ovarian Cyst Other & Unspec 592.0 Calculus Of Kidney 626.0 Menstruation Absence 110.4 Dermatophytosis Foot 311 Depressive Disorder Not Elsewhere Spec Office Visit 07/24/2012 8:40a [facility] Internal Stacy Serna, 599.70 Hematuria, Medicine M.D. Unspecified 346.80 Migraine Other W/O Intractable W/O Status Migrainosus 493.90 Asthma Unspec W/O Status Asthmaticus 245.2 Thyroiditis Chronic Lymphocytic Office Visit 01/21/2012 9:40a [facility] Internal Stacy Serna, 266.9 Vitamin B Medicine M.D. Deficiency Unspec 477.9 Rhinitis Allergic Cause Unspec Office Visit 2012 9:40a [facility] Internal Stacy Serna, 354.0 Carpal Tunnel Medicine M.D. Syndrome 245.2 Thyroiditis Chronic Lymphocytic Office Visit 12/10/2011 10:00a [facility] Internal Stacy Serna, 493.92 Asthma Unspec W/ Medicine M.D. Acute Exacerbation Office Visit 12/01/2011 3:20p [facility] Internal Stacy Serna, 245.2 Thyroiditis Chronic Medicine M.D. 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 Office Visit 10/08/2011 8:40a [facility] Internal Stacy Serna, 311 Depressive Medicine M.D. Disorder Not Elsewhere Spec 245.2 Thyroiditis Chronic Lymphocytic 079.99 Viral Infection Unspec Office Visit 09/03/2011 8:40a DO Not Use Stacy Serna, 245.2 Thyroiditis Jackson Osborne Chronic Lymphocytic 311 Depressive Disorder Not Elsewhere Spec Office Visit 08/17/2011 8:40a DO Not Use Stacy Serna, 311 Depressive Jackson Osborne Disorder Not Elsewhere Spec Office Visit 08/03/2011 3:20p DO Not Use Stacy Serna, 053.29 Herpes Zoster Jackson Osborne Other 346.80 Migraine Other W/O Intractable W/O Status Migrainosus Office Visit 07/29/2011 10:00a DO Not Use Stacy Serna, 311 Depressive Jackson Osborne Disorder Not Elsewhere Spec 245.2 Thyroiditis Chronic Lymphocytic Plan of Treatment Future Appointment(s):01/01/2019 9:20 am - Maricarmen Cruz M.D. at [facility] Internal Pqzhrdco10/17/2019 1:30 pm - Bryan Winston M.D. at [facility]03/22/2019 1:30 pm - Bryan Winston M.D. at [facility]
--- OUTSIDE RECORDS SUMMARY | 2019-01-10 23:27 | XMS REPORT | Continuity of Care Document ---
:1965 External Reference #:[id number] Author Name Cindy Cortes O.D. Address [address] [facility] [address] Care Team Providers Name Role Phone Dayana Rodriguez M.D. Primary Care Physician Unavailable Payers Date Identification Numbers Payment Provider Subscriber Policy Number: [id number] Beaman Plan hCristian Monsivais PayID: [id number] [address] [place] [address] Advance Directives Description No Information Available Problems Active Problems Provider Date Hypothyroidism Cindy Cortes O.D. Onset: 03/28/2015 Anxiety Cindy Cortes O.D. Onset: 03/28/2015 Migraine Cindy Cortes O.D. Onset: 03/28/2015 Headache Cindy Cortes O.D. 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 Onset: 11/19/2016 Corneal opacity Cindy Cortes O.D. 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 ETOH Use Rarely consumes alcohol Recreational Drug Use Denies Drug Use Tobacco Use Start: Unknown End: Patient is a former smoker quit 2010 Unknown Smoking Status Reviewed: 12/08/18 Patient is a former smoker quit 2010 Allergies, Adverse Reactions, Alerts Active Allergies Reaction Severity Comments Date Sulfa Antibiotics 03/28/2015 Medications Active Medications SIG Qnty Indications Ordering Provider Date Rewetting Drops as needed Cindy Cortes, 11/30/2017 Solution O.DAna Laura Levothyroxine Sodium Unknown 75mcg Tablets Flovent HFA as needed Jose Alberto Jenkins 110mcg/Act Aerosol M.DAna Laura Losartan Potassium Cotton, Maricarmen 50mg Tablets M.D. History Medications Prednisolone Acetate 1 drop left eye 15ml H16.012 Cindy Navarro 06/27/2015 - 1% 5Xday Cait Cortes.DAna Laura 07/20/2015 Suspension Erythromycin apply thin 1Tube H16.012 Cindy Navarro 06/26/2015 - 5mg/GM strip to left Cait Cortes.Navdeep 07/20/2015 Ointment lower lid at bedtime Vigamox one drop right 3ml Cindy Navarro 06/25/2015 - 0.5% Solution eye three times Cait Cortes.Navdeep 07/20/2015 a day Visine as needed Cindy Navarro 03/27/2015 - 0.05% Solution Sophia O.DAna Laura 07/20/2015 Levocetirizine take 1 tablet Unknown - Dihydrochloride once daily 11/18/2016 5mg Tablets Bupropion HCL ER (XL) Unknown - 150mg 11/18/2016 Tablets ER 24HR Oxybutynin Chloride ER Unknown - 10mg 11/18/2016 Tablets ER 24HR Amitriptyline HCL Take 1 To 2 Unknown - 10mg Tabs AT Bedtime 11/18/2016 Tablets as Directed Sumatriptan Succinate Take 1/2 To 1 Unknown - 100mg Tab as Needed 11/18/2016 Tablets Proair HFA Gregory - 108(90Base) Jose Alberto Osborne 11/18/2016 mcg/Act Aerosol Verapamil HCL take 1 tablet Unknown - 40mg Tablets once daily 11/18/2016 Immunizations Description No Information Available Vital Signs Description No Information Available Results Description No Information Available Procedures Date Code Description Status 12/08/2018 46302 Determination Of Refractive State Completed 12/08/2018 60978 Est Patient Comprehensive Exam Completed 12/01/2017 22639 Determination Of Refractive State Completed 12/01/2017 12473 Est Patient Comprehensive Exam Completed 11/19/2016 83627 Determination Of Refractive State Completed 11/19/2016 60431 Est Patient Comprehensive Exam Completed 06/26/2015 69936 Est Patient Intermediate Exam Completed 03/28/2015 72696 Determination Of Refractive State Completed 03/28/2015 52834 New Patient Comprehensive Exam Completed Encounters Type Date Location Provider Dx Diagnosis Office Visit 07/07/2015 Cindy Landaverde H16.012 Central corneal 9:20a , radha Cortes O.D. ulcer, left eye Office Visit 06/27/2015 Cindy Landaverde H16.012 Central corneal 3:40p radha BEARD O.D. ulcer, left eye Plan of Treatment No Information Available
--- OUTSIDE RECORDS SUMMARY | 2019-01-10 23:27 | XMS REPORT | Continuity of Care Document ---
:1965 External Reference #:[id number] Author Name CricketrohanMira Care Team Providers Name Role Phone Maricarmen Cruz MD Primary Care Physician Unavailable Payers Date Identification Numbers Payment Provider Subscriber Effective: 2011 Policy Number: [id number] [facility] Christian Barclay PayID: [id number] [address] [place] [address] Effective: 2016 Policy Number: [facility] Christian Barclay [id number] Onset: 2016 Group Number: fax [phone] [address] [address] PayID: [place] [address] Effective: 2014 Policy Number: [facility] Christian Barclay [id number] Onset: 2014 Group Number: [id number] [address] [address] PayID: [place] [address] Onset: 2015 Policy Number: [id number] [facility] Christian Barclay Group Name: [phone] [address] [address] PayID: [place] [address] Advance Directives Description No Information Available Problems Active Problems Provider Date Migraine without aura Bhavya France M.D. Onset: 03/25/2015 Depressive disorder Stacy Serna M.D. Onset: 07/29/2011 Ezequiel thyroiditis Stacy Serna M.D. Onset: 07/29/2011 Asthma without status asthmaticus Stacy Serna M.D. Onset: 07/24/2012 Inactive Problems Cyst of ovary Stacy Serna M.D. Onset: 09/25/2012 Inactive: 01/01/2019 Kidney stone Maricarmen Cruz M.D. 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 Hand Dominance Right-handed ETOH Use Denies alcohol use Tobacco Use Start: Unknown End: Patient is a former quit 06/29/11 Unknown smoker Recreational Drug Use Denies Drug Use Smoking Status Reviewed: 01/01/19 Patient is a former quit 06/29/11 smoker Exercise Type/Frequency Exercises regularly Allergies, Adverse Reactions, Alerts Active Allergies Reaction Severity Comments Date Sulfa swelling around her eyes Moderate 07/29/2011 Inactive Allergies NKDA 07/29/2011 Medications Active Medications SIG Qnty Indications Ordering Provider Date Proair Respiclick inhale 4 times 1units Maricarmen Cruz, 01/01/2019 daily as needed M.D. 108(90Base) mcg/Act Aerosol Chantix Starting Month take as directed 30tabs F17.210 Yuko Acuña, 01/2019 Gopi (0.5 mg by mouth N.P. 0.5mg X 11 & 1 mg X daily x3 days, 42 Tablets 0.5 mg twice a day x 4 days, then 1 mg twice a day up to three months) Taking 0.5 Daily Sumatriptan Succinate 1/2 to 1 by 12tabs Zackary Prieto, 09/07/2018 mouth as needed N.P. 100mg Tablets migraine max 2/day, max 2 d/wk Diclofenac-Misoprostol Take 1 Tablet By 90tabs M17.11 Maricarmen Cruz, Mouth 3 To 4 M.D. 75-0.2mg Tablets DR Times A Day as Needed For Pain Losartan Potassium 1 by mouth every 90tabs I10 Maricarmen Cruz, 2017 50mg day M.D. Tablets Levothyroxine Sodium 1 by mouth 6 90tabs [facility] Anthony, 04/06/2018 days a week and M.D. 100mcg Tablets 1/2 tablet by mouth one day a week Flovent HFA 2 puffs twice 36gm [facility], 11/12/2013 110mcg/Act daily M.D. Aerosol Valacyclovir HCL take 1 tablet by Unknown 1gm mouth three Tablets times a day prn History Medications Azithromycin two tabs day one, 6tabs H66.91 Yuko Acuña, 12/15/2018 - 250mg one daily till N.P. 12/25/2018 Tablets gone Augmentin one by mouth 30tabs J01.90 [facility] 09/21/2018 - 875-125mg every 12 hours Dylon Cruz 10/03/2018 Tablets for 10 days Contrave 1 PO Q Am x 1 70tabs [facility] 07/30/2018 - 8-90mg Tablets week, then 1 bid Dylon Cruz 07/31/2018 ER 12HR x 1 week, then 2 Q Am and 1 PM x 1 week, then 2 bid Bupropion HCL ER (XL) take 1 tablet by 30tabs F33.0 [facility] 06/29/2018 - mouth once daily Dylon Cruz 01/01/2019 150mg Tablets ER 24HR Losartan Potassium 1 by mouth every 30tabs I10 [facility] 05/30/2018 - 25mg day Dylon Cruz 06/29/2018 Tablets Arthrotec Take 1 tablet 3-4 90tabs M17.11 [facility] 05/04/2018 - 75-0.2mg times daily as Dylon Cruz 08/20/[address] needed for pain Losartan Potassium 1 by mouth every 30tabs I10 [facility] 04/07/2018 - 25mg day Dylon Cruz 05/03/2018 Tablets Chlorthalidone 1/2 tab by mouth 15tabs I10 [facility] 04/06/2018 - 25mg every day Dylon Cruz 04/07/2018 Tablets Levothyroxine Sodium 1 by mouth every 30tabs [facility] 02/20/2018 - day Dylon Cruz 04/06/2018 88mcg Tablets Amoxicillin/Clavulana take one tablet 20tabs J01.90 Geovanni Vila NP 2016 - te Potassium q12 hours for 10 01/23/2018 875-125mg days Tablets Ondansetron dissolve one 30tabs R11.0 Geovanni Vila NP 06/23/2017 - 4mg Tablets tablet orally 05/03/2018 Dispers every 8 hours as needed for nausea. Benzonatate one by mouth 30caps J01.90 Geovanni Vila NP 06/23/2017 - 200mg three times daily 06/30/2017 Capsules as needed for cough Sumatriptan Succinate 1/2 to 1 po prn 12tabs Khanh Olivares 05/19/2017 - migraine faiza Lau M.D. 05/03/2018 100mg Tablets 2/day, max 2 d/wk Belviq XR 1 PO qd 30tabs E03.9 Maricarmen 04/11/2017 - 20mg Tablets Dylon Cruz 01/25/2018 ER 24HR Belviq 1 PO bid 60tabs E03.9 [facility] 03/14/2017 - 10mg Tablets Dylon Cruz 04/11/2017 Levothyroxine Sodium 1 by mouth every 30tabs Geovanni Vila NP 03/02/2017 - day- pt states 02/20/2018 50mcg Tablets she is taking 75 mcg as of 01/26/18 Amoxicillin/Clavulana 1 tablet twice 20tabs J01.90 Maricarmen 11/26/2016 - te Potassium daily for 10 days Dylon Cruz 12/12/2016 875-125mg Tablets Levothyroxine Sodium 1 by mouth every 30tabs Geovanni Vila NP 11/22/2016 - day 03/02/2017 75mcg Tablets Doxycycline Hyclate one tablet twice 20caps J01.90 Geovanni Vila NP 2016 - daily for 10 10/19/2016 100mg Capsules days. Diazepam take 1/2 tablet 30tabs F41.9 Geovanni Vila NP 10/12/2016 - 2mg Tablets by mouth as 12/12/2016 needed for anxiety maximum daily dose=1 tablet Ondansetron dissolve one 30tabs R11.2 Geovanni Vila NP 09/16/2016 - 4mg Tablets tablet orally 11/26/2016 Dispers every 8 hours as needed for nausea. Amoxicillin/Clavulana take one tablet 20tabs J06.9 Geovanni Vila NP 2016 - te Potassium q12 hours for 10 09/27/2016 875-125mg days Tablets Fluticasone 2 intranasal 16gm J06.9 Geovanni Vila NP 09/16/2016 - Propionate puffs once daily 12/12/2016 50mcg/Act Suspension Meloxicam 1 by mouth every 60tabs M25.512 Dalia He, 02/16/2016 - 15mg Tablets day M.D. 10/12/2016 Naproxen 1 tablet by mouth 60tabs Brent Jagdish, 01/28/2016 - 500mg Tablets with food twice M.D. 12/16/2016 daily. TENS Unit use tid for l M25.512 Dalia He, 01/19/2016 - shoulder pain M.D. 12/12/2016 Amitriptyline HCL 2-3 tablets by 270tabs G43.101 Bhavya Kline 03/25/2015 - 10mg mouth at bedtime Dylon France 11/26/2016 Tablets as directed Note: Refills change to #3, per Dr. France (not taking) Verapamil HCL 1-2 tab by mouth 180tabs G43.101 Bhavya Kline 03/25/2015 - 40mg every day as Dylon France 11/26/2016 Tablets directed (not taking) Levofloxacin 1 tablt by mouth 7tabs 478.9 James Rosa, 02/04/2015 - 500mg every day M.D. 02/19/2015 Tablets Prednisone 1 by mouth three 15tabs 478.9 James Rosa, 02/04/2015 - 5mg Tablets times a day M.D. 03/24/2015 Fluticasone 1 sprays each 16gm 381.81 Geovanni Vila NP 01/30/2015 - Propionate nostril bid for 2 10/02/2015 50mcg/Act weeks. Suspension Medrol (Gopi) take 6 tabs day 21tabs 847.2 Geovanni Vila NP 11/25/2014 - 4mg 1, 5 tabs day 2, 11/30/2014 Tablets 4 tabs day 3, 3 tabs day 4, 2 tabs day 5, and 1 tab day 6. Methocarbamol 1 by mouth 4 40tabs 847.2 Maricarmen 10/31/2014 - 750mg times daily as Dylon Cruz 01/24/2015 Tablets needed Ibuprofen 1 by mouth three 90tabs 847.2 Maricarmen 10/16/2014 - 800mg Tablets times a day as Dylon Cruz 03/14/2017 needed Oxycodone HCL 1 by mouth every 30tabs 847.2 [facility] 10/16/2014 - 5mg 6 h as needed Dylon Crzu 01/26/2015 Tablets Omeprazole 1 by mouth every 30caps 847.2 [facility] 10/16/2014 - 20mg day if needed to Dylon Cruz 03/24/[address] pearson Bupropion HCL ER (XL) take 1 tablet by 90tabs F32.9 Maricarmen 06/18/2014 - mouth one time Dylon Cruz 10/12/2016 150mg Tablets ER 24HR daily Verapamil HCL 1 tab PO bid 120tabs 346.91 Bhavya Kline 05/07/2014 - 40mg Dylon France 03/24/2015 Tablets Prednisone 3 po x3 days, 2 21tabs Melanie Tapia 03/04/2014 - 20mg Tablets po x3 days, 1 po Dylon 04/04/2014 x 3 days,1/2 po x3 days Amitriptyline HCL 2 tablets po at 60tabs Khanh Olivares 02/27/2014 - 10mg bedtime Dylon Lau 10/31/2014 Tablets Sumatriptan Succinate 1/2-1 tab by 12tabs G43.009 Bhavya Kline 02/27/2014 - mouth as needed Dylon France 12/12/2016 100mg Tablets Ondansetron 1 po three times 30tabs Khanh Olivares 02/27/2014 - 4mg Tablets a day as needed Dylon Lau 10/12/2016 Dispers for nausea Zolmitriptan 1 PO qd prn, take 12tabs 346.10 Maricarmen 02/06/2014 - 2.5mg at the start of Dylon Cruz 02/10/2014 Tablets headache Ketoconazole apply thin film 60gm 782.1 [facility] 12/24/2013 - 2% Cream twice daily [place] M.DAna Laura 02/10/2014 Triamcinolone apply thin film 30gm 782.1 [facility] 12/24/2013 - Acetonide to feet twice [place] .DAna Laura 12/24/2013 0.1% Cream daily Fluticasone 2 intranasal 16gm 461.8 [facility] 12/24/2013 - Propionate puffs once daily [place] .DAna Laura 01/30/2015 50mcg/Act Suspension Cefdinir [facility] 12/24/2013 - 300mg Capsules [place] .DAna Laura 01/04/2014 Triamcinolone apply thin film 30gm 782.1 [facility] 12/04/2013 - Acetonide to feet twice [place] .DAna Laura 12/24/2013 0.1% Cream daily Bupropion HCL ER (XL) 1 PO qd 30tabs 300.00 [facility] 12/04/2013 - [place] .DAna Laura 12/24/2013 150mg Tablets ER 24HR Proair HFA 2 puffs po q4h 8.500gm Stacy Serna, 11/12/2013 - 108(90Base) prn .DAna Laura 02/10/2014 mcg/Act Aerosol Fluticasone 2 intranasal 16gm 461.8 [facility] 11/12/2013 - Propionate puffs once daily [place] .DAna Laura 12/24/2013 50mcg/Act Suspension Amoxicillin 1 tab po tid for 30caps 461.8 [facility] 11/12/2013 - 500mg 10 days MulberryDylon 12/03/2013 Capsules Zolmitriptan Odt 1 PO qd prn, take 12tabs 346.10 [facility] 11/12/2013 - 2.5mg at the start of [place] .DAna Laura 02/06/2014 Tablets Dispers headache Levothyroxine Sodium 1 by mouth every 90tabs Geovanni Vila NP 03/29/2013 - day 11/22/2016 112mcg Tablets Loratadine-D 24HR take 1 tablet 30tabs 995.3 Stacy Serna, 03/26/2013 - daily as needed M.DAna Laura 03/26/2013 10-240mg Tablets ER for allergy 24HR Bertin take 1 capsule by 90caps 278.00 Stacy Serna, 03/26/2013 - 60mg Capsules mouth 3 times per M.D. 11/12/2013 day with meals for weight loss Levocetirizine Take 1 tablet by 90tabs 995.3 Stacy Serna, 03/26/2013 - Dihydrochloride mouth daily in M.D. 11/12/2013 5mg the evening Tablets Ipratropium Odem 2 sprays in each 15ml 465.9 Yuko Domenico, 12/14/2012 - nostril tid until N.P. 12/28/2012 0.06% Solution better Valtrex Take 1 tablet 90tabs 054.9 Stacy Serna, 09/19/2012 - 500mg Tablets daily M.D. 09/26/2012 Neurontin 1 capsule po at 30caps 054.9 Yuko Domenico, 09/19/2012 - 300mg bedtime N.P. 09/25/2012 Capsules Ketoconazole apply 1 30gm 110.4 Stacy Serna, 07/28/2012 - 2% Cream application M.D. 03/26/2013 topically to affected area daily Wellbutrin XL Take 1 tablets 60tabs 311 Stacy Serna, 07/28/2012 - 150mg every morning. M.D. 03/26/2013 Tablets ER 24HR Vitamin B-12 Take 2 tablets 60tabs 461.8 Stacy eSrna, 01/21/2012 - 1000mcg daily M.D. 12/29/2012 Tablets Ibuprofen 1 tablet three 21tabs 354.0 Stacy Serna, 2012 - 600mg Tablets times daily with M.D. 07/24/2012 food as needed Wrist Splint Right wrist. Wear 1units 354.0 Stacy Serna, 2012 - Misc for driving and M.D. 12/12/2016 sleeping Advair Diskus 1 inhalation 60units Stacy Serna, 12/10/2011 - twice daily M.D. 07/24/2012 100-50mcg/Dose Aerosol Afrin Inhale 2 sprays 15ml 477.9 Stacy Serna, 12/01/2011 - 0.05% Solution into nostril 2 M.D. 07/24/2012 times per day every 10 to 12 hours as needed for stuffy nose Diclofenac Sodium DR Take 1 tablet by 60tabs 786.59 Stacy Serna, 2011 - mouth 2 times per M.D. 11/12/[address] day for arthritis prn Misoprostol Take 1 tablet 60tabs Stacy Serna, 11/16/2011 - 200mcg twice daily with M.D. 12/29/2012 Tablets diclofenac prn Tramadol HCL 1-2 tablets every 40tabs 786.59 Yuko Acuña, 10/26/2011 - 50mg 6 hours as needed N.P. 11/12/2013 Tablets Arthrotec 75 Take 1 tablet 3-4 28tabs 786.59 Stacy Serna, 10/26/2011 - times daily as M.D. 11/16/2011 [id number] Tablets needed for pain Otic Care 5 drops every 2 14ml 079.99 Stacy Serna, 10/08/2011 - hours until pain M.D. 07/24/2012 5.4-1.4-0.0097% relieved Solution Wellbutrin XL Take 1 tablet 90tabs 311 Stacy Serna, 09/03/2011 - 300mg daily M.D. 07/24/2012 Tablets ER 24HR Lexapro 1 tablet daily 60tabs 311 Stacy Serna, 08/17/2011 - 10mg Tablets for 1 week, then M.D. 09/03/2011 2 tablets daily Valacyclovir HCL Take 1 tablet 21tabs 053.29 Stacy Serna, 08/03/2011 - 500mg three times daily M.D. 08/17/2011 Tablets for 7 days Wellbutrin XL Take 1 tablets 60tabs 311 Stacy Serna, 07/29/2011 - 150mg every morning. M.D. 09/03/2011 Tablets ER 24HR Levothyroxine Sodium Take 1 tablet 90tabs Stacy Serna, 07/29/2011 - daily M.D. 03/29/2013 100mcg Tablets Naproxen 1 by mouth twice Unknown - 500mg Tablets a day as needed 02/22/2018 pain Oxybutynin Chloride 1 by mouth every 90tabs Maricarmen - ER day Dylon Cruz 10/12/2016 10mg Tablets ER 24HR Aleve 1 by mouth as 60caps Unknown - 220mg Capsules needed 10/12/2016 Tylenol 2 po as needed Unknown - 325mg Tablets 10/12/2016 Ibuprofen 3 tabs po prn Unknown - 200mg 10/15/2014 Capsules Levocetirizine 1 by mouth every Unknown - Dihydrochloride day prn - mainly 12/12/2016 5mg in summer Tablets Sumatriptan Succinate one by mouth as 12tabs 346.10 Unknown - needed migraine 02/27/2014 25mg Tablets headaches, may repeat after 2 hours if needed Ketorolac take 1 by mouth 10tabs Unknown - Tromethamine every 8 hours as 03/01/2014 10mg needed for Tablets migraine. take with food. Oxybutynin Chloride every day Unknown - ER 12/24/2013 10mg Tablets ER 24HR Zofran 1 q 6 hours prn 20tabs Unknown - 4mg Tablets nausea 11/12/2013 Meclizine HCL 1 po tid prn 90tabs Stacy Serna, - 25mg M.D. 11/12/2013 Tablets Flovent HFA 2 puffs twice 1month Unknown - 110mcg/Act daily 12/10/2011 Aerosol Ventolin HFA 2 puffs po qid 1units 493.90 Stacy Serna, - prn M.D. 11/12/2013 108(90Base) mcg/ac Aerosol Levothyroxine Sodium 1 po qd 30tabs Unknown - 07/29/2011 75mcg Tablets Meclizine HCL 1 po tid prn 60tabs Unknown - 25mg 09/03/2011 Tablets Singulair 1 po qd prn 90tabs Stacy Serna, - 10mg Tablets M.D. 03/26/2013 Ibuprofen prn 90tabs Unknown - 600mg Tablets 07/24/2012 Imitrex Take 1 tablet as 9tabs 346.80 Stacy Serna, - 100mg Tablets needed for M.D. 11/12/2013 headache control, may repeat after 6 hours prn Medications Administered in Office Medication SIG Qnty Indications Ordering Provider Date Injection Onabotulinumtoxin ABryan M.D. 12/25/2018 1 Unit Injection Injection Onabotulinumtoxin ABryan M.D. 09/07/2018 1 Unit Injection Injection Onabotulinumtoxin ABryan M.D. 06/06/2018 1 Unit Injection Injection Onabotulinumtoxin ABryan M.D. 03/02/2018 1 Unit Injection Depomedrol 40MG Dalia He M.D. 12/19/2015 Injection Injection,Lidocaine HCL For Khanh Lau M.D. 02/27/2014 Intravenous Infusion,10 MG Injection Immunizations CPT Code Status Date Vaccine Lot # [id number] Given 06/18/2014 Tdap - Tetanus/Diptheria/Acellular Pertussis [id number] Given 06/18/2014 Influenza Virus Vaccine, Quadrivalent, Split, [id number] Preservative Free Vital Signs Date Vital Result Comment 01/01/2019 9:24am Height 64.5 inches 5'4.50" Weight 181.00 lb Heart Rate 70 /min BP Systolic Sitting 133 mmHg BP Diastolic Sitting 83 mmHg O2 % BldC Oximetry 95 % BMI (Body Mass Index) 30.6 kg/m2 12/25/2018 3:00pm Height 64.5 inches 5'4.50" Weight [...] Result H/L Range Note Herpes Simplex 11/04/2018 [facility] Herpes Source RIGHT BUTTOCK PCR [address] [place] [address] [phone] HSV 1 PCR Negative Negative HSV 2 PCR Positive Abnormal Negative 1 Varicella Zoster 11/04/2018 [facility] Varicella Zoster RIGHT BUTTOCK Culture [address] [place] [address] [phone] Varicella Zoster Result Negative Negative 2 Laboratory test 11/01/2018 [facility] TSH (Thyroid 3.35 mcIU/mL N 0.34-5.60 finding [facility] [address] Stim [place]orm) [place] [address] [phone] Free T4 (Free Thyroxine) 1.13 ng/dL High 0.61-1.12 Rapid Influenza 10/03/2018 [facility] Influenza A NEGATIVE Negative 3 A & B Molecular [address] [facility] [place] [address] [phone] Influenza B Molecular NEGATIVE Negative Basic Metabolic Panel 06/29/2018 [facility] Sodium 144 mmol/L N 135-145 [address] [place] [address] [phone] Potassium 4.8 mmol/L N 3.5-5.0 Chloride 109 mmol/L N 101-111 Co2 Carbon Dioxide 29 mmol/L N 22-32 Anion Gap 6 mmol/L N 2-11 Glucose 87 mg/dL N 70-100 Blood Urea Nitrogen 14 mg/dL N 6-24 Creatinine 0.78 mg/dL N 0.51-0.95 BUN/Creatinine Ratio 17.9 N 8-20 Calcium 9.8 mg/dL N 8.6-10.3 Egfr Non- 77.6 >60 Egfr 93.8 >60 4 Laboratory test 06/29/2018 [facility] TSH (Thyroid 0.12 Low 0.34-5.[address] Stim Horm) mcIU/[place] [address] [phone] Free T4 (Free Thyroxine) 1.17 ng/dL High 0.61-1.12 Laboratory test 05/04/2018 [facility] TSH (Thyroid 0.10 Low 0.34-5.[address] Stim Horm) mcIU/[place] [address] [phone] Laboratory test 04/06/2018 [facility] TSH (Thyroid <pending> finding Stim [place]orm) [place] [address] [phone] Free T4 (Free Thyroxine) <pending> Laboratory test 02/17/2018 [facility] FSH (Follicle 107.1 mIU/ mL [address] Stim Hormone) [place] [address] [phone] TSH (Thyroid Stim Horm) 19.88 mcIU/mL High 0.34-5.60 Lipid Profile 02/17/2018 [facility] Triglycerides 100 mg/dL 6 (Trig/Chol/HDL) [address] [place] [address] [phone] Cholesterol 234 mg/dL 7 HDL Cholesterol 52.2 mg/dL 8 LDL Cholesterol 162 mg/dL 9 Comp Metabolic Panel 02/17/2018 [facility] Sodium 142 mmol/L N [address] [place] [address] [phone] Potassium 4.1 mmol/L N 3.5-5.0 Chloride 105 [...] 94.1 >60 10 CBC Auto Diff 02/17/2018 [facility] White Blood 5.8 10^3/uL N 3.5-10.[address] [place] [address] [phone] Red Blood Count 4.54 10^6/uL N 4.0-5.4 [...] Blood Cells % 0 Poc Urinalysis 08/13/2017 [facility] Poc Glucose, Negative Negative [address] [place] [address] [phone] Poc Bilirubin, Urine Negative Negative Poc Ketone, Urine Negative Negative Poc Specific [place], Urine 1.020 N 1.010-1.030 Poc Blood, Urine Trace-intact Abnormal Negative Poc pH, Urine 6.0 N 5-9 Poc Protein, Urine Negative Negative Poc Urobilinogen, Urine 0.2 Negative Poc Nitrite, Urine Negative Negative Poc Leukocytes, Urine Negative Negative Poc Color, Urine Yellow Poc Clarity, Urine Clear 11 Laboratory 02/28/2017 [facility] TSH (Thyroid 4.17 N 0.34- 5.60 12, 13 test finding [address] Stim Horm) mcIU/[place] [address] [phone] Laboratory 12/29/2016 [facility] Rapid SEE RESULT 14, 15 test finding [address] [place] [address] Antigen [phone] Rapid 12/29/2016 [facility] Influenza A NEGATIVE N Negative 16 Influenza A & [address] [place] [place] [address] [phone] Influenza B Molecular NEGATIVE N Negative Laboratory 11/19/2016 [facility] TSH (Thyroid 10.26 High 0.34- 5.60 17, test finding [address] Stim Horm) mcIU/mL 18 [place] [address] [phone] Lipid Profile 11/19/2016 [facility] Triglycerides 126 mg/dL N 19 (Trig/Chol/HD [address] L) [place] [address] [phone] Cholesterol 215 mg/dL N 20 HDL Cholesterol 45.2 mg/dL N 21 LDL Cholesterol 145 mg/dL N 22 Comp Metabolic Panel 11/19/2016 [facility] Sodium 139 mmol/L N 133-[address] [place] [address] [phone] Potassium 3.9 mmol/L N 3.5-5.0 Chloride 105 [...] 79.3 N >60 Egfr 102.0 N >60 23 Xray 02/13/2016 [facility] MRI Shoulder Left <pending> [address] [place] [address] [phone] Laboratory test 09/27/2015 [facility] Urine Culture And SEE RESULT [address] [place] [address] [phone] Laboratory test 07/18/2014 [facility] Lipase 27 U/L N 11.[address] [place] [address] [phone] Magnesium 1.9 mg/dL N 1.9-2.7 TSH (Thyroid Stimulating Horm) 0.44 IU/mL N 0.34-5.60 Laboratory test 07/17/2014 [facility] Troponin I 0.01 ng/mL N <0.[address] [place] [address] [phone] Comp Metabolic 07/17/2014 [facility] Sodium 139 mmol/L N 133- [address] [place] [address] [phone] Potassium 3.7 mmol/L N 3.5-5.0 26 Chloride [...] 91.8 N >60 27 Laboratory test 07/17/2014 [facility] D Dimer 304 ng/mL High Less [address] Quantitative Than 230 [place] [address] [phone] CBC Auto Diff 07/17/2014 [facility] White Blood 6.2 N 4.8- 10.[address] Count 10^3/[place] [address] [phone] Red Blood Count 4.50 10^6/uL N 4.0-5.4 [...] Blood Cells % 0 N Laboratory 06/18/2014 [facility] TSH (Thyroid 14.38 High 0.34- 5.60 test finding [address] Stimulating IU/[place] [address] Horm) [phone] Laboratory 11/12/2013 Follicle 9.3 IU/mL 29 test [...] Egfr 94.8 >60 33 Laboratory test 04/18/2013 [facility] Hemoglobin A1c 5.3 % Less than [address] 6.0 [place] [address] [phone] Lipid Panel 03/26/2013 [facility] Triglycerides 117 mg/dL 40- [address] [place], [place] [address] [phone] Cholesterol 185 mg/dL Less than 200 HDL Cholesterol 41 mg/dL 40-60 35 Cholesterol/HDL Ratio 4.5 Average High 1-4.44 LDL Cholesterol 120.6 High Less Than 100 36 Laboratory test 03/26/2013 [facility] Follicle 21.83 miu/mL [address] [place] [address] Hormone [phone] TSH (Thyroid Stimulating Horm) 8.28 miu/mL High 0.34-5.60 Vitamin D,25 03/26/2013 [facility] 25-Hydroxy Vitamin <4.0 ng/ mL Hydroxy [address] D2 [place] [address] [phone] 25-Hydroxy Vitamin D3 36 ng/mL 25-Hydroxy Vitamin D Total 36 ng/mL 38 CMP Panel 03/26/2013 [facility] Sodium 142 mmol/L 133-[address] [place] [address] [phone] Potassium 4.2 mmol/L 3.5-5.0 Chloride 108 mmol/L [...] Egfr 115.4 >60 39 Laboratory test 12/29/2012 [facility] C Reactive 0.5 mg/dL Less than finding [address] Protein 0.5 [place] [address] [phone] Basic Metabolic 12/29/2012 [facility] Sodium 134 mmol/L 133- [address] [place] [address] [phone] Potassium 3.9 mmol/L 3.5-5.0 Chloride 104 mmol/L 101-111 Co2 Carbon Dioxide 26.0 mmol/L 22-32 Anion Gap 4.0 mmol/L 2-11 Glucose 84 mg/dL 70-100 Blood Urea Nitrogen 18 mg/dL 6-24 Creatinine 0.90 mg/dL 0.50-1.40 BUN/Creatinine Ratio 20.0 8-20 Calcium 9.6 mg/dL 8.1-9.9 Egfr Non- 67.4 >60 Egfr 86.7 >60 40 CBC Auto Diff 12/29/2012 [facility] White Blood 7.3 10^3/uL 4.8-10.[address] [place] [address] [phone] Red Blood Count 4.49 10^6/uL 4.0-5.4 Hemoglobin [...] Red Blood Cells % 0 Laboratory 11/01/2012 [facility] Hepatitis C Nonreactive Nonreactive test finding [address] [place] [address] [phone] HIV 1 2 AB Nonreactive Nonreactive 41 Hepatitis B Jaida 11/01/2012 [facility] Hepatitis B Reactive Nonreactive AB Titer [address] [place], [place] [id number] [phone] Hep B Surf AB Index 9.81 42 Laboratory 11/01/2012 [facility] Hepatitis B Nonreactive Nonreactive test finding [address] [place] [address] Antigen [phone] Laboratory 09/19/2012 [facility] Follicle 5.70 MIU/ML 43 test finding [address] [place] [address] Hormone [phone] Vitamin D, 25 09/19/2012 [facility] 25-Hydroxy <4.0 ng/mL Hydroxy [address] [place] [place] [address] [phone] 25-Hydroxy Vitamin D3 32 ng/mL 25-Hydroxy Vitamin D Total 32 ng/mL 44 Comp Metabolic Panel 09/19/2012 [facility] Sodium 136 mmol/L 133-[address] [place] [address] [phone] Potassium 4.1 mmol/L 3.5-5.0 Chloride 103 mmol/L [...] Egfr Non- 67.4 >60 Egfr 86.7 >60 45 Laboratory test 09/19/2012 [facility] TSH (Thyroid 1.04 0.34- 5.[address] Stimulating miu/[place] [address] Horm) [phone] HSV/VZV Derm 09/19/2012 [facility] hs/VZ Source SKIN PCR [address] [place], [place] [address] [phone] hs/VZ PCR Result See Comment 46 Ua Routine 07/24/2012 [facility] Ua Specific [place] 1.015 Ua PH 5 Ua Color yellow Ua Appera clear Ua WBC neg Ua Protein neg Ua Glucose neg Ua Ketones neg Ua Bilirubin neg Ua Urobilinogen neg Ua Nitrite neg Ua Occult Blood neg Laboratory 07/21/2012 [facility] TSH (Thyroid 12.94 High 0.34- 5.60 test finding [address] Stimulating MIU/[place] [address] Horm) [phone] Vitamin B12 592 pg/mL 180-914 Laboratory test 01/21/2012 [facility] Intrinsic Factor Negative () [address] [place] [address] [phone] Methylmalonic Acid 0.15 nmol/mL <=0.40 48 Vitamin B12 And 2012 [facility] Vitamin B12 245 pg/mL 180-914 Folate Serum [address] [place] [address] [phone] Folic Acid 9.8 NG/ML See Below 49 Laboratory test 2012 [facility] TSH 0.13 MIU/ML Low 0.34 -5.60 [place] [address] [phone] CBC Auto Diff 12/10/2011 [facility] White Blood 6.5 CUMM 4.8- 10.8 [facility] [place] [address] [phone] Red Cell Count 4.39 CUMM 4.2-5.4 Hemoglobin [...] Abs Basophils 0.1 0-0.2 Laboratory test 12/08/2011 [facility] TSH 0.11 MIU/ML Low 0.34 -5.[address] [place] [address] [phone] Laboratory test 10/08/2011 [facility] TSH 0.55 MIU/ML 0.34- 5.[address] [place] [address] [phone] Laboratory test 09/02/2011 [facility] TSH 3.91 MIU/ML 0.34- 5.[address] [place] [address] [phone] Laboratory test 07/29/2011 [facility] TSH 9.96 MIU/ML High 0.34-5.[address] [place] [address] [phone] 1 ADDITIONAL INFORMATION This test has been modified from the button machine operator's instructions. Its performance characteristics were determined by [facility] in a manner consistent with CLIA requirements. This test has not been cleared or approved by the U.S. Food and Drug Administration. Test Performed by: [facility] - [address] [address] 2 ADDITIONAL INFORMATION This test was developed and its performance characteristics determined by [facility] in a manner consistent with CLIA requirements. This test has not been cleared or approved by the U.S. Food and Drug Administration. Test Performed by: [facility] - [address] [address] 3 Accountancy Professor: [id number] 4 Because ethnic data is not always [...] 5 Kidney failure <15 (or dialysis) 11 Accountancy Professor: [id number] 12 6 weeks after increasing levothyroxine dose 13 6 weeks after increasing levothyroxine dose 14 [id number] 15 SEE RESULT BELOW Name: CHRISTIAN BARCLAY : [address]: Geovanni Vila NP Acct: [id number] Unit: [id number] AGE: 51 Location: [facility] Re12/29/16 SEX: F Status: REG REF SPEC: [id number] GE: 12/29/16-[address]: Geovanni Vila NP REQ: [id number] RECD: 12/29/16 STATUS: COMP _ SOURCE: RENEE SPDESC: ORDERED: Flu A B Request COMMENTS: [id number] Procedure Result Reported Site Rapid Influenza A B Request Final 12/29/16- 2211 ML Specimen received for Influenza A/B Molecular testing * ML - MAIN LAB ([facility]) . END OF REPORT * ML=Testing performed at Main Lab DEPARTMENT OF PATHOLOGY, [address] [place] [address] Toby Taveras M.D. Director [facility] # [id number] 16 Accountancy Professor: [id number] FASTING 10 HOUR 18 FASTING 10 HOUR 19 Desirable <150 Borderline high 150-199 High 200-499 Very High >500 20 Desirable <200 Borderline high 200-239 High >239 21 Low <40 Desirable: 40-60 High: >60 22 Desirable: <100 mg/dL Near Optimal: 100-129 mg/dL Borderline High: 130-159 mg/dL High: 160-189 mg/dL Very High: >189 mg/dL 23 Because ethnic data is not always [...] 5 Kidney failure <15 (or dialysis) 24 SEE RESULT BELOW Name: CHRISTIAN BARCLAY : [address]: Amparo Thomason MD Acct: [id number] Unit: [id number] AGE: 50 Location: [facility] Re09/27/15 SEX: F Status: DEP ER SPEC: [id number] GE: 09/27/15-[address] [facility] [address]: Amparo Thomason MD REQ: [id number] RECD: 09/28/15-1231 STATUS: COMP [facility] DR: [facility] Mar[facility]en [facility] MD _ SOURCE: URINE SPDESC: ORDERED: Urine Culture Procedure Result Reported Site Urine Culture Final 09/29/15- 1313 ML No Growth (<1,000 CFU/mL) * ML - MAIN LAB ([facility]) . END OF REPORT * ML=Testing performed at Main Lab DEPARTMENT OF PATHOLOGY, [address] [place] [address] Toby Taveras M.D. Director [facility] # [id number] 25 Reference Range and Interpretation: TnI (ng/mL) Interpretation Less Than 0.03 ng/mL Not supportive of diagnosis of [place] 0.03 - 0.50 ng/mL Indeterminate: suggest serial studies if clinically indicated. Greater than 0.5 ng/mL Consistent with diagnosis of [place] 26 Potassium reference range changed effective 07/14/14 [...] failure <15 (or dialysis) 28 Verbal to [id number] by [id number] at 1840 on 07/17/14. Results read back [...] this range. Test Performed by: [facility] [place] [address] Cdl Flatbed Truck Driver: Anibal Valdes III, M.D. 33 Because ethnic [...] and in selective patients <6.0%.Please refer to [place] Diabetes [employer] Diabetic care guidelines for further [...] normal population are 25-80 Test Performed by: [place] [address] Cdl Flatbed Truck Driver: Anibal Valdes III, M.D. 39 Because ethnic [...] in accordance with the CDC guidelines. 43 Normally menstruating females - Follicular phase 3 - 9 - Mid-cycle peak 4 - 23 - Luteal phase 1 - 6 Postmenopausal females 16 - 114 44 -- REFERENCE VALUE -- 25-HYDROXY D TOTAL (D2+D3) Optimum levels in the normal population are 25-80 Test Performed by: [address] [address] Cdl Flatbed Truck Driver: Anibal Valdes III, M.D. 45 Because ethnic data is not always readily [...] 15-29 5 Kidney failure <15 (or dialysis) 46 Herpes simplex type II DNA detected. Negative for Varicella zoster DNA. -- REFERENCE VALUE -- Not applicable Analyte Specific Reagent. This test was developed and its performance characteristics determined by [facility]. It has not been cleared or approved by the U.S. Food and Drug Administration. Test Performed by: [facility] [place] [address] Cdl Flatbed Truck Driver: Anibal Valdes III, M.D. 47 Positive in 50% of persons with pernicious anemia. -- REFERENCE VALUE -- Negative Test Performed by: [facility] Dpt of Lab Med and Pathology [address] [place] [address] Cdl Flatbed Truck Driver: Anibal Valdes III, M.D. 48 Test Performed by: [facility] Dpt of Lab Med and Pathology [address] [place] [address] Cdl Flatbed Truck Driver: Anibal Valdes III, M.D. 49 Please note: New reference range, effective 09/02/11 NORMAL REFERENCE RANGE: GREATER THAN 4.1 NG/ML Procedures Date Code Description Status 12/25/2018 91572 Chemodenervation Of Muscles Innervated By Facial Completed Nerves, Bilat 09/07/2018 17310 Chemodenervation Of Muscles Innervated By Facial Completed Nerves, Bilat 06/06/2018 53122 Chemodenervation Of Muscles Innervated By Facial Completed Nerves, Bilat 03/02/2018 43087 Chemodenervation Of Muscles Innervated By Facial Completed Nerves, Bilat 04/08/2016 [id number] Colonoscopy Completed 03/12/2016 [id number] Mammogram Completed 12/19/2015 50875 Inject/Drain Joint/Bursa Major W/O US Completed 08/05/2014 54533 Holter Monitor Review (24 hr)dr parra & interp only Completed 07/18/2014 39744 EKG Tracing & Interpretation Completed 07/04/2014 [id number] Mammogram Completed 04/04/2014 65924 Removal Skin Tags Up To 15 Completed 02/27/2014 83995 Injection For Nerve Block, Greater Occipital Nerve Completed 06/12/2013 [id number] Mammogram Completed 10/26/2011 71221 EKG Tracing & Interpretation Completed Encounters Type Date Location Provider Dx Diagnosis Office Visit 12/15/2018 [facility] Internal Yuko Acuña, H66.91 Otitis media, 3:40p Medicine N.PAna Laura unspecified, right ear F17.210 Nicotine dependence, cigarettes, uncomplicated Office Visit 09/21/2018 2:40p [facility] Internal Maricarmen I10 Essential ( primary) Medicine Dylon Cruz hypertension J30.9 Allergic rhinitis, unspecified J01.90 Acute sinusitis, unspecified R53.83 Other fatigue E03.9 Hypothyroidism, unspecified Office Visit 06/29/2018 10:40a [facility] Internal Mar[place]en I10 Essential ( primary) Jolene Cruz M.D. hypertension E03.9 Hypothyroidism, unspecified F33.0 Major depressive disorder, recurrent, mild H69.90 Unspecified Eustachian tube disorder, unspecified ear Office Visit 05/30/2018 2:20p [facility] Internal Maricarmen I10 Essential ( primary) Jolene Cruz M.D. hypertension E03.9 Hypothyroidism, unspecified H93.13 Tinnitus, bilateral Office Visit 05/04/2018 10:45a Orthopedic Parag F M25.561 Pain in Services Of Sandeep Meek MD right knee M17.11 Unilateral primary osteoarthritis, right knee Office Visit 05/04/2018 [facility] Internal Maricarmen E03.9 Hypothyroidism, 2:40p Jolene Cruz M.D. unspecified R03.0 Elevated blood-pressure reading, w/o diagnosis of htn M17.11 Unilateral primary osteoarthritis, right knee Office Visit 04/06/2018 [facility] Internal Maricarmen E03.9 Hypothyroidism, 3:40p Jolene Cruz M.D. unspecified I10 Essential (primary) hypertension Z68.34 Body mass index (BMI) 34.0-34.9, adult Office Visit 02/17/2018 10:40a [facility] Internal Mar[place]armen R61 Generalized Medicine Dylon Cruz hyperhidrosis E03.9 Hypothyroidism, unspecified E78.5 Hyperlipidemia, unspecified R10.11 Right upper quadrant pain R10.31 Right lower quadrant pain Office Visit 01/26/2018 [facility] Darrinallie G43.019 Migraine w/o 11:15a Gunnar Winston M.D. aura, Services Of [facility] intractable, without status migrainosus Office Visit 06/23/2017 [facility] Internal Geovanni Vila NP J01.90 Acute sinusitis , 1:00p Medicine unspecified R11.0 Nausea H92.03 Otalgia, bilateral Office Visit 04/11/2017 2:40p [facility] Internal Maricarmen Cruz R63.5 Abnormal weight Medicine Dylon gain Office Visit 03/14/2017 4:00p [facility] Internal Maricarmen Cruz R63.5 Abnormal weight Medicine M.DAna Laura gain R09.81 Nasal congestion Office Visit 12/29/2016 4:20p [facility] Internal Geovanni Vila, R50.9 Fever, unspecified Medicine ORAL AND MAXILLOFACIAL SURGERY J06.9 Acute upper respiratory infection, unspecified Office Visit 12/16/2016 3:30p [facility] Gunnar Kline M54.81 Occipital Services Of [facility] Dylon France neuralgia G43.109 Migraine with aura, not intractable, w/o status migrainosus Office Visit 11/26/2016 11:40a [facility] Internal Maricarmen J01.90 Acute sinusitis, Medicine Dylon Cruz unspecified K62.5 Hemorrhage of anus and rectum Office Visit 11/25/2016 2:40p [facility] Internal Subhash Alejo Dizziness and Medicine - [place]ylon [place] Office Visit 11/01/2016 10:00a [facility] Internal Geovanni Vila NP F41.9 Anxiety disorder, Medicine unspecified Office Visit 10/12/2016 11:20a [facility] Internal Geovanni Vila NP F41.9 Anxiety disorder, Medicine unspecified J01.90 Acute sinusitis, unspecified Office Visit 09/16/2016 5:30p [facility] Internal Geovanni Vila J06.9 Acute upper Medicine ORAL AND MAXILLOFACIAL SURGERY respiratory infection, unspecified R11.2 Nausea with vomiting, unspecified Office Visit 07/22/2016 Bogdan Kline S06.0x1S Concussion w Loc 11:15a Neurologic yDlon France of 30 minutes or Services Of [facility] less, sequela M54.81 Occipital neuralgia G43.109 Migraine with aura, not intractable, w/o status migrainosus G43.109 Migraine with aura, not intractable, w/o status migrainosus M54.81 Occipital neuralgia Office Visit 03/18/2016 Bogdan Kline G43.019 Migraine w/o aura, 9:45a Neurologic Dylon France intractable, Services Of [facility] without status migrainosus Office Visit 02/16/2016 Orthopedic [...] of left shoulder Office Visit 10/02/2015 11:20a [facility] Internal Yuko Varn, R10.11 Right upper Medicine N.P. quadrant pain R10.31 Right lower quadrant pain J34.89 Other specified disorders of nose and nasal sinuses R19.7 Diarrhea, unspecified Office Visit 05/12/2015 8:20a Orthopedic Capo Jaeger, 844.9 Sprains & Strains Services Of M.D. Knee & Leg Unspec C.M.A. Office Visit 05/01/2015 9:00a Orthopedic Vicky Manning4.9 Sprains & Strains Services Of [facility] Knee & Leg Unspec C.M.A. Office Visit 03/25/2015 8:30a [facility] Gunnar Kline 346.02 Migraine Services Of [facility] Mary France/Aura,W/Out Dylon Mention Of Intractable Migraine 346.00 Migraine Classical W/O Intractable W/O Status Migrainosus Office Visit 02/04/2015 9:40a [facility] Internal James Rosa, 478.9 Upper Resp Medicine - [place] M.D. Tract Disease Rd Other & Unspec 386.10 Vertigo Peripheral Unspec 465.9 URI Upper Respiratory Infections Acute Unspec Sites Office Visit 01/30/2015 10:40a [facility] Internal Geovanni Cadence, 381.81 Eustachian Tube Medicine ORAL AND MAXILLOFACIAL SURGERY Dysfunction 787.91 Diarrhea Office Visit 01/24/2015 9:00a [facility] Internal Geovanni Cadence, ORAL AND MAXILLOFACIAL SURGERY 847.2 Sprains & Medicine Strains Lumbar Office Visit 12/23/2014 10:00a [facility] Internal Geovanni Cadence, ORAL AND MAXILLOFACIAL SURGERY 847.2 Sprains & Medicine Strains Lumbar Office Visit 11/25/2014 10:00a [facility] Internal Geovanni Cadence, ORAL AND MAXILLOFACIAL SURGERY 847.2 Sprains & Medicine Strains Lumbar Office Visit 10/31/2014 9:40a [facility] Internal Maricarmen Anthony 847.2 Sprains & Medicine Ayad.DAna Laura Strains Lumbar 847.2 Sprains & Strains Lumbar Office Visit 10/16/2014 1:20p [facility] Internal [place] 847.2 Sprains & Strains Jolene Cruz M.D. Lumbar Office Visit 09/26/2014 11:20a [facility] Internal Mar[place]en 487.8 Influenza W/ Other Medicine Dylon Cruz Manifestations 783.1 Weight Gain Abnormal Office Visit 07/18/2014 [facility] Internal Mar[place] 794.31 Electrocardiogram 4:00p Jolene Cruz M.D. (ECG) (EKG) Abnormal 789.00 Pain Abdominal Unspec Site Office Visit 07/02/2014 9:45a Bogdan Kline 346.91 Migraine Unspec Neurologic Dylon France W/ Intractable Services Of [facility] W/O Status Migrainosus Office Visit 06/18/2014 1:40p [facility] Internal [place] V70.0 Examination Jolene Cruz M.D. General Medical Routine AT Health Care Facility 244.9 Hypothyroidism Other Unspec V76.10 Screening For Malignant Neoplasm Breast 311 Depressive Disorder Not Elsewhere Spec V04.81 Need For Prophylactic Vaccination & Inoculation/Influenza V06.1 Fsrceltodg-Hlddegn-Aeltitqs Combined (DTaP) Office Visit 05/07/2014 Bogdan Kline 346.93 Migraine 2:30p Neurologic Dylon France Unspecified, Services Of [facility] W/Intractable Migraine Office Visit 02/27/2014 Bogdan Olivares 346.93 Migraine 8:15a Neurologic Dylon Lau Unspecified, Services Of [facility] W/Intractable Migraine Office Visit 02/21/2014 Bogdan Kline 346.93 Migraine 11:45a Neurologic Dylon [place] Unspecified, Services Of [facility] W/Intractable Migraine 386.10 Vertigo Peripheral Unspec Office Visit 12/24/2013 9:00a [facility] Internal Mar[place]en 461.8 Sinusitis Acute Medicine Dylon Cruz Other 782.1 Rash & Other Nonspec Skin Eruption 244.9 Hypothyroidism Other Unspec 309.9 Adjustment Reaction Unspec Office Visit 12/04/2013 1:00p [facility] Internal [place] 386.10 Vertigo Medicine Dylon Cruz Peripheral Unspec 300.00 Anxiety State Unspec 782.1 Rash & Other Nonspec Skin Eruption 244.9 Hypothyroidism Other Unspec Office Visit 11/12/2013 11:20a [facility] Internal [place] 461.8 Sinusitis Acute Jolene Cruz M.D. 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 Respiratory Infections Acute Unspec Sites Office Visit 09/25/2012 8:40a [facility] Internal Stacy Serna, 620.2 Ovarian Cyst Medicine Dylon Other & Unspec 054.9 Herpes Simplex W/O Complication Office Visit 09/19/2012 11:00a [facility] Internal Yuko Acuña, 054.9 Herpes Simplex W/O Medicine N.P. Complication Office Visit 07/28/2012 9:40a [facility] Internal Stacy Serna, 245.2 Thyroiditis Chronic Medicine M.D. Lymphocytic 620.2 Ovarian Cyst Other & Unspec 592.0 Calculus Of Kidney 626.0 Menstruation Absence 110.4 Dermatophytosis Foot 311 Depressive Disorder Not Elsewhere Spec Office Visit 07/24/2012 8:40a [facility] Internal Stacy Serna, 599.70 Hematuria, Medicine M.D. Unspecified 346.80 Migraine Other W/O Intractable W/O Status Migrainosus 493.90 Asthma Unspec W/O Status Asthmaticus 245.2 Thyroiditis Chronic Lymphocytic Office Visit 01/21/2012 9:40a [facility] Internal Stacy Serna, 266.9 Vitamin B Medicine M.D. Deficiency Unspec 477.9 Rhinitis Allergic Cause Unspec Office Visit 2012 9:40a [facility] Internal Stacy Serna, 354.0 Carpal Tunnel Medicine M.D. Syndrome 245.2 Thyroiditis Chronic Lymphocytic Office Visit 12/10/2011 10:00a [facility] Internal Stacy Serna, 493.92 Asthma Unspec W/ Medicine M.D. Acute Exacerbation Office Visit 12/01/2011 3:20p [facility] Internal Stacy Serna, 245.2 Thyroiditis Chronic Medicine M.D. 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 Office Visit 10/08/2011 8:40a [facility] Internal Stacy Serna, 311 Depressive Medicine M.D. Disorder Not Elsewhere Spec 245.2 Thyroiditis Chronic Lymphocytic 079.99 Viral Infection Unspec Office Visit 09/03/2011 8:40a DO Not Use Stacy Serna, 245.2 Thyroiditis Roll Wrapper-Peggy Lion.DAna Laura Chronic Lymphocytic 311 Depressive Disorder Not Elsewhere Spec Office Visit 08/17/2011 8:40a DO Not Use Stacy Serna, 311 Depressive Roll Wrapper-Erath M.D. Disorder Not Elsewhere Spec Office Visit 08/03/2011 3:20p DO Not Use Stacy Serna, 053.29 Herpes Zoster Mindy-Peggy Osborne Other 346.80 Migraine Other W/O Intractable W/O Status Migrainosus Office Visit 07/29/2011 10:00a DO Not Use Stacy Serna, 311 Depressive [facility]-Peggy Osborne Disorder Not Elsewhere Spec 245.2 Thyroiditis Chronic Lymphocytic Plan of Treatment Future Appointment(s):07/09/2019 10:00 am - Maricarmen Cruz M.D. at [facility] Internal Xpnpgrci67/17/2019 1:30 pm - Bryan Winston M.D. at [facility]03/22/2019 1:30 pm - Bryan Winston M.D. at [facility]01/01/2019 - Maricarmen Cruz M.D.Z00.00 Encounter for general adult medical examination without abnoComments:VACCINES: Flu shot : recommended every year in the fall.Tetanus: last one done in 2013, booster every10 years, earlier if major injuryPneumonia vaccine: recommended for people with asthmaShingles vaccine: There is a new shingles vaccine - Shingrix. Recommended at age 50. This is available at pharmacies. Series of 2 shots, given 2-6 months apart. Most people get a flu-like reaction. Cost is about $400- call your insurance about coverage. SCREENING:Colonoscopy: last one done in 2015, next due in 2020Mammogram: last one on file - 2015. Do this yearPap smear: not needed after hysterectomyCholesterol: last checked in 2018, LDL ("bad cholesterol") was highHIV screening: recommended for all adultsFollow up:6 months for blood jwnvxdydH53.31 Encounter for screening mammogram for malignant neoplasm ofNew Xrays:MG Screening Mammogram, Ordered: 01/01/19
--- OUTSIDE RECORDS SUMMARY | 2019-01-10 23:28 | XMS REPORT | Continuity of Care Document ---
:1965 External Reference #:[id number] Author Name JonesDixie rudd Care Team Providers Name Role Phone Maricarmen Cruz MD Primary Care Physician Unavailable Payers Date Identification Numbers Payment Provider Subscriber Effective: 2011 Policy Number: [id number] [facility] Christian Barclay PayID: [id number] [address] [place] [address] Effective: 2016 Policy Number: [facility] Christian Barclay [id number] Onset: 2016 Group Number: fax [phone] [address] [address] PayID: [place] [address] Effective: 2014 Policy Number: [facility] Christian Barclay [id number] Onset: 2014 Group Number: [id number] [address] [address] PayID: [place] [address] Onset: 2015 Policy Number: [id number] [facility] Christian Barclay Group Name: [phone] [address] [address] PayID: [place] [address] Advance Directives Description No Information Available Problems [...] With and adopted grandson 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 Hand Dominance Right-handed ETOH Use Denies alcohol use Tobacco Use Start: Unknown End: Patient is a former quit 06/29/11 Unknown smoker Recreational Drug Use Denies Drug Use Smoking Status Reviewed: 12/15/18 Patient is a former quit 06/29/11 smoker Exercise Type/Frequency Exercises regularly Allergies, Adverse Reactions, Alerts Date Description Reaction Status Severity Comments 07/29/2011 Sulfa swelling around her eyes Active Moderate 07/29/2011 NKDA Inactive Medications Medication Date Status Form Strength Qnty SIG Indications Ordering Provider Azithromycin 12/15 Active Tablets 250mg 6tabs two tabs H66.91 day one, Varn, N.P. one daily till gone Chantix Starting 12/15 Active Tablets 0.5mg X 30tab take as F17.210 11 & 1 mg s directed Varn, N.P. X 42 (0.5 mg by mouth daily x3 days, 0.5 mg twice a day x 4 days, then 1 mg twice a day up to three months) Augmentin 09/21 Active Tablets 875-125mg 30tab one by J01.90 s cristian Cruz M.D. every 12 hours for 10 days Sumatriptan 09/07 Active Tablets 100mg 12tab 09/13 to 1 Christoph s po emmy Winston M.D. migraine max 2/day, max 2 d/wk Diclofenac-Misop 08/[address] 75-0.2mg 90tab Take 1 M17.11 Maricarmen rost s Tablet By Dylon Cruz Mouth 3 [...] Valacyclovir HCL Active Tablets 1gm take 1 Unknown / tablet by mouth three times a day Contrave 07/30 Hx Tablets ER 8-90mg 70tab [...] DR 75-0.2mg 90tab Take 1 M17.11 Maricarmen /2018 s tablet Dylon Cruz - 3-4 times 08/20 daily needed for pain Losartan 04/07 Hx Tablets 25mg 30tab 1 by I10 Maricarmen Potassium s mouth Dylon Cruz - every day 05/03 Chlorthalidone 04/06 Hx Tablets 25mg 15tab 1/2 tab I10 Maricarmen s by mouth Dylon Cruz - every day 04/07 Levothyroxine 02/20 Hx Tablets 88mcg 30tab 1 by Maricarmen Sodium s mouth Dylon Cruz - every day 04/06 Amoxicillin/Clav 06/23 Hx Tablets 875-125mg 20tab take one J01.90 narcisa Lynne s tablet TICKET ATTENDANT Potassium - q12 hours 01/23 for days Ondansetron 06/23 Hx Tablets 4mg 30tab dissolve R11.0 Geovanni Vila Dispers s one TICKET ATTENDANT - tablet 05/03 orally every 8 hours as needed for nausea. Benzonatate 06/23 Hx Capsules 200mg 30cap one by J01.90 Geovanni Vila s mouth TICKET ATTENDANT - three 06/30 times daily as needed [...] 30tab 1 by Crystal Lynne s mouth TICKET ATTENDANT - every 02/20 day- states she is taking 75 mcg as of 01/26/18 Amoxicillin/Clav 11/26 Hx Tablets 875-125mg 20tab 1 tablet J01.90 Maricarmen arron s twice Dylon Cruz Potassium - daily for 12/12 10 Levothyroxine 11/22 Hx Tablets 75mcg 30tab 1 by Geovanni Vila Sodium s mouth TICKET ATTENDANT - every day 03/02 Diazepam 10/12 Hx Tablets 2mg 30tab take 09/13 F41.9 Geovanni Vila s tablet by TICKET ATTENDANT - mouth as 12/12 needed for anxiety maximum daily dose=1 tablet Doxycycline 10/12 Hx Capsules 100mg 20cap one J01.90 Leslie Lynne s tablet TICKET ATTENDANT - twice 10/19 daily for 10 days. Ondansetron 09/16 Hx Tablets 4mg 30tab dissolve R11.2 Geovanni Vila Dispers s one TICKET ATTENDANT - tablet 11/26 orally every 8 hours as needed for nausea. Amoxicillin/Clav 09/16 Hx Tablets 875-125mg 20tab take one J06.9 Geovanni Vila ulanat s tablet TICKET ATTENDANT Potassium - q12 hours 09/27 for days Fluticasone 09/16 Hx Suspension 50mcg/Act 16gm 2 J06.9 Geovanni Vila intranasa TICKET ATTENDANT - l puffs 12/12 once daily Meloxicam 02/15 Hx Tablets 15mg 60tab 1 by M25.512 Dalia s cristian He M.D. - every day 10/12 Naproxen 01/27 Hx Tablets 500mg 60tab 1 tablet s by mouth Dylon Dubon - with food 12/16 twice daily. TENS Unit 01/18 Hx use tid M25.512 Dalia maya He M.D. - shoulder 12/12 pain Amitriptyline 03/25 Hx Tablets 10mg 270ta 2-3 G43.101 Bhavya BUSTILLO bs tablets Edilma, - by mouth M.D. 11/26 at bedtime as directed Note: Refills change to #3, per Dr. [place] (not taking) Verapamil HCL 03/25 Hx Tablets 40mg 180ta 1-2 tab G43.101 Bhavya Kline /2014 bs by mouth Edilma, - every day M.D. 11/26 directed (not taking) Levofloxacin 02/04 Hx Tablets 500mg 7tabs 1 tablt 478.9 James by mouth Dylon Rosa - every day 02/19 Prednisone 02/04 Hx Tablets 5mg 15tab 1 by 478.9 James s cristian Rosa M.D. - three 03/24 times a day Fluticasone 01/30 Hx Suspension 50mcg/Act 16gm 1 sprays 381.81 Geovanni Vila Propionate each TICKET ATTENDANT - nostril 10/02 bid for weeks. Medrol (Gopi) 11/25 Hx Tablets 4mg 21tab take 6 847.2 Geovanni Vila s tabs day TICKET ATTENDANT - 1, 5 tabs 11/30 day 2, [...] 10mg 60tab 2 tablets Khanh S. HCL /2013 s po at [place], - bedtime M.D. 10/31 Sumatriptan 02/27 Hx Tablets 100mg 12tab 1/2-1 tab G43.009 Bhavya Kline Succinate s by mouth Edilma, - as needed M.D. 12/12 Ondansetron 02/27 Hx Tablets 4mg 30tab 1 po Khanh S. /2014 Dispers s three Sid, - times a M.D. 10/12 day needed for nausea Zolmitriptan 02/06 Hx Tablets 2.5mg 12tab 1 PO qd 346.10 Maricarmen /2014 s prn, take Dylon Cruz - at the 02/10 start headache Cefdinir 12/24 Hx Capsules 300mg Dylon Cruz - 01/04 Fluticasone 12/24 Hx Suspension 50mcg/Act 16gm 2 461.8 Maricarmen Propionate intranfrandy Cruz M.D. - l puffs 01/30 daily Triamcinolone 12/24 Hx Cream 0.1% 30gm apply 782.1 Acet thin film Dylon Cruz - to feet 12/24 daily Ketoconazole 12/24 Hx Cream 2% 60gm apply 782.1 thin film Dylon Cruz - twice 02/10 Triamcinolone 12/04 Hx Cream 0.1% 30gm apply 782.1 onide thin film Dylon Cruz - to feet 12/24 daily Bupropion HCL ER 12/04 Hx Tablets ER 150mg 30tab 1 PO qd 300.00 Maricarmen (XL) 24HR s Dylon Cruz - 12/24 Proair HFA 11/12 Hx Aerosol 108(90Bas 8.500 2 puffs Stacy Serna, e) gm po q4h M.DAna Laura - mcg/Act prn 02/10 Fluticasone 11/12 Hx Suspension 50mcg/Act 16gm 2 461.8 cely Cruz M.D. - l puffs 12/24 daily Amoxicillin 11/12 Hx Capsules 500mg 30cap 1 tab po 461.8 s tid for Dylon Cruz - 10 days 12/03 Zolmitriptan Odt 11/12 Hx Tablets 2.5mg 12tab 1 PO qd 346.10 Dispers s prn, nishi Cruz M.D. - at the 02/06 headache Levothyroxine 03/29 Hx Tablets 112mcg 90tab 1 by Geovanni Vila s mouth TICKET ATTENDANT - every day 11/22 Loratadine-D 03/26 Hx Tablets ER 10-240mg 30tab take 1 995.3 Stacy Serna, R 24HR s tablet M.D. - daily as 03/26 needed for allergy Bertin 03/26 Hx Capsules 60mg 90cap take 1 278.00 Stacy Serna s capsule M.D. - by mouth 11/12 3 times per day with meals for weight loss Levocetirizine 03/26 Hx Tablets 5mg 90tab Take 1 995.3 Stacy Serna s tablet by M.D. - mouth 11/12 daily in the evening Ipratropium 12/14 Hx Solution 0.06% 15ml 2 sprays 465.9 Yuko [place] in each Varn, N.P. - nostril 12/28 tid until better Valtrex 09/19 Hx Tablets 500mg 90tab Take 1 054.9 Stacy Serna s tablet M.D. - daily 09/26 Neurontin 09/19 Hx Capsules 300mg 30cap 1 capsule 054.9 Yuko /2013 s po at Varn, N.P. - bedtime [...] by M.D. - mouth 2 11/12 times day for arthritis prn Misoprostol [...] Tablets 100mg 9tabs Take 1 346.80 Stacy Serna, / tablet as M.D. - needed 11/12 [...] mouth - every day 12/12 prn - /2016 mainly in summer Ibuprofen Hx Capsules 200mg [...] Indications Ordering Provider Injection 09/07 Administered Injection Darrinophmaribel Onabotulinumtoxi Dylon Winston A, 1 Unit Injection 06/06 Administered Injection Christopher Onabotulinumtoxi Dylon Winston, 1 Unit Injection 03/02 Administered Injection Bryan Onabotulinumtoxi Dylon Winston A, 1 Unit Depomedrol 40MG 12/18 Administered Injection Dalia Dylon He Injection,Lidoca 02/27 Administered Injection Khanh BUSTILLO Kike Lau M.D. Infusion,10 MG Immunizations CPT Code Status Date Vaccine Lot # [id number] Given 06/18/2014 Tdap - Tetanus/Diptheria/Acellular Pertussis [id number] Given 06/18/2014 Influenza Virus Vaccine, Quadrivalent, Split, [id number] Preservative Free Vital Signs Date Vital Result Comment 12/15/2018 3:38pm Height 64.5 inches 5'4.50" Weight [...] Result H/L Range Note Herpes Simplex 11/04/2018 [facility] Herpes Source RIGHT BUTTOCK PCR [address] [place] [address] [phone] HSV 1 PCR Negative Negative HSV 2 PCR Positive Abnormal Negative 1 Varicella Zoster 11/04/2018 [facility] Varicella Zoster RIGHT BUTTOCK Culture [address] [place] [address] [phone] Varicella Zoster Result Negative Negative 2 Laboratory test 11/01/2018 [facility] TSH (Thyroid 3.35 mcIU/mL N 0.34-5.[address] Stim Horm) [place] [address] [phone] Free T4 (Free Thyroxine) 1.13 ng/dL High 0.61-1.12 Rapid Influenza 10/03/2018 [facility] Influenza A NEGATIVE Negative 3 A & B Molecular [address] [place] [address] [phone] Influenza B Molecular NEGATIVE Negative Laboratory test 06/29/2018 [facility] TSH (Thyroid 0.12 Low 0.34-5.[address] [place] [address] DRIVE Stim Horm) mcIU/[place] [address] [phone] Free T4 (Free Thyroxine) 1.17 ng/dL High 0.61-1.12 Basic Metabolic Panel 06/29/2018 [facility] Sodium 144 mmol/L N 135-145 [address] [place] [address] [phone] Potassium 4.8 mmol/L N 3.5-5.0 Chloride 109 mmol/L N 101-111 Co2 Carbon Dioxide 29 mmol/L N 22-32 Anion Gap 6 mmol/L N 2-11 Glucose 87 mg/dL N 70-100 Blood Urea Nitrogen 14 mg/dL N 6-24 Creatinine 0.78 mg/dL N 0.51-0.95 BUN/Creatinine Ratio 17.9 N 8-20 Calcium 9.8 mg/dL N 8.6-10.3 Egfr Non- 77.6 >60 Egfr 93.8 >60 4 Laboratory test 05/04/2018 [facility] TSH (Thyroid 0.10 Low 0.34-5.[address] Stim Horm) mcIU/[place] [address] [phone] Laboratory test 04/06/2018 [facility] TSH (Thyroid <pending> finding Stim Horm) [place] [address] [phone] Free T4 (Free Thyroxine) <pending> Laboratory test 02/17/2018 [facility] FSH (Follicle 107.1 mIU/ mL 5 finding Stim Hormone) [place] [address] [phone] TSH (Thyroid Stim Horm) 19.88 mcIU/mL High 0.34-5.60 Lipid Profile 02/17/2018 [facility] Triglycerides 100 mg/dL 6 (Trig/Chol/HDL) [address] [place] [address] [phone] Cholesterol 234 mg/dL 7 HDL Cholesterol 52.2 mg/dL 8 LDL Cholesterol 162 mg/dL 9 Comp Metabolic Panel 02/17/2018 [facility] Sodium 142 mmol/L N 139-[address] [place] [address] [phone] Potassium 4.1 mmol/L N 3.5-5.0 Chloride 105 [...] 94.1 >60 10 CBC Auto Diff 02/17/2018 [facility] White Blood 5.8 10^3/uL N 3.5-10.[address] [place] [address] [phone] Red Blood Count 4.54 10^6/uL N 4.0-5.4 [...] Blood Cells % 0 Poc Urinalysis 08/13/2017 [facility] Poc Glucose, Negative Negative [address] [place] [address] [phone] Poc Bilirubin, Urine Negative Negative Poc Ketone, Urine Negative Negative Poc Specific [place], Urine 1.020 N 1.010-1.030 Poc Blood, Urine Trace-intact Abnormal Negative Poc pH, Urine 6.0 N 5-9 Poc Protein, Urine Negative Negative Poc Urobilinogen, Urine 0.2 Negative Poc Nitrite, Urine Negative Negative Poc Leukocytes, Urine Negative Negative Poc Color, Urine Yellow Poc Clarity, Urine Clear 11 Laboratory 02/28/2017 [facility] TSH (Thyroid 4.17 N 0.34- 5.60 12, 13 test finding [address] Stim Horm) mcIU/[place] [address] [phone] Rapid 12/29/2016 [facility] Influenza A NEGATIVE N Negative 14 Influenza A & [address] Molecular B Molecular [place], [place] [id number] [phone] Influenza B Molecular NEGATIVE N Negative Laboratory test 12/29/2016 [facility] Rapid SEE RESULT 15, [address] Influenza [place] [address] Antigen [phone] Comp Metabolic 11/19/2016 [facility] Sodium 139 mmol/L N 133- 1 [address] [place] [address] [phone] Potassium 3.9 mmol/L N 3.5-5.0 Chloride 105 [...] 102.0 N >60 18 Lipid Profile 11/19/2016 [facility] Triglycerides 126 mg/dL N 19 (Trig/Chol/HDL) [address] [place], [place] [address] [phone] Cholesterol 215 mg/dL N 20 HDL Cholesterol 45.2 mg/dL N 21 LDL Cholesterol 145 mg/dL N 22 Laboratory 11/19/2016 [facility] TSH (Thyroid 10.26 High 0.34- 5.60 23 test finding [address] Stim Horm) mcIU/mL [place], [place] [address] [phone] Xray 02/13/2016 [facility] MRI Shoulder <pending> [address] [place] [address] [phone] Laboratory 09/27/2015 [facility] Urine Culture SEE RESULT 24 test finding [address] [place] [address] Sensitivities [phone] Laboratory 07/18/2014 [facility] Lipase 27 U/L N 11.0-82.0 test finding [address] [place], [place] [address] [phone] Magnesium 1.9 mg/dL N 1.9-2.7 TSH (Thyroid Stimulating Horm) 0.44 IU/mL N 0.34-5.60 Laboratory test 07/17/2014 [facility] Troponin I 0.01 ng/mL N <0.[address] [place] [address] [phone] Comp Metabolic 07/17/2014 [facility] Sodium 139 mmol/L N 133- [address] [place] [address] [phone] Potassium 3.7 mmol/L N 3.5-5.0 26 Chloride [...] 91.8 N >60 27 Laboratory test 07/17/2014 [facility] D Dimer 304 ng/mL High Less [address] Quantitative Than 230 [place] [address] [phone] CBC Auto Diff 07/17/2014 [facility] White Blood 6.2 N 4.8- 10.[address] Count 10^3/[place] [address] [phone] Red Blood Count 4.50 10^6/uL N 4.0-5.4 [...] Blood Cells % 0 N Laboratory 06/18/2014 [facility] TSH (Thyroid 14.38 High 0.34- 5.60 test finding [address] Stimulating IU/[place] [address] Horm) [phone] Laboratory 11/12/2013 Follicle 9.3 IU/mL 29 test [...] Egfr 94.8 >60 33 Laboratory test 04/18/2013 [facility] Hemoglobin A1c 5.3 % Less than [address] 6.0 [place] [address] [phone] Lipid Panel 03/26/2013 [facility] Triglycerides 117 mg/dL 40- [address] [place] [address] [phone] Cholesterol 185 mg/dL Less than 200 HDL Cholesterol 41 mg/dL 40-60 35 Cholesterol/HDL Ratio 4.5 Average High 1-4.44 LDL Cholesterol 120.6 High Less Than 100 36 Laboratory test 03/26/2013 [facility] Follicle 21.83 miu/mL [address] [place] [address] Hormone [phone] TSH (Thyroid Stimulating Horm) 8.28 miu/mL High 0.34-5.60 Vitamin D,25 03/26/2013 [facility] 25-Hydroxy Vitamin <4.0 ng/ mL Hydroxy [address] D2 [place] [address] [phone] 25-Hydroxy Vitamin D3 36 ng/mL 25-Hydroxy Vitamin D Total 36 ng/mL 38 CMP Panel 03/26/2013 [facility] Sodium 142 mmol/L 133-[address] [place] [address] [phone] Potassium 4.2 mmol/L 3.5-5.0 Chloride 108 mmol/L [...] Egfr 115.4 >60 39 Laboratory test 12/29/2012 [facility] C Reactive 0.5 mg/dL Less than finding [address] Protein 0.5 [place] [address] [phone] Basic Metabolic 12/29/2012 [facility] Sodium 134 mmol/L 133- [address] [place] [address] [phone] Potassium 3.9 mmol/L 3.5-5.0 Chloride 104 mmol/L 101-111 Co2 Carbon Dioxide 26.0 mmol/L 22-32 Anion Gap 4.0 mmol/L 2-11 Glucose 84 mg/dL 70-100 Blood Urea Nitrogen 18 mg/dL 6-24 Creatinine 0.90 mg/dL 0.50-1.40 BUN/Creatinine Ratio 20.0 8-20 Calcium 9.6 mg/dL 8.1-9.9 Egfr Non- 67.4 >60 Egfr 86.7 >60 40 CBC Auto Diff 12/29/2012 [facility] White Blood 7.3 10^3/uL 4.8-10.[address] [place] [address] [phone] Red Blood Count 4.49 10^6/uL 4.0-5.4 Hemoglobin [...] Red Blood Cells % 0 Laboratory 11/01/2012 [facility] Hepatitis C Nonreactive Nonreactive test finding [address] [facility] [place] [address] [phone] HIV 1 2 AB Nonreactive Nonreactive 41 Hepatitis B Jaida 11/01/2012 [facility] Hepatitis B Reactive Nonreactive AB Titer [address] [facility] [place] [address] [phone] Hep B Surf AB Index 9.81 42 Laboratory 11/01/2012 [facility] Hepatitis B Nonreactive Nonreactive test finding [address] [place] [address] Antigen [phone] Comp Metabolic 09/19/2012 [facility] Sodium 136 mmol/L 133- 145 Panel [address] [place] [address] [phone] Potassium 4.1 mmol/L 3.5-5.0 Chloride 103 mmol/L [...] Egfr 86.7 >60 43 Laboratory test 09/19/2012 [facility] Follicle 5.70 MIU/ML [address] [place] [address] Hormone [phone] Laboratory test 09/19/2012 [facility] TSH (Thyroid 1.04 miu/mL 0.34- finding [address] Stimulating Horm) 5.60 [place] [address] [phone] HSV/VZV Derm PCR 09/19/2012 [facility] hs/VZ Source SKIN [address] [place] [address] [phone] hs/VZ PCR Result See Comment 45 Vitamin D, 25 09/19/2012 [facility] 25-Hydroxy Vitamin <4.0 ng/ mL Hydroxy [address] D2 [place] [address] [phone] 25-Hydroxy Vitamin D3 32 ng/mL 25-Hydroxy Vitamin D Total 32 ng/mL 46 Ua Routine 07/24/2012 Production Control Specialist In House Ua Specific [place] 1.015 Ua PH 5 Ua Color yellow Ua Appera clear Ua WBC neg Ua Protein neg Ua Glucose neg Ua Ketones neg Ua Bilirubin neg Ua Urobilinogen neg Ua Nitrite neg Ua Occult Blood neg Laboratory 07/21/2012 [facility] TSH (Thyroid 12.94 High 0.34- 5.60 test finding [address] Stimulating MIU/[place] [address] Horm) [phone] Vitamin B12 592 pg/mL 180-914 Laboratory test 01/21/2012 [facility] Intrinsic Factor Negative () [address] [place] [address] [phone] Methylmalonic Acid 0.15 nmol/mL <=0.40 48 Laboratory test 2012 [facility] TSH 0.13 MIU/ML Low 0.34 -5.[address] [place] [address] [phone] Vitamin B12 And 2012 [facility] Vitamin B12 245 pg/mL 180-914 Folate Serum [address] [place] [address] [phone] Folic Acid 9.8 NG/ML See Below 49 CBC Auto Diff 12/10/2011 [facility] White Blood 6.5 CUMM 4.8- 10.[address] [place] [address] [phone] Red Cell Count 4.39 CUMM 4.2-5.4 Hemoglobin [...] Abs Basophils 0.1 0-0.2 Laboratory test 12/08/2011 [facility] TSH 0.11 MIU/ML Low 0.34 -5.[address] [place] [address] [phone] Laboratory test 10/08/2011 [facility] TSH 0.55 MIU/ML 0.34- 5.[address] [place] [address] [phone] Laboratory test 09/02/2011 [facility] TSH 3.91 MIU/ML 0.34- 5.[address] [place] [address] [phone] Laboratory test 07/29/2011 [facility] TSH 9.96 MIU/ML High 0.34-5.[address] [place] [address] [phone] ADDITIONAL INFORMATION This test has been modified from the trimmer meat's instructions. Its performance characteristics were determined by [facility] in a manner consistent with CLIA requirements. This test has not been cleared or approved by the U.S. Food and Drug Administration. Test Performed by: [address] [address] 2 ADDITIONAL INFORMATION This test was developed and its performance characteristics determined by [facility] in a manner consistent with CLIA requirements. This test has not been cleared or approved by the U.S. Food and Drug Administration. Test Performed by: [address] [address] 3 Refrigerating Oiler: [id number] Because ethnic data is not always [...] 5 Kidney failure <15 (or dialysis) 11 Refrigerating Oiler: [id number] 12 6 weeks after increasing levothyroxine dose 13 6 weeks after increasing levothyroxine dose 14 Refrigerating Oiler: [id number] 16 SEE RESULT BELOW Name: CHRISTIAN BARCLAY : [address]: Geovanni Vila NP Acct: [id number] Unit: [id number] AGE: 51 Location: [facility] Re12/29/16 SEX: F Status: REG REF SPEC: [id number] GE: 12/29/16-[address]: Geovanni Vila NP REQ: [id number] RECD: 12/29/16 STATUS: COMP _ SOURCE: [facility]: ORDERED: Flu A B Request COMMENTS: [id number] Procedure Result Reported Site Rapid Influenza A B Request Final 12/29/162211 ML Specimen received for Influenza A/B Molecular testing * ML - MAIN LAB ([facility]) . END OF REPORT * ML=Testing performed at Main Lab DEPARTMENT OF PATHOLOGY, [address] [place] [address] Toby Taveras M.D. Director [facility] # [id number] 17 FASTING 10 HOUR 18 Because ethnic [...] 10 HOUR 24 SEE RESULT BELOW Name: BARCLAYCHRISTIAN CASPER : [address]: Amparo Thomason MD Acct: [id number] Unit: [id number] AGE: 50 Location: [facility] Re09/27/15 SEX: F Status: DEP ER SPEC: [id number] GE: 09/27/15-[address] [facility] [address]: Amparo Thomason MD REQ: [id number] RECD: 09/28/15-1231 STATUS: COMP PURVI DR: [facility] Maricarmen Cruz MD _ SOURCE: URINE SPDESC: ORDERED: Urine Culture Procedure Result Reported Site Urine Culture Final 09/29/15- 1313 ML No Growth (<1,000 CFU/mL) * ML - MAIN LAB ([facility]) . END OF REPORT * ML=Testing performed at Main Lab DEPARTMENT OF PATHOLOGY, [address] [place] [address] Toby Taveras M.D. Director [facility] # [id number] 25 Reference Range and Interpretation: TnI (ng/mL) Interpretation Less Than 0.03 ng/mL Not supportive of diagnosis of HI 0.03 - 0.50 ng/mL Indeterminate: suggest serial studies if clinically indicated. Greater than 0.5 ng/mL Consistent with diagnosis of HI 26 Potassium reference range changed effective 07/14/14 [...] failure <15 (or dialysis) 28 Verbal to [id number] by MARIE V[place]LE [address] at 1840 on 07/17/14. Results read back [...] levels within this range. Test Performed by: [facility] [place] [address] C Iron Worker: Anibal Valdes III, M.D. 33 Because ethnic [...] and in selective patients <6.0%.Please refer to [place] [employer] Diabetic care guidelines for further [...] normal population are 25-80 Test Performed by: [place] [address] C Iron Worker: Anibal Valdes III, M.D. 39 Because ethnic [...] its performance characteristics determined by [facility]. It has not been cleared or approved by the U.S. Food and Drug Administration. Test Performed by: [facility] [address] C Iron Worker: Anibal Valdes III, M.D. 46 -- REFERENCE VALUE -- 25-HYDROXY D TOTAL (D2+D3) Optimum levels in the normal population are 25-80 Test Performed by: [place] [address] C Iron Worker: Anibal Valdes III, M.D. 47 Positive in 50% of persons with pernicious anemia. -- REFERENCE VALUE -- Negative Test Performed by: [facility] Dpt of Lab Med and Pathology [address] [place] [address] C Iron Worker: Anibal Valdes III, M.D. 48 Test Performed by: [facility] Dpt of Lab Med and Pathology [address] [place] [address] C Iron Worker: Anibal Valdes III, M.D. 49 Please note: New reference range, effective 09/02/11 NORMAL REFERENCE RANGE: GREATER THAN 4.1 NG/ML Procedures Date Code Description Status 09/07/2018 27200 Chemodenervation Of Muscles Innervated By Facial Completed Nerves, Bilat 06/06/2018 33408 Chemodenervation Of Muscles Innervated By Facial Completed Nerves, Bilat 03/02/2018 47176 Chemodenervation Of Muscles Innervated By Facial Completed Nerves, Bilat 04/08/2016 [id number] Colonoscopy Completed 03/12/2016 [id number] Mammogram Completed 12/19/2015 37096 Inject/Drain Joint/Bursa Major W/O US Completed 08/05/2014 75312 Holter Monitor Review (24 hr)dr review & interp only Completed 07/18/2014 96664 EKG Tracing & Interpretation Completed 07/04/2014 [id number] Mammogram Completed 04/04/2014 18192 Removal Skin Tags Up To 15 Completed 02/27/2014 31757 Injection For Nerve Block, Greater Occipital Nerve Completed 06/12/2013 [id number] Mammogram Completed 10/26/2011 56314 EKG Tracing & Interpretation Completed Encounters Type Date Location Provider Dx Diagnosis Office Visit 09/21/2018 [facility] Internal Maren Campbell Essential ( primary) 2:40p Jolene Osborne hypertension J30.9 Allergic rhinitis, unspecified J01.90 Acute sinusitis, unspecified R53.83 Other fatigue E03.9 Hypothyroidism, unspecified Office Visit 06/29/2018 10:40a [facility] Internal [place] I10 Essential ( primary) Jolene Cruz M.D. hypertension E03.9 Hypothyroidism, unspecified F33.0 Major depressive disorder, recurrent, mild H69.90 Unspecified Eustachian tube disorder, unspecified ear Office Visit 05/30/2018 2:20p [facility] [place] I10 Essential ( primary) Jolene Cruz M.D. hypertension E03.9 Hypothyroidism, unspecified H93.13 Tinnitus, bilateral Office Visit 05/04/2018 10:45a [facility] Parag F M25.561 Pain in Services Of Sandeep Meek MD right knee M17.11 Unilateral primary osteoarthritis, right knee Office Visit 05/04/2018 [facility] Glass [place] E03.9 Hypothyroidism, 2:40p Jolene Cruz M.D. unspecified R03.0 Elevated blood-pressure reading, w/o diagnosis of htn M17.11 Unilateral primary osteoarthritis, right knee Office Visit 04/06/2018 Mind[facility] Glass [place] E03.9 Hypothyroidism, 3:40p Jolene Cruz M.D. unspecified I10 Essential (primary) hypertension Z68.34 Body mass index (BMI) 34.0-34.9, adult Office Visit 02/17/2018 10:40a [facility] [place] R61 Generalized Jolene Cruz M.D. hyperhidrosis E03.9 Hypothyroidism, unspecified E78.5 Hyperlipidemia, unspecified R10.11 Right upper quadrant pain R10.31 Right lower quadrant pain Office Visit 01/26/2018 Bogdan Adams G43.019 Migraine w/o 11:15a Gunnar Winston M.D. aura, Services Of [facility] intractable, without status migrainosus Office Visit 06/23/2017 [facility] Internal Geovanni Vila NP J01.90 Acute sinusitis , 1:00p Medicine unspecified R11.0 Nausea H92.03 Otalgia, bilateral Office Visit 04/11/2017 2:40p [facility] [place] Cruz, R63.5 Abnormal weight Medicine M.D. gain Office Visit 03/14/2017 4:00p [facility] Internal [place] Cruz, R63.5 Abnormal weight Medicine M.D. gain R09.81 Nasal congestion Office Visit 12/29/2016 4:20p [facility] Geovanni Vila, R50.9 Fever, unspecified Medicine TICKET ATTENDANT J06.9 Acute upper respiratory infection, unspecified Office Visit 12/16/2016 3:30p [facility] Gunnar Kline M54.81 Occipital Services [facility] [place] neuralgia G43.109 Migraine with aura, not intractable, w/o status migrainosus Office Visit 11/26/2016 11:40a [facility] [place] J01.90 Acute sinusitis, Medicine Dylon Cruz unspecified K62.5 Hemorrhage of anus and rectum Office Visit 11/25/2016 2:40p [facility] Subhash Alejo Dizziness and Medicine - Dylon Ray [employer] Office Visit 11/01/2016 10:00a [facility] Geovanni Vila NP F41.9 Anxiety disorder, Medicine unspecified Office Visit 10/12/2016 11:20a [facility] Geovanni Vila NP F41.9 Anxiety disorder, Medicine unspecified J01.90 Acute sinusitis, unspecified Office Visit 09/16/2016 5:30p [facility] Geovanni Vila J06.9 Acute upper Medicine TICKET ATTENDANT respiratory infection, unspecified R11.2 Nausea with vomiting, unspecified Office Visit 07/22/2016 Bogdan Kline S06.0x1S Concussion w Loc 11:15a Neurologic [place] of 30 minutes or Services Of [facility] less, sequela M54.81 Occipital neuralgia G43.109 Migraine with aura, not intractable, w/o status migrainosus G43.109 Migraine with aura, not intractable, w/o status migrainosus M54.81 Occipital neuralgia Office Visit 03/18/2016 Bogdan Kline G43.019 Migraine w/o aura, 9:45a Neurologic [place] intractable, [facility] without status migrainosus Office Visit 02/16/2016 Orthopedic [...] of left shoulder Office Visit 10/02/2015 11:20a [facility] Internal Yuko Acuña, R10.11 Right upper Medicine N.P. quadrant pain R10.31 Right lower quadrant pain J34.89 Other specified disorders of nose and nasal sinuses R19.7 Diarrhea, unspecified Office Visit 05/12/2015 8:20a Orthopedic Capo Jaeger, 844.9 Sprains & Strains Services Of M.D. Knee & Leg Unspec C.M.A. Office Visit 05/01/2015 9:00a Orthopedic Marta Soto, 844.9 Sprains & Strains Services Of [facility] Knee & Leg Unspec C.M.A. Office Visit 03/25/2015 8:30a [facility] Gunnar Kline 346.02 Migraine [facility] Mary [place]/Aura,W/Out Dylon Mention Of Intractable Migraine 346.00 Migraine Classical W/O Intractable W/O Status Migrainosus Office Visit 02/04/2015 9:40a [facility] Internal James Rosa, 478.9 Upper Resp Medicine - [place] M.D. Tract Disease Rd Other & Unspec 386.10 Vertigo Peripheral Unspec 465.9 URI Upper Respiratory Infections Acute Unspec Sites Office Visit 01/30/2015 10:40a [facility] Geovanni Cadence, 381.81 Eustachian Tube Medicine TICKET ATTENDANT Dysfunction 787.91 Diarrhea Office Visit 01/24/2015 9:00a [facility] Internal Geovanni Cadence, TICKET ATTENDANT 847.2 Sprains & Medicine Strains Lumbar Office Visit 12/23/2014 10:00a [facility] Internal Geovanni Cadence, TICKET ATTENDANT 847.2 Sprains & Medicine Strains Lumbar Office Visit 11/25/2014 10:00a [facility] Internal Geovanni Cadence, TICKET ATTENDANT 847.2 Sprains & Medicine Strains Lumbar Office Visit 10/31/2014 9:40a [facility] Internal [place] Anthony 847.2 Sprains & Medicine M.DAna Laura Strains Lumbar 847.2 Sprains & Strains Lumbar Office Visit 10/16/2014 1:20p [facility] Internal [place] 847.2 Sprains & Strains Jolene Cruz M.D. Lumbar Office Visit 09/26/2014 11:20a [facility] Internal [place] 487.8 Influenza W/ Other Medicine Dylon Cruz Manifestations 783.1 Weight Gain Abnormal Office Visit 07/18/2014 [facility] Internal [place] 794.31 Electrocardiogram 4:00p Jolene Cruz M.D. (ECG) (EKG) Abnormal 789.00 Pain Abdominal Unspec Site Office Visit 07/02/2014 9:45a Bogdan Kline 346.91 Migraine Unspec Neurologic [place] W/ Intractable [facility] W/O Status Migrainosus Office Visit 06/18/2014 1:40p [facility] Internal [place] V70.0 Examination Jolene Cruz M.D. General Medical Routine AT Health Care Facility 244.9 Hypothyroidism Other Unspec V76.10 Screening For Malignant Neoplasm Breast 311 Depressive Disorder Not Elsewhere Spec V04.81 Need For Prophylactic Vaccination & Inoculation/Influenza V06.1 Vyudelukgp-Zgzchno-Zsnaojvx Combined (DTaP) Office Visit 05/07/2014 Bogdan Kline 346.93 Migraine 2:30p Neurologic [place] Unspecified, Services Of Production Control Specialist W/Intractable Migraine Office Visit 02/27/2014 Bogdan Olivares 346.93 Migraine 8:15a Neurologic Dylon Lau Unspecified, Services Of Production Control Specialist W/Intractable Migraine Office Visit 02/21/2014 Bogdan Kline 346.93 Migraine 11:45a Neurologic [place] Unspecified, Services [facility] W/Intractable Migraine 386.10 Vertigo Peripheral Unspec Office Visit 12/24/2013 9:00a [facility] Internal [place] 461.8 Sinusitis Acute Medicine Dylon Cruz Other 782.1 Rash & Other Nonspec Skin Eruption 244.9 Hypothyroidism Other Unspec 309.9 Adjustment Reaction Unspec Office Visit 12/04/2013 1:00p [facility] Internal [place] 386.10 Vertigo Medicine Dylon Cruz Peripheral Unspec 300.00 Anxiety State Unspec 782.1 Rash & Other Nonspec Skin Eruption 244.9 Hypothyroidism Other Unspec Office Visit 11/12/2013 11:20a [facility] [place] 461.8 Sinusitis Acute Medicine Dylon Cruz Other 346.10 Migraine Common W/O Intractable W/O Status Migrainosus 245.2 Thyroiditis Chronic Lymphocytic Office Visit 03/26/2013 10:00a [facility] Internal Stacy Serna, 995.3 Allergy Unspec Medicine Dylon V70.0 Examination General Medical Routine AT Health Care Facility 620.2 Ovarian Cyst Other & Unspec 245.2 Thyroiditis Chronic Lymphocytic 278.00 Obesity Unspec Office Visit 02/21/2013 8:40a [facility] Internal Stacy Serna, 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 Respiratory Infections Acute Unspec Sites Office Visit 09/25/2012 8:40a [facility] Internal Stacy Serna, 620.2 Ovarian Cyst Medicine Dylon Other & Unspec 054.9 Herpes Simplex W/O Complication Office Visit 09/19/2012 11:00a [facility] Internal Yuko Acuña, 054.9 Herpes Simplex W/O Medicine N.P. Complication Office Visit 07/28/2012 9:40a [facility] Quan Serna, 245.2 Thyroiditis Chronic Medicine Dylon Lymphocytic 620.2 Ovarian Cyst Other & Unspec 592.0 Calculus Of Kidney 626.0 Menstruation Absence 110.4 Dermatophytosis Foot 311 Depressive Disorder Not Elsewhere Spec Office Visit 07/24/2012 8:40a [facility] Internal Stacy Serna, 599.70 Hematuria, Medicine M.D. Unspecified 346.80 Migraine Other W/O Intractable W/O Status Migrainosus 493.90 Asthma Unspec W/O Status Asthmaticus 245.2 Thyroiditis Chronic Lymphocytic Office Visit 01/21/2012 9:40a [facility] Internal Stacy Serna, 266.9 Vitamin B Medicine M.D. Deficiency Unspec 477.9 Rhinitis Allergic Cause Unspec Office Visit 2012 9:40a [facility] Internal Stacy Serna, 354.0 Carpal Tunnel Medicine M.D. Syndrome 245.2 Thyroiditis Chronic Lymphocytic Office Visit 12/10/2011 10:00a [facility] Internal Stacy Serna, 493.92 Asthma Unspec W/ Medicine M.D. Acute Exacerbation Office Visit 12/01/2011 3:20p [facility] Stacy Serna, 245.2 Thyroiditis Chronic Medicine M.D. 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 Office Visit 10/08/2011 8:40a [facility] Internal Stacy Serna, 311 Depressive Medicine M.D. Disorder Not Elsewhere Spec 245.2 Thyroiditis Chronic Lymphocytic 079.99 Viral Infection Unspec Office Visit 09/03/2011 8:40a DO Not Use Stacy Serna, 245.2 Thyroiditis Production Control Specialist-[place] M.D. Chronic Lymphocytic 311 Depressive Disorder Not Elsewhere Spec Office Visit 08/17/2011 8:40a DO Not Use Stacy Serna, 311 Depressive Production Control Specialist[place] M.D. Disorder Not Elsewhere Spec Office Visit 08/03/2011 3:20p DO Not Use Stacy Serna, 053.29 Herpes Zoster Production Control Specialist[place] M.D. Other 346.80 Migraine Other W/O Intractable W/O Status Migrainosus Office Visit 07/29/2011 10:00a DO Not Use Stacy Serna, 311 Depressive Production Control Specialist[place] M.D. Disorder Not Elsewhere Spec 245.2 Thyroiditis Chronic Lymphocytic Plan of Treatment Future Appointment(s):12/25/2018 3:00 pm - Bryan Winston M.D. at [facility]01/01/2019 9:20 am - [place] Cruz M.D. at [facility] Internal Qteyeegr80/17/2019 1:30 pm - Bryan Winston M.D. at [facility]03/22/2019 1:30 pm - Bryan Winston M.D. at [facility]12/15/2018 - Yuko Acuña NAdrian.H66.91 Otitis media, unspecified, right earNew Medication:Azithromycin 250 mg - two tabs day one, one daily till goneComments:For your ear infection: I sent a prescription for Azithromycin to the pharmacy. Take 2 tablets the first day, then one tablet daily until they are gone, for a total of 5 days. The antibiotic stays in your system for another 5 days after you finish the tablets.You may take Ibuprofen 600 mg, every 6 hours, as needed for pain.If your symptoms do not improve please call the office.F17.210 Nicotine dependence, cigarettes, uncomplicatedNew Medication:Chantix Starting Month Gopi 0.5 mg X 11 & 1 mg X 42 - take as directed (0.5 mg by mouth daily x3 days, 0.5 mg twice a day x 4 days, then 1 mg twice a day up to three months)Comments:To help you continue to be a nonsmoker I have prescribed Chantix for you. This is a month supply. Ifyou need to continue this, please contact the office.
[2019-01-11] MEDS ORDERED: Tetracaine 0.5% OPTH.SOL 4 ML* 1 DROP BTL LEFT EYE ONE (01:13)
[2019-01-11] MEDS ORDERED: Fluorescein Sodium TOPICAL* 1 MG TEST STRIP OPHTHALMIC ONE (01:13)
--- NOTE | 2019-01-11 01:15 | ED ---
Throat Pain/Nasal Congestion - HPI Summary HPI Summary: Pt is a 54 y/o female who presents to the ED c/o eye pain. She removed her contacts yesterday and subsequently had left eye pain. Pt reports a foreign body sensation and photophobia, but denies any dry eyes. Pain is constant and is rated a 10/10 in severity. Visual acuity test was normal. She wears weekly disposable contacts and was wearing this pair for 3 days. Pt cleans her contacts regularly. She denies any trauma. - History of Current Complaint Chief Complaint: EDEyeProblem Time Seen by Provider: 01/11/19 01:13 Hx Obtained From: Patient Onset/Duration: Gradual Onset, Still Present Severity: Severe - 10/10 Associated Signs And Symptoms: Positive: Negative Cough: None Related History: Other (Noted In Comments) - contacts - Allergies/Home Medications Allergies/Adverse Reactions: Allergies Allergy/AdvReac Type Severity Reaction Status Date / Time Sulfa (Sulfonamide Allergy Hives Verified 11/04/18 13:04 Antibiotics) PMH/Surg Hx/FS Hx/Imm Hx Endocrine/Hematology History: Reports: Hx Thyroid Disease Denies: Hx Anticoagulant Therapy, Hx Diabetes Cardiovascular History: Reports: Hx Hypertension Denies: Hx Congestive Heart Failure, Hx Deep Vein Thrombosis, Hx Myocardial Infarction, Hx Pacemaker/ICD Respiratory History: Reports: Hx Asthma Denies: Hx Chronic Obstructive Pulmonary Disease (COPD), Hx Lung Cancer, Hx Pneumonia, Hx Pulmonary Embolism GI History: Denies: Hx Crohn's Disease, Hx Gall Bladder Disease, Hx Gastrointestinal Bleed, Hx Ulcer, Hx Urosepsis, Other GI Disorders - colitis History: Reports: Hx Kidney Stones Denies: Hx Dialysis, Hx Renal Disease Musculoskeletal History: Reports: Hx Arthritis Sensory History: Reports: Hx Contacts or Glasses Denies: Hx Hearing Aid Opthamlomology History: Reports: Hx Contacts or Glasses Neurological History: Reports: Hx Migraine - states she has cluster headaches Denies: Hx Dementia, Hx Seizures, Hx Transient Ischemic Attacks (TIA) Psychiatric History: Denies: Hx Anxiety, Hx Depression, Hx Panic Disorder, Hx Schizophrenia, Hx Bipolar Disorder - Cancer History Hx Chemotherapy: No Hx Radiation Therapy: No - Surgical History Surgery Procedure, Year, and Place: stent placement for kidney stones 2002 AND REMOVED 3 WEEKS LATER, HYSTERECTOMY; R shoulder surgeries X2; R foot x 2; 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 2013 [facility] Infectious Disease History: No Infectious Disease History: Denies: Hx Clostridium Difficile, Hx Hepatitis, Hx Human Immunodeficiency Virus (HIV), Hx of Known/Suspected MRSA, Hx Shingles, Hx Tuberculosis, Hx Known/ Suspected VRE, Hx Known/Suspected VRSA, History Other Infectious Disease, Traveled Outside the [place] in Last 30 Days - Family History Known Family History: Positive: Hypertension - Social History Alcohol Use: Rare Hx Substance Use: No Substance Use Type: Reports: None Hx Tobacco Use: Yes Smoking Status (MU): Former Smoker Have You Smoked in the Last Year: No Review of Systems Negative: Fever Positive: Photophobia, Other - left eye pain, FB sensation, NEGATIVE: dry eye All Other Systems Reviewed And Are Negative: Yes Physical Exam - Summary Physical Exam Summary: Appearance: well appearing, mild pain distress Skin: warm, dry, reflects adequate perfusion Head/face: normal Eyes: EOMI, MADAI, pupils mid-range, left conjunctival injection, pain with light reflex, 1 mm corneal ulcer at 4 oclock position, swelling of upper eyelid ENT: mucous membranes moist Neck: supple, non-tender Respiratory: CTA, breath sounds present Cardiovascular: RRR, pulses symmetrical Abdomen: non-tender, soft Bowel Sounds: present Musculoskeletal: normal, strength/ROM intact Neuro: normal, sensory motor intact, A&Ox3 Triage Information Reviewed: Yes Vital Signs On Initial Exam: Initial Vitals Temp Pulse Resp BP Pulse Ox 97.9 F 66 18 172/101 96 01/10/19 23:14 01/10/19 23:14 01/10/19 23:14 01/10/19 23:14 01/10/19 23:14 Vital Signs Reviewed: Yes Diagnostics - Vital Signs Vital Signs Temp Pulse Resp BP Pulse Ox 01/10/19 23:14 97.9 F 66 18 172/101 96 - Laboratory Lab Statement: Any lab studies that have been ordered have been reviewed, and results considered in the medical decision making process. - CT Orbit CT CT Interpretation Completed By: Radiologist Summary of CT Findings: Bilateral nasal bone fracture deformities. ED physician reviewed radiology report. Re-Evaluation - Re-Evaluation First Eval Re-Evaluation Time: 01:20 Change: Improved Comment: Pain not resolving with tetracaine drops. Second Eval Re-Evaluation Time: 04:53 Change: Worse Comment: Measured ocular pressure. Upper eyelid swelling worsening. EENT Course/Dx - Course Course Of Treatment: Nurse's notes reviewed. Formal Visual acuity testing was impossible due to her photophobia. Patient had abrupt onset of pain with removing contact lens. There appears to be a 1-2 mm corneal ulcer at 4:00 on the left cornea. She has intense photophobia that did not resolve with Cyclogyl. Globe pressures were 14 by Zane-Pen. Topical tetracaine did not improve her pain. She developed swelling in the upper eyelid and supraorbital region. As such, a CT scan of the orbit was performed and was found to be negative. I was unable to fully fever her lids due to pain. Vision is grossly normal in the affected eye. Cipro drops were initiated and given every hour while she was here. She additionally received a dose of IV Cipro. Ophthalmology consultation was obtained and they will take the patient to the office for evaluation this morning. 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 - Differential Diagnoses Differential Diagnoses: Other - Corneal abrasion/ulcer, iritis, uveitis, foreign body, angle-closure glaucoma - Diagnoses Provider Diagnoses: Corneal ulcer, Photophobia, Swelling of eyelid - Provider Notifications Discussed Care Of Patient With: Galilea Woodall Time Discussed With Above Provider: 05:28 Instructed by Provider To: Have Pt Call For Appt. - She will see the patient this morning. - Critical Care Time Critical Care Time: 30-74 min - Critical care time is exclusive of separately billable procedures Discharge - Sign-Out/Discharge Documenting (check all that apply): Patient Departure - Discharge Patient Received Moderate/Deep Sedation with Procedure: No - Discharge Plan Condition: Improved Disposition: HOME Prescriptions: HYDROcodone/ACETAMIN 5-325 MG* [[place] 5-325 TAB*] 1 tab PO Q6H PRN #10 tab MDD 4 PRN Reason: Severe Pain Patient Education Materials: Corneal Ulcer (ED) Referrals: Jose Alberto Payne MD [Medical Doctor] - Additional Instructions: Call first thing this morning to schedule prompt follow-up this morning with the eye doctor. Continue Cipro eyedrops 1 drop every hour until you're seen by them. Return if worse, new symptoms or other concerns. - Billing Disposition and Condition Condition: IMPROVED Disposition: Home - Attestation Statements Document Initiated by Scribe: Yes Documenting Scribe: Ting Nelson Provider For Whom Scribe is Documenting (Include Credential): Robert Zamudio MD Scribe Attestation: ITing, scribed for Robert Zamudio MD on 01/11/19 at 0555. Scribe Documentation Reviewed: Yes Provider Attestation: The documentation as recorded by the scribeTing accurately reflects the service I personally performed and the decisions made by me, Robert Zamudio MD Status of Scribe Document: Viewed
[2019-01-11] MEDS ORDERED: Cyclopentolate 1% OPTH.SOL* 2 ML BTL LEFT EYE ONE (01:34)
[2019-01-11] MEDS ORDERED: Moxifloxacin 0.5% OPHTH(NF) 1 DROP OPHTH.SOLN LEFT EYE ONE (01:35)
[2019-01-11] MEDS ORDERED: Cyclopentolate 1% OPTH.SOL* 2 ML BTL ONE (01:37)
[2019-01-11] MEDS ORDERED: Ciprofloxacin 0.3% OPTH.SOL* BTL LEFT EYE ONE (02:44)
[2019-01-11] MEDS ORDERED: Ciprofloxacin 400MG IVPREMIX(* 400 MG/200 ML BAG IVPB ONE (02:57)
[2019-01-11] MEDS ORDERED: Morphine 4 MG/ML VIAL (1 ml) 4 MG/ML VIAL IV ONE (04:12)
[2019-01-11] MEDS ORDERED: Tetracaine 0.5% OPTH.SOL 4 ML* 1 DROP BTL ONE (04:48)
[2019-01-11 06:08] VITALS: BP 143/90
== END 2019-01-11 06:10 | disposition home or self-care (01) ==
LOC: ED 23:03
DX: H16.002 Unspecified corneal ulcer, left eye (principal); H53.142 Visual discomfort, left eye; R22.0 Localized swelling, mass and lump, head; M95.0 Acquired deformity of nose; I10 Essential (primary) hypertension; E07.9 Disorder of thyroid, unspecified; J45.909 Unspecified asthma, uncomplicated; Z88.2 Allergy status to sulfonamides; Z87.891 Personal history of nicotine dependence
CPT/HCPCS: 70480; 96365; 96366; 96375; 99283; A9270-GY; J0744; J2270

== ENCOUNTER 2019-08-11 12:47 | Emergency (ER) | payer SELFPAY ==
[2019-08-11] MEDS ORDERED: Ondansetron INJ* 2 MG/ML VIAL IV ONE (15:16)
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
[2019-08-11] MEDS ORDERED: HYDROcodone/ACETAMIN 5-325 MG* 1 TAB PO ONE (15:17)
[2019-08-11] MEDS ORDERED: Ondansetron ODT TAB* 4 MG PO ONE (15:40)
[2019-08-11 17:03] VITALS: BP 120/76
--- OUTSIDE RECORDS SUMMARY | 2019-08-14 15:35 | XMS REPORT | Continuity of Care Document ---
:1965 External Reference #:[id number] Author Name Yuko Acuña NRajwinder (transmitted by agent of provider Becky Ken) Address [address], [place] [address] Care Team Providers Name Role Phone Bhavya France MD - Neurology Care Team Information Stock Layer [phone] Jayshree Cain MD - Obstetrics & Care Team Information Stock [facility] Gynecology Maricarmen Cruz MD - Internal Care Team Information Stock Layer Medicine Erika Davis MD - Pain Medicine Care Team Information Stock Layer [phone] Problems Active Problems Provider Date Migraine without aura Bhavya France M.D. Onset: 03/25/2015 Depressive disorder Stacy Serna M.D. Onset: 07/29/2011 Ezequiel thyroiditis Stacy Serna M.D. Onset: 07/29/2011 Asthma without status asthmaticus Stacy Serna M.D. Onset: 07/24/2012 Social History Type Date Description Comments Sex Unknown ETOH Use Denies alcohol use Tobacco Use Start: Unknown End: Patient is a former quit 06/29/11 Unknown smoker Recreational Drug Use Denies Drug Use Smoking Status Reviewed: 07/16/19 Patient is a former quit 06/29/11 smoker Exercise Type/Frequency Exercises regularly Allergies, Adverse Reactions, Alerts Active Allergies Reaction Severity Comments Date Fluticasone Propionate nose bleed 07/16/2019 Inactive Allergies NKDA 07/29/2011 NKDA 06/01/2019 Medications Active Medications SIG Qnty Indications Ordering Date Provider Amoxicillin/Clavulanat one tablet by 20tabs J01.90 Yuko Acuña, 2018 e Potassium mouth twice daily N.P. 875-125mg for 10 days Tablets Levothyroxine Sodium 1 by mouth every 90tabs Yuko Acuña, 06/04/2019 day N.P. 112mcg Tablets Losartan 1 by mouth every 90tabs I10 Yuko Acuña, 06/01/2019 Potassium/Hydrochlorot day N.P. hiazide 100-25mg Tablets Terbinafine HCL take 1 tablet by 90tabs B35.1 Yuko Acuña, 06/01/2019 250mg mouth every day N.P. Tablets Proair Respiclick inhale 4 times 1units Yuko Acuña, 01/01/2019 daily as needed N.P. 108(90Base) mcg/Act Aerosol Sumatriptan Succinate 1/2 to 1 by mouth 12tabs Zackary Prieto, 2017 as needed N.P. 100mg Tablets migraine max 2/day, max 2 d/wk Flovent HFA 2 puffs twice 36gm Yuko Acuña, 11/12/2013 110mcg/Act daily N.P. Aerosol History Medications Chantix Starting take as directed 30tabs F17.210 Yuko Acuña, 2018 - Month Gopi (0.5 mg by mouth N.P. 07/13/2019 0.5mg X daily x3 days, 11 & 1 mg X 42 0.5 mg twice a Tablets day x 4 days, then 1 mg twice a day up to three months) Fluticasone Shake Liquid And 48units H92.03 Yuko Acuña, 06/01/2019 - Propionate Use 2 Sprays In N.P. 07/15/2019 Each Nostril 50mcg/Act Daily as Needed Suspension Medications Administered in Office Medication SIG Qnty Indications Ordering Provider Date Injection Onabotulinumtoxin Bryan Hassan M.D. 06/28/2019 1 Unit Injection Injection Onabotulinumtoxin Bryan Hassan M.D. 03/22/2019 1 Unit Injection Injection Matthewabotulinumtoxin Bryan Hassan M.D. 12/25/2018 1 Unit Injection Injection Matthewabotulinumtoxin Bryan Hassan M.D. 09/07/2018 1 Unit Injection Injection Onabotulinumtoxin Mo, Bryan Winston M.D. 06/06/2018 1 Unit Injection Injection Onabotulinumtoxin A, Bryan Winston M.D. 03/02/2018 1 Unit Injection Depomedrol 40MG Dalia He M.D. 12/19/2015 Injection Injection,Lidocaine HCL For Khanh Lau M.D. 02/27/2014 Intravenous Infusion,10 MG Injection Immunizations CPT Code Status Date Vaccine Lot # [id number] Given 06/18/2014 Tdap - Tetanus/Diptheria/Acellular Pertussis [id number] Given 06/18/2014 Influenza Virus Vaccine, Quadrivalent, Split, [id number] Preservative Free Vital Signs Date Vital Result Comment 07/16/2019 11:34am Height 64.5 inches 5'4.50" Weight 187.00 lb Per Pt. Heart Rate 64 /min BP Systolic Sitting 127 mmHg Rue lg cuff BP Diastolic Sitting 87 mmHg Rue lg cuff O2 % BldC Oximetry 98 % BMI (Body Mass Index) 31.6 kg/m2 06/28/2019 1:27pm Height 64.5 inches 5'4.50" Weight 188.00 lb BP Systolic 110 mmHg BP Diastolic 84 mmHg BMI (Body Mass Index) 31.8 kg/m2 Results Test Acquired Date Facility Test Result H/L Range Note Liver Function 06/01/2019 [facility] Total Protein 7.1 g/dL Normal 6.4-8.[address] [place] [address] [phone] Albumin 4.4 g/dL Normal 3.2-5.2 Globulin 2.7 g/dL Normal 2-4 Albumin/Globulin Ratio 1.6 Normal 1-3 Total Bilirubin 0.30 mg/dL Normal 0.2-1.0 Direct Bilirubin 0.10 mg/dL Normal 0.03-0.18 Indirect Bilirubin 0.2 mg/dL Low 0.3-1.0 Alkaline Phosphatase 75 U/L Normal 34-104 Alt 26 U/L Normal 7-52 Ast 20 U/L Normal 13-39 Laboratory test 06/01/2019 [facility] TSH (Thyroid 9.53 High 0.34-5.[address] Stim Horm) mcIU/[place] [address] [phone] Procedures Date Code Description Status 06/28/2019 15761 Chemodenervation Of Muscles Innervated By Facial Completed Nerves, Bilat 03/22/2019 19406 Chemodenervation Of Muscles Innervated By Facial Completed Nerves, Bilat 04/08/2016 17472335 Colonoscopy Completed 03/12/2016 [id number] Mammogram Completed 07/04/2014 [id number] Mammogram Completed 06/12/2013 [id number] Mammogram Completed Medical Devices Description No Information Available Encounters Type Date Location Provider Dx Diagnosis Office Visit 06/01/2019 [facility] Yuko Varn, Z63.4 Disappearance and 11:20a Medicine - Ccmob N.P. of family member F17.210 Nicotine dependence, cigarettes, uncomplicated I10 Essential (primary) hypertension H92.03 Otalgia, bilateral B35.1 Tinea unguium E03.9 Hypothyroidism, unspecified Assessments Date Code Description Provider 07/16/2019 I10 Essential (primary) hypertension Yuko Varn, N.P. 07/16/2019 B35.1 Tinea unguium Yuko Varn, N.P. 07/16/2019 J01.90 Acute sinusitis, unspecified Yuko Varn, N.P. 07/16/2019 Z12.31 Encounter for screening mammogram for Yuko Acuña, N.P. malignant neoplasm of breast 07/16/2019 K92.1 Lily Yuko Acuña, N.P. 06/28/2019 G43.719 Chronic migraine without aura, intractable, Bryan Winston M.D. without status m 06/01/2019 Z63.4 Disappearance and of family member Yuko Domenico, N.P. 06/01/2019 F17.210 Nicotine dependence, cigarettes, Yuko Varn, N.P. uncomplicated 06/01/2019 I10 Essential (primary) hypertension Yuko Varn, N.P. 06/01/2019 H92.03 Otalgia, bilateral Yuko Varn, N.P. 06/01/2019 B35.1 Tinea unguium Yuko Varn, N.P. 06/01/2019 E03.9 Hypothyroidism, unspecified Yuko Varn, N.P. 03/22/2019 G43.719 Chronic migraine without aura, intractable, Bryan Winston M.D. without status m Plan of Treatment Future Appointment(s):12/31/2019 9:30 am - Bryan Winston M.D. at [facility]10/01/2019 3:45 pm - Bryan Winston M.D. at [facility]07/16/2019 - Yuko Acuña NAna LauraP.I10 Essential ( primary) hypertensionComments:For your high blood pressure: Continue with your current medication. I would like you to continue to monitor your blood pressure at home. If you find your readings are consistently elevated over 140/90, please give the office a call.B35.1 Tinea unguiumNew Labs:Liver Function Panel, Ordered: 07/16/19Comments:For your toenail fungus I refilled your prescription for terbinafine. Please get your blood work done. I will contact you with your results.J01.90 Acute sinusitis, unspecifiedNew Medication:Amoxicillin/ Clavulanate Potassium 875-125 mg - one tablet by mouth twice daily for 10 daysComments:For your sinus infection: I sent a prescription for Augmentin to the pharmacy. Take 1 tablet every 12 hours until they are gone. Take this with a little food. Use the saline nasal spray.Z12.31 Encounter for screening mammogram for malignant neoplasm of breastComments:I have ordered your routine screening mammogram. The imaging department will give you your results at the time of your visit. I encourage you to do self exams. If you should notice any masses or thickening, please give the office a call.K92.1 MelenaNew Labs: CBC Auto Diff, Ordered: 07/16/19Comments:I have referred you to a GI specialist for further evaluation of your rectal bleeding.Referral:Jonna Horne NP, Family/[employer] Functional Status Description No Information Available Mental Status Description No Information Available Referrals Refer to Reason for Referral Status Appt Date Jonna Horen NP Patient with bright red bleeding off and on Created /00/ 0000 unrelated to constipation or even bowel movements. Referred for evaluation. Thank you for seeing htis patient. [address] [place] [address] [phone]
--- OUTSIDE RECORDS SUMMARY | 2019-08-14 15:35 | XMS REPORT | Continuity of Care Document ---
:1965 External Reference #:[id number] Author Name Bryan Winston M.D. (transmitted by agent of provider [facility]) Address [address], [place] [address] Care Team Providers Name Role Phone Bhavya France MD - Neurology Care Team Information Electric Organ Checker Jayshree Cain MD - Obstetrics & Care Team Information Electric Organ Checker [phone] Gynecology Maricarmen Cruz MD - Internal Care Team Information Electric Organ Checker Medicine Erika Davis MD - Pain Medicine Care Team Information Electric Organ Checker [phone] Problems Active Problems Provider Date Migraine without aura Bhavya France M.D. Onset: 03/25/2015 Depressive disorder Stacy Serna M.D. Onset: 07/29/2011 Ezequiel thyroiditis Stacy Srena M.D. Onset: 07/29/2011 Asthma without status asthmaticus Stacy Serna M.D. Onset: 07/24/2012 Inactive Problems Kidney stone Maricarmen Cruz M.D. Onset: 01/01/2019 Inactive: 01/01/2019 Social History Type Date Description Comments Sex Unknown ETOH Use Denies alcohol use Tobacco Use Start: Unknown End: Patient is a former quit 06/29/11 Unknown smoker Recreational Drug Use Denies Drug Use Smoking Status Reviewed: 06/28/19 Patient is a former quit 06/29/11 smoker Exercise Type/Frequency Exercises regularly Allergies, Adverse Reactions, Alerts Description No Known Drug Allergies Medications Active Medications SIG Qnty Indications Ordering Provider Date Levothyroxine Sodium 1 by mouth every 90tabs Yuko Acuña, 06/04/2019 day N.P. 112mcg Tablets Chantix Starting take as directed 30tabs F17.210 Yuko Acuña, 06/01/2019 Month Gopi (0.5 mg by mouth N.P. 0.5mg X 11 & daily x3 days, 1 mg X 42 Tablets 0.5 mg twice a day x 4 days, then 1 mg twice a day up to three months) Losartan 1 by mouth every 30tabs I10 Yuko Cadenaneida, 06/01/2019 Potassium/Hydrochloro day N.P. thiazide 100-25mg Tablets Fluticasone Shake Liquid And 48units H92.03 Yuko Acuña, 06/01/2019 Propionate Use 2 Sprays In N.P. 50mcg/Act Each Nostril Suspension Daily as Needed Terbinafine HCL Take 1 Tablet By 30tabs B35.1 Yuko Acuña, 06/01/2019 250mg Mouth Every Day N.P. Tablets Proair Respiclick inhale 4 times 1units Maricarmen Cruz, 01/01/2019 daily as needed M.D. 108(90Base) mcg/Act Aerosol Sumatriptan Succinate 1/2 to 1 by 12tabs Zackary Prieto, 09/07/2018 mouth as needed N.P. 100mg Tablets migraine max 2/day, max 2 d/wk Flovent HFA 2 puffs twice 36gm Maricarmen Cruz, 11/12/2013 110mcg/Act daily M.D. Aerosol Medications Administered in Office Medication SIG Qnty Indications Ordering Provider Date Injection Onabotulinumtoxin Bryan Hassan M.D. 06/28/2019 1 Unit Injection Injection Onabotulinumtoxin Bryan Hassan M.D. 06/28/2019 1 Unit Injection Injection Onabotulinumtoxin Bryan Hassan M.D. 03/22/2019 1 Unit Injection Injection Matthewabotulinumtoxin Bryan Hassan M.D. 12/25/2018 1 Unit Injection Injection Matthewabotulinumsandritaxin Bryan Hassan M.D. 09/07/2018 1 Unit Injection Injection Matthewabotulinumsandritaxin Bryan Hassan M.D. 06/06/2018 1 Unit Injection Injection Onabotulinumtoxin Bryan Hassan M.D. 03/02/2018 1 Unit Injection Depomedrol 40MG Dalia He M.D. 12/19/2015 Injection Injection,Lidocaine HCL For Khanh Lau M.D. 02/27/2014 Intravenous Infusion,10 MG Injection Immunizations CPT Code Status Date Vaccine Lot # [id number] Given 06/18/2014 Tdap - Tetanus/Diptheria/Acellular Pertussis [id number] Given 06/18/2014 Influenza Virus Vaccine, Quadrivalent, Split, [id number] Preservative Free Vital Signs Date Vital Result Comment 06/28/2019 1:27pm Height 64.5 inches 5'4.50" Weight 188.00 lb BP Systolic 110 mmHg BP Diastolic 84 mmHg BMI (Body Mass Index) 31.8 kg/m2 06/01/2019 12:12pm Height 64.5 inches 5'4.50" Heart Rate 78 /min BP Systolic 151 mmHg BP Diastolic 92 mmHg Body Temperature 97.3 F O2 % BldC Oximetry 98 % Results Test Date Facility Test Result H/L Range Note Liver Function 06/01/2019 [facility] Total Protein 7.1 g/dL Normal 6.4-8.9 [place] [address] [phone] Albumin 4.4 g/dL Normal 3.2-5.2 Globulin 2.7 g/dL Normal 2-4 Albumin/Globulin Ratio 1.6 Normal 1-3 Total Bilirubin 0.30 mg/dL Normal 0.2-1.0 Direct Bilirubin 0.10 mg/dL Normal 0.03-0.18 Indirect Bilirubin 0.2 mg/dL Low 0.3-1.0 Alkaline Phosphatase 75 U/L Normal 34-104 Alt 26 U/L Normal 7-52 Ast 20 U/L Normal 13-39 Laboratory 06/01/2019 [facility] TSH (Thyroid 9.53 High 0.34- 5.[address] Stim Horm) mcIU/[place] [address] [phone] Lipid Profile 01/01/2019 [facility] Triglycerides 72 mg/dL 1 (Trig/Chol/HDL [place] ) [place] [address] [phone] Cholesterol 181 mg/dL 2 HDL Cholesterol 52.2 mg/dL 3 LDL Cholesterol 114 mg/dL 4 Laboratory test 01/01/2019 [facility] Glucose 91 mg/dL Normal 70-100 [address] [place] [address] [phone] 1 Desirable: <150 Borderline High: 150-199 High: 200-499 Very High: >500 2 Desirable: <200 Borderline High: 200-239 High: >239 3 Low: <40 Desirable: 40-60 High: >60 4 Desirable: <100 Near Optimal: 100-129 Borderline High: 130-159 High: 160-189 Very High: >189 5 FASTING 10 HOUR Procedures Date Code Description Status 06/28/2019 87289 Chemodenervation Of Muscles Innervated By Facial Completed Nerves, Bilat 03/22/2019 84805 Chemodenervation Of Muscles Innervated By Facial Completed Nerves, Bilat 04/08/2016 64122762 Colonoscopy Completed 03/12/2016 [id number] Mammogram Completed 07/04/2014 [id number] Mammogram Completed 06/12/2013 [id number] Mammogram Completed Medical Devices Description No Information Available Encounters Type Date Location Provider Dx Diagnosis Office Visit 06/01/2019 [facility] Internal Yuko Acuña, Z63.4 Disappearance and 11:20a Medicine - [facility] N.P. of family member F17.210 Nicotine dependence, cigarettes, uncomplicated I10 Essential (primary) hypertension H92.03 Otalgia, bilateral B35.1 Tinea unguium E03.9 Hypothyroidism, unspecified Office Visit 01/01/2019 9:20a [facility] Internal Maricarmen Z00.00 [facility]tr for Medicine - Luis Cruz M.D. general adult medical exam w/o abnormal findings Z12.31 Encntr screen mammogram for malignant neoplasm of breast Assessments Date Code Description Provider 06/28/2019 G43.719 Chronic migraine without aura, intractable, Bryan Winston M.D. without status m 06/01/2019 Z63.4 Disappearance and of family member Yuko Acuña, N.P. 06/01/2019 F17.210 Nicotine dependence, cigarettes, Yuko Acuña, N.P. uncomplicated 06/01/2019 I10 Essential (primary) hypertension Yuko Acuña, N.P. 06/01/2019 H92.03 Otalgia, bilateral Yuko Acuña, N.P. 06/01/2019 B35.1 Tinea unguium Yuko Acuña, N.P. 06/01/2019 E03.9 Hypothyroidism, unspecified Yuko Acuña, N.P. 03/22/2019 G43.719 Chronic migraine without aura, intractable, Bryan Winston M.D. without status m 01/01/2019 Z00.00 Encounter for general adult medical Maricarmen Cruz M.D. examination without abno 01/01/2019 Z12.31 Encounter for screening mammogram for Maricarmen Cruz M.D. malignant neoplasm of Plan of Treatment Future Appointment(s):12/31/2019 9:30 am - Bryan Winston M.D. at [facility]07/09/2019 10:00 am - Yuko Acuña, N.P. at [facility] Internal Medicine - [facility]10/01/2019 3:45 pm - Bryan Winston M.D. at [facility]06/28/2019 - Bryan Winston M.D.G43.719 Chronic migraine without aura, intractable, without status mFollow up:Follow up in 3 months Functional Status Description No Information Available Mental Status Description No Information Available Referrals Description No Information Available
== END 2019-08-11 17:00 | disposition home or self-care (01) ==
LOC: ED 12:47
DX: S02.2XXA Fracture of nasal bones, initial encounter for closed fracture (principal); S06.0X9A Concussion with loss of consciousness of unspecified duration, initial encounter; Y04.2XXA Assault by strike against or bumped into by another person, initial encounter; Y92.199 Unspecified place in other specified residential institution as the place of occurrence of the external cause; Y99.0 Civilian activity done for income or pay; E07.9 Disorder of thyroid, unspecified; I10 Essential (primary) hypertension; J45.909 Unspecified asthma, uncomplicated; Z90.710 Acquired absence of both cervix and uterus; Z87.891 Personal history of nicotine dependence; M50.30 Other cervical disc degeneration, unspecified cervical region
CPT/HCPCS: 70450; 70486; 72125; 99281; A9270-GY

== ENCOUNTER 2019-09-10 18:11 | Emergency (ER) | payer OTHER ==
--- OUTSIDE RECORDS SUMMARY | 2019-09-10 18:25 | XMS REPORT | Continuity of Care Document ---
:1965 External Reference #:[id number] Author Name Johnathan Tse M.D. (transmitted by agent of provider Luciana Montes) Address [address] [place] [address] Care Team Providers Name Role Phone Maricarmen Cruz M.D. Care Team Information Electrical Repairer [phone] Lalo Chowdary MD, MPH - Care Team Information Electrical Repairer [phone] Occupational Medicine Problems Description No Information Available Social History Type Date Description Comments Sex Unknown Tobacco Use Start: Unknown End: Unknown Former Cigarette Smoker ETOH Use Never used alcohol Recreational Drug Use Never Used Drugs Allergies, Adverse Reactions, Alerts Description No Known Drug Allergies Medications Active Medications SIG Qnty Indications Ordering Provider Date Levothyroxine Sodium 1 by mouth every Unknown 112mcg day Tablets B/P Medication Unknown Amrix Unknown 15mg Caps ER 24HR Proair HFA 2puffs four Unknown 108(90Base) times a day as mcg/Act Aerosol needed for sob Botox q 3 months Unknown 100Unit Solution Rec Immunizations Description No Information Available Vital Signs Date Vital Result Comment 08/22/2019 2:37pm Weight 193.00 lb Height 64 inches 5'4" BMI (Body Mass Index) 33.1 kg/m2 BP Systolic 142 mmHg BP Diastolic 89 mmHg Heart Rate 64 /min O2 % BldC Oximetry 98 % Body Temperature 98.8 F Pain Level 8 Results Description No Information Available Procedures Description No Information Available Medical Devices Description No Information Available Encounters Description No Information Available Assessments Description No Information Available Plan of Treatment No Information Available Functional Status Description No Information Available Mental Status Description No Information Available Referrals Description No Information Available
--- OUTSIDE RECORDS SUMMARY | 2019-09-10 18:25 | XMS REPORT | Continuity of Care Document ---
:1965 External Reference #:[id number] Author Name Yuko Acuña N.P. (transmitted by agent of provider Angela Mazariegos) Address [address] [place] [address] Care Team Providers Name Role Phone Bhavya France MD - Neurology Care Team Information Acute Care Certified Nursing Assistant Jayshree Cain MD - Obstetrics & Care Team Information Acute Care Certified Nursing Assistant Gynecology Maricarmen Cruz MD - Internal Care Team Information Acute Care Certified Nursing Assistant Medicine Erika Davis MD - Pain Medicine Care Team Information Acute Care Certified Nursing Assistant [phone] Problems Active Problems Provider Date Migraine without [...] Use Denies Drug Use Smoking Status Reviewed: 08/14/19 Patient is a former quit 06/29/11 smoker Exercise Type/Frequency Exercises regularly Allergies, Adverse Reactions, Alerts Active Allergies Reaction Severity Comments Date Fluticasone Propionate nose bleed 07/16/2019 Inactive Allergies NKDA 07/29/2011 NKDA 06/01/2019 Medications Active Medications SIG Qnty Indications Ordering Provider Date Levothyroxine Sodium 1 by mouth every 90tabs Maricarmen Cruz 06/04/2019 lea EscobarAna Laura 112mcg Tablets Losartan 1 by mouth every 90tabs I10 Yuko Cadenaneida, 06/01/2019 Potassium/Hydrochlorot day N.P. hiazide 100-25mg Tablets Terbinafine HCL take 1 tablet by 90tabs B35.1 Yuko Cadenaneida, 06/01/2019 250mg mouth every day N.P. Tablets Proair Respiclick inhale 4 times 1units Yuko Domenico, 01/01/2019 daily as needed N.P. 108(90Base) mcg/Act Aerosol Sumatriptan Succinate 1/2 to 1 by 12tabs Zackarydavid Prieto, 09/07/2018 mouth as needed N.P. 100mg Tablets migraine max 2/day, max 2 d/wk Flovent HFA 2 puffs twice 36gm Yuko Domenico, 11/12/2013 110mcg/Act daily N.P. Aerosol History Medications Amoxicillin/Clavulanate one tablet by 20tabs J01.90 Yuko 07/16/2019 - Potassium mouth twice Varn, N.P. 07/26/2019 875-125mg Tablets daily for 10 days Chantix Starting Month Gopi take as 30tabs F17.210 Combine 06/01/2019 - 0.5mg X 11 directed (0.5 Varn, N.P. 07/13/2019 & 1 mg X 42 Tablets mg by mouth daily x3 days, 0.5 mg twice a day x 4 days, then 1 mg twice a day up to three months) Fluticasone Propionate Shake Liquid 48units H92.03 Combine 06/01/2019 - 50mcg/Act And Use 2 Varn, N.P. 07/15/2019 Suspension Sprays In Each Nostril Daily as Needed Medications Administered in Office Medication SIG Qnty Indications Ordering Provider Date Injection Onabotulinumtoxin Bryan Hassan M.D. 06/28/2019 1 Unit Injection Injection Matthewabotulinumsandritaxin Bryan Hassan M.D. 03/22/2019 1 Unit Injection Injection MatthewabotulinumBryan Prado M.D. 12/25/2018 1 Unit Injection Injection Onabotulinumtoxin Bryan Hassan M.D. 09/07/2018 1 Unit Injection Injection Onabotulinumtoxin A, Bryan Winston M.D. 06/06/2018 1 Unit Injection Injection Onabotulinumtoxin A, Bryan Winston M.D. 03/02/2018 1 Unit Injection Depomedrol 40MG Dalia He M.D. 12/19/2015 Injection Injection,Lidocaine HCL For Khanh Lau M.D. 02/27/2014 Intravenous Infusion,10 MG Injection Immunizations CPT Code Status Date Vaccine Lot # [id number] Given 06/18/2014 Tdap - Tetanus/Diptheria/Acellular Pertussis [id number] Given 06/18/2014 Influenza Virus Vaccine, Quadrivalent, Split, [id number] Preservative Free Vital Signs Date Vital Result Comment 08/14/2019 3:26pm Height 64.5 inches 5'4.50" Weight 189.00 lb Heart Rate 84 /min BP Systolic Sitting 120 mmHg BP Diastolic Sitting 74 mmHg Body Temperature 97.9 F O2 % BldC Oximetry 95 % BMI (Body Mass Index) 31.9 kg/m2 07/16/2019 11:34am Height 64.5 inches 5'4.50" Weight 187.00 lb Per Pt. Heart Rate 64 /min BP Systolic Sitting 127 mmHg Rue lg cuff BP Diastolic Sitting 87 mmHg Rue lg cuff O2 % BldC Oximetry 98 % BMI (Body Mass Index) 31.6 kg/m2 Results Test Acquired Date Facility Test Result H/L Range Note CBC Auto 07/16/2019 [facility] White Blood 6.6 10^3/uL Normal 3.5-10.[address] [place] [address] [phone] Red Blood Count 4.58 10^6/uL Normal 3.70-4.87 Hemoglobin 13.0 g/dL Normal 12.0-16.0 Hematocrit 39 % Normal 35-47 Mean Corpuscular Volume 84 fL Normal 80-97 Mean Corpuscular Hemoglobin 28 pg Normal 27-31 Mean Corpuscular HGB Conc 34 g/dL Normal 31-36 Red Cell Distribution Width 14 % Normal 10-15 Platelet Count 379 10^3/uL Normal 150-450 Mean Platelet Volume 6.5 fL Low 7.4-10.4 Abs Neutrophils 4.3 10^3/uL Normal 1.5-7.7 Abs Lymphocytes 1.7 10^3/uL Normal 1.0-4.8 Abs Monocytes 0.3 10^3/uL Normal 0-0.8 Abs Eosinophils 0.2 10^3/uL Normal 0-0.6 Abs Basophils 0.1 10^3/uL Normal 0-0.2 Abs Nucleated RBC 0.0 10^3/uL Granulocyte % 65.4 % Lymphocyte % 25.2 % Monocyte % 4.6 % Eosinophil % 3.5 % Basophil % 1.3 % Nucleated Red Blood Cells % 0.1 Liver Function 07/16/2019 [facility] Total Protein 7.4 g/dL Normal 6.4-8.[address] [place] [address] [phone] Albumin 4.4 g/dL Normal 3.2-5.2 Globulin 3.0 g/dL Normal 2-4 Albumin/Globulin Ratio 1.5 Normal 1-3 Total Bilirubin 0.50 mg/dL Normal 0.2-1.0 Direct Bilirubin 0.10 mg/dL Normal 0.03-0.18 Indirect Bilirubin 0.4 mg/dL Normal 0.3-1.0 Alkaline Phosphatase 75 U/L Normal 34-104 Alt 25 U/L Normal 7-52 Ast 19 U/L Normal 13-39 Laboratory 07/16/2019 [facility] TSH (Thyroid 0.60 Normal 0.34 -5.[address] Stim Horm) mcIU/[place] [address] [phone] Liver Function 06/01/2019 [facility] Total 7.1 g/dL Normal 6.4 -8.[address] [place] [address] [phone] Albumin 4.4 g/dL Normal 3.2-5.2 Globulin 2.7 g/dL Normal 2-4 Albumin/Globulin Ratio 1.6 Normal 1-3 Total Bilirubin 0.30 mg/dL Normal 0.2-1.0 Direct Bilirubin 0.10 mg/dL Normal 0.03-0.18 Indirect Bilirubin 0.2 mg/dL Low 0.3-1.0 Alkaline Phosphatase 75 U/L Normal 34-104 Alt 26 U/L Normal 7-52 Ast 20 U/L Normal 13-39 Laboratory test 06/01/2019 [facility] TSH (Thyroid 9.53 High 0.34-5.[address] Stim Horm) mcIU/[place] [address] [phone] Procedures Date Code Description Status 06/28/2019 57538 Chemodenervation Of Muscles Innervated By Facial Completed Nerves, Bilat 03/22/2019 69874 Chemodenervation Of Muscles Innervated By Facial Completed Nerves, Bilat 04/08/2016 06016638 Colonoscopy Completed 03/12/2016 [id number] Mammogram Completed 07/04/2014 [id number] Mammogram Completed 06/12/2013 [id number] Mammogram Completed Medical Devices Description No Information Available Encounters Type Date Location Provider Dx Diagnosis Office Visit 07/16/2019 [facility] Internal Yuko Acuña, I10 Essential (primary ) 11:20a Medicine - [facility] N.P. hypertension B35.1 Tinea unguium J01.90 Acute sinusitis, unspecified Z12.31 Encntr screen mammogram for malignant neoplasm of breast K92.1 Lily Office Visit 06/01/2019 11:20a [facility] Internal Yuko Acuña, Z63.4 Disappearance and Medicine - N.P. of family [facility] member F17.210 Nicotine dependence, cigarettes, uncomplicated I10 Essential (primary) hypertension H92.03 Otalgia, bilateral B35.1 Tinea unguium E03.9 Hypothyroidism, unspecified Assessments Date Code Description Provider 07/16/2019 I10 Essential (primary) hypertension Yuko Varn, N.P. 07/16/2019 B35.1 Tinea unguium Yuko Varn, N.P. 07/16/2019 J01.90 Acute sinusitis, unspecified Yuko Varn, N.P. 07/16/2019 Z12.31 Encounter for screening mammogram for Yuko Varn, N.P. malignant neoplasm of breast 07/16/2019 K92.1 Lily Yuko Varn, N.P. 06/28/2019 G43.719 Chronic migraine without aura, [...] 9:30 am - Bryan Winston M.D. at [facility]10/01/2019 3:45 pm - Bryan Winston M.D. at [facility] Functional Status Description No Information Available Mental Status Description No Information Available Referrals Refer to Dr Reason for Referral Status Appt Date Eder Mandujano MD Patient with nasal fracture referred for Created evaluation. [address] [place] [address] [phone] Jonna Horne NP Patient with bright red bleeding off and on Sent 2018 unrelated to constipation or even bowel movements. Referred for evaluation. Thank you for seeing htis patient. [address] [place] [address] [phone]
--- OUTSIDE RECORDS SUMMARY | 2019-09-10 18:25 | XMS REPORT | Continuity of Care Document ---
:1965 External Reference #:[id number] Author Name Jose Alberto Payne M.D. Address [address] [place] [address] Care Team Providers Name Role Phone Maricarmen Cruz M.D. - Internal Care Team Information Animal Ride Attendant [phone] Medicine Bryan Winston M.D. - Neurology Care Team Information Animal Ride Attendant Problems Active Problems Provider Date Hypothyroidism Cindy Cortes O.D. Onset: 03/28/2015 Anxiety Cindy Cortes O.D. Onset: 03/28/2015 Migraine Cindy Cortes O.D. Onset: 03/28/2015 Headache Cindy Cortes O.D. 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 Onset: 11/19/2016 Corneal opacity Cindy Cortes O.D. Onset: 11/19/2016 Asthma Onset: Hypertension Onset: Presbyopia Jose Alberto Payne M.D. Onset: 08/28/2019 Hypermetropia Jose Alberto Payne M.D. Onset: 08/28/2019 Social History Type Date Description Comments Sex Unknown ETOH Use Rarely consumes alcohol Recreational Drug Use Denies Drug Use Tobacco Use Start: Unknown End: Patient is a former smoker quit 2010 Unknown Smoking Status Reviewed: 08/28/19 Patient is a former smoker quit 2010 Allergies, Adverse Reactions, Alerts Description No Known Drug Allergies Medications Active Medications SIG Qnty Indications Ordering Provider Date Rewetting Drops as needed Cindy Navarro 11/30/2017 Solution Pia Cortes Levothyroxine Sodium Unknown 75mcg Tablets Flovent HFA as needed Jose Alberto Jenkins 110mcg/Act M.DAna Laura Aerosol Losartan Potassium Maricarmen Cruz 50mg M.D. Tablets Sumatriptan Succinate Take 1/2 To 1 Unknown 100mg Tablet By Mouth Tablets as Needed For Migraine, Maximum Of 2 Tablets Daily,2 Days A Week Immunizations Description No Information Available Vital Signs Description No Information Available Results Description No Information Available Procedures Description No Information Available Medical Devices Description No Information Available Encounters Description No Information Available Assessments Date Code Description Provider 08/28/2019 R51 Headache Jose Alberto Payne M.D. 08/28/2019 G43.101 Migraine with aura, not intractable, with Jose Alberto Payne M.D. status migrainosus 08/28/2019 H52.03 Hypermetropia, bilateral Jose Alberto Payne M.D. 08/28/2019 H52.4 Presbyopia Jose Alberto Payne M.D. Plan of Treatment Future Appointment(s):12/24/2019 11:30 am - Cindy Cortes O.D. at Jose Alberto Payne MD, 08/28/2019 - Jose Alberto Payne M.D.R51 HeadacheComments:Smoking can increase the risk of developing or worsening any eye related disease, as well as affect your overall health. If you are a smoker, we strongly recommend that you quit.If you are not a smoker, we strongly recommend that you do not start. You have a headache that is not eye related. Please follow up with your primary care doctor.G43.101 Migraine with aura, not intractable, with status migrainosusComments:These may or may not be accompanied by a headache. As long as the frequency and symptoms are exactlythe same each time, there is no need for further work up. If your symptoms change, I suggest your contact this office or your primary care physician.H52.03 Hypermetropia, bilateralComments: You have Hyperopia, or far sightedness, I have given you a prescription for glasses.H52.4 PresbyopiaComments:You have presbyopia. This is when the lens in your eye loses the ability to change focus, and happens as we age. A pair of reading glasses will help you see up close. Functional Status Description No Information Available Mental Status Description No Information Available Referrals Description No Information Available
--- OUTSIDE RECORDS SUMMARY | 2019-09-10 18:25 | XMS REPORT | Continuity of Care Document ---
:1965 External Reference #:[id number] Author Name Reba Mckeon M.D., FACP (transmitted by agent of provider Janina Manzo) Address [address] [place] [address] Care Team Providers Name Role Phone Bhavya France MD - Neurology Care Team Information Assisted Living Director [phone] Jayshree Cain MD - Obstetrics & Care Team Information Assisted Living Director Gynecology Maricarmen Cruz MD - Internal Care Team Information Assisted Living Director Medicine Erika Davis MD - Pain Medicine Care Team Information Assisted Living Director [phone] Lalo Chowdary MD - Occupational Care Team Information Assisted Living Director Medicine Problems Active Problems Provider Date Migraine without [...] Use Denies Drug Use Smoking Status Reviewed: 08/15/19 Patient is a former quit 06/29/11 smoker Exercise Type/Frequency Exercises regularly Allergies, Adverse Reactions, Alerts Description No Known Drug Allergies Medications Active Medications SIG Qnty Indications Ordering Provider Date Tramadol HCL 1 by mouth q8 21tabs S09.90xA Reba Mckeon, 08/15/2019 50mg Tablets hours prn M.D., FACP Levothyroxine Sodium 1 by mouth every 90tabs Maricarmen Anthony, 06/04/2019 day M.D. 112mcg Tablets Losartan 1 by mouth every 90tabs I10 Yuko Varneida, 06/01/2019 Potassium/Hydrochlorot day N.P. hiazide 100-25mg Tablets Terbinafine HCL take 1 tablet by 90tabs B35.1 Yuko Varn, 06/01/2019 250mg mouth every day N.P. Tablets [...] Medications Amoxicillin/Clavulanate one tablet by 20tabs J01.90 [place] 07/16/2019 - Potassium mouth twice Varn, N.P. 07/26/2019 875-125mg Tablets daily for 10 days Chantix Starting Month Gopi take as 30tabs F17.210 [place] 06/01/2019 - 0.5mg X 11 directed (0.5 Varn, N.P. 07/13/2019 & 1 mg X 42 Tablets mg by mouth daily x3 days, 0.5 mg twice a day x 4 days, then 1 mg twice a day up to three months) Fluticasone Propionate Shake Liquid 48units H92.03 [place] 06/01/2019 - 50mcg/Act And Use 2 Varn, N.P. 07/15/2019 Suspension Sprays In Each Nostril Daily as Needed Medications Administered in Office Medication SIG Qnty Indications Ordering Provider Date Injection Onabotulinumtoxin Bryan Hassan M.D. 06/28/2019 1 Unit Injection Injection Onabotulinumtoxin Bryan Hassan M.D. 03/22/2019 1 Unit Injection Injection Onabotulinumtoxin MoBryan M.D. 12/25/2018 1 Unit Injection Injection Onabotulinumtoxin ABryan M.D. 09/07/2018 1 Unit Injection Injection Onabotulinumtoxin Bryan Hassan M.D. 06/06/2018 1 Unit Injection Injection Onabotulinumtoxin Bryan Hassan M.D. 03/02/2018 1 Unit Injection Depomedrol 40MG Dalia He M.D. 12/19/2015 Injection Injection,Lidocaine HCL For Khanh Lau M.D. 02/27/2014 Intravenous Infusion,10 MG Injection Immunizations CPT Code Status Date Vaccine Lot # [id number] Given 06/18/2014 Tdap - Tetanus/Diptheria/Acellular Pertussis [id number] Given 06/18/2014 Influenza Virus Vaccine, Quadrivalent, Split, [id number] Preservative Free Vital Signs Date Vital Result Comment 08/15/2019 9:23am Height 64.5 inches 5'4.50" Heart Rate 78 /min BP Systolic Sitting 119 mmHg BP Diastolic Sitting 85 mmHg Body Temperature 97.2 F O2 % BldC Oximetry 95 % 08/14/2019 3:26pm Height 64.5 inches 5'4.50" Weight 189.00 lb Heart Rate 84 /min BP Systolic Sitting 120 mmHg BP Diastolic Sitting 74 mmHg Body Temperature 97.9 F O2 % BldC Oximetry 95 % BMI (Body Mass Index) 31.9 kg/m2 Results Test Acquired Date Facility Test Result H/L Range Note CBC Auto 07/16/2019 [facility] White Blood 6.6 10^3/uL Normal 3.5-10.[address] [place] [address] [phone] Red Blood Count 4.58 10^6/uL Normal 3.70-4.87 [...] Blood Cells % 0.1 Liver Function 07/16/2019 [facility] Total Protein 7.4 g/dL Normal 6.4-8.[address] [place] [address] [phone] Albumin 4.4 g/dL Normal 3.2-5.2 Globulin 3.0 g/dL Normal 2-4 Albumin/Globulin Ratio 1.5 Normal 1-3 Total Bilirubin 0.50 mg/dL Normal 0.2-1.0 Direct Bilirubin 0.10 mg/dL Normal 0.03-0.18 Indirect Bilirubin 0.4 mg/dL Normal 0.3-1.0 Alkaline Phosphatase 75 U/L Normal 34-104 Alt 25 U/L Normal 7-52 Ast 19 U/L Normal 13-39 Laboratory 07/16/2019 [facility] TSH (Thyroid 0.60 Normal 0.34 -5.60 test finding [address] Stim Horm) mcIU/[place] [address] [phone] Liver Function 06/01/2019 [facility] Total 7.1 g/dL Normal 6.4 -8.[address] [place] [address] [phone] Albumin 4.4 g/dL Normal 3.2-5.2 Globulin 2.7 g/dL Normal 2-4 Albumin/Globulin Ratio 1.6 Normal 1-3 Total Bilirubin 0.30 mg/dL Normal 0.2-1.0 Direct Bilirubin 0.10 mg/dL Normal 0.03-0.18 Indirect Bilirubin 0.2 mg/dL Low 0.3-1.0 Alkaline Phosphatase 75 U/L Normal 34-104 Alt 26 U/L Normal 7-52 Ast 20 U/L Normal 13-39 Laboratory test 06/01/2019 [facility] TSH (Thyroid 9.53 High 0.34-5.[address] Stim Horm) mcIU/[place] [address] [phone] Procedures Date Code Description Status 06/28/2019 32101 Chemodenervation Of Muscles Innervated By Facial Completed Nerves, Bilat 03/22/2019 73610 Chemodenervation Of Muscles Innervated By Facial Completed Nerves, Bilat 04/08/2016 [id number] Colonoscopy Completed 03/12/2016 [id number] Mammogram Completed 07/04/2014 [id number] Mammogram Completed 06/12/2013 [id number] Mammogram Completed Medical Devices Description No Information Available Encounters Type Date Location Provider Dx Diagnosis Office Visit 07/16/2019 [facility] Internal Yuko Acuña, I10 Essential (primary ) 11:20a Medicine - [facility] N.P. hypertension B35.1 Tinea unguium J01.90 Acute sinusitis, unspecified Z12.31 Encntr screen mammogram for malignant neoplasm of breast K92.1 [place] Office Visit 06/01/2019 11:20a [facility] Internal Yuko Acuña, Z63.4 Disappearance and Medicine - N.P. of family Ccmob member F17.210 Nicotine dependence, cigarettes, uncomplicated I10 Essential (primary) hypertension H92.03 Otalgia, bilateral B35.1 Tinea unguium E03.9 Hypothyroidism, unspecified Assessments Date Code Description Provider 08/15/2019 S09.90xA Unspecified injury of head, initial Reba Mckeon M.D., FACP encounter 08/15/2019 M54.2 Cervicalgia Reba Mckeon M.D., FACP 07/16/2019 I10 Essential (primary) hypertension Yuko Varn, N.P. 07/16/2019 B35.1 Tinea unguium Yuko Cadenan, N.P. 07/16/2019 J01.90 Acute sinusitis, unspecified Yuko Varn, N.P. 07/16/2019 Z12.31 Encounter for screening mammogram for Yuko Cadenan, N.P. malignant neoplasm of breast 07/16/2019 K92.1 [place] Yuko Cadenan, N.P. 06/28/2019 G43.719 Chronic migraine without aura, Bryan Winston M.D. intractable, without status m 06/01/2019 Z63.4 Disappearance and of family member Yuko Acuña, N.P. 06/01/2019 F17.210 Nicotine dependence, cigarettes, Yuko Acuña, N.P. uncomplicated 06/01/2019 I10 Essential (primary) hypertension Yuko Domenico, N.P. 06/01/2019 H92.03 Otalgia, bilateral Yuko Cadenaneida, N.P. 06/01/2019 B35.1 Tinea unguium Yuko Domenico, N.P. 06/01/2019 E03.9 Hypothyroidism, unspecified Yuko Domenico, N.P. 03/22/2019 G43.719 Chronic migraine without aura, Bryan Winston M.D. intractable, without status m Plan of Treatment Future Appointment(s):12/31/2019 9:30 am - Bryan Winston M.D. at [facility]10/01/2019 3:45 pm - Bryan Winston M.D. at [facility]08/15/2019 - Reba Mckeon M.D., FACPS09.90xA Unspecified injury of head, initial encounterNew Medication:Tramadol HCL 50 mg - 1 by mouth q8 hours prnComments:HEAD INJURY:You sustained a mild traumatic brain injury.Do call back if you experience any symptoms of visual disturbance, headache, excessive sleepiness or confusion. I understand that you were given# 10 tabs of hydrocodone at the Emergency Department. I have sent in an rx for tramadol to [facility].Referral:Lalo Chowdary MD, Occu/Envir Med/ LdrcehorxzH72.2 CervicalgiaNew Therapy:Physical TherapyComments:NECK PAIN:I suspect there is a large component of muscle spasm. Ice may provide more durable reliefthan heat. You might also benefit from range of motion exercises as well as therapeutic ultrasound or a TENS unit. We will generate a referral to PT. Functional Status Description No Information Available Mental Status Description No Information Available Referrals Refer to Reason for Referral Status Appt Date Lalo Chowdary MD WC: head injury sustained 08/11, seen in [facility]. [address] [place] [address] [phone] Eder Mandujano MD Patient with nasal fracture referred for Sent evaluation. [address] [place] [address] [phone] Jonna Horne NP Patient with bright red bleeding off and on Sent 2018 unrelated to constipation or even bowel movements. Referred for evaluation. Thank you for seeing htis patient. [address] [place] [address] [phone]
--- OUTSIDE RECORDS SUMMARY | 2019-09-10 18:25 | XMS REPORT | Continuity of Care Document ---
:1965 External Reference #:[id number] Author Name Reba Mckeon M.D., FACP (transmitted by agent of provider Janina Manzo) Address [address] [place] [phone] Care Team Providers Name Role Phone Bhavya France MD - Neurology Care Team Information Machine Shop Helper Jayshree Cain MD - Obstetrics & Care Team Information Machine Shop Helper Gynecology Maricarmen Cruz MD - Internal Care Team Information Machine Shop Helper Medicine Erika Davis MD - Pain Medicine Care Team Information Machine Shop Helper [phone] Llao Chowdary MD - Occupational Care Team Information Machine Shop Helper Medicine Problems Active Problems Provider Date Migraine [...] Medications Amoxicillin/Clavulanate one tablet by 20tabs J01.90 [place] 07/16/2019 - Potassium mouth twice Varn, N.P. 07/26/2019 875-125mg Tablets daily for 10 days Chantix Starting Month Gopi take as 30tabs F17.210 [place] 06/01/2019 - 0.5mg X 11 directed (0.5 Varn, N.P. 07/13/2019 & 1 mg X 42 Tablets mg by mouth daily x3 days, 0.5 mg twice a day x 4 days, then 1 mg twice a day up to three months) Fluticasone Propionate Shake Liquid 48units H92.03 [place] 06/01/2019 - 50mcg/Act And Use 2 Varn, N.P. 07/15/2019 Suspension Sprays In Each Nostril Daily as Needed Medications Administered in Office Medication SIG Qnty Indications Ordering Provider Date Injection Onabotulinumtoxin Bryan Hasasn M.D. 06/28/2019 1 Unit Injection Injection Onabotulinumtoxin [...] CPT Code Status Date Vaccine Lot # [id number] Given 06/18/2014 Tdap - Tetanus/Diptheria/Acellular Pertussis [id number] Given 06/18/2014 Influenza Virus Vaccine, Quadrivalent, Split, [id number] Preservative Free Vital Signs Date Vital Result [...] Result H/L Range Note CBC Auto 07/16/2019 [facility] White Blood 6.6 10^3/uL Normal 3.5-10.[address] [place] [address] [phone] Red Blood Count 4.58 10^6/uL Normal 3.70-4.87 [...] Blood Cells % 0.1 Liver Function 07/16/2019 [facility] Total Protein 7.4 g/dL Normal 6.4-8.[address] [place] [address] [phone] Albumin 4.4 g/dL Normal 3.2-5.2 Globulin 3.0 g/dL Normal 2-4 Albumin/Globulin Ratio 1.5 Normal 1-3 Total Bilirubin 0.50 mg/dL Normal 0.2-1.0 Direct Bilirubin 0.10 mg/dL Normal 0.03-0.18 Indirect Bilirubin 0.4 mg/dL Normal 0.3-1.0 Alkaline Phosphatase 75 U/L Normal 34-104 Alt 25 U/L Normal 7-52 Ast 19 U/L Normal 13-39 Laboratory 07/16/2019 [facility] TSH (Thyroid 0.60 Normal 0.34 -5.60 test finding [address] Stim Horm) mcIU/[place] [address] [phone] Liver Function 06/01/2019 [facility] Total 7.1 g/dL Normal 6.4 -8.[address] [place] [address] [phone] Albumin 4.4 g/dL Normal 3.2-5.2 Globulin 2.7 g/dL Normal 2-4 Albumin/Globulin Ratio 1.6 Normal 1-3 Total Bilirubin 0.30 mg/dL Normal 0.2-1.0 Direct Bilirubin 0.10 mg/dL Normal 0.03-0.18 Indirect Bilirubin 0.2 mg/dL Low 0.3-1.0 Alkaline Phosphatase 75 U/L Normal 34-104 Alt 26 U/L Normal 7-52 Ast 20 U/L Normal 13-39 Laboratory test 06/01/2019 [facility] TSH (Thyroid 9.53 High 0.34-5.[address] Stim Horm) mcIU/[place] [address] [phone] Procedures Date Code Description Status 06/28/2019 48944 Chemodenervation Of Muscles Innervated By Facial Completed Nerves, Bilat 03/22/2019 62715 Chemodenervation Of Muscles Innervated By Facial Completed Nerves, Bilat 04/08/2016 [id number] Colonoscopy Completed 03/12/2016 [id number] Mammogram Completed 07/04/2014 [id number] Mammogram Completed 06/12/2013 [id number] Mammogram Completed Medical Devices Description No Information Available Encounters Type Date Location Provider Dx Diagnosis Office Visit 07/16/2019 [facility] Internal Yuko Acuña, I10 Essential (primary ) 11:20a Medicine - [facility] N.P. hypertension B35.1 Tinea unguium J01.90 Acute sinusitis, unspecified Z12.31 Encntr screen mammogram for malignant neoplasm of breast K92.1 [place] Office Visit 06/01/2019 11:20a [facility] Internal Yuko Acuña, Z63.4 Disappearance and Medicine [...] 9:30 am - Bryan Winston M.D. at [facility]10/01/2019 3:45 pm - Bryan Winston M.D. at [facility]08/15/2019 - Reba Mckeon M.D., FACPS09.90xA Unspecified injury [...] sent in an rx for tramadol to [facility].Referral:Lalo Chowdary MD, Occu/Envir Med/ PktrvtlcbjM58.2 CervicalgiaNew Therapy:Physical TherapyComments:NECK PAIN:I suspect there is [...] 08/11, seen in [facility]. [address] [place] [address] [phone] Eder Mandujano MD Patient with nasal fracture referred for Sent evaluation. [address] [place] [address] [phone] Jonna Horne NP Patient with bright red bleeding off and on Sent 2018 unrelated to constipation or even bowel movements. Referred for evaluation. Thank you for seeing htis patient. [address] [place] [id number] [phone]
--- OUTSIDE RECORDS SUMMARY | 2019-09-10 18:25 | XMS REPORT | Continuity of Care Document ---
:1965 External Reference #:[id number] Author Name Jonna Horne NP (transmitted by agent of provider Becky Garcia) Address [address] [place] [address] Care Team Providers Name Role Phone Bhavya France MD - Neurology Care Team Information Hand Hide Stretcher Jayshree Cain MD - Obstetrics & Care Team Information Hand Hide Stretcher Gynecology Maricarmen Cruz MD - Internal Care Team Information Hand Hide Stretcher Medicine Erika Davis MD - Pain Medicine Care Team Information Hand Hide Stretcher [phone] Lalo Chowdary MD - Occupational Care Team Information Hand Hide Stretcher Medicine Problems Active Problems Provider Date Migraine [...] Use Denies Drug Use Smoking Status Reviewed: 08/27/19 Patient is a former quit 06/29/11 smoker [...] take 1 tablet by 90tabs B35.1 Yuko Domenico, 06/01/2019 250mg mouth every day N.P. Tablets [...] Medications Amoxicillin/Clavulanate one tablet by 20tabs J01.90 [place] 07/16/2019 - Potassium mouth twice Varn, N.P. 07/26/2019 875-125mg Tablets daily for 10 days Chantix Starting Month Gopi take as 30tabs F17.210 [place] 06/01/2019 - 0.5mg X 11 directed (0.5 Varn, N.P. 07/13/2019 & 1 mg X 42 Tablets mg by mouth daily x3 days, 0.5 mg twice a day x 4 days, then 1 mg twice a day up to three months) Fluticasone Propionate Shake Liquid 48units H92.03 [place] 06/01/2019 - 50mcg/Act And Use 2 Varn, N.P. 07/15/2019 Suspension Sprays In Each Nostril Daily as Needed Medications Administered in Office Medication SIG Qnty Indications Ordering Provider Date Injection Onabotulinumtoxin Bryan Hassan M.D. 06/28/2019 1 Unit Injection Injection Onabotulinumtoxin Bryan Hassan M.D. 03/22/2019 1 Unit Injection Injection Onabotulinumtoxin Bryan Hassan M.D. 12/25/2018 1 Unit Injection Injection Onabotulinumtoxin Bryan Hassan M.D. 09/07/2018 1 Unit Injection Injection Onabotulinumtoxin Bryan Hassan M.D. 06/06/2018 1 Unit Injection Injection Onabotulinumtoxin Bryan Hassan M.D. 03/02/2018 1 Unit Injection Depomedrol 40MG Dalia He M.D. 12/19/2015 Injection Injection,Lidocaine HCL For Khanh Lau M.D. 02/27/2014 Intravenous Infusion,10 MG Injection Immunizations CPT Code Status Date Vaccine Lot # [id number] Given 06/18/2014 Tdap - Tetanus/Diptheria/Acellular Pertussis [id number] Given 06/18/2014 Influenza Virus Vaccine, Quadrivalent, Split, [id number] Preservative Free Vital Signs Date Vital Result Comment 08/27/2019 3:11pm Height 64.5 inches 5'4.50" Heart Rate 71 /min BP Systolic 122 mmHg Lue BP Diastolic 78 mmHg Lue O2 % BldC Oximetry 97 % room air 08/15/2019 9:23am Height 64.5 inches 5'4.50" Heart Rate 78 /min BP Systolic Sitting 119 mmHg BP Diastolic Sitting 85 mmHg Body Temperature 97.2 F O2 % BldC Oximetry 95 % Results Test Acquired Date Facility Test Result H/L Range Note CBC Auto 07/16/2019 [facility] White Blood 6.6 10^3/uL Normal 3.5-10.[address] [place] [address] [phone] Red Blood Count 4.58 10^6/uL Normal 3.70-4.87 [...] Blood Cells % 0.1 Liver Function 07/16/2019 [facility] Total Protein 7.4 g/dL Normal 6.4-8.[address] [place] [address] [phone] Albumin 4.4 g/dL Normal 3.2-5.2 Globulin 3.0 g/dL Normal 2-4 Albumin/Globulin Ratio 1.5 Normal 1-3 Total Bilirubin 0.50 mg/dL Normal 0.2-1.0 Direct Bilirubin 0.10 mg/dL Normal 0.03-0.18 Indirect Bilirubin 0.4 mg/dL Normal 0.3-1.0 Alkaline Phosphatase 75 U/L Normal 34-104 Alt 25 U/L Normal 7-52 Ast 19 U/L Normal 13-39 Laboratory 07/16/2019 [facility] TSH (Thyroid 0.60 Normal 0.34 -5.[address] Stim Horm) mcIU/[place] [address] [phone] Liver Function 06/01/2019 [facility] Total 7.1 g/dL Normal 6.4 -8.9 Panel 101 [facility] [place] [address] [phone] Albumin 4.4 g/dL Normal 3.2-5.2 Globulin 2.7 g/dL Normal 2-4 Albumin/Globulin Ratio 1.6 Normal 1-3 Total Bilirubin 0.30 mg/dL Normal 0.2-1.0 Direct Bilirubin 0.10 mg/dL Normal 0.03-0.18 Indirect Bilirubin 0.2 mg/dL Low 0.3-1.0 Alkaline Phosphatase 75 U/L Normal 34-104 Alt 26 U/L Normal 7-52 Ast 20 U/L Normal 13-39 Laboratory test 06/01/2019 [facility] TSH (Thyroid 9.53 High 0.34-5.[address] Stim Horm) mcIU/[place] [address] [phone] Procedures Date Code Description Status 08/06/2019 [id number] Mammogram Completed 06/28/2019 69222 Chemodenervation Of Muscles Innervated By Facial Completed Nerves, Bilat 03/22/2019 69635 Chemodenervation Of Muscles Innervated By Facial Completed Nerves, Bilat 04/08/2016 [id number] Colonoscopy Completed 03/12/2016 [id number] Mammogram Completed 07/04/2014 [id number] Mammogram Completed 06/12/2013 [id number] Mammogram Completed Medical Devices Description No Information Available Encounters Type Date Location Provider Dx Diagnosis Office Visit 08/15/2019 [facility] Internal Reba Mckeon, S09.90xA [facility]specified injury 9[facility], initial encounter M54.2 Cervicalgia Office Visit 07/16/2019 11:20a [facility] Internal Yuko Acuña, I10 Essential ( primary) Medicine - Ccmob N.P. hypertension B35.1 Tinea unguium J01.90 Acute sinusitis, unspecified Z12.31 Encntr screen mammogram for malignant neoplasm of breast K92.1 [place] Office Visit 06/01/2019 11:20a [facility] Internal Yuko Acuña, Z63.4 Disappearance and Medicine - N.P. of family Ccmob member F17.210 Nicotine dependence, cigarettes, uncomplicated I10 Essential (primary) hypertension H92.03 Otalgia, bilateral B35.1 Tinea unguium E03.9 Hypothyroidism, unspecified Assessments Date Code Description Provider 08/15/2019 S09.90xA Unspecified injury of head, initial Reba Mckeon M.D., FACP encounter 08/15/2019 M54.2 Cervicalgia Reba Mckeon M.D., FACP 08/14/2019 S02.2xxA Fracture of nasal bones, initial Yuko Acuña, N.P. encounter for closed fracture 08/14/2019 S06.0x0A Concussion without loss of consciousness, Yuko Acuña , N.P. initial encounter 07/16/2019 I10 Essential (primary) hypertension Yuko Acuña, N.P. 07/16/2019 B35.1 Tinea unguium Yuko Cadenan, N.P. 07/16/2019 J01.90 Acute sinusitis, unspecified Yuko Cadenan, N.P. 07/16/2019 Z12.31 Encounter for screening mammogram for Yuko Acuña, N.P. malignant neoplasm of breast 07/16/2019 K92.1 Lily Huntley Domenico, N.P. 06/28/2019 G43.719 Chronic migraine without aura, Bryan Winston M.D. intractable, without status m 06/01/2019 Z63.4 Disappearance and of family member Yuko Acuña, N.P. 06/01/2019 F17.210 Nicotine dependence, cigarettes, Yuko Cadenaneida, N.P. uncomplicated 06/01/2019 I10 Essential (primary) hypertension Yuko Cadenaneida, N.P. 06/01/2019 H92.03 Otalgia, bilateral Yuko Cadenaneida, N.P. 06/01/2019 B35.1 Tinea unguium Yuko Cadenaneida, N.P. 06/01/2019 E03.9 Hypothyroidism, unspecified Yuko Cadenan, N.P. 03/22/2019 G43.719 Chronic migraine without aura, Bryan Winston M.D. intractable, without status m Plan of Treatment Future Appointment(s):10/01/2019 10:30 am - Bryan [facility] M[facility]. at [id number]/31/2019 9:30 am - Bryan Winston M.D. at [facility] Functional Status Description No Information Available Mental Status Description No Information Available Referrals Refer to Reason for Referral Status Appt Date Lalo Chowdary MD WC: head injury sustained 08/11, seen in Sent 2018 Emergency Department. [address] [place] [address] [phone] Eder Mandujano MD Patient with nasal fracture referred for Closed 00/00/ 0000 evaluation. 2 [place] [id number] [phone] Jonna Horne NP Patient with bright red bleeding off and on Sent 11/14/ 2019 unrelated to constipation or even bowel movements. Referred for evaluation. Thank you for seeing htis patient. [address] [place] [address] [phone]
--- OUTSIDE RECORDS SUMMARY | 2019-09-10 18:25 | XMS REPORT | Continuity of Care Document ---
:1965 External Reference #:[id number] Author Name Yuko Acuña N.P. (transmitted by agent of provider Angela Mazariegos) Address [address], [place] [address] Care Team Providers Name Role Phone Bhavya France MD - Neurology Care Team Information Lotteries Agent Jayshree Cain MD - Obstetrics & Care Team Information Lotteries Agent Gynecology Maricarmen Cruz MD - Internal Care Team Information Lotteries Agent Medicine Erika Davis MD - Pain Medicine Care Team Information Lotteries Agent [phone] Problems Active Problems Provider Date Migraine without [...] Starting Month Gopi take as 30tabs F17.210 [place] 06/01/2019 - 0.5mg X 11 directed (0.5 Varn, N.P. 07/13/2019 & 1 mg X 42 Tablets mg by mouth daily x3 days, 0.5 mg twice a day x 4 days, then 1 mg twice a day up to three months) Fluticasone Propionate Shake Liquid 48units H92.03 [place] 06/01/2019 - 50mcg/Act And Use 2 Varn, [...] CPT Code Status Date Vaccine Lot # [id number] Given 06/18/2014 Tdap - Tetanus/Diptheria/Acellular Pertussis [id number] Given 06/18/2014 Influenza Virus Vaccine, Quadrivalent, Split, [id number] Preservative Free Vital Signs Date Vital Result [...] Result H/L Range Note CBC Auto 07/16/2019 [facility] White Blood 6.6 10^3/uL Normal 3.5-10.[address] [place] [address] [phone] Red Blood Count 4.58 10^6/uL Normal 3.70-4.87 [...] Blood Cells % 0.1 Liver Function 07/16/2019 [facility] Total Protein 7.4 g/dL Normal 6.4-8.[address] [place] [address] [phone] Albumin 4.4 g/dL Normal 3.2-5.2 Globulin 3.0 g/dL Normal 2-4 Albumin/Globulin Ratio 1.5 Normal 1-3 Total Bilirubin 0.50 mg/dL Normal 0.2-1.0 Direct Bilirubin 0.10 mg/dL Normal 0.03-0.18 Indirect Bilirubin 0.4 mg/dL Normal 0.3-1.0 Alkaline Phosphatase 75 U/L Normal 34-104 Alt 25 U/L Normal 7-52 Ast 19 U/L Normal 13-39 Laboratory 07/16/2019 [facility] TSH (Thyroid 0.60 Normal 0.34 -5.[address] Stim Horm) mcIU/[place] [address] [phone] Liver Function 06/01/2019 [facility] Total 7.1 g/dL Normal 6.4 -8.[address] [place] [address] [phone] Albumin 4.4 g/dL Normal 3.2-5.2 Globulin 2.7 g/dL Normal 2-4 Albumin/Globulin Ratio 1.6 Normal 1-3 Total Bilirubin 0.30 mg/dL Normal 0.2-1.0 Direct Bilirubin 0.10 mg/dL Normal 0.03-0.18 Indirect Bilirubin 0.2 mg/dL Low 0.3-1.0 Alkaline Phosphatase 75 U/L Normal 34-104 Alt 26 U/L Normal 7-52 Ast 20 U/L Normal 13-39 Laboratory test 06/01/2019 [facility] TSH (Thyroid 9.53 High 0.34-5.[address] Stim Horm) mcIU/[place] [address] [phone] Procedures Date Code Description Status 06/28/2019 47389 Chemodenervation Of Muscles Innervated By Facial Completed Nerves, Bilat 03/22/2019 60850 Chemodenervation Of Muscles Innervated By Facial Completed Nerves, Bilat 04/08/2016 57783176 Colonoscopy Completed 03/12/2016 [id number] Mammogram Completed 07/04/2014 [id number] Mammogram Completed 06/12/2013 [id number] Mammogram Completed Medical Devices Description No Information Available Encounters Type Date Location Provider Dx Diagnosis Office Visit 07/16/2019 [facility] Internal Yuko Acuña, I10 Essential (primary ) 11:20a Medicine - Ccmob N.P. hypertension B35.1 Tinea unguium J01.90 Acute sinusitis, unspecified Z12.31 Encntr screen mammogram for malignant neoplasm of breast K92.1 Lily Office Visit 06/01/2019 11:20a [facility] Internal Yuko Acuña, Z63.4 Disappearance and Medicine [...] Varn, N.P. 06/01/2019 B35.1 Tinea unguium Yuko Cadenan, N.P. 06/01/2019 E03.9 Hypothyroidism, unspecified Yuko Cadenan, N.P. 03/22/2019 G43.719 Chronic migraine without aura, intractable, Bryan Winston M.D. without status m Plan of Treatment Future Appointment(s):08/15/2019 9:00 am - Reba Mckeon M.D., FACP at [facility] Internal Medicine - [facility]12/31/2019 9:30 am - Bryan Winston M.D. at [facility]10/01/2019 3:45 pm - Bryan Winston M.D. at [facility] Functional Status Description No Information Available Mental Status Description No Information Available Referrals Refer to Reason for Referral Status Appt Date Eder Mandujano MD Patient with nasal fracture referred for Created evaluation. [address] [place] [address] [phone] Jonna Horne NP Patient with bright red bleeding off and on Sent 2018 unrelated to constipation or even bowel movements. Referred for evaluation. Thank you for seeing htis patient. [address] [place] [id number] [phone]
[2019-09-10] MEDS ORDERED: Ketorolac INJ* 30 MG/ML 1 ML VIAL IV ONE (19:15)
[2019-09-10] MEDS ORDERED: NS 0.9% 1000 ML** 1,000 ML IV ONE (19:15)
[2019-09-10] MEDS ORDERED: Metoclopramide IV* 5 MG/ML 2 ML VIAL IV SLOW PU ONE (19:15)
[2019-09-10] MEDS ORDERED: Magnesium Sulfate 1 GM IV* 1 GM/100 ML BAG IV ONE (19:15)
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
[2019-09-10] MEDS ORDERED: Ondansetron INJ* 2 MG/ML VIAL IV ONE (20:51)
[2019-09-10 21:17] VITALS: BP 155/92
== END 2019-09-10 21:16 | disposition home or self-care (01) ==
LOC: ED 18:11
DX: G43.509 Persistent migraine aura without cerebral infarction, not intractable, without status migrainosus (principal); E03.9 Hypothyroidism, unspecified; I10 Essential (primary) hypertension; J45.909 Unspecified asthma, uncomplicated; Z90.710 Acquired absence of both cervix and uterus; Z87.891 Personal history of nicotine dependence; Z79.890 Hormone replacement therapy; Z79.899 Other long term (current) drug therapy
CPT/HCPCS: 96365; 96375; 99282; J1885; J2405; J2765; J3475